=== PATIENT | female | born 1990 | race Caucasian/White ===

== ENCOUNTER 2023-07-30 12:20 | Observation (INO) | payer BC, SELFPAY ==
--- NOTE | ~2023-07-30 | US_ITS ---
EXAMINATION: US OB <=14 wk fetus w TV DATE: 07/30/2023 15:26 INDICATION: Pelvic pain during first trimester TECHNIQUE: Real-time pelvic ultrasound utilizing both a transvaginal and transabdominal probe was pe rformed. The interpreting radiologist was not present for the study. COMPARISON: None. FINDINGS: The uterus measures 9.2 x 5.1 x 5.4 cm. There is a section scar along the anterior lower jamul rine segment. 7 mm anechoic nabothian cyst at the cervix. There is an intrauterine gestational sac wi th double decidua sign and internal yolk sac but no measurable pole yet evident. The mean sac d iameter measures 1.3 cm, which correlates with an estimated gestational age of 6 weeks and 0 days. The left ovary measures 2.2 x 2.1 x 1.7 cm contains a thick-walled centrally anechoic likely corpus l uteum cyst. Vascular flow identified at the left ovary on color Doppler. The right ovary is not visua lized. There appears be a small amount of anechoic free fluid along the anterior uterus and along tomas e the left ovary. IMPRESSION: 1. Single intrauterine gestational sac with yolk sac but no discernible pole likely due to michele y stage of . 2. Gestational age by ultrasound of 6 weeks 0 day(s) +/- 4 day(s) with ultrasound estimated date of delivery (NU) of 03/24/2024. Reviewed, dictated and finalized at location A. IMPRESSION: 1. Single intrauterine gestational sac with yolk sac but no discernible p ole likely due to early stage of . 2. Gestational age by ultrasound of 6 weeks 0 day(s) +/- 4 day(s) with ultraso und estimated date of delivery (NU) of 03/24/2024.
[2023-07-30 12:24] VITALS: BP 129/83; PULSE 100; RESP 18; TEMP 36.6; O2SAT 100
[2023-07-30 12:38] LABS: Basophils Absolute Auto 0.1 K/mm3 (0.0-0.1); Basophils Percent Auto 0.5 % (0.2-1.2); Eosinophils Absolute Auto 0.1 K/mm3 (0-0.3); Eosinophils Percent Auto 0.7 % (0-4.4); Hematocrit 41.3 % (37.0-47.0); Hemoglobin 13.7 g/dL (12.0-15.0); Immature Granulocyte Absolute 0.07 K/mm3 (0.00-0.031); Immature Granulocyte Percent A 0.6 % (0-0.5); Lymphocytes Absolute Auto 3.53 K/mm3 (0.9-3.2); Lymphocytes Percent Auto 28.3 % (18.3-44.2); Mean Corpuscular HGB Conc 33.2 g/dl (32-36); Mean Corpuscular Hemoglobin 30.7 pg (26-34); Mean Corpuscular Volume 92.6 fl (80-100); Mean Platelet Volume 9.1 fl (7.4-10.4); Monocytes Absolute Auto 1.1 K/mm3 (0.1-0.6); Neutrophils Absolute Auto 7.6 K/mm3 (1.3-6.7); Neutrophils Percent Auto 60.9 % (45.5-73.1); Platelet Count Result 351 k/mm3 (150-375); Red Blood Count 4.46 M/mm3 (4.2-5.4); Red Cell Distribution Width 14.2 % (11.5-14.5); White Blood Count 12.5 K/mm3 (4.5-10.0)
[2023-07-30 12:49] LABS: Alanine Aminotransferase 43 U/L (6-35); Albumin Level 4.3 g/dL (3.5-5.1); Alkaline Phosphatase 79 U/L (38-126); Anion Gap 8 mmol/L (4-12); Aspartate Amino Transferase 34 U/L (14-36); Bilirubin,Total 0.5 mg/dL (0.2-1.3); Blood Urea Nitrogen 8 mg/dL (7-17); Carbon Dioxide 20 mmol/L (22-30); Chloride 107 mmol/L (98-107); Estimated CRCL calculation 125 ml/min; Estimated Glomerular Filt Rate > 60; Glucose 78 mg/dL (65-110); Lipase 65 U/L (23-300); Potassium 3.9 mmol/L (3.4-5.0); Sodium 135 mmol/L (137-145)
[2023-07-30 13:31] LABS: Appearance Urine Sl Cloudy (Clear); Bacteria Urine None Seen /hpf; Bilirubin Urine Negative (Negative); Blood Urine Negative (Negative); Color Urine Light Yellow (Yellow); Glucose Urine UA Negative (Negative); Ketones Urine Negative (Negative); Leukocyte Esterase Ur Negative LEU/UL (Negative); Nitrate Urine Negative (Negative); Non Pathogenic Casts 0-2; Protein Urine Negative (Negative); RBC Urine 0-2 /hpf (0-2); Squamous Epithelial Cell Urine Few /hpf (Few); Urobilinogen Urine 0.2 mg/dL (0.2-1.0); WBC Urine 0-5 /hpf (0-3)
[2023-07-30 13:34] LABS: Add Urine Microscopic? YES
--- NOTE | 2023-07-30 14:01 | ED.ABDPAIN ---
HPI - Abdominal Pain General Chief Complaint: Abdominal Pain Stated Complaint: pelvic pain Time Seen by Provider: 07/30/23 13:09 Source: patient Mode of arrival: ambulatory Limitations: no limitations History of Present Illness HPI narrative: This is a 32 year old female that presents to the ER for right sided pelvic pain. Worsening over the last couple of days. Reports the pain is sharp in nature. Worse with certain positions. Denies fever, vomiting, dysuria or hematuria. Related Data Allergies Allergy/AdvReac Type Severity Reaction Status Date / Time ketorolac [From Toradol] Allergy Difficulty Verified 07/30/23 13:33 Breathing Penicillins Allergy Rash Verified 07/30/23 13:33 Review of Systems Review of Systems: CONSTITUTIONAL: Denies fever GASTROINTESTINAL: Reports abdominal pain, nausea. Denies vomiting, or diarrhea. GENITOURINARY: Denies dysuria All systems reviewed & are unremarkable except as noted in HPI and below PMFSH Past Medical History Medical History (Updated 07/30/23 @ 17:44 by Kaitlin Owens PA-C) History of anxiety Social History Social History (Updated 07/30/23 @ 17:32 by Kaitlin Owens PA-C) Substance use: never Exam Narrative: GENERAL: Well-appearing, well-nourished, and in no acute distress. HEAD: Normocephalic, atraumatic. EYES: EOMI. CHEST: Clear to auscultation. No respiratory distress. No wheezes rales or rhonchi HEART: Regular rate and rhythm. No murmur heard. Normal peripheral pulses. ABDOMEN: Soft, nondistended, normal active bowel sounds. Tender to palpation in the right lower quadrant, without guarding EXTREMITIES: Normal range of motion. No edema. SKIN: Warm, dry, no rash. NEURO: No focal deficits. Alert and oriented x3. PSYCH: Normal mood and affect Course Course Emergency Course: patient updated on her workup and agrees with plan of care Vital Signs Vital signs: Vital Signs Temperature 97.9 F 07/30/23 12:24 Pulse Rate 100 07/30/23 12:24 Respiratory Rate 18 07/30/23 12:24 Blood Pressure 129/83 07/30/23 12:24 Pulse Oximetry 100 07/30/23 12:24 Temperature 97.9 F 07/30/23 12:24 Pulse Rate 100 07/30/23 12:24 Respiratory Rate 18 07/30/23 12:24 Blood Pressure 129/83 07/30/23 12:24 Pulse Oximetry 100 07/30/23 12:24 MDM - Abdominal Pain MDM Narrative Medical decision making narrative: Patient presents to the emergency department for right lower quadrant abdominal pain ongoing over the last couple of days. She is afebrile and nontoxic appearing. Her vitals are stable. Bedside test positive in the ED. reports her last menstrual period was in May, but she has abnormal menstrual cycles. CBC with leukocytosis to 12.5. Metabolic panel and lipase without concerning findings. Quantitative beta hCG 11, 635. UA without evidence of infection. Obstetrics ultrasound shows single intrauterine gestational sac with yolk sac, but no discernible pole. Gestational age 6 weeks. Patient with continued discomfort after Tylenol. She does continue to be tender on abdominal exam as well. Will be admitted for further observation. Spoke with Dr. Lambert about patient and workup. Patient will be kept NPO and started on IV fluids Differential Diagnosis Differential diagnosis: Likely acute appendicitis, calculus of kidney and other ( ovarian cyst rupture, ovarian torsion, ectopic ) Lab Data Attestation: I reviewed the patient's lab results. 07/30/23 12:30 07/30/23 12:30 Labs: Lab Results 07/30/23 07/30/23 Range/Units 12:30 13:20 WBC 12.5 H (4.5-10.0) K/mm3 RBC 4.46 (4.2-5.4) M/mm3 Hgb 13.7 (12.0-15.0) g/dL Hct 41.3 (37.0-47.0) % MCV 92.6 (80-100) fl MCH 30.7 (26-34) pg MCHC 33.2 (32-36) g/dl RDW 14.2 (11.5-14.5) % Plt Count 351 (150-375) k/mm3 MPV 9.1 (7.4-10.4) fl Immature Gran % (Auto) 0.6 H (0-0.5) % Neut % (Auto) 60.9
--- NOTE | 2023-07-30 15:23 | PC.NURSE ---
patient refusing IV access at this time. provider aware. will await results of US
[2023-07-30] MEDS: ACETAMINOPHEN 500 MG TABLET 1000 MG PO (16:09)
[2023-07-30] MEDS: ONDANSETRON HCL ODT 4 MG TABLET PO (16:10)
[2023-07-30] MEDS: MORPHINE SULFATE (*CRX) 2 MG/ML INJ IV PUSH ×3 (17:47→22:18)
[2023-07-30] MEDS: LACTATED RINGERS 1,000 ML 125 ML IV CONT (17:55)
[2023-07-30 18:35] VITALS: BP 126/83; PULSE 78; RESP 16; O2SAT 98
--- NOTE | 2023-07-30 18:49 | PC.NURSE ---
patient admitted with IV fluids infusing
--- NOTE | 2023-07-30 18:53 | ADMGEN ---
This patient, Kylie Marks, was admitted to 3 [facility] Surg Room 310-01. Patient/family oriented to hospital policies and general routines including ID bracelet, bed and alarms, visiting hours, pain management, procedures, bathroom and other care routines, personal items, smoking policy, room service/diet, and visiting hours. Information on how to activate the Rapid Response Team has been discussed. Patient/Family are encouraged to report perceived risks to care and to ask questions if they do not understand what they are told or what they should do.
[2023-07-30 19:55] VITALS: BP 121/86; PULSE 75; RESP 16; TEMP 37.2; O2SAT 99
[2023-07-30] MEDS: ONDANSETRON INJ 4 MG/2 ML VIAL IV PUSH ×2 (20:26→21:30)
[2023-07-30 21:34] VITALS: BMI 44.4
[2023-07-30] MEDS: CEFEPIME 2 GM/NS 50 ML 2 GM/50 ML BAG IVPB (23:53)
[2023-07-30] MEDS: metroNIDAZOLE 500 MG/ISO 100ML 500 MG/100 ML BAG 100 MG IVPB (23:53)
[2023-07-31] MEDS: MORPHINE SULFATE (*CRX) 4 MG/ML INJ IV PUSH ×2 (00:36→05:05)
[2023-07-31 04:22] VITALS: BP 98/53; PULSE 83; RESP 18; TEMP 36.1; O2SAT 99
[2023-07-31] MEDS: LACTATED RINGERS 1,000 ML 125 ML IV CONT ×2 (05:05→16:14)
--- NOTE | 2023-07-31 06:36 | PC.NURSE ---
Pt has LP shunt, brand name Zazoomm programmable valve. Patient has electronic copy of verification card on phone. Pump's pressure settings must be verified after MRI and MRI staff unsure at this time if that is something we are able to do here.
--- NOTE | 2023-07-31 07:41 | PM.IMHP ---
H&P: HPI History of Present Illness Date/Time: 07/31/23 07:41 Chief Complaint: Abdominal/pelvic pain in early Narrative: 32-year-old 011 who presented to the emergency room with right lower quadrant abdominal pain. Patient had had a dull aching pain for the past several days. Patient states she had acute exacerbation of that pain. Patient states it was a sharp pain in nature. Patient denied any aggravating or alleviating factors. Patient did complain of associated nausea patient also states she is having diarrhea prior to the onset of the pain. She denies any fevers or chills. Patient was incidentally found to be in the emergency room. Patient states this is an unplanned . Patient is 13 months from her last . Patient had an ultrasound in the emergency room which estimates her to be approximately 6 weeks . There is an intrauterine gestational sac and yolk sac but no pole mention. Some free fluid was noted within the pelvis. her pain was not resolved with p.o. medications in the emergency room. Review of Systems Review of Systems: All systems reviewed & are unremarkable except as noted in HPI and below PMFSH Past Medical History Medical History (Updated 07/31/23 @ 07:46 by Manuel Lambert MD) History of anxiety Social History Social History (Updated 07/30/23 @ 17:32 by Kaitlin Owens PA-C) Smoking status: Never smoker Alcohol intake: current Substance use: current Substance use type: marijuana Other substance usage details: gummies for sleep Do You Feel Safe in your Home?: Yes Lack of Transportation: No Lack of Food: Never True Current Housing: I Have Housing Concerned About Future Housing: No Difficulty Paying Gas/Electric Bills: No Difficulty Paying for Meds: No Currently Unemployed: No Education: Associate Degree Difficulty w/ Childcare or Family Care: No Spiritual care concerns: No Meds Home Medications and Allergies Home Medications Medication Instructions Recorded Confirmed Type No Home Medications 07/30/23 07/30/23 History Allergies Allergy/AdvReac Type Severity Reaction Status Date / Time ketorolac [From Toradol] Allergy Difficulty Verified 07/30/23 13:33 Breathing Penicillins Allergy Rash Verified 07/30/23 13:33 Vital Signs Vital Signs - 24 hr 07/30/23 12:24 07/30/23 18:35 03/27/24 18:35 Temperature 97.9 F Pulse Rate 100 78 Respiratory Rate 18 16 Blood Pressure 129/83 126/83 Pulse Oximetry 100 98 Oxygen Delivery 07/30/23 19:58 07/30/23 19:55 07/31/23 04:22 Temperature 99 F 97 F L Pulse Rate 75 83 Respiratory Rate 16 18 Blood Pressure 121/86 98/53 L Pulse Oximetry 99 99 Oxygen Delivery Room Air Exam Const: General: cooperative, comfortable and no acute distress Resp: Effort & Inspection: normal respiratory effort and able to speak in complete sentences Cardio: Rate: regular rate Rhythm: regular rhythm GI: Inspection: normal to inspection GI Palp: Yes abdominal tenderness and Yes Soft to palpation H&P: Results Labs Labs: Short CBC 07/30/23 Range/Units 12:30 WBC 12.5 H (4.5-10.0) K/mm3 Hgb 13.7 (12.0-15.0) g/dL Hct 41.3 (37.0-47.0) % Plt Count 351 (150-375) k/mm3 BMP 07/30/23 12:30 Sodium 135 L Potassium 3.9 Chloride 107 Carbon Dioxide 20 L BUN 8 Creatinine 0.60 L Glucose 78 Calcium 9.0 Liver Function 07/30/23 Range/Units 12:30 Total Bilirubin 0.5 (0.2-1.3) mg/dL AST 34 (14-36) U/L ALT 43 H (6-35) U/L Alkaline Phosphatase 79 (38-126) U/L Albumin 4.3 (3.5-5.1) g/dL Urine 07/30/23 Range/Units 13:20 Urine Color Light yellow (Yellow) Urine Appearance Sl cloudy A (Clear) Urine pH 6.0 (5.0-8.0) Ur Specific Wentworth 1.020 (1.010-1.020) Urine Protein Negative (Negative) Urine Glucose (UA) Negative (Negative) Assessm
[2023-07-31] MEDS: metroNIDAZOLE 500 MG/ISO 100ML 500 MG/100 ML BAG 100 MG IVPB ×2 (08:20→16:15)
[2023-07-31] MEDS: ONDANSETRON INJ 4 MG/2 ML VIAL IV PUSH (08:20)
[2023-07-31 08:25] VITALS: BP 117/84; PULSE 84; RESP 18; TEMP 36.2; O2SAT 95
[2023-07-31 08:58] LABS: Basophils Percent Auto 0.5 % (0.2-1.2); Eosinophils Absolute Auto 0.1 K/mm3 (0-0.3); Eosinophils Percent Auto 0.6 % (0-4.4); Hemoglobin 12.7 g/dL (12.0-15.0); Immature Granulocyte Absolute 0.02 K/mm3 (0.00-0.031); Immature Granulocyte Percent A 0.3 % (0-0.5); Lymphocytes Absolute Auto 1.67 K/mm3 (0.9-3.2); Lymphocytes Percent Auto 21.6 % (18.3-44.2); Mean Corpuscular HGB Conc 32.6 g/dl (32-36); Mean Corpuscular Hemoglobin 30.2 pg (26-34); Mean Corpuscular Volume 92.9 fl (80-100); Mean Platelet Volume 9.4 fl (7.4-10.4); Monocytes Absolute Auto 0.6 K/mm3 (0.1-0.6); Monocytes Percent Auto 7.3 % (2.6-8.5); Neutrophils Absolute Auto 5.4 K/mm3 (1.3-6.7); Neutrophils Percent Auto 69.7 % (45.5-73.1); Platelet Count Result 284 k/mm3 (150-375); Red Cell Distribution Width 14.1 % (11.5-14.5); White Blood Count 7.7 K/mm3 (4.5-10.0)
[2023-07-31 09:26] LABS: Anion Gap 6 mmol/L (4-12); Blood Urea Nitrogen 7 mg/dL (7-17); Calcium 8.4 mg/dL (8.4-10.2); Carbon Dioxide 22 mmol/L (22-30); Chloride 104 mmol/L (98-107); Estimated CRCL calculation 126 ml/min; Estimated Glomerular Filt Rate > 60; Glucose 94 mg/dL (65-110); Potassium 3.8 mmol/L (3.4-5.0); Sodium 132 mmol/L (137-145)
[2023-07-31] MEDS: MORPHINE SULFATE (*CRX) 2 MG/ML INJ IV PUSH (09:39)
--- NOTE | 2023-07-31 10:37 | PM.CNGS ---
Assessment and Plan Assessment and plan (1) Acute right lower quadrant pain: Code(s): R10.31 - Right lower quadrant pain Status: Acute Assessment and Plan: The patient presents with about a 3 week history of cramping right pelvic pain that acutely worsened about 2 days ago. She was found to be 6 weeks gestation on admission due to a positive test in the ER. She does have RLQ tenderness with guarding on exam, and certainly acute appendicitis is a possible etiology for her pain. There are also other etiologies, such as a ruptured ovarian cyst, pelvic inflammatory disease, gastroenteritis, or other possibilities. 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 Her WBC count has come down to normal today, but she continues to have pain this morning that is being controlled with analgesics. I discussed with the patient that typical treatment options for appendicitis include surgery or nonoperative management with antibiotics and monitoring. It would be reasonable at this time to continue with IV antibiotics to cover for acute appendicitis and closely monitor her with labs and serial abdominal exams for now. We will allow her to have a diet today and make her NPO after midnight tomorrow until she is re-evaluated. Will repeat her labs tomorrow morning. Further plan depending on how she progresses. (2) Leukocytosis: Code(s): D72.829 - Elevated white blood cell count, unspecified Status: Acute Assessment and Plan: WBC 12,500 on admission and repeat labs today show a normal WBC count, no left shift. (3) Intrauterine : Code(s): Z34.90 - Encounter for supervision of normal , unspecified, unspecified trimester Status: Acute Assessment and Plan: Incidental positive urine test in the ER. OB Ultrasound showed 6 weeks gestational age. Plan I have discussed the patient's case and plan of care with Dr. Curiel. History of Present Illness Consult details Consult date: 07/31/23 Reason for consult: other (Possible appendicitis) Requesting physician: Manuel Lambert MD Narrative: This is a 32-year-old woman who we have been asked to see in surgical consultation for RLQ abdominal pain, possible appendicitis. She presented to the ER yesterday for evaluation of right pelvic pain. She reports having mild cramping pain intermittently over the past 3 weeks. When describing her pain, she points mostly towards her right groin where the pain is located. About 2 days ago, her pain became more sharp and severe. The pain is worse with certain positions and movement. She reports nausea, but no vomiting, fever, or chills. She reports having chronic nausea and anxiety that she has dealt with for many years. She also endorses a few days of diarrhea leading up to the change in her abdominal pain. In the ER, labs showed a white blood cell count of 12,500. She was found to have an incidental positive urine test in the ER. She reports having irregular menstrual cycles over the past year after delivering her first child, so she had taken a test about 2 weeks ago that was negative. Obstetric ultrasound showed a single intrauterine gestational sac with yolk sac, and gestational age by ultrasound of 6 weeks. Also noted on ultrasound is likely a left ovarian cyst as well as a small amount of free fluid along the anterior uterus and left ovary. She was admitted and started on IV antibiotics. MRI was initially ordered, but patient has a SALES PROMOTION MANAGER shunt that would need to be re-programmed after the MRI by a neurosurgeon. When seen this morning, her abdominal pain had improved and the MRI was cancelled. She is now seen on the medical floor. She reports feeling better this morning, but after getting up to the chair and walking to the bathroom, her abdominal pain got worse again and she received IV Morphine, which jacobsen
[2023-07-31] MEDS: CEFEPIME 2 GM/NS 50 ML 2 GM/50 ML BAG IVPB (11:47)
[2023-07-31 14:00] VITALS: BP 121/89; PULSE 89; RESP 18; TEMP 36.6; O2SAT 97
--- NOTE | 2023-08-01 08:30 | PM.GYNPNOP ---
SLEEVE PRESSER OPERATOR - A/P Assessment and plan (1) Acute right lower quadrant pain: Code(s): R10.31 - Right lower quadrant pain Status: Acute Assessment and Plan: Pt was admitted for observation and pain management of acute RLQ she was incidentally found to be pt was admitted for conservative management of suspected appendicitis. pt requested to leave AMA overnight. (2) Intrauterine : Code(s): Z34.90 - Encounter for supervision of normal , unspecified, unspecified trimester Status: Acute Time Spent With Patient Time: Total time spent is greater than 50% in coordination of care (as documented) at patient's floor/unit and/or counseling patient: Time with patient: less than 15 minutes SLEEVE PRESSER OPERATOR- PN:Subj Post-Op Subjective Date/time seen: 08/01/23 08:30 Interval history: Pt was not willing to stay for further observation. Pt requested to leave AMA. SLEEVE PRESSER OPERATOR - PN: Obj Data Vital Signs Vital Signs: Vital Signs - 24 hr 07/31/23 14:00 Temperature 97.9 F Pulse Rate 89 Respiratory Rate 18 Blood Pressure 121/89 Pulse Oximetry 97 Intake/Output Intake/Output: Intake & Output 07/29/23 07/30/23 07/31/23 08/01/23 23:59 23:59 23:59 23:59 Intake Total 100 3775 Balance 100 3775 Meds/Results Radiology Results: ITS Impressions Obstetrics Ultrasound 07/30/23 15:37 IMPRESSION: 1. Single intrauterine gestational sac with yolk sac but no discernible pole likely due to early stage of . 2. Gestational age by ultrasound of 6 weeks 0 day(s) +/- 4 day(s) with ultrasound estimated date of delivery (NU) of 03/24/2024. Labs 07/31/23 08:46 07/31/23 08:46 Labs: Laboratory Results - last 24 hr 07/31/23 08:46 WBC 7.7 RBC 4.20 Hgb 12.7 Hct 39.0 MCV 92.9 MCH 30.2 MCHC 32.6 RDW 14.1 Plt Count 284 MPV 9.4 Immature Gran % (Auto) 0.3 Neut % (Auto) 69.7 Lymph % (Auto) 21.6 Amador % (Auto) 7.3 Eos % (Auto) 0.6 Baso % (Auto) 0.5 Lymph # (Auto) 1.67 Amador # (Auto) 0.6 Eos # (Auto) 0.1 Baso # (Auto) 0.0 Abs Immat Gran (auto) 0.02 Absolute Neuts (auto) 5.4 Absolute Nucleated RBC 0.000 Nucleated RBC % 0.0 Sodium 132 L Potassium 3.8 Chloride 104 Carbon Dioxide 22 Anion Gap 6 L BUN 7 Creatinine 0.60 L Estim Creat Clear Calc 126 Estimated GFR > 60 Glucose 94 Calcium 8.4
== END 2023-07-31 19:25 | disposition left against medical advice (07) ==
LOC: ANHED 17:44 → ANHLDR 17:57 → ANH3MEDSUR 18:39
PROVIDERS: Emergency Medicine; Nurse Practitioner Family; Admitting Provider Student in an Organized Health Care Education/Training Program; Emergency Provider Physician Assistant; Visit Provider Student in an Organized Health Care Education/Training Program
DX: R10.31 Right lower quadrant pain (principal); D72.829 Elevated white blood cell count, unspecified; R11.0 Nausea; F12.90 Cannabis use, unspecified, uncomplicated; Z33.1 Pregnant state, incidental
CPT/HCPCS: 36415; 76801; 76817; 80048; 80053; 81001; 81025; 83690; 84702; 85025; 96361; 96365; 96366; 96368; 96375; 96376; 99285; A9270; G0378; J0692; J1836; J2270; J2405; J7120

== ENCOUNTER 2025-01-31 10:54 | Emergency (ER) | payer BC, SELFPAY ==
[2025-01-31] VITALS (11 sets, daily range): BP systolic 88–144; BP diastolic 57–101; PULSE 72–120; RESP 14–29; TEMP 36.6; O2SAT 98–100
--- NOTE | ~2025-01-31 | XR_ITS ---
EXAMINATION: XR chest 2V, 01/31/2025 12:20 CDT HISTORY: chest pain COMPARISON: No comparisons available. Technique: 2 views obtained. Findings: The lungs are clear, no effusion. No pneumothorax. Heart is normal size. Mediastinal and hilar contours are within normal limits. Bony thorax no acute abnormality. Impression: No acute cardiopulmonary abnormality. Reviewed, dictated and finalized at location P. Impression: No acute cardiopulmonary abnormality.
--- NOTE | ~2025-01-31 | CT_ITS ---
EXAMINATION: CTA chest PE protocol DATE: 01/31/2025 13:47 INDICATION: Chest pain. TECHNIQUE: Computed tomography angiography (CTA) of the chest was performed with 100 mL Omnipaque-350 intravenous contrast timed to evaluate the pulmonary arteries. Coronal maximum intensity projection 3D-reconstructions were created by the technologist. Automated exposure control and iterative reconstruction technique were employed. The dose-length product was 550.10 mGy-cm. COMPARISON: None. FINDINGS: The lungs demonstrate mild atelectasis. A calcified right lung nodule is consistent with old granulomatous disease. No pleural effusion. The heart size is normal. No pericardial effusion. There is no pulmonary embolus. There is diffuse hepatic steatosis. Partially visualizes a catheter in the peritoneum. Partially visualized is an intrathecal catheter. There is mild thoracic spondylosis. IMPRESSION: 1. No pulmonary embolus. 2. Diffuse hepatic steatosis. Reviewed, dictated and finalized at location E.
--- NOTE | 2025-01-31 10:57 | ECG_ITS ---
Test Date: 2025-01-31 11:02:43 Measurements Intervals [place] Rate: 112 P: 41 NE: 133 QRS: 5 QRSD: 80 T: 19 QT: 316 QTc: 432 Interpretive Statements SINUS TACHYCARDIA WITH OCCASIONAL VENTRICULAR PREMATURE COMPLEXES POSSIBLE LEFT ATRIAL ENLARGEMENT [-0.1mV P WAVE IN V1/V2] ABNORMAL RHYTHM ECG No previous ECG available for comparison Electronically Signed On 01-31-2025 11:13:37 CDT by Yanique Mccain M.D.
[2025-01-31 11:28] LABS: Hematocrit 40.8 % (37.0-47.0); Hemoglobin 13.8 g/dL (12.0-15.0); Immature Granulocyte Percent A 0.3 % (0-0.5); Lymphocytes Absolute Auto 2.84 K/mm3 (0.9-3.2); Mean Corpuscular HGB Conc 33.8 g/dl (32-36); Mean Corpuscular Hemoglobin 29.8 pg (26-34); Mean Corpuscular Volume 88.1 fl (80-100); Nucleated Red Blood Cells Absolute Auto 0.000 K/mm3 (0.0-0.012); Nucleated Red Blood Cells Perc 0.0 % (0.0-0.2); Platelet Count Result 393 k/mm3 (150-375); Red Blood Count 4.63 M/mm3 (4.2-5.4); White Blood Count 10.1 K/mm3 (4.5-10.0)
--- OUTSIDE RECORDS SUMMARY | 2025-01-31 11:36 | XMS_ITS | Encounter Summary ---
Author Organization [facility] Address [address] [place] [address] Care Team Providers Care Ticket Machine Operator Name Role Phone Gilmar Galvan MD Primary Care Provider Encounter Details Date Type Department Care Team (Late Contact Info) Description 07/28/2019 Digital Self COVID-1 9 Screening [facility] ABSTRACTION Provider, Abstract NO ADDRESS ON FILE Social History Tobacco Use Types Packs/Day Years Used Date Smoking Tobacco: Never Smokeless Tobacco: Never Alcohol Use Standard Drinks/Week Comments Yes 1 (1 standard drink = 0.6 oz pur e alcohol) vary rare social use Comments No Sex and Gender Information Value Date Recorded Sex Assigned at Not on file Legal Sex Female 3:13 AM EXPERIENCE DESIGNER Gender Identity Not on file Sexual Orientation Not on file Occupation Industry Job Start Date Job End Date Not on file Not on file Not on file Not on file COVID-19 Exposure Response Date Recorded In the last month, have you been in contact with someone who was confirmed or suspected to have Coronavirus / COVID-19? Yes 07/29/2019 7:52 AM CDT documented as of this encounter Plan of Treatment Upcoming Encounters Date Type Department Care Team (Late Contact Info) Description 02/03/2025 2:30 PM CDT Office Visit [facility] [employer]ODU[facility] - Medical [facility] [address] [place] [phone] Casandra Major MD [address] [place] [id number] 03/02/2025 8:00 AM CDT Video Visit [facility] [address] [place] [address] Priscilla Vera NP [address] [place] [address] documented as of this encounter Visit Diagnoses Not on filedocumented in this encounter Additional Health Concerns Infection Onset Date Last Indicated Resolved Time R/O COVID-19 07/30/2019 07/30/2019 08/04/2019 6:05 AM CDT R/O Respiratory 05/12/2022 05/12/2022 05/12/2022 4 :27 PM EXPERIENCE DESIGNER R/O C. diff 03/11/2024 03/11/2024 03/11/2024 12:4 6 PM EXPERIENCE DESIGNER C Diff 03/11/2024 03/11/2024 05/10/2024 1:16 AM EXPERIENCE DESIGNER Assessment Noted Time PHQ-9 Depression Total Score: 1 03/25/20 19 3:00 PM EXPERIENCE DESIGNER documented as of this encounter Care Teams Ticket Machine Operator Relationship Specialty Start Date End Date Gilmar Galvan MD [address] [place] [address] PCP - General Family Practice 12/09/18 documented as of this encounter
--- OUTSIDE RECORDS SUMMARY | 2025-01-31 11:36 | XMS_ITS | Encounter Summary ---
Author Organization [facility] Address [address] [place] [address] Care Team Providers Care Non Destructive Testing Supervisor Name Role Phone Gilmar Galvan MD Primary Care Provider Encounter Details Date Type Department Care Team (Late st Contact Info) Description 08/13/2006 Outpatient Historical [facility] [address] [address] [place] [address] [place] [address] Social History Tobacco Use Types Packs/Day Years Used Date Smoking Tobacco: Never Assessed Comments Unknown Sex and Gender Information Value Date Recorded Sex Assigned at Not on file Legal Sex Female 3:13 AM MANAGEMENT SPECIALIST Gender Identity Not on file Sexual Orientation Not on file documented as of this encounter Plan of Treatment Upcoming Encounters Date Type Department Care Team (Late st Contact Info) Description 02/03/2025 2:30 PM CDT Office Visit [facility] GUARDIAN FAMILY MEMBER - Medical [place] [address] [place] [address] Casandra Major MD [address] [place] [address] 03/02/2025 8:00 AM CDT Video Visit [facility] [address] [place] [address] Priscilla Vera NP [address] [place] [address] documented as of this encounter Visit Diagnoses Not on filedocumented in this encounter Additional Health Concerns Infection Onset Date Last Indicated Resolved Time R/O COVID-19 07/30/2019 07/30/2019 08/04/2019 6:05 AM CDT R/O Respiratory 05/12/2022 05/12/2022 05/12/2022 4 :27 PM MANAGEMENT SPECIALIST R/O C. diff 03/11/2024 03/11/2024 03/11/2024 12:4 6 PM MANAGEMENT SPECIALIST C Diff 03/11/2024 03/11/2024 05/10/2024 1:16 AM MANAGEMENT SPECIALIST documented as of this encounter Care Teams Non Destructive Testing Supervisor Relationship Specialty Start Date End Date Gilmar Galvan MD [address] [place] [address] PCP - General Family Practice 12/09/18 documented as of this encounter
--- OUTSIDE RECORDS SUMMARY | 2025-01-31 11:36 | XMS_ITS | Clinical Summary ---
Author Organization [facility] Administrative Offices Address [address] [place] [address] Care Team Providers Care [facility] Supervisor Name Role Phone Gilmar Galvan MD Primary Care Provider Allergies Active Allergy Reactions Criticality Noted Date Comments Clonazepam Diarrhea Low 11/29/2022 Ketorolac Tromethamine Shortness of Breath/Wheezing High 07/16/2010 Penicillins Rash Low 03/01/2009 Medications FLUoxetine (PROzac) 40 mg capsuleIndicat ions:ESTHER (generalized anxiety disorder) Take 1 Capsule (40 mg) by mouth daily. 60 Capsule 1 08/25/19 25 Active hydrOXYzine HCL (ATARAX) 50 mg tablet Take 50 mg by mouth 3 times daily as needed for Anxiety. Active venlafaxine (Effexor XR) 37.5 mg Extended Release 24 hour capsuleIndicat ions:ESTHER (generalized anxiety disorder) Take 1 Capsule (37.5 mg) by mouth daily. 30 Capsule 1 01/20/20 25 Active traZODone (DESYREL) 50 mg tablet Take 50 mg by mouth daily at bedtime. 01/25/20 25 Active ALPRAZolam (Xanax) 0.25 mg tabletIndicati ons:ESTHER (generalized anxiety disorder) Take 1 Tablet (0.25 mg) by mouth 1 time daily as needed for Anxiety. 10 Tablet 01/28/20 25 Active ALPRAZolam (Xanax) 0.25 mg tabletIndicati ons:ESTHER (generalized anxiety disorder) Take 1 Tablet (0.25 mg) by mouth 3 times daily as needed for Anxiety. 20 Tablet 04/27/20 24 025 Discontinued ALPRAZolam (Xanax) 0.25 mg tabletIndicati ons:ESTHER (generalized anxiety disorder) Take 1 Tablet (0.25 mg) by mouth 1 time daily as needed for Anxiety. 10 Tablet 05/06/19 25 025 Discontinued ALPRAZolam (Xanax) 0.25 mg tabletIndicati ons:ESTHER (generalized anxiety disorder) Take 1 Tablet (0.25 mg) by mouth 1 time daily as needed for Anxiety. 10 Tablet 01/21/20 25 025 Discontinued(Re order) Active Problems Problem Noted Date Diagnosed Date rLTCS 03/15 Girl Shae SH 03/15/2024 C. difficile colitis 03/12/2024 Vaginal discharge in in third trimeste r 02/20/2024 Gestational diabetes mellitus, class A2 02/20/20 24 pLTCS for AOD, (06/17) boy David circ done, - KG 06/18/2022 Threatened labor, third trimester 2022 Uterine contractions during 05/28/2022 Gestational diabetes mellitus, class A1 05/28/19 23 Infectious gastroenteritis- positive c difficle 12/30/2021 Hydronephrosis 12/24/2021 Fatigue 12/07/2020 Overview (12/07/2020): -Fatigue - feels very tired throughout the day. Work has been very stressful recently. Thinks she is bruising more easily over the past few months, bruises on arms and legs, fairly small. No abdominal bruising. -no temperature intolerance, no hair thinning or brittle nails. Assessment & Plan (12/07/2020 11:19 AM CDT): -Fatigue - feels very tired throughout the day. Work has been very stressful recently. Thinks she is bruising more easily over the past few months, bruises on arms and legs, fairly small. No abdominal bruising. -no temperature intolerance, no hair thinning or brittle nails. -labs as below ESTHER (generalized anxiety disorder) 02/18/2019 Overview (08/24/2024): Anxiety - At visit on 02/18/19 pt reports anxiety is a chronic issue, acutely worse over past few months. Was on lexapro in ~2011, did not think it was very helpful. Does not feel depressed, state she is super anxious. Manifests as easy irritation, emotionally labile, not sleeping well, appetite is normal. -at f/u on 03/25/19 pt reports moderate improvement since starting buspirone 10mg qd on 02/18/19. Feels the buspirone is very helpful. Anxiety seems worst in the late afternoon before she takes the second buspirone dose. Started meditation, does not feel it is very helpful. -denies any side effects. -09/15/19 - Anxiety has steadily worsened over the past two months. Taking buspirone 15mg BID PRN, typically 1-2x daily. Thinks change related to the pandemic is main stressor. Difficulty sleeping, easily irritated. -03/08/20 - anxiety has not been well controlled. Stopped lexapro ~ 01/18/20 because she felt it made her gain weight, thinks mood improved mildly when she was taking it. Stopped buspirone 15mg BID ~10/2019. -06/27/20 - Doing Ok, feels like the wellbutrin is really working. -Taking wellbutrin 150mg qd. Has been off lexapro 10mg qd since ~01/18/20 and off buspirone 15mg BID since ~10/2019. -12/07/20 -Feels mood is well controlled with Wellbutrin XL 150 mg daily. -08/16/21 - mood has been terrible for the past 1-2 months, lots of personal stress recently. super anxious and zero energy, easily irritated. Sleep is OK, maybe sleeps too much. Frequent panic attacks in the past month. I feel like I cant breathe and start crying out of nowhere. -Taking wellbutrin XL 150mg qd 08/20/21- did not tolerate lorazepam (nausea), switched to PRN alprazolam -rx for 20 tablets of alprazolam on 08/20/21 -refilled 20 tablets on 09/10/21, and again on 09/26/21 - will not refill without in person office visit and only if strong indication. 08/09/22- mood is OK. Has a 7 week old baby boy (first child), feels stress levels are OK. Takes wellbutrin [id number] qd -10/23/22 - pt reports she is doing ok, I finally feel like things are getting back to normal. Taking fluoxetine 20mg qd. 11/13/22 - takes fluoxetine 20mg BID, feels this controls symptoms well. 12/06/22 - established care with a psychiatrist, Dr. Carrero. takes fluoxetine 60mg qd and wellbutrin 150mg qd. Has rx for ativan 1mg BID PRN. Pt feels her mood is well controlled,. Im going good. -stopped seeing her psychiatrist, Dr. Carrero ~04/2023. -stopped fluoxetine and wellbutrin ~06/2024. Did not like the way these medications made her feel -states - it is difficult to be present for my kids -08/24/24 - mood is not well controlled. High stress recently - more responsible at work with recent promotion and closing on a house in the next 2 week or so. Emotionally labile. Has tried exercising regularly, journaling. Assessment & Plan (08/24/2024 11:57 AM CDT): -start counseling, resources provided -restart fluoxetine but at 40mg once daily Assessment & Plan (12/06/2022 10:08 AM CDT): established care with a psychiatrist, Dr. Carrero. takes fluoxetine 60mg qd and wellbutrin 150mg qd. Has rx for ativan 1mg BID PRN. Pt feels her mood is well controlled,. Im going good -Stable. Continue current med regimen -management per psychiatry Assessment & Plan (10/23/2022 2:14 PM CDT): -10/23/22 - pt reports she is doing ok, I finally feel like things are getting back to normal. Taking fluoxetine 20mg qd. -has an appt with a psychiatrist (Dr. Carrero) 11/25/2022 -Stable. Continue current med regimen Assessment & Plan (08/09/2022 10:56 AM CDT): 08/09/22- mood is OK. Has a 7 week old baby boy (first child), feels stress levels are OK. Takes wellbutrin [id number] qd -Stable. Doing well overall. Continue current med regimen Assessment & Plan (08/16/2021 3:52 PM CDT): -08/16/21 - mood has been terrible for the past 1-2 months, lots of personal stress recently. super anxious and zero energy, easily irritated. Sleep is OK, maybe sleeps too much. Frequent panic attacks in the past month. I feel like I cant breathe and start crying out of nowhere. -Taking wellbutrin XL 150mg qd -Significantly worsening mood/anxiety over the past 4 to 6 weeks. -Continue with Wellbutrin XL 150 mg daily -Start sertraline 50 mg daily -Rx for Ativan 0.5 mg, 20 tablets. Reviewed appropriate use with patient. This would not be a chronic medication -Recommended patient start seeing a counselor, patient agreeable to this. Resources provided. Assessment & Plan (12/07/2020 11:18 AM CDT): Anxiety - At visit on 02/18/19 pt reports anxiety is a chronic issue, acutely worse over past few months. Was on lexapro in ~2011, did not think it was very helpful. Does not feel depressed, state she is super anxious. Manifests as easy irritation, emotionally labile, not sleeping well, appetite is normal. -at f/u on 03/25/19 pt reports moderate improvement since starting buspirone 10mg qd on 02/18/19. Feels the buspirone is very helpful. Anxiety seems worst in the late afternoon before she takes the second buspirone dose. Started meditation, does not feel it is very helpful. -denies any side effects. -09/15/19 - Anxiety has steadily worsened over the past two months. Taking buspirone 15mg BID PRN, typically 1-2x daily. Thinks change related to the - pandemic is main stressor. Difficulty sleeping, easily irritated. -03/08/20 - anxiety has not been well controlled. Stopped lexapro ~ 01/18/20 because she felt it made her gain weight, thinks mood improved mildly when she was taking it. Stopped buspirone 15mg BID ~10/2019. -06/27/20 - Doing Ok, feels like the wellbutrin is really working. -Taking wellbutrin 150mg qd. Has been off lexapro 10mg qd since ~01/18/20 and off buspirone 15mg BID since ~10/2019. -12/07/20 -Feels mood is well controlled with Wellbutrin XL 150 mg daily. -Stable. Continue current med regimen Assessment & Plan (06/27/2020 9:18 AM SHORTS SIFTER): Anxiety - At visit on 02/18/19 pt reports anxiety is a chronic issue, acutely worse over past few months. Was on lexapro in ~2011, did not think it was very helpful. Does not feel depressed, state she is super anxious. Manifests as easy irritation, emotionally labile, not sleeping well, appetite is normal. -at f/u on 03/25/19 pt reports moderate improvement since starting buspirone 10mg qd on 02/18/19. Feels the buspirone is very helpful. Anxiety seems worst in the late afternoon before she takes the second buspirone dose. Started meditation, does not feel it is very helpful. -denies any side effects. -09/15/19 - Anxiety has steadily worsened over the past two months. Taking buspirone 15mg BID PRN, typically 1-2x daily. Thinks change related to the pandemic is main stressor. Difficulty sleeping, easily irritated. -03/08/20 - anxiety has not been well controlled. Stopped lexapro ~ 01/18/20 because she felt it made her gain weight, thinks mood improved mildly when she was taking it. Stopped buspirone 15mg BID ~10/2019. -06/27/20 - Doing Ok, feels like the wellbutrin is really working. -Taking wellbutrin 150mg qd. Has been off lexapro 10mg qd since ~01/18/20 and off buspirone 15mg BID since ~10/2019. -Stable. Continue current med regimen Assessment & Plan (03/08/2020 2:41 PM SHORTS SIFTER): Anxiety - At visit on 02/18/19 pt reports anxiety is a chronic issue, acutely worse over past few months. Was on lexapro in ~2011, did not think it was very helpful. Does not feel depressed, state she is super anxious. Manifests as easy irritation, emotionally labile, not sleeping well, appetite is normal. -at f/u on 03/25/19 pt reports moderate improvement since starting buspirone 10mg qd on 02/18/19. Feels the buspirone is very helpful. Anxiety seems worst in the late afternoon before she takes the second buspirone dose. Started meditation, does not feel it is very helpful. -denies any side effects. -09/15/19 - Anxiety has steadily worsened over the past two months. Taking buspirone 15mg BID PRN, typically 1-2x daily. Thinks change related to the - pandemic is main stressor. Difficulty sleeping, easily irritated. -03/08/20 - anxiety has not been well controlled. Stopped lexapro ~ 01/18/20 because she felt it made her gain weight, thinks mood improved mildly when she was taking it. Stopped buspirone 15mg BID ~10/2019. -start wellbutrin XL 150mg qd -f/u in 1 month, sooner if needed Assessment & Plan (09/15/2019 3:38 PM CDT): Anxiety - At visit on 02/18/19 pt reports anxiety is a chronic issue, acutely worse over past few months. Was on lexapro in ~2011, did not think it was very helpful. Does not feel depressed, state she is super anxious. Manifests as easy irritation, emotionally labile, not sleeping well, appetite is normal. -at f/u on 03/25/19 pt reports moderate improvement since starting buspirone 10mg qd on 02/18/19. Feels the buspirone is very helpful. Anxiety seems worst in the late afternoon before she takes the second buspirone dose. Started meditation, does not feel it is very helpful. -denies any side effects. -09/15/19 - Anxiety has steadily worsened over the past two months. Taking buspirone 15mg BID PRN, typically 1-2x daily. Thinks change related to the - pandemic is main stressor. Difficulty sleeping, easily irritated. -continue busipirone for now -start lexapro 10mg qd, f/u in 1-2 months, sooner if needed -can taper off buspirone after 1-2 months of lexapro Assessment & Plan (03/25/2019 3:27 PM SHORTS SIFTER): Anxiety - At visit on 02/18/19 pt reports anxiety is a chronic issue, acutely worse over past few months. Was on lexapro in ~2011, did not think it was very helpful. Does not feel depressed, state she is super anxious. Manifests as easy irritation, emotionally labile, not sleeping well, appetite is normal. -at f/u on 03/25/19 pt reports moderate improvement since starting buspirone 10mg qd on 02/18/19. Feels the buspirone is very helpful. Anxiety seems worst in the late afternoon before she takes the second buspirone dose. Started meditation, does not feel it is very helpful. -denies any side effects. -increase buspirone from 10mg BID to 15mg BID. Pt would like to avoid TID dosing if possible -f/u in 3 months, sooner if needed -can consider adding SSRI if still not well controlled Assessment & Plan (02/18/2019 12:00 PM CDT): Anxiety - At visit on 02/18/19 pt reports anxiety is a chronic issue, acutely worse over past few months. Was on lexapro in ~2011, did not think it was very helpful. Does not feel depressed, state she is super anxious. Manifests as easy irritation, emotionally labile, not sleeping well, appetite is normal. -Start buspirone, taper the 10 mg twice daily -Follow-up in 1 month, sooner if needed -start meditation, headspace bryanna Attention deficit hyperactiv ity disorder (ADHD), combined type 12/09/2018 Overview (12/06/2022): ADHD - diagnosed ~age 16 by her previous PCP. No formal testing. Pt reports she was taking adderall XR 30mg qd, felt this worked well for her. Previous PCP (Chuck Avalos MD) retired and pt decided to try stopping stimulant medication when he retired. States her ability to focus and perform at work decreased significantly when she was not taking adderall. -Review of [facility] on 12/09/18 showed last refill for adderall was on 09/08/18 from an rx written 07/14/18 for 120 capsules of dextroamphetamine ER 10mg. Unclear why this did not show 30mg tablets, pt states she has never taken 10mg tablets of adderall 03/08/20 - ADHD is well controlled. Takes adderall XR 30mg qd. Denies any appetite suppression or palpitations. -At follow-up on 02/18/19 patient reports she stopped taking Adderall X 30mg around 02/11/2019 because she felt it made her feel jittery. She reports her ability to focus has significant worsened since stopping Adderall. She would like to restart that at a much lower dose. -At f/u on 03/25/19 pt reports symptoms improved with adderall XR 20mg qd (started 02/18/19) but it is not working well enough. She would like to return to the 30 mg dose she was taking prior to stopping. -06/27/20 - symptoms are reasonably well controlled with adderall XR 30mg qd but feels like the effects wear off ~2pm every day. Takes adderall XR ~7:30am. Denies any palpitations or appetite suppression. -12/07/20 -symptoms are reasonably well controlled with Adderall XR 30 mg every morning and Adderall 5 mg every afternoon. Denies any palpitations or appetite suppression. -08/09/22 - symptoms are well controlled with adderall XR 30mg qd and adderall IR 5mg qpm. Has not had adderall XR 30mg for a few weeks due to supply issues. Denies any palpitations or appetite suppression. Sleeping reasonably well 10/23/22 - Taking adderall XR 30mg qd and adderall IR 5mg qd. Reports she feels shakiness after taking the 30mg tablet; feels jittery with mild hand shaking. 11/07/22- did not tolerate the lower dose of adderall XR (20mg qd), still had jitteriness and did not think it was very effective. Stop XR formulation of adderall. Increase IR adderall dose from 5mg qd to 10mg BID. -f/u in one month -12/06/22 - ADHD symptoms are a struggle, it just takes more time to get things done. - Stopped adderall completely 11/2022. This ws making her too jittery/agitated and easily irritated. Her psychiatrist is Dr. Carrero who agreed with plan to stop stimulant therapy. Taking adderall IR 10mg BID -Reports symptoms of ADHD: -Inattention: fails to give close attention to details or makes careless mistakes in school, has difficulty sustaining attention in tasks or play activities, has difficulty organizing tasks and activities, loses things that are necessary for tasks and activities, is easily distracted by extraneous stimuli -Impulsivity: blurts out answers before questions have been completed, interrupts or intrudes on others -Hyperactivity: None Assessment & Plan (12/06/2022 10:07 AM CDT): -12/06/22 - ADHD symptoms are a struggle, it just takes more time to get things done. - Stopped adderall completely 11/2022. This ws making her too jittery/agitated and easily irritated. Her psychiatrist is Dr. Carrero who agreed with plan to stop stimulant therapy. Taking adderall IR 10mg BID --stable. Will defer management to her psychiatrist. Assessment & Plan (10/23/2022 2:14 PM CDT): 10/23/22 - Taking adderall XR 30mg qd and adderall IR 5mg qd. Reports she feels shakiness after taking the 30mg tablet; feels jittery with mild hand shaking. -reduce dose of adderall XR from 30mg qd to 20mg qd. F/u in one month Assessment & Plan (08/09/2022 11:04 AM CDT): -08/09/22 - symptoms are well controlled with adderall XR 30mg qd and adderall IR 5mg qpm. Has not had adderall XR 30mg for a few weeks due to supply issues. Denies any palpitations or appetite suppression. Sleeping reasonably well -Stable. Continue current med regimen Assessment & Plan (12/07/2020 11:18 AM CDT): ADHD - diagnosed ~age 16 by her previous PCP. No formal testing. Pt reports she was taking adderall XR 30mg qd, felt this worked well for her. Previous PCP (Chuck Avalos MD) retired and pt decided to try stopping stimulant medication when he retired. States her ability to focus and perform at work decreased significantly when she was not taking adderall. -Review of [facility]M on 12/09/18 showed last refill for adderall was on 09/08/18 from an rx written 07/14/18 for 120 capsules of dextroamphetamine ER 10mg. Unclear why this did not show 30mg tablets, pt states she has never taken 10mg tablets of adderall 03/08/20 - ADHD is well controlled. Takes adderall XR 30mg qd. Denies any appetite suppression or palpitations. -At follow-up on 02/18/19 patient reports she stopped taking Adderall X 30mg around 02/11/2019 because she felt it made her feel jittery. She reports her ability to focus has significant worsened since stopping Adderall. She would like to restart that at a much lower dose. -At f/u on 03/25/19 pt reports symptoms improved with adderall XR 20mg qd (started 02/18/19) but it is not working well enough. She would like to return to the 30 mg dose she was taking prior to stopping. -06/27/20 - symptoms are reasonably well controlled with adderall XR 30mg qd but feels like the effects wear off ~2pm every day. Takes adderall XR ~7:30am. Denies any palpitations or appetite suppression. -12/07/20 -symptoms are reasonably well controlled with Adderall XR 30 mg every morning and Adderall 5 mg every afternoon. Denies any palpitations or appetite suppression. -Stable. Continue current med regimen Assessment & Plan (06/27/2020 9:18 AM SHORTS SIFTER): ADHD - diagnosed ~age 16 by her previous PCP. No formal testing. Pt reports she was taking adderall XR 30mg qd, felt this worked well for her. Previous PCP (Chuck Avalos MD) retired and pt decided to try stopping stimulant medication when he retired. States her ability to focus and perform at work decreased significantly when she was not taking adderall. -Review of [facility] on 12/09/18 showed last refill for adderall was on 09/08/18 from an rx written 07/14/18 for 120 capsules of dextroamphetamine ER 10mg. Unclear why this did not show 30mg tablets, pt states she has never taken 10mg tablets of adderall 03/08/20 - ADHD is well controlled. Takes adderall XR 30mg qd. Denies any appetite suppression or palpitations. -At follow-up on 02/18/19 patient reports she stopped taking Adderall X 30mg around 02/11/2019 because she felt it made her feel jittery. She reports her ability to focus has significant worsened since stopping Adderall. She would like to restart that at a much lower dose. -At f/u on 03/25/19 pt reports symptoms improved with adderall XR 20mg qd (started 02/18/19) but it is not working well enough. She would like to return to the 30 mg dose she was taking prior to stopping. -06/27/20 - symptoms are reasonably well controlled with adderall XR 30mg qd but feels like the effects wear off ~2pm every day. Takes adderall XR ~7:30am. Denies any palpitations or appetite suppression. -continue adderall XR 30mg qd -add adderall 5mg (immeidate release) for as needed use in the afternoon. -f/u in ~10 days Assessment & Plan (03/08/2020 2:41 PM SHORTS SIFTER): ADHD - diagnosed ~age 16 by her previous PCP. No formal testing. Pt reports she was taking adderall XR 30mg qd, felt this worked well for her. Previous PCP (Chuck Avalos MD) retired and pt decided to try stopping stimulant medication when he retired. States her ability to focus and perform at work decreased significantly when she was not taking adderall. -Review of [facility] PDM on 12/09/18 showed last refill for adderall was on 09/08/18 from an rx written 07/14/18 for 120 capsules of dextroamphetamine ER 10mg. Unclear why this did not show 30mg tablets, pt states she has never taken 10mg tablets of adderall 03/08/20 - ADHD is well controlled. Takes adderall XR 30mg qd. Denies any appetite suppression or palpitations. -Stable. Continue current med regimen Assessment & Plan (03/25/2019 3:29 PM SHORTS SIFTER): ADHD - diagnosed ~age 16 by her previous PCP. No formal testing. Pt reports she was taking adderall XR 30mg qd, felt this worked well for her. Previous PCP (Chuck Avalos MD) retired and pt decided to try stopping stimulant medication when he retired. States her ability to focus and perform at work decreased significantly when she was not taking adderall. -Review of [facility] on 12/09/18 showed last refill for adderall was on 09/08/18 from an rx written 07/14/18 for 120 capsules of dextroamphetamine ER 10mg. Unclear why this did not show 30mg tablets, pt states she has never taken 10mg tablets of adderall -Reports symptoms of ADHD: -Inattention: fails to give close attention to details or makes careless mistakes in school, has difficulty sustaining attention in tasks or play activities, has difficulty organizing tasks and activities, loses things that are necessary for tasks and activities, is easily distracted by extraneous stimuli -Impulsivity: blurts out answers before questions have been completed, interrupts or intrudes on others -Hyperactivity: None -At follow-up on 02/18/19 patient reports she stopped taking Adderall X 30mg around 02/11/2019 because she felt it made her feel jittery. She reports her ability to focus has significant worsened since stopping Adderall. She would like to restart that at a much lower dose. -At f/u on 03/25/19 pt reports symptoms improved with adderall XR 20mg qd (started 02/18/19) but it is not working well enough. She would like to return to the 30 mg dose she was taking prior to stopping. -Restart Adderall XR 30 mg once daily -Call with update in 1 month -Follow-up in office in 3 months Assessment & Plan (02/18/2019 11:59 AM CDT): ADHD - diagnosed ~age 16 by her previous PCP. No formal testing. Pt reports she was taking adderall XR 30mg qd, felt this worked well for her. Previous PCP (Chuck Avalos MD) retired and pt decided to try stopping stimulant medication when he retired. States her ability to focus and perform at work decreased significantly when she was not taking adderall. -Review of [facility] PDM on 12/09/18 showed last refill for adderall was on 09/08/18 from an rx written 07/14/18 for 120 capsules of dextroamphetamine ER 10mg. Unclear why this did not show 30mg tablets, pt states she has never taken 10mg tablets of adderall -Reports symptoms of ADHD: -Inattention: fails to give close attention to details or makes careless mistakes in school, has difficulty sustaining attention in tasks or play activities, has difficulty organizing tasks and activities, loses things that are necessary for tasks and activities, is easily distracted by extraneous stimuli -Impulsivity: blurts out answers before questions have been completed, interrupts or intrudes on others -Hyperactivity: None -At follow-up on 02/18/1990 patient reports she stopped taking Adderall around 02/11/2019 because she felt it made her feel jittery. She reports her ability to focus has significant worsened since stopping Adderall. She would like to restart that at a much lower dose. -Restart Adderall but at a lower dose. Will start Adderall XR 10 mg once daily. -Follow-up in 1 month Assessment & Plan (12/09/2018 4:18 PM CDT): ADHD - diagnosed ~age 16 by her previous PCP. No formal testing. Pt reports she was taking adderall XR 30mg qd, felt this worked well for her. Previous PCP (Chuck Avalos MD) retired and pt decided to try stopping stimulant medication when he retired. States her ability to focus and perform at work decreased significantly when she was not taking adderall. -Review of [facility] shows last refill for adderall was on 09/08/18 from an rx written 07/14/18 for 120 capsules of dextroamphetamine ER 10mg. Unclear why this did not show 30mg tablets, pt states she has never taken 10mg tablets of adderall -Stable. Continue current med regimen -Rx for adderall XR 30mg once daily printed and signed today Endometriosis 04/05/2011 Overview (12/09/2018): Diagnosed ~2009. S/p surgical tx 06/2016 at [facility] Assessment & Plan (12/09/2018 4:04 PM CDT): Diagnosed ~2009. S/p surgical tx 06/2016 at [facility] Pseudotumor cerebri syndrome 07/05/2009 Overview (08/09/2022): -Diagnosed at age 11, had LP shunt placed at age 13. As of 12/07/20 most recent visit was in [address] Robbie Layton at [facility]. Denies any ENGLISH, nausea, vomiting or focal neuro deficits. 08/09/22 - Denies any ENGLISH, nausea, vomiting or focal neuro deficits. Assessment & Plan (08/09/2022 10:41 AM CDT): Denies any ENGLISH, nausea, vomiting or focal neuro deficits. -watchful waiting Assessment & Plan (12/07/2020 11:01 AM CDT): -Diagnosed at age 11, had LP shunt placed at age 13. As of 12/07/20 most recent visit was in [address] Robbie Layton at [facility]. Denies any ENGLISH, nausea, vomiting or focal neuro deficits. -Stable. -watchful waiting Assessment & Plan (12/09/2018 4:03 PM CDT): -Diagnosed at age 11, had LP shunt placed at age 13. As of 12/09/18 most recent revision was in [address] Robbie Layton at [facility]. Denies any ENGLISH, nausea, vomiting or focal neuro deficits. -stable, watchful waiting for now. Resolved Problems Problem Noted Date Diagnosed Date Resolved Date Encounter for induction of labor 06/16/2022 06/18/2022 LLQ pain 04/05/2011 12/07/2020 pelvic pain s/p scope 3/8 07/18/2010 Encounters Date Type Department Care Team Description 01/31/2025 Telephone [facility] Women's Health Clinical Support [address] [address] Amy Mendez RN Heavy periods and mood issues 01/27/2025 8:20 AM CDT Video Visit [facility] [address] [place] [phone] Priscilla Vera NP ESTHER (generalized anxiety disorder) (Primary Dx); Attention deficit hyperactivity disorder (ADHD), combined type; Mild episode of recurrent major depressive disorder 01/27/2025 Refill [facility] Maternal and Medicine - Medical [place] [address] [place] [address] Gilmar Galvan MD ESTHER (generalized anxiety disorder) 01/26/2025 Refill [facility] Maternal and Medicine - Medical [place] [address] [place] [address] Gilmar Galvan MD ESTHER (generalized anxiety disorder) 01/19/2025 4:00 PM CDT Video Visit [facility] [address] [place] [phone] Priscilla Vera NP ESTHER (generalized anxiety disorder) (Primary Dx) 01/18/2025 External Device Data STL ABSTRACTION Provider, Abstract 01/04/2025 12:00 PM CDT Video Visit [facility] [address] [place] [phone] Priscilla Vera NP ESTHER (generalized anxiety disorder) (Primary Dx); Mild episode of recurrent major depressive disorder 12/31/2024 Refill [facility] Maternal and Medicine - Medical [place] [address] [place] [address] Vineet Hendrix MD ESTHER (generalized anxiety disorder) 12/29/2024 External Device Data STL ABSTRACTION Provider, Abstract 12/22/2024 External Device Data STL ABSTRACTION Provider, Abstract 12/21/2024 External Device Data STL ABSTRACTION Provider, Abstract 12/14/2024 External Device Data STL ABSTRACTION Provider, Abstract 12/08/2024 External Device Data STL ABSTRACTION Provider, Abstract 12/06/2024 Patient Self-Triage [place] [address] [place] [address] 11/02/2024 External Device Data STL ABSTRACTION Provider, Abstract 11/02/2024 External Device Data STL ABSTRACTION Provider, Abstract 11/02/2024 External Device Data STL ABSTRACTION Provider, Abstract from Last 3 Months Immunizations Immunization Administration Dates Next Due (ABRYSVO)(60 YR UP/GA 32-36 WKS) RSV, BIVALENT, PROTEIN SUBUNIT RSVPREF, DILUENT RECONSTITUTED, 0.5 ML, PF 02/23/2024 (ADACEL/BOOSTRIX)(10 YR UP) TDAP VACCINE, 0.5ML, IM 01/26/2024,04/30/2022 (INFANRIX)(6 WKS-6 YRS) DIPT HERIA, TETANUS TOXOIDS, AND ACCELLULAR PERTUSSIS VACCINE (DTAP), 0.5 ML IM 05/12/1995,06/06/1992,05/27/1989,03/07,01/14/1989 (IPOL)(6 WKS AND UP) POLIOVI ANDREW VACCINE, INACTIVATED (IPV), 3 DOSE, SUBCUT OR IM 05/12/1995,05/27/1989,03/07/1989,01/14 (M-M-R II/PRIORIX)(12 MO UP) MEASLES, MUMPS AND RUBELLA VIRUS VACCINE, 0.5 ML IM/SUBCUT 05/12/1995,08/26/1991 (PFIZER)(12 YR UP) COVID-19 VACCINE - EMERGENCY USE AUTHORIZATION, MRNA, [id number](PF) 30 MCG/0.3 ML IM SUSP 08/22/2020,07/28/2020 (VARIVAX)(12 MOS UP)VARICELL A VIRUS VACCINE (PF) 0.5 ML, SUB CUT 09/23/2002,02/09/2001 Hepatitis A Vaccine 02/13/2007,08/13/2006 Hepatitis B Vaccine 11/26/2006,09/23/2002 INFLUENZA VACCINE QUADRIVALE NT 3 YR UP PF IM 04/13/2013 INFLUENZA VACCINE QUADRIVALE NT 6 MOS UP PF IM 02/11/2022 INFLUENZA VACCINE TRIVALENT SPLIT VIRUS, (6 MOS UP), 0.5ML (PF), IM 01/26/2024 Influenza Seasonal Unspecifi ed Formulation IM 02/13/2007,01/27/2004,02/03/2003,03/05,02/04/2001,02/16/2000 Influenza Vaccine Quad Split 6-35 Mo Pf Im 02/08/2020 Influenza Vaccine Split 3+ Yrs IM 03/06/2010 Influenza Vaccine Split PF ID 04/07/2011 Meningococcal ACWY Vaccine, Unspecified Formulation 08/13/2006 Skin Test TB 07/30/1999 Family History Medical History Relation Name Comments Healthy Brother 1 Ant Healthy Brother 2 Phil Healthy Brother 3 Pihl Healthy Father Randal Leukemia Maternal Grandfather Diabetes Maternal Grandmother Kala Hypertension Maternal Grandmother Kala Healthy Mother Zayra Other Sister 1 Alee CP Other Sister 2 Alie CP Healthy Son Breast Cancer Neg Hx Celiac Disease Neg Hx Colon Cancer Neg Hx Colon Polyps Neg Hx Crohn's Disease Neg Hx Liver Disease Neg Hx Ovarian Cancer Neg Hx Pancreatic Cancer Neg Hx Relation Name Status Comments Brother 1 Ant Alive Brother 2 Phil Alive Brother 3 Phil Alive Father Randal Alive Maternal Grandfather Maternal Grandmother Kala Mother Zayra Alive Paternal Grandfather Paternal Grandmother Sister 1 Alee Alive Sister 2 Alie Alive Son Alive Social History Tobacco Use Types Packs/Day Years Used Date Smoking Tobacco: Never Passive Smoke Exposure: Never Smokeless Tobacco: Never Tobacco Cessation:Counseling Given: Not Answered Alcohol Use Standard Drinks/Week Comments Not Currently 0 (1 standard drink = 0.6 oz pur e alcohol) vary rare social use Feeling Safe Answer Date Recorded Are you in a relationship wi th someone who hurts you emotionally and/or physically? No 03/15/2024 Comments No Sex and Gender Information Value Date Recorded Sex Assigned at Not on file Legal Sex Female 3:13 AM SHORTS SIFTER Gender Identity Not on file Sexual Orientation Not on file Occupation Industry Job Start Date Job End Date Not on file Not on file Not on file Not on file Last Filed Vital Signs Vital Sign Reading Time Taken Comments Blood Pressure 136/87 03/18/2024 9:10 AM SHORTS SIFTER Pulse 96 03/17/2024 8:19 PM SHORTS SIFTER Temperature 36.9 C (98.4 F) 03/18/2024 9:10 AM SHORTS SIFTER Respiratory Rate 18 03/18/2024 9:10 AM SHORTS SIFTER Oxygen Saturation 97% 03/16/2024 4:00 PM SHORTS SIFTER Inhaled Oxygen Concentration - - Weight 99.8 kg (220 lb) 01/27/2025 8:17 AM CDT Height 154.9 cm (5' 1) 01/27/2025 8:17 AM CDT Body Mass Index 41.57 01/27/2025 8:17 AM CDT Plan of Treatment Upcoming Encounters Date Type Department Care Team (Late st Contact Info) Description 02/03/2025 2:30 PM CDT Office Visit [facility] DIRECTOR TRUST - Medical [place] [address] [facility] [address] [place] [phone] Casandra Major MD [address] [facility] [address] [place] [phone] 03/02/2025 8:00 AM CDT Video Visit [facility] Family Medicine - [facility] [address] [place] [address] Priscilla Vera NP [address] [place] [address] Health Maintenance Due Date Last Done Comments HEPATITIS B VACCINES (3 of 3 - 3-dose series) 01/21/2007 11/26/2006, 09/23/2002 HPV VACCINES (1 - 3-dose SCD M series) 10/26/2015 Preventative Visit- Commercial 05/05/2024 0 08/09/2022, 12/07/2020, 12/09/2018 INFLUENZA VACCINE (#1) 2024 , 02/11/2022, 02/08/2020, Additional history exists COVID-19 Vaccine (3 - 2024-2 6 season) 2025 08/22/2020, 07/28/2020 Pre-Diabetes and Diabetes Screening 06/20/2025 06/20/2022, 01/01/2019 PAP SMEAR 08/18/2026 08/19/2023, 06/2 06/2021, 06/13/2020 CERVICAL CANCER SCREENING 08/18/2028 HPV/Cotest (21-29) 08/18/2028 08/19/2023, 0 10/24/2021, 06/13/2020 HPV/Cotest (30-65) 08/18/2028 08/19/2023, 0 10/24/2021, 06/13/2020 DTAP/TDAP/TD VACCINES (8 - T d or Tdap) 01/25/2034 01/26/2024, 04/30/2022, 05/12/1995, Additional history exists Procedures Procedure Name Priority Date/Time Associated Diagnosis Comments CERV/VAG CYTO AGE BASED SCREEN PAP W CT/NG, TRICH Routine 08/19/2023 11:51 AM CDT Supervision of high risk in first trimester Multigravida of advanced maternal age in first trimester GLUCOSE FASTING Timed Study 06/20/2022 6:53 AM SHORTS SIFTER from Last 3 Months or Most Recently Relevant to Health Maintenance Results * CERV/VAG CYTO AGE BASED SCREEN PAP W CT/NG, TRICH (08/19/2023 11:51 AM CDT) COMMENT (PAP): [facility] Comment: This order for age-based cervical cancer and STI screening follows ACOG guidelines(PB 168, 140, ZXV247). See individual assays for performing site location. CLINICAL INFORMATION [facility] Comment:None given LAST MENSTRUAL PERIOD [facility] Comment:10/06/2022 PREV PAP: [facility] Comment:NONE GIVEN PREV BX: [facility] [facility] Comment:NONE GIVEN SOURCE [facility] [place] Comment:Endocervix ADEQUACY: [facility] [place] Comment: Satisfactory for evaluation. Endocervical/transformation zone component present. PAP INTERP [facility] [place] [facility] Comment: Cytology Results: Negative for intraepithelial lesion or malignancy. COMMENT (PAP TEST) [facility] [place] Comment: This Pap test has been evaluated with computer assisted technology. TIRE GROOVER: Rory est Soren Gabriel Comment: DDS, CT(ASCP) CT screening location: [place] [address] [place] [address] REVIEW TIRE GROOVER: Skip Gabriel Comment: MEF, CT(ASCP) CT screening location: [place] [address] [address] [facility] EXPLANATORY NOTE Que SysorexArpita Gabriel Comment: EXPLANATORY NOTE: The Pap is a screening test for cervical cancer. It is not a diagnostic test and is subject to false negative and false positive results. It is most reliable when a satisfactory sample, regularly obtained, is submitted with relevant clinical findings and history, and when the Pap result is evaluated along with historic and current clinical information. HPV E6/E7 Not Detected Not Detected [facility] [place] Comment: Methodology: Dietary Aid-Mediated Amplification This assay detects E6/E7 viral messenger RNA (mRNA) from 14 high-risk HPV types (16,18,31,33,35,39,45,51,52,56,58,59,66,68). Cervical sources are required for HPV testing. If a vaginal source from a patient who has had a total hysterectomy with removal of cervix was submitted, please contact the testing laboratory for alternative testing options. For additional information, please refer to http://Augmate.Agari/faq/FFW740c8 (This link if provided for information/ educational purposes only.) C TRAC RNA NOT DETECTED NOT DETECTED [facility] [place] N.GONORRHOEAE RNA, TMA NOT DETECTED NOT DETECTED [facility] [place] COMMENT INFECTIOUS DISEASE [facility] [place] Comment: The analytical performance characteristics of this assay, when used to test SurePath(TM) specimens have been determined by [facility]. The modifications have not been cleared or approved by the FDA. This assay has been validated pursuant to the CLIA regulations and is used for clinical purposes. For additional information, please refer to https://Augmate.Agari/faq/HIY747 (This link is being provided for information/ educational purposes only.) TRICHOMONAS VAGINALIS,QUALITAT HUNTER,PAP VIAL NOT DETECTED NOT DETECTED [facility] [place] Comment: The analytical performance characteristics of this assay have been determined by [facility]. The modifications have not been cleared or approved by the FDA. This assay has been validated pursuant to the CLIA regulations and is used for clinical purposes. For additional information, please refer to http://education.Agari/ faq/Trichomonastma (This link is being provided for information/ educational purposes only.) Test Performed at: [facility] [address] [place] [address] Dejon Escalera MD SL Genital SWAB OF ENDOCERVIX / Unknown 08/19/2023 11:51 AM CDT 08/20/2023 4:07 AM CDT Mona Shaver NP PATHOLOGY/CYTOLOGY ORDERABL ES Final Result Performing Organization Address City/[facility]/ZIP Co de Phone Number [facility] [phone] [facility] [address] [place] [address] * GLUCOSE FASTING (06/20/2022 6:53 AM SHORTS SIFTER) GLUCOSE-FASTIN G 75 74 - 99 mg/dL 06/20/2022 8:22 AM SHORTS SIFTER [facility] Blood Venipuncture / Unknown 06/20/2022 6:53 AM SHORTS SIFTER 06/20/2022 7:11 AM SHORTS SIFTER Tiara Ryan MD CHEMISTRY ORDERABLES Final Result [facility] CLIA# [id number] [place] [address] from Last 3 Months or Most Recently Relevant to Health Maintenance Insurance [employer] ACCESS CHOICE Best Bid BLUE ACCESS/TRUE BLUE PPO RX [employer] Commercial Faves ACCESS/TRUE BLUE PPO Advance Directives For more information, please contact: [phone] * Full Code (Latest Code Status on File) Date Activated Date Inactivated Comments 03/15/2024 4:46 PM 03/18/2024 5:24 PM * Full Code Date Activated Date Inactivated Comments 02/20/2024 5:10 PM 02/20/2024 9:04 PM * Full Code Date Activated Date Inactivated Comments 06/17/2022 9:22 PM 06/21/2022 1:00 PM * Full Code Date Activated Date Inactivated Comments 06/16/2022 9:10 AM 06/17/2022 7:38 PM * Full Code Date Activated Date Inactivated Comments 06/07/2022 6:08 PM 06/07/2022 9:34 PM Care Teams Roundhouse Supervisor Relationship Specialty Start Date End Date Gilmar Galvan MD [address] [place] [address] PCP - General Family Practice 12/09/18
--- OUTSIDE RECORDS SUMMARY | 2025-01-31 11:36 | XMS_ITS | Encounter Summary ---
Author Organization [facility] Address [address] [place] [address] Care Team Providers Care Is Consultant Name Role Phone Gilmar Galvan MD Primary Care Provider Encounter Details Date Type Department Care Team (Late st Contact Info) Description 09/24/2006 Outpatient Historical [facility] Pediatrics [address] [facility] [address] [facility] [address] [address] [place] [address] [place] [address] Social History Tobacco Use Types Packs/Day Years Used Date Smoking Tobacco: Never Assessed Comments Unknown Sex and Gender Information Value Date Recorded Sex Assigned at Not on file Legal Sex Female 3:13 AM DRY GOODS CLERK Gender Identity Not on file Sexual Orientation Not on file documented as of this encounter Plan of Treatment Upcoming Encounters Date Type Department Care Team (Late st Contact Info) Description 02/03/2025 2:30 PM CDT Office Visit [facility] CLOUD ENGAGEMENT PARTNER - Medical [place] [address] [facility] [address] [place] [address] Casandra Major MD [address] [facility] [address] [place] [address] 03/02/2025 8:00 AM CDT Video Visit [facility] [address] [place] [address] Priscilla Vera NP [address] [place] [address] documented as of this encounter Visit Diagnoses Not on filedocumented in this encounter Additional Health Concerns Infection Onset Date Last Indicated Resolved Time R/O COVID-19 07/30/2019 07/30/2019 08/04/2019 6:05 AM CDT R/O Respiratory 05/12/2022 05/12/2022 05/12/2022 4 :27 PM DRY GOODS CLERK R/O C. diff 03/11/2024 03/11/2024 03/11/2024 12:4 6 PM DRY GOODS CLERK C Diff 03/11/2024 03/11/2024 05/10/2024 1:16 AM DRY GOODS CLERK documented as of this encounter Care Teams Is Consultant Relationship Specialty Start Date End Date Gilmar Galvan MD [address] [place] [address] PCP - General Family Practice 12/09/18 documented as of this encounter
--- OUTSIDE RECORDS SUMMARY | 2025-01-31 11:36 | XMS_ITS | Encounter Summary ---
Author Organization [facility] Address [address] [place] [address] Care Team Providers Care Agricultural Equipment Salesperson Name Role Phone Gilmar Galvan MD Primary Care Provider Reason for Visit * Reason Comments Question Encounter Details Date Type Department Care Team (Late st Contact Info) Description 08/24/2024 Telephone [facility] [address] [place] [address] Gilmar Galvan MD [address] [place] [address] Question Social History Tobacco Use Types Packs/Day Years Used Date Smoking Tobacco: Never Passive Smoke Exposure: Never Smokeless Tobacco: Never Alcohol Use Standard Drinks/Week Comments Not Currently 0 (1 standard drink = 0.6 oz pur e alcohol) vary rare social use Feeling Safe Answer Date Recorded Are you in a relationship wi th someone who hurts you emotionally and/or physically? No 03/15/2024 Comments No Sex and Gender Information Value Date Recorded Sex Assigned at Not on file Legal Sex Female 3:13 AM RESIDENTIAL CHILD CARE COUNSELOR Gender Identity Not on file Sexual Orientation Not on file Occupation Industry Job Start Date Job End Date Not on file Not on file Not on file Not on file documented as of this encounter Miscellaneous Notes * Telephone Encounter - Yulissa Chance RN - 08/24/2024 1:08 PM CDT 08/24/2024 1:08 PM Returned call. No answer. Left voice mail/message to return our call. If patient/caregiver calls back, contact center please transfer caller to N line. Yulissa RN * Telephone Encounter - Elodia Rudd - 08/24/2024 12:21 PM CDT Copied from [facility] #[id number]. Topic: Patient or Caregiver Communication Request >> Aug 24, 2024 12:21 PM Elodia Kern wrote: Patient or Caregiver calling to update Care team on status after a recent visit Caller: Kylie Marks Patient/Caregiver Callback Number: Telephone Information: Call Notes: Patient is requesting a call back from the nurse. No further details were given. documented in this encounter Plan of Treatment Upcoming Encounters Date Type Department Care Team (Late st Contact Info) Description 02/03/2025 2:30 PM CDT Office Visit [facility] TRAFFIC ATTENDANT - Medical [place] [address] [address] [place] [phone] Casandra Major MD [address] [facility] [address] [place] [phone] 03/02/2025 8:00 AM CDT Video Visit [facility] Family Medicine - [facility] [address] [place] [address] Priscilla Vera NP [address] [place] [address] documented as of this encounter Visit Diagnoses Not on filedocumented in this encounter Additional Health Concerns Assessment Noted Time PHQ-9 Depression Total Score: 2 08/25/19 25 11:25 AM CDT documented as of this encounter Care Teams Agricultural Equipment Salesperson Relationship Specialty Start Date End Date Gilmar Galvan MD [address] [place] [address] PCP - General Family Practice 12/09/18 documented as of this encounter
--- OUTSIDE RECORDS SUMMARY | 2025-01-31 11:36 | XMS_ITS | Encounter Summary ---
Author Organization [facility] Address [address] [place] [address] Care Team Providers Care Completion Supervisor Name Role Phone Gilmar Galvan MD Primary Care Provider Encounter Details Date Type Department Care Team (Latest Contact Info) Description 10/16/[address] [facility] [place] [address] [place] [address] Pain in Joint, Shoulder Region (Primary Dx) Social History Tobacco Use Types Packs/Day Years Used Date Smoking Tobacco: Never Assessed Comments Unknown Sex and Gender Information Value Date Recorded Sex Assigned at Not on file Legal Sex Female 3:13 AM VP BIOLOGY Gender Identity Not on file Sexual Orientation Not on file documented as of this encounter Plan of Treatment Upcoming Encounters Date Type Department Care Team (Late st Contact Info) Description 02/03/2025 2:30 PM CDT Office Visit [facility] HELP DESK AGENT - Medical [address] [facility] [address] [place] [address] Casandra Major MD [address] [facility] [address] [place] [address] 03/02/2025 8:00 AM CDT Video Visit [facility] Family Medicine - [place] [address] [place] [address] Priscilla Vera NP [address] [place] [address] documented as of this encounter Visit Diagnoses Diagnosis Pain in joint, shoulder region- Primary documented in this encounter Additional Health Concerns Infection Onset Date Last Indicated Resolved Time R/O COVID-19 07/30/2019 07/30/2019 08/04/2019 6:05 AM CDT R/O Respiratory 05/12/2022 05/12/2022 05/12/2022 4 :27 PM VP BIOLOGY R/O C. diff 03/11/2024 03/11/2024 03/11/2024 12:4 6 PM VP BIOLOGY C Diff 03/11/2024 03/11/2024 05/10/2024 1:16 AM VP BIOLOGY documented as of this encounter Care Teams Completion Supervisor Relationship Specialty Start Date End Date Gilmar Galvan MD [address] [place] [address] PCP - General Family Practice 12/09/18 documented as of this encounter
--- OUTSIDE RECORDS SUMMARY | 2025-01-31 11:36 | XMS_ITS | Patient Health Record ---
Author Organization [facility] [employer] Address [address] [facility] [address] [place] [address] Care Team Providers Care Photographic Equipment Mechanic Name Role Phone Leida Milleranna Unavailable [phone] Chris Brady Unavailable [phone] Allergies Allergen (clinical drug ingredient) Drug/Non Drug Allergy documented on EMR Reaction Allergy Type Onset Date Status clonazepam clonazePAM dizziness Drug Allergy Activ e ketorolac Ketorolac Unknown Drug Allergy Active Penicillin Unknown Drug Allergy Active Results Component Value Reference Range Notes Test Reviewed date:01/24/2025 11:27:16 AM Interpretation: Performing Lab: Notes/Report: Test urine neg 0 - 0 UDT Reviewed date:01/24/2025 11:27:15 AM Interpretation: Performing Lab: Notes/Report: THC pos 0 - 50 ng/ml Cocaine neg 0 - 300 ng/ml Amphetamine neg 0 - 1000 ng/ml Buprenorphine (BUP) neg 0 - 10 ng/ml Secobarbital (Bar) neg 0 - 300 ng/ml Oxazepam (BZO) neg 0 - 300 ng/ml 7-dyimttdaum-0,3-dmvrxkaz-1,3-diphenylpyrrolidine (NU P) neg 0 - 300 ng/ml Methamphetamine (MET) neg 0 - 1000 ng/ml Methylenedioxymethamphetamine (MDMA) neg 0 - 500 ng/ml Morphine (MOP 300/[id number]) neg 0 - 300 ng/ml Methadone (MTD) neg 0 - 300 ng/ml Phencyclidine (PCP) neg 0 - 25 ng/ml Nortriptyline (TCA) neg 0 - 1000 ng/ml Oxycodone neg 0 - 300 ng/ml Reason For Referral No Information Medications Medication SIG (Take, Route, Frequency, Duration) Notes Start Date End Date Status traZODone HCl 50 MG Tablet 1 tablet at bedtime as needed Orally nightly; Duration: 30 days As needed Active ALPRAZolam 0.25 MG Tablet Oral Active hydrOXYzine HCl Acti ve FLUoxetine HCl 40 MG Capsule 1 capsule Orally Once a day Active FLUoxetine HCl 20 MG Capsule 1 capsule Orally Once a day; Duration: 30 days take with 40 mg dose 01/24/2025 Active hydrOXYzine HCl 50 MG Tablet Oral; Duration: 10 Days Active Albuterol Sulfate HFA 108 (90 Base) MCG/ACT Aerosol Solution Inhalation; Duration: 16 Days Active Social History Tobacco Use: Social History Observation Description Date Details (start date - stop date) Never Smoker NA - NA Sex Assigned At : Social History Observation Description Sex Assigned At Female Social History Miscellaneous: Social Info Question Answer Notes Safety issues: Do you feel safe at home? Yes Are there any firearms in the house? No Sexual History: Social Info Question Answer Notes Sexual Abuse History: none Social History Social Info Question Answer Notes Household: Marital Status: Number of Adults in household: 2 Number of Children in Household: 2 Level of Education: Finished College Household: Social Info Question Answer Notes Household Marital status: Number of adults in household: 2 Number of children in household: 2 Drug/Alcohol: Social Info Question Answer Notes Drugs Have you used drugs other than those for medical reasons in the past 12 months? Yes Methamphetamine? No Crack? No LSD? No Ecstacy? No Prescription opiates? No Marijuana? Yes Ketamine? No PCP? No Is there a minor (18 years or younger) at risk at home? Yes Are you still using? No AUDIT-C (Standard) Did you have a drink containi ng alcohol in the past year? Yes How often did you have a drink containing alcohol in the past year? Monthly or less (1 point) How many drinks did you have on a typical day when you were drinking in the past year? 1 or 2 drinks (0 point) How often did you have six or more drinks on one occasion in the past year? 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 Admits. obtianed from dispensary 10 (dose) nightly for sleep Do you drink alcohol? Occasional ly Section Notes: , 2 miscarriages (A2L0), 1 section Problems Problem Type SNOMED Code ICD Code Onset Dates Problem Status W/U Status Risk Notes Problem Generalized anxiety disorder (28920171) ESTHER (generalized anxiety disorder) (F41.1) Active confirmed Problem Severe recurrent major depression without psychotic features (71021931) Severe episode of recurrent major depressive disorder, without psychotic features (F33.2) Active confirmed Problem Sleep disturbance (71959161) Sleep disturbance (G47.9) Active confirmed Vital Signs Heart Rate 88 /min 01/24/2025 Blood pressure diastolic 72 mm Hg 01/24/2025 Weight-kg 100.24 kg 01/24/2025 Blood pressure systolic 103 mm Hg 01/24/2025 Weight 221 lbs 01/24/2025 Encounters Encounter Location Date Provider Diagnosis [place], [facility] [address] [facility] [address] [place] [address] 01/24/2025 Chris [place] Encounter for test, result unknown Z32.00 ; Severe episode of recurrent major depressive disorder, without psychotic features F33.2 ; ESTHER (generalized anxiety disorder) F41.1 and Sleep disturbance G47.9 [employer] [address] [facility] [address] [place] [address] 01/27/2025 Ayana Miller Assessments Encounter Date Diagnosis (ICD Code) Assessment Notes Treatment Notes Treatment Clinical Notes Section Notes 01/24/2025 Encounter for test, result unknown (ICD-10 - Z32.00) 01/24/2025 Severe episode of recurrent major depressive disorder, without psychotic features (ICD-10 - F33.2) Major Depressive Disorder, recurrent, moderate-severe with onset. Worsened by sleep disturbance, recent move, and occupationalstress Prior good response to fluoxetine; limited exposure to otherantidepressants Currently sleep-deprived and relying on sedatives (Xanax,THC) Recent unsuccessful initiation of venlafaxine XR (only 2doses taken) Contributing factors: High caffeine intake (3 iced coffees/day) Marijuana (THC) use for sleep Inconsistent sleep hygiene Limited daytime support 1. Medication Management - Increase fluoxetine to 60 mg daily (40 mg + 20 mg) - Discontinue venlafaxine XR (patient only took 2doses; no taper needed) - Start trazodone 50 mg PO at bedtime for sleepsupport - Continue hydroxyzine as needed for anxiety - Encourage gradual reduction in Xanax use tominimize dependence and support better long-term sleep and mood regulation 2. Supplements / Non-prescription options Discussed magnesium supplementation (e.g., magnesiumglycinate) for sleep and relaxation Discussed melatonin 5 mg at bedtime as a short-termsleep aid 3. Lifestyle & Psychoeducation Strongly encouraged THC (marijuana) discontinuationdue to potential negative impact on mood and sleep architecture Encouraged caffeine reduction, particularly in theafternoon Reviewed sleep hygiene practices: regularbedtime/wake time, limit screen time, avoid stimulants at night 4. Therapy & Resources Provided patient with list of local therapists,including information on [facility]' therapist walk-inavailability Encouraged follow-up with a mental health provider fortherapy (CBT or IPT recommended) Discussed use of the EdeniQ bryanna to contact providerwith questions/concerns between appointments 5. Risk/Benefit Discussion Discussed risks and benefits of increasing fluoxetine,starting trazodone, and using supplements for sleep Patient verbalized understanding and agreement withtreatment plan 6. Follow-Up Plan to follow up in 2 weeks to reassess mood, sleep, andmedication response Monitor for side effects of trazodone and effectiveness offluoxetine dose increase 01/24/2025 ESTHER (generalized anxiety disorder) (ICD-10 - F41.1) 01/24/2025 Sleep disturbance (ICD-10 - G47.9) 01/24/2025 Other Trazodone material was printed Learning About Depression Screening material was printed Assessment and plan reviewed with patient Call for problems with medication, side effects or need for dosage change Compliance issues reviewed Discussed the risks/benefits of this medication Discussed medication side effects Return if symptoms worsen Treatment options reviewed. discussed that it can take weeks to see full therapeutic effects of psychotropic medications. discussed when to seek emergency services. discussed crisis prevention hotline [phone]. Plan Of Treatment Next Appt Details Provider Name:Chris Valerio Jose Antonio, 02/07/2025 09:00:00 AM, [address], [facility] [address], [place], [address], Insurance Providers Payer Name Payer Address Payer Phone Subscriber Number Group Number Insured Name Patient Relationship to Insured Coverage Start Date Coverage End Date [address] [place] [address] [id number] Kylie Marks Self - patient is the insured Medical (General) History Medical History History ICD Code Past Psychiatric History: Anxiety Disord er,Panic Disorder,Bipolar Disorder abdominal aortic aneurysm: No atrial fibrillation: No chronic fatigue syndrome: No essential tremor: No hyperlipidemia: No hypertension: No Parkinson's disease: No restless leg syndrome: No stroke: No subdural hematoma: No type 1 diabetes mellitus: No type 2 diabetes mellitus: No vitamin B12 deficiency: No vitamin D deficiency: Yes Endometriosis - Diagnosed ~2009 Gestational Diabetes Miscarriages: 2 Surgical History Surgery Date(Month/Year) Endometriosis surgically treated 06/2016 at [facility] section Hospitalization History Reason Date(Month/Year) after section
--- OUTSIDE RECORDS SUMMARY | 2025-01-31 11:36 | XMS_ITS | Encounter Summary ---
Author Organization [facility] Address [address] [place] [address] Care Team Providers Care Project Administrative Assistant Name Role Phone Gilmar Galvan MD Primary Care Provider Reason for Visit * Reason Onset Date Comments Courtesy Call 08/08/2019 Left message Encounter Details Date Type Department Care Team (Late st Contact Info) Description 08/08/2019 Telephone [facility] [address] [address] Karen Chicas, RT Courtesy Call (Left message) Social History Tobacco Use Types Packs/Day Years Used Date Smoking Tobacco: Never Smokeless Tobacco: Never Alcohol Use Standard Drinks/Week Comments Yes 1 (1 standard drink = 0.6 oz pur e alcohol) vary rare social use Comments No Sex and Gender Information Value Date Recorded Sex Assigned at Not on file Legal Sex Female 3:13 AM FLAG DECORATOR Gender Identity Not on file Sexual Orientation Not on file Occupation Industry Job Start Date Job End Date Not on file Not on file Not on file Not on file COVID-19 Exposure Response Date Recorded In the last month, have you been in contact with someone who was confirmed or suspected to have Coronavirus / COVID-19? No / Unsure 08/05/2019 1:02 PM CDT documented as of this encounter Plan of Treatment Upcoming Encounters Date Type Department Care Team (Late st Contact Info) Description 02/03/2025 2:30 PM CDT Office Visit [facility] SHORER - Medical [place] [address] [place] [address] Casandra Major MD [address] [facility] [address] [address] [place] [address] 03/02/2025 8:00 AM CDT Video Visit [facility] Family Medicine - [facility] [address] [place] [address] Priscilla Vera NP [address] [place] [address] documented as of this encounter Visit Diagnoses Not on filedocumented in this encounter Additional Health Concerns Infection Onset Date Last Indicated Resolved Time R/O Respiratory 05/12/2022 05/12/2022 05/12/2022 4 :27 PM FLAG DECORATOR R/O C. diff 03/11/2024 03/11/2024 03/11/2024 12:4 6 PM FLAG DECORATOR C Diff 03/11/2024 03/11/2024 05/10/2024 1:16 AM FLAG DECORATOR Assessment Noted Time PHQ-9 Depression Total Score: 1 03/25/20 19 3:00 PM FLAG DECORATOR documented as of this encounter Care Teams Project Administrative Assistant Relationship Specialty Start Date End Date Gilmar Galvan MD [address] [place] [address] PCP - General Family Practice 12/09/18 documented as of this encounter
--- OUTSIDE RECORDS SUMMARY | 2025-01-31 11:36 | XMS_ITS | Encounter Summary ---
Author Organization [facility] Address [address] [place] [address] Care Team Providers Care Natural Sciences Manager Name Role Phone Gilmar Galvan MD Primary Care Provider Encounter Details Date Type Department Care Team (Late st Contact Info) Description 08/05/2005 Outpatient Historical [facility] [address] [address] [place] [address] [place] [address] Social History Tobacco Use Types Packs/Day Years Used Date Smoking Tobacco: Never Assessed Comments Unknown Sex and Gender Information Value Date Recorded Sex Assigned at Not on file Legal Sex Female 3:13 AM CLINICAL RESEARCH SPECIALIST Gender Identity Not on file Sexual Orientation Not on file documented as of this encounter Plan of Treatment Upcoming Encounters Date Type Department Care Team (Late st Contact Info) Description 02/03/2025 2:30 PM CDT Office Visit [facility] TEXTILE CONSERVATOR - Medical [place] [address] [facility] [address] [place] [address] Casandra Major MD [address] [facility] [address] [place] [address] 03/02/2025 8:00 AM CDT Video Visit [facility] [address] [place] [address] Priscilla Vera NP [address] [place] [address] documented as of this encounter Visit Diagnoses Not on filedocumented in this encounter Additional Health Concerns Infection Onset Date Last Indicated Resolved Time R/O COVID-19 07/30/2019 07/30/2019 08/04/2019 6:05 AM CDT R/O Respiratory 05/12/2022 05/12/2022 05/12/2022 4 :27 PM CLINICAL RESEARCH SPECIALIST R/O C. diff 03/11/2024 03/11/2024 03/11/2024 12:4 6 PM CLINICAL RESEARCH SPECIALIST C Diff 03/11/2024 03/11/2024 05/10/2024 1:16 AM CLINICAL RESEARCH SPECIALIST documented as of this encounter Care Teams Natural Sciences Manager Relationship Specialty Start Date End Date Gilmar Galvan MD [address] [place] [address] PCP - General Family Practice 12/09/18 documented as of this encounter
--- OUTSIDE RECORDS SUMMARY | 2025-01-31 11:36 | XMS_ITS | Encounter Summary ---
Author Organization [facility] Address [address] [place] [address] Care Team Providers Care Studio Couch Frame Builder Name Role Phone Gilmar Galvan MD Primary Care Provider Reason for Visit * Reason Comments Medication Refill Encounter Details Date Type Department Care Team (Late Contact Info) Description 09/20/2014 Refill [facility] [place] [address], [address] [address] Randal Lee MD NO ADDRESS ON FILE Social History Tobacco Use Types Packs/Day Years Used Date Smoking Tobacco: Never Smokeless Tobacco: Never Alcohol Use Standard Drinks/Week Comments Yes 0 (1 standard drink = 0.6 oz pur e alcohol) 1 glass a wine a week Comments No Sex and Gender Information Value Date Recorded Sex Assigned at Not on file Legal Sex Female 3:13 AM RETAIL OFFICE ASSOCIATE Gender Identity Not on file Sexual Orientation Not on file Occupation Industry Job Start Date Job End Date Not on file Not on file Not on file Not on file documented as of this encounter Plan of Treatment Upcoming Encounters Date Type Department Care Team (Late Contact Info) Description 02/03/2025 2:30 PM CDT Office Visit [facility] INDUSTRIAL TECHNOLOGIST - Medical [place] [address] [facility] [address] [place] [phone] Casandra Major MD [address] [facility] [address] [place] [phone] 03/02/2025 8:00 AM CDT Video Visit [facility] [address] [place] [address] Priscilla Vera NP [address] [place] [address] documented as of this encounter Visit Diagnoses Not on filedocumented in this encounter Additional Health Concerns Infection Onset Date Last Indicated Resolved Time R/O COVID-19 07/30/2019 07/30/2019 08/04/2019 6:05 AM CDT R/O Respiratory 05/12/2022 05/12/2022 05/12/2022 4 :27 PM RETAIL OFFICE ASSOCIATE R/O C. diff 03/11/2024 03/11/2024 03/11/2024 12:4 6 PM RETAIL OFFICE ASSOCIATE C Diff 03/11/2024 03/11/2024 05/10/2024 1:16 AM RETAIL OFFICE ASSOCIATE documented as of this encounter Care Teams Studio Couch Frame Builder Relationship Specialty Start Date End Date Gilmar Galvan MD [address] [place] [address] PCP - General Family Practice 12/09/18 documented as of this encounter
--- OUTSIDE RECORDS SUMMARY | 2025-01-31 11:36 | XMS_ITS | Encounter Summary ---
Author Organization [facility] Address [address] [place] [address] Care Team Providers Care Resort Manager Name Role Phone Gilmar Galvan MD Primary Care Provider Encounter Details Date Type Department Care Team (Late st Contact Info) Description 04/10/2006 Outpatient Historical [facility] [address] [address] [place] [address] [place] [address] Social History Tobacco Use Types Packs/Day Years Used Date Smoking Tobacco: Never Assessed Comments Unknown Sex and Gender Information Value Date Recorded Sex Assigned at Not on file Legal Sex Female 3:13 AM RUBBER COMPOUNDER SUPERVISOR Gender Identity Not on file Sexual Orientation Not on file documented as of this encounter Plan of Treatment Upcoming Encounters Date Type Department Care Team (Late st Contact Info) Description 02/03/2025 2:30 PM CDT Office Visit [facility] FIXER SUPERVISOR - Medical [place] [address] [facility] [address] [place] [address] Casandra Major MD [address] [facility] [address] [place] [address] 03/02/2025 8:00 AM CDT Video Visit [facility] [address] [place] [address] Priscilla Vera NP [address] [place] [address] documented as of this encounter Visit Diagnoses Not on filedocumented in this encounter Additional Health Concerns Infection Onset Date Last Indicated Resolved Time R/O COVID-19 07/30/2019 07/30/2019 08/04/2019 6:05 AM CDT R/O Respiratory 05/12/2022 05/12/2022 05/12/2022 4 :27 PM RUBBER COMPOUNDER SUPERVISOR R/O C. diff 03/11/2024 03/11/2024 03/11/2024 12:4 6 PM RUBBER COMPOUNDER SUPERVISOR C Diff 03/11/2024 03/11/2024 05/10/2024 1:16 AM RUBBER COMPOUNDER SUPERVISOR documented as of this encounter Care Teams Resort Manager Relationship Specialty Start Date End Date Gilmar Galvan MD [address] [place] [address] PCP - General Family Practice 12/09/18 documented as of this encounter
--- OUTSIDE RECORDS SUMMARY | 2025-01-31 11:36 | XMS_ITS | Encounter Summary ---
Author Organization [facility] Address [address] [place] [address] Care Team Providers Care Seafood Farmer Name Role Phone Gilmar Galvan MD Primary Care Provider Reason for Visit * Reason Onset Date Comments Heavy periods and mood issues 01/31/2025 Encounter Details Date Type Department Care Team (Late st Contact Info) Description 01/31/2025 Telephone [facility] Clinical Support [address] [place] [address] [place] [address] Amy Mendez RN Heavy periods and mood issues Social History Tobacco Use Types Packs/Day Years [...] on file Legal Sex Female 3:13 AM PRODUCTION CLOTH CUTTER Gender Identity Not on file Sexual Orientation Not on file Occupation Industry Job Start Date Job End Date Not on file Not on file Not on file Not on file documented as of this encounter Miscellaneous Notes * Telephone Encounter - mAy Mendez RN - 01/31/2025 8:40 AM CDT C/s 03/15/24. Menstrual cycles resumed in June 2024 and have regular but heavier than prior to and pt struggling with anxiety/depression sx 2-7 days prior to menses. Has worked with PCPto adjust antidepressant med doses but was advised to contact CRUSHER OPERATOR d/t persistent issues. Pt has notbeen seen since delivery. Rec pt schedule OV to discuss heavy periods and mood and then will likelyneed WWE after. V/u and agreement with POC. TF to FD per pt request. documented in this encounter Plan of Treatment Upcoming Encounters Date Type Department Care Team (Late st Contact Info) Description 02/03/2025 2:30 PM CDT Office Visit [facility] REEL HOOKER - [facility] [address] [place] [address] Casandra Major MD [address] [facility] [address] [place] [address] 03/02/2025 8:00 AM CDT Video Visit [facility] Family Medicine - [facility] [address] [place] [address] Priscilla Vera NP [address] [place] [address] documented as of this encounter Visit Diagnoses Not on filedocumented in this encounter Additional Health Concerns Assessment Noted Time PHQ-9 Depression Total Score: 2 01/20/20 25 3:00 PM CDT documented as of this encounter Care Teams Seafood Farmer Relationship Specialty Start Date End Date Gilmar Galvan MD [address] [place] [address] PCP - General Family Practice 12/09/18 documented as of this encounter
--- OUTSIDE RECORDS SUMMARY | 2025-01-31 11:36 | XMS_ITS | Encounter Summary ---
Author Organization [facility] Address [address] [place] [address] Care Team Providers Care Pulp Piler Name Role Phone Gilmar Galvan MD Primary Care Provider Reason for Visit * Reason Comments Medication Refill Encounter Details Date Type Department Care Team (Late Contact Info) Description 12/20/2015 Refill [facility] [address], [facility] [address] [place] [address] Moira Israel NP NO ADDRESS ON FILE Social History Tobacco Use Types Packs/Day Years Used Date Smoking Tobacco: Never Smokeless Tobacco: Never Alcohol Use Standard Drinks/Week Comments Yes 0 (1 standard drink = 0.6 oz pur e alcohol) 1 glass a wine a week Comments No Sex and Gender Information Value Date Recorded Sex Assigned at Not on file Legal Sex Female 3:13 AM COMPLAINTS COORDINATOR Gender Identity Not on file Sexual Orientation Not on file Occupation Industry Job Start Date Job End Date Not on file Not on file Not on file Not on file documented as of this encounter Plan of Treatment Upcoming Encounters Date Type Department Care Team (Late Contact Info) Description 02/03/2025 2:30 PM CDT Office Visit [facility] CLERK - Medical [place] [address] [facility] [address] [place] [address] Casandra Major MD [address] [facility] [address] [place] [phone] 03/02/2025 8:00 AM CDT Video Visit [facility] [address] [place] [address] Priscilla Vera NP [address] [place] [address] documented as of this encounter Visit Diagnoses Not on filedocumented in this encounter Additional Health Concerns Infection Onset Date Last Indicated Resolved Time R/O COVID-19 07/30/2019 07/30/2019 08/04/2019 6:05 AM CDT R/O Respiratory 05/12/2022 05/12/2022 05/12/2022 4 :27 PM COMPLAINTS COORDINATOR R/O C. diff 03/11/2024 03/11/2024 03/11/2024 12:4 6 PM COMPLAINTS COORDINATOR C Diff 03/11/2024 03/11/2024 05/10/2024 1:16 AM COMPLAINTS COORDINATOR documented as of this encounter Care Teams Pulp Piler Relationship Specialty Start Date End Date Gilmar Galvan MD [address] [place] [address] PCP - General Family Practice 12/09/18 documented as of this encounter
--- OUTSIDE RECORDS SUMMARY | 2025-01-31 11:36 | XMS_ITS | Encounter Summary ---
Author Organization [facility] Address 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 Gender Identity Not on file Sexual Orientation Not on file documented as of this encounter Plan of Treatment Upcoming Encounters Date Type Department Care Team (Late Contact Info) Description 02/03/2025 2:30 PM CDT Office Visit [facility] PSYCHIATRIC ARNP - Medical [place] [address] [facility] [address] [place] [address] Casandra Major MD [address] [facility] [address] [place] [address] 03/02/2025 8:00 AM CDT Video Visit [facility] Family Medicine [address] [place] [address] Priscilla Vera, JUNI [address] [place] [address] documented as of this encounter Procedures Procedure Name Priority Date/Time Associated Diagnosis Comments PATHOLOGY Routine 11/09/2008 3:21 PM CDT documented in this encounter Results * PATHOLOGY (11/09/2008 3:21 PM CDT) FINAL REPORT [facility] [address] [place], [place] [address] Patient: JUNIOR MARKS : 1990 Procedure Date: 11/09/2008 Accession Date: 11/09/2008 Case No: [id number] Ordering Dr: JOSH CLARKE Case types AW, BW, FW, NW and SH are performed by [facility] [place], [place], [place] SURGICAL PATHOLOGY & NON-GYNECOLOGIC CYTOPATHOLOGY REPORT DIAGNOSIS STOMACH, ENDOSCOPIC BIOPSY: - CHRONIC INFLAMMATION AND REACTIVE CHANGES, MILD. Specimen Description: Stomach. Operative Procedure: Esophagogastroduodenoscopy and colonoscopy. Patient Information/History/Diagnosi s: Gastritis. Rule out H. pylori infection. Gross: Received in a single container labeled Junior Marks, stomach are two khan tissue fragments each measuring 0.2 cm in greatest dimension. The specimen is completely submitted labeled A1. JOANNE/AMELIE 11.10.2008 06:19 am Microscopic: Received are slides labeled [id number] Junior Marks. Sections of stomach sample antral mucosa. There are mild, reactive epithelial changes that include foveolar hyperplasia. Scattered smooth muscle fibers are present in the lamina propria. Extravasated red blood cells are present, likely related to the procedure. There are mild, subepithelial infiltrates of chronic inflammatory cells. Acute inflammatory changes are absent. Organisms characteristic of Helicobacter pylori are not identified on H&E-stained sections. JOHN/JUNITO 11.10.2008 10:07 am Staging Form: No. ELECTRONIC SIGNATURE FOR DEBBI ROJAS M.D.- 11/10/08 11:33 am INTERFACE SYSTEM 11/09/2008 3:21 PM CDT us Josh Clarke MD PATHOLOGY/CYTOLOGY ORDERABLES Fi nal Result INTERFACE SYSTEM Refer to clinic/hospital department documented in this encounter Visit Diagnoses Not on filedocumented in this encounter Additional Health Concerns Infection Onset Date Last Indicated Resolved Time R/O COVID-19 07/30/2019 07/30/2019 08/04/2019 6:05 AM CDT R/O Respiratory 05/12/2022 05/12/2022 05/12/2022 4 :27 PM FILL PLANT OPERATOR R/O C. diff 03/11/2024 03/11/2024 03/11/2024 12:4 6 PM FILL PLANT OPERATOR C Diff 03/11/2024 03/11/2024 05/10/2024 1:16 AM FILL PLANT OPERATOR documented as of this encounter Care Teams Electroencephalographic Technician Relationship Specialty Start Date End Date Gilmar Galvan MD [address] [place] [address] PCP - General Family Practice 12/09/18 documented as of this encounter
--- OUTSIDE RECORDS SUMMARY | 2025-01-31 11:36 | XMS_ITS | Encounter Summary ---
Author Organization [facility] Address [address] [place] [address] Care Team Providers Care Fern Picker Name Role Phone Gilmar Galvan MD Primary Care Provider Encounter Details Date Type Department Care Team (Late st Contact Info) Description 10/21/2008 Outpatient Historical [facility] [place], Authorized P NO ADDRESS ON FILE Tyson Healy MD NO ADDRESS ON FILE Rhoda Ornelas MD NO ADDRESS ON FILE Abdominal Pain, Unspecified Site Social History Tobacco Use Types Packs/Day Years Used Date Smoking Tobacco: Never Assessed Comments Unknown Sex and Gender Information Value Date Recorded Sex Assigned at Not on file Legal Sex Female 3: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 Gender Identity Not on file Sexual Orientation Not on file documented as of this encounter Plan of Treatment Upcoming Encounters Date Type Department Care Team (Late st Contact Info) Description 02/03/2025 2:30 PM CDT Office Visit [facility] SHEET CUTTER - Medical [place] [address] [facility] [address] [place] [address] Casandra Major MD [address] [facility] [address] [place] [address] 03/02/2025 8:00 AM CDT Video Visit [facility] Family Medicine [address] [address] Priscilla Vera, HUMAN RESOURCES PSYCHOLOGIST [address] [place] [address] documented as of this encounter Procedures Procedure Name Priority Date/Time Associated Diagnosis Comments US PELVIS + TRANSVAG NON OB Stat 10/22/2008 2:14 PM CDT CBC WITH DIFFERENTIAL Stat 10/22/2008 12:20 PM CDT C-REACTIVE PROTEIN Stat 10/22/2008 11 :40 AM CDT HCG QUANTITATIVE, BLOOD Stat 10/22/2008 11:40 AM CDT CBC WITH DIFFERENTIAL Stat 10/21/2008 11:08 PM CDT C-REACTIVE PROTEIN Stat 10/21/2008 11 :08 PM CDT COMPREHENSIVE METABOLIC PANEL Stat 10/21/2008 11:08 PM CDT documented in this encounter Results * US PELVIS + TRANSVAG NON OB (10/22/2008 2:14 PM CDT) Anatomical Region Laterality Modality Pelvis Other 10/22/2008 2:14 PM CDT Narrative 10/24/2008 7:21 AM CDT [address] [address] Admit Date: 10/22/2008 JUNIOR MARKS Sex: F Admit Prov: TYSON HEALY Date: 1990 Primary Care Prov: JODY KIMBROUGH CMRN: [id number] Room: [facility] SSN: [id number] IMAGING SERVICES Ordering Prov: N/A Accession Number: [id number] Interpretation PELVIC SONOGRAM, 10/22/2008 History: Pelvic pain. Rule out ovarian torsion. Transabdominal and endovaginal images of the pelvis were obtained. On the transvaginal exam, the uterus is seen to be floating in a moderate amount of free fluid. The echogenic endometrium is normal measuring 5 mm. The uterus was not measured on the transabdominal exam but the size and contour appear normal. On the endovaginal exam, the uterus measures approximately 3.9 x 2.9 x 4.3 cm. Both ovaries are well seen endovaginally. Both contain multiple predominantly peripheral follicular type cysts. The left ovary measures 3.2 x 2.7 x 2.0 cm. The right ovary measures 2.9 x 2.4 x 1.9 cm. With color- flow Doppler sonography, there is symmetric blood flow to both ovaries. A large homogeneously hypoechoic rounded lesion is noted low in the pelvis. This is probably a complex nabothian cyst. IMPRESSION: Moderate amount of free fluid in the pelvis. Normal appearing ovaries bilaterally with symmetric blood flow. No evidence for an ovarian torsion at this time. . Dictated by: INES MARIO 10/22/2008 14:29 Electronically signed by: INES MARIO 10/24/2008 07:20 Transcribed: 10/22/2008 14:59 SJ Procedure Note Ines Mario - 10/24/2008 [facility] [address] [place], [place] [address] Admit Date: 10/22/2008 JUNIOR MARKS Sex: F Admit Prov: TYSON HEALY Date: 1990 Primary Care Prov: JODY KIMBROUGH CMRN: [id number] Room: [facility] SSN: [id number] IMAGING SERVICES Ordering Prov: N/A Interpretation PELVIC SONOGRAM, 10/22/2008 History: Pelvic pain. Rule out ovarian torsion. Transabdominal and endovaginal images of the pelvis were obtained. Onthe transvaginal exam, the uterus is seen to be floating in a moderateamount of free fluid. The echogenic endometrium is normal measuring 5 mm.The uterus was not measured on the transabdominal exam but the size andcontour appear normal. On the endovaginal exam, the uterus measuresapproximately 3.9 x 2.9 x 4.3 cm. Both ovaries are well seen endovaginally. Both contain multiple predominantly peripheral follicular type cysts. The left ovarymeasures 3.2 x 2.7 x 2.0 cm. The right ovary measures 2.9 x 2.4 x 1.9 cm. Withcolor- flow Doppler sonography, there is symmetric blood flow to bothovaries. A large homogeneously hypoechoic rounded lesion is noted low in thepelvis. This is probably a complex nabothian cyst. IMPRESSION: Moderate amount of free fluid in the pelvis. Normal appearing ovaries bilaterally with symmetric blood flow. Noevidence for an ovarian torsion at this time. . Dictated by: INES MARIO 10/22/2008 14:29 Electronically signed by: INES MARIO 10/24/2008 07:20 Transcribed: 10/22/2008 14:59 SJ Rhoda Ornelas MD US ORDERABLES Fi nal Result * (ABNORMAL) CBC WITH DIFFERENTIAL (10/22/2008 12:20 PM CDT) RBC 4.27 3.90 - 4.90 M/uL [facility] MCHC 34.8 31.5 - 35.5 % [facility] MCV 88.1 82.0 - 99.0 fL [facility] PLATELETS 317 140 - 350 K/uL [facility] HEMOGLOBIN 13.1 11.8 - 14.8 g/dL [facility] RDW 12.8 11.5 - 14.5 % [facility] WBC 10.5(H) 4.0 - 9.8 K/uL [facility] MCH 30.7 27.2 - 32.6 pg [facility] MPV 9.3 9.3 - 12.4 fL [facility] HEMATOCRIT 37.6 35.5 - 44.0 % [facility] RDW-STDEV 40.9 37.1 - 48.7 fL [facility] BASOPHILS 0 0 - 2 % [facility] MONOCYTE ABSOLUTE 0.73 0.10 - 1.30 K/uL [facility] REVIEWED ON SMEAR Plt reviewed [facility] MONOCYTES 7 3 - 13 % [facility] NEUTROPHIL ABSOLUTE 8.40(H) 1.90 - 7.00 K/uL [facility] NEUTROPHILS, SEG 80(H) 45 - 70 % [facility] PLATELET EST. Consistent w/ count Normal [facility] EOSINOPHIL ABSOLUTE 0.00 0.00 - 0.70 K/uL [facility] EOSINOPHILS 0 0 - 7 % [facility] LYMPHOCYTE ABSOLUTE 1.37 0.70 - 4.50 K/uL [facility] LYMPHOCYTES 13(L) 16 - 45 % [facility] RBC MORPHOLOGY Normal Normal [facility] BASOPHILS ABSOLUTE 0.00 0.00 - 0.20 K/uL [facility] Blood specimen (specimen) 10/22/2008 12:20 PM CDT 10/22/2008 12:41 PM CDT us Tyson Healy MD HEMATOLOGY ORDERABLES Edite d INTERFACE SYSTEM Refer to clinic/hospital department [facility] CLIA# [id number] [address] [place] [place] [address] * HCG QUANTITATIVE, BLOOD (10/22/2008 11:40 AM CDT) HCG QUANT, BLOOD <5 0 - 5 mIU/mL [facility] Comment: Result of 5 - 25 mIU/mL is indeterminant for , repeat of test recommemded in 48 hours. Reference Range: Gestational Age: 3 Weeks 5.8 - 71.2 mIU/mL 4 Weeks 9.5 - 750 mIU/mL 5 Weeks 217 - 7138 mIU/mL 6 Weeks 158 - 31,795 mIU/mL 7 Weeks 3697 - 163,563 mIU/mL 8 Weeks 32,065 - 149,571 mIU/mL 9 Weeks 63,803 - 151,410 mIU/mL 10 Weeks 46,509 - 186,977 mIU/mL 12 Weeks 27,832 - 210,612 mIU/mL 14 Weeks 13,950 - 62,530 mIU/mL 15 Weeks 12,039 - 70,971 mIU/mL 16 Weeks 9040 - 56,451 mIU/mL 17 Weeks 8175 - 55,868 mIU/mL 18 Weeks 8099 - 58,176 mIU/mL Heterophile antibodies and other interfering substances in the serum of some patients may cause a false-positive result in this assay. Before making a diagnosis of malignancy or ectopic ,the result of this test should be confirmed with a urine HCG test and correlated with other clinical evidence. 10/22/2008 11:4 0 AM CDT 10/22/2008 1:53 PM CDT us Rhoda Ornelas MD CHEMISTRY ORDERABL ES Edited Performing Organization Address [facility] de Phone Number INTERFACE SYSTEM Refer to clinic/hospital department [facility] CLIA# [id number] [address] [place] [address] * C-REACTIVE PROTEIN (10/22/2008 11:40 AM CDT) CRP 0.4 0.0 - 0.8 mg/dL [facility] 10/22/2008 11:4 0 AM CDT 10/22/2008 12:04 PM CDT us Tyson Healy MD CHEMISTRY ORDERABLES Final Result Performing Organization Address [facility] Phone Number INTERFACE SYSTEM Refer to clinic/hospital department [facility] CLIA# [id number] [address] [place] [address] * C-REACTIVE PROTEIN (10/21/2008 11:08 PM CDT) CRP 0.2 0.0 - 0.8 mg/dL [facility] 10/21/2008 11:0 8 PM CDT 10/21/2008 11:13 PM CDT us Marshall Haque MD CHEMISTRY ORDERABLES Final Resu lt INTERFACE SYSTEM Refer to clinic/hospital department [facility] CLIA# [id number] [address] [place] [address] * (ABNORMAL) COMPREHENSIVE METABOLIC PANEL (10/21/2008 11:08 PM CDT) GLUCOSE 85 65 - 99 mg/dL [facility] AST 13 12 - 32 U/L [facility] BUN 11 6 - 20 mg/dL [facility] CALCIUM 8.4(L) 8.6 - 10.2 mg/dL [facility] CHLORIDE 104 96 - 108 mmol/L [facility] ALBUMIN 4.0 3.4 - 4.8 g/dL [facility] CREATININE 0.72 0.51 - 0.95 mg/dL [facility] SODIUM 137 135 - 145 mmol/L [facility] ALT 14 0 - 31 U/L [facility] ALKALINE PHOSPHATASE 68 35 - 104 U/L [facility] BILIRUBIN TOTAL 0.5 0.2 - 1.0 mg/dL [facility] CO2 23 22 - 30 mmol/L [facility] TOTAL PROTEIN 6.7 6.3 - 8.6 g/dL [facility] POTASSIUM 3.5 3.5 - 4.9 mmol/L [facility] GFR, >60 >=60 mL/min/1. 7 sq meter [facility] GFR >60 >=60 mL/min/1. 7 sq meter [facility] Comment: Modification of Diet in Renal Disease (MDRD) study formula. Estimated GFR rate interpretative information for both Americans and non- Americans is available on the [facility] Intranet at: [email or web address] Select: Lab Policies and Procedures Select: Reference Ranges - GFR 10/21/2008 11:0 8 PM CDT 10/21/2008 11:13 PM CDT Marshall Haqeu MD CHEMISTRY ORDERABLES Edited INTERFACE SYSTEM Refer to clinic/hospital department [facility] CLIA# [id number] [address] [place] [address] * (ABNORMAL) CBC WITH DIFFERENTIAL (10/21/2008 11:08 PM CDT) RBC 4.25 3.90 - 4.90 M/uL [facility] MCHC 34.6 31.5 - 35.5 % [facility] MCV 88.5 82.0 - 99.0 fL [facility] PLATELETS 348 140 - 350 K/uL [facility] HEMOGLOBIN 13.0 11.8 - 14.8 g/dL [facility] RDW 12.7 11.5 - 14.5 % [facility] WBC 13.1(H) 4.0 - 9.8 K/uL [facility] MCH 30.6 27.2 - 32.6 pg [facility] MPV 9.2(L) 9.3 - 12.4 fL [facility] HEMATOCRIT 37.6 35.5 - 44.0 % [facility] RDW-STDEV 40.9 37.1 - 48.7 fL [facility] MONOCYTES 10 3 - 13 % [facility] MONOCYTE ABSOLUTE 1.30 0.10 - 1.30 K/uL [facility] NEUTROPHILS 64 45 - 70 % [facility] NEUTROPHIL ABSOLUTE 8.39(H) 1.90 - 7.00 K/uL [facility] EOSINOPHILS 1 0 - 7 % [facility] EOSINOPHIL ABSOLUTE 0.08 0.00 - 0.70 K/uL [facility] LYMPHOCYTES 25 16 - 45 % [facility] LYMPHOCYTE ABSOLUTE 3.34 0.70 - 4.50 K/uL [facility] BASOPHILS 0 0 - 2 % [facility] BASOPHILS ABSOLUTE 0.03 0.00 - 0.20 K/uL [facility] 10/21/2008 11:0 8 PM CDT 10/21/2008 11:14 PM CDT Marshall Haque MD HEMATOLOGY ORDERABLES Edited INTERFACE SYSTEM Refer to clinic/hospital department [facility] CLIA# [id number] [address] [facility] [address] [place] [address] documented in this encounter Visit Diagnoses Diagnosis Abdominal pain, unspecified site documented in this encounter Additional Health Concerns Infection Onset Date Last Indicated Resolved Time R/O COVID-19 07/30/2019 07/30/2019 08/04/2019 6:05 AM CDT R/O Respiratory 05/12/2022 05/12/2022 05/12/2022 4 :27 PM PIPELINE 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 R/O C. diff 03/11/2024 03/11/2024 03/11/2024 12:4 6 PM PIPELINE 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 C Diff 03/11/2024 03/11/2024 05/10/2024 1:16 AM PIPELINE 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 documented as of this encounter Care Teams Fern Picker Relationship Specialty Start Date End Date Gilmar Galvan MD [address] [place] [address] PCP - General Family Practice 12/09/18 documented as of this encounter
--- OUTSIDE RECORDS SUMMARY | 2025-01-31 11:36 | XMS_ITS | Encounter Summary ---
Author Organization [facility] Address [address] [place] [address] Care Team Providers Care Optical Sales Associate Name Role Phone Gilmar Galvan MD Primary Care Provider Encounter Details Date Type Department Care Team (Late st Contact Info) Description 06/24/2022 Lab Requisition [facility] Laboratory Services [facility] [address] [place] [address] Mona Shaver, CHIP BIN CONVEYOR TENDER [address] [facility] [address] [place] [address] Social History Tobacco Use Types Packs/Day Years Used Date Smoking Tobacco: Never Smokeless Tobacco: Never Alcohol Use Standard Drinks/Week Comments Not Currently 0 (1 standard drink = 0.6 oz pur e alcohol) vary rare social use Comments No Sex and Gender Information Value Date Recorded Sex Assigned at Not on file Legal Sex Female 3:13 AM OBSERVATION NURSE Gender Identity Not on file Sexual Orientation Not on file Occupation Industry Job Start Date Job End Date Not on file Not on file Not on file Not on file COVID-19 Exposure Response Date Recorded In the last 10 days, have yo u been in contact with someone who was confirmed or suspected to have Coronavirus/COVID-19? No / Unsure 06/24/2022 10:13 AM OBSERVATION NURSE documented as of this encounter Plan of Treatment Upcoming Encounters Date Type Department Care Team (Late st Contact Info) Description 02/03/2025 2:30 PM CDT Office Visit [facility] SELF CONTAINED BEHAVIOR UNIT TEACHER - Medical [place] [address] [facility] [address] [place] [address] Casandra Major MD [address] [facility] [address] [place] [address] 03/02/2025 8:00 AM CDT Video Visit [facility] Family Medicine - [facility] [address] [place] [address] Priscilla Vera NP [address] [place] [address] documented as of this encounter Procedures Procedure Name Priority Date/Time Associated Diagnosis Comments CBC WITH DIFFERENTIAL Stat 06/24/2022 4:04 PM OBSERVATION NURSE COMPREHENSIVE METABOLIC PANEL Stat 06/24/2022 4:04 PM OBSERVATION NURSE documented in this encounter Results * (ABNORMAL) COMPREHENSIVE METABOLIC PANEL (06/24/2022 4:04 PM OBSERVATION NURSE) SODIUM 141 136 - 145 mmol/L 06/24/2022 5:23 PM [facility] POTASSIUM 4.4 3.5 - 5.0 mmol/L 06/24/2022 5:23 PM OBSERVATION NURSE [facility]ATORY [facility] - [facility] Comment: Testing was performed on Serum. Specimen of choice is [place] Heparinized Plasma. Serum Potassium Reference Range: 0 years - 150 years 3.5 - 5.1 mmol/L CHLORIDE 105 98 - 107 mmol/L 06/24/2022 5:23 PM OBSERVATION NURSE [facility] LABORATORY SERVICES [facility] CO2 24 22 - 29 mmol/L 06/24/2022 5:23 PM OBSERVATION NURSE [facility] CALCIUM 8.9 8.6 - 10.2 mg/dL 06/24/2022 5:23 PM OBSERVATION NURSE [facility] BUN 12 6 - 20 mg/dL 06/24/2022 5:23 PM [facility] CREATININE 0.65 0.51 - 0.95 mg/dL 06/24/2022 5:23 PM [facility] GLUCOSE 87 74 - 99 mg/dL 06/24/2022 5:23 PM [facility] TOTAL PROTEIN 6.1(L) 6.7 - 8.6 g/dL 06/24/2022 5:23 PM [facility] Comment: Testing was performed on Serum. Specimen of choice is [place] Heparinized Plasma. Serum TP Ref. Range: 3 years - 150 years 6.4 - 8.3 g/dL 2 years - 3 years 6.0 - 8.0 g/dL 1 year - 2 years 5.6 - 7.5 g/dL 7 months - 1 year 5.1 - 7.3 g/dL 7 days - 7 months 4.4 - 7.6 g/dL 0 days - 7 days 4.6 - 7.0 g/dL ALBUMIN 3.7 3.5 - 5.2 g/dL 06/24/2022 5:23 PM [facility] BILIRUBIN TOTAL <0.2(L) 0.3 - 1.2 mg/dL 06/24/2022 5:23 PM [facility] ALKALINE PHOSPHATASE 140(H) 35 - 104 U/L 06/24/2022 5:23 PM [facility] AST 13 <33 U/L 06/24/2022 5:23 PM [facility] ALT 23 <34 U/L 06/24/2022 5:23 PM [facility] GFR >60 >=60 mL/min/1.7 3 sq meter 06/24/2022 5:23 PM [facility] Comment:eGFR calculated with 2020 CKD-EPI equation. Vegetarian diet, extremely high or low muscle mass, and may affect results. Cystatin C with Glomerular Filtration Rate is a suitable alternative for these patients. ANION GAP 12 8 - 16 mmol/L 06/24/2022 5:23 PM [facility] Blood 06/24/2022 4:04 PM OBSERVATION NURSE 06/24/2022 5:02 PM OBSERVATION NURSE [facility] LABORATORY SERVICES - [facility] - 06/24/2022 5:23 PM OBSERVATION NURSE Samples containing indocyanine green cause interferences on Total and/or Direct Bilirubin and must not be measured. Mona Shaver NP CHEMISTRY ORDERABLES Final Result [facility]OR[facility] CLIA# [id number] [address] [facility] [place] [address] * (ABNORMAL) CBC WITH DIFFERENTIAL (06/24/2022 4:04 PM OBSERVATION NURSE) WBC 10.3(H) 4.0 - 9.8 K/uL 06/24/2022 5:10 PM [facility] RBC 3.13(L) 3.90 - 4.90 M/uL 06/24/2022 5:10 PM [facility] HEMOGLOBIN 9.0(L) 11.8 - 14.8 g/dL 06/24/2022 5:10 PM [facility] HEMATOCRIT 28.3(L) 35.5 - 44.0 % 06/24/2022 5:10 PM [facility] MCV 90.4 82.0 - 99.0 fL 06/24/2022 5:10 PM [facility] MCH 28.8 27.2 - 32.6 pg 06/24/2022 5:10 PM [facility] MCHC 31.8 31.5 - 35.5 g/dL 06/24/2022 5:10 PM [facility] RDW 14.6(H) 11.5 - 14.5 % 06/24/2022 5:10 PM [facility] RDW-STDEV 47.8 37.1 - 48.7 fL 06/24/2022 5:10 PM [facility] PLATELETS 468(H) 140 - 350 K/uL 06/24/2022 5:10 PM [facility] LABORATORY SERVICES - . [place] MPV 8.5(L) 9.3 - 12.4 fL 06/24/2022 5:10 PM [facility] . [facility] NEUTROPHILS 65 % 06/24/2022 5:10 PM [facility] . [facility] LYMPHOCYTES 21 % 06/24/2022 5:10 PM [facility] . [facility] MONOCYTES 9 % 06/24/2022 5:10 PM [facility] EOSINOPHILS 2 % 06/24/2022 5:10 PM [facility] BASOPHILS 1 % 06/24/2022 5:10 PM [facility] IMMATURE GRANULOCYTES 4 % 06/24/2022 5:10 PM [facility] Comment:IG (Immature Granulo cyte) count includes Metamyelocytes, Myelocytes, and Promyelocytes NEUTROPHIL ABSOLUTE 6.64 1.90 - 7.00 K/uL 06/24/2022 5:10 PM [facility] LYMPHOCYTE ABSOLUTE 2.15 0.70 - 4.50 K/uL 06/24/2022 5:10 PM [facility] MONOCYTE ABSOLUTE 0.87 0.10 - 1.30 K/uL 06/24/2022 5:10 PM [facility] EOSINOPHIL ABSOLUTE 0.17 0.00 - 0.70 K/uL 06/24/2022 5:10 PM [facility] BASOPHILS ABSOLUTE 0.07 0.00 - 0.20 K/uL 06/24/2022 5:10 PM [facility] IMMATURE GRANULOCYTES ABSOLUTE 0.37(H) 0.00 - 0.03 K/uL 06/24/2022 5:10 PM [facility] Blood 06/24/2022 4:04 PM OBSERVATION NURSE 06/24/2022 5:02 PM [facility] Mona Shaver NP HEMATOLOGY ORDERABLES Final Result [facility] CLIA# [id number] [address] [place] [address] documented in this encounter Visit Diagnoses Not on filedocumented in this encounter Additional Health Concerns Infection Onset Date Last Indicated Resolved Time R/O C. diff 03/11/2024 03/11/2024 03/11/2024 12:4 6 PM OBSERVATION NURSE C Diff 03/11/2024 03/11/2024 05/10/2024 1:16 AM OBSERVATION NURSE Assessment Noted Time PHQ-9 Depression Total Score: 5 08/17/19 22 3:00 PM CDT documented as of this encounter Care Teams Optical Sales Associate Relationship Specialty Start Date End Date Gilmar Galvan MD [address] [place] [id number] PCP - General Family Practice 12/09/18 documented as of this encounter
--- OUTSIDE RECORDS SUMMARY | 2025-01-31 11:36 | XMS_ITS | Encounter Summary ---
Author Organization [facility] Address [address] [place] [address] Care Team Providers Care Certified Caregiver Name Role Phone Gilmar Galvan MD Primary Care Provider Encounter Details Date Type Department Care Team (Late st Contact Info) Description 11/11/2005 Outpatient Historical [facility] Pediatrics [address] [facility] [address] [address] [place] [address] [place] [address] Social History Tobacco Use Types Packs/Day Years Used Date Smoking Tobacco: Never Assessed Comments Unknown Sex and Gender Information Value Date Recorded Sex Assigned at Not on file Legal Sex Female 3:13 AM MACHINE CLEANER Gender Identity Not on file Sexual Orientation Not on file documented as of this encounter Plan of Treatment Upcoming Encounters Date Type Department Care Team (Late st Contact Info) Description 02/03/2025 2:30 PM CDT Office Visit [facility] MEMBERSHIP SALES MANAGER - Medical [place] [address] [facility] [address] [place] [address] Casandra Major MD [address] [facility] [address] [place] [address] 03/02/2025 8:00 AM CDT Video Visit [facility] [address] [place] [address] Priscilla Vera NP [address] [place] [address] documented as of this encounter Visit Diagnoses Not on filedocumented in this encounter Additional Health Concerns Infection Onset Date Last Indicated Resolved Time R/O COVID-19 07/30/2019 07/30/2019 08/04/2019 6:05 AM CDT R/O Respiratory 05/12/2022 05/12/2022 05/12/2022 4 :27 PM MACHINE CLEANER R/O C. diff 03/11/2024 03/11/2024 03/11/2024 12:4 6 PM MACHINE CLEANER C Diff 03/11/2024 03/11/2024 05/10/2024 1:16 AM MACHINE CLEANER documented as of this encounter Care Teams Certified Caregiver Relationship Specialty Start Date End Date Gilmar Galvan MD [address] [place] [address] PCP - General Family Practice 12/09/18 documented as of this encounter
--- OUTSIDE RECORDS SUMMARY | 2025-01-31 11:36 | XMS_ITS | Encounter Summary ---
Author Organization [facility] Address [address] [place] [address] Care Team Providers Care Ski Guide Name Role Phone Gilmar Galvan MD Primary Care Provider Encounter Details Date Type Department Care Team (Late st Contact Info) Description 11/26/2006 Outpatient Historical [facility] Pediatrics [address] [facility] [address] [address] [place] [address] [place] [address] Social History Tobacco Use Types Packs/Day Years Used Date Smoking Tobacco: Never Assessed Comments Unknown Sex and Gender Information Value Date Recorded Sex Assigned at Not on file Legal Sex Female 3:13 AM ACCOUNTING CLERK Gender Identity Not on file Sexual Orientation Not on file documented as of this encounter Plan of Treatment Upcoming Encounters Date Type Department Care Team (Late st Contact Info) Description 02/03/2025 2:30 PM CDT Office Visit [facility] HOG BUYER - Medical [place] [address] [facility] [address] [place] [address] Casandra Major MD [address] [facility] [address] [place] [address] 03/02/2025 8:00 AM CDT Video Visit [facility] [address] [place] [address] Priscilla Vera NP [address] [place] [address] documented as of this encounter Visit Diagnoses Not on filedocumented in this encounter Additional Health Concerns Infection Onset Date Last Indicated Resolved Time R/O COVID-19 07/30/2019 07/30/2019 08/04/2019 6:05 AM CDT R/O Respiratory 05/12/2022 05/12/2022 05/12/2022 4 :27 PM ACCOUNTING CLERK R/O C. diff 03/11/2024 03/11/2024 03/11/2024 12:4 6 PM ACCOUNTING CLERK C Diff 03/11/2024 03/11/2024 05/10/2024 1:16 AM ACCOUNTING CLERK documented as of this encounter Care Teams Ski Guide Relationship Specialty Start Date End Date Gilmar Galvan MD [address] [place] [address] PCP - General Family Practice 12/09/18 documented as of this encounter
--- OUTSIDE RECORDS SUMMARY | 2025-01-31 11:36 | XMS_ITS | Encounter Summary ---
Author Organization [facility] Address [address] [place] [address] Care Team Providers Care Account Development Executive Name Role Phone Gilmar Galvan MD Primary Care Provider Encounter Details Date Type Department Care Team (Late st Contact Info) Description 02/13/2007 Outpatient Historical [facility] Pediatrics [address] [facility] [address] [address] [place] [address] [place] [address] Social History Tobacco Use Types Packs/Day Years Used Date Smoking Tobacco: Never Assessed Comments Unknown Sex and Gender Information Value Date Recorded Sex Assigned at Not on file Legal Sex Female 3:13 AM CASTINGS TRIMMER Gender Identity Not on file Sexual Orientation Not on file documented as of this encounter Plan of Treatment Upcoming Encounters Date Type Department Care Team (Late st Contact Info) Description 02/03/2025 2:30 PM CDT Office Visit [facility] FISH HATCHERY MANAGER - Medical [place] [address] [facility] [address] [place] [address] Casandra Major MD [address] [facility] [facility] [address] [place] [address] 03/02/2025 8:00 AM CDT Video Visit [facility] [address] [place] [address] Priscilla Vera NP [address] [place] [address] documented as of this encounter Visit Diagnoses Not on filedocumented in this encounter Additional Health Concerns Infection Onset Date Last Indicated Resolved Time R/O COVID-19 07/30/2019 07/30/2019 08/04/2019 6:05 AM CDT R/O Respiratory 05/12/2022 05/12/2022 05/12/2022 4 :27 PM CASTINGS TRIMMER R/O C. diff 03/11/2024 03/11/2024 03/11/2024 12:4 6 PM CASTINGS TRIMMER C Diff 03/11/2024 03/11/2024 05/10/2024 1:16 AM CASTINGS TRIMMER documented as of this encounter Care Teams Account Development Executive Relationship Specialty Start Date End Date Gilmar Galvan MD [address] [place] [address] PCP - General Family Practice 12/09/18 documented as of this encounter
--- OUTSIDE RECORDS SUMMARY | 2025-01-31 11:36 | XMS_ITS | Clinical Summary ---
Author Organization [facility] Address [address] [place] [address] Care Team Providers Care Early Childhood Education Specialist Name Role Phone Anitha Nina RN Unavailable Unavailable Gilmar Galvan MD Primary Care Provider Source Comments [facility],non-owned Affiliates and Associated Physician Practices is amultiple site organization consisting of ambulatory clinics and hospital sitesin [place], [place], [place] and [place]. This disclosure is being madepursuant to the Care Everywhere program and may not contain all information available regarding this patient. Last updated 18.[facility] Allergies Active Allergy Reactions Criticality Noted Date Comments Penicillins 10/22/2014 Ketorolac 10/22/2014 Medications * Be aware that medications may not be up to date on this document. Alwaysverify current medications with the patient. cyanocobalamin (VITAMIN B-12) 1000 MCG tablet Take 1,000 mcg by mouth once daily Active ibuprofen (MOTRIN) 600 MG tablet Take 1 tablet by mouth every 6 hours as needed for Pain 60 tablet 06/09/2017 Active docusate sodium (COLACE) 100 MG capsule Take 1 capsule by mouth 2 times daily 60 capsule 06/09/2017 Active polyethylene glycol 3350 (MIRALAX) packet Take 17 g by mouth once daily 30 packet 06/09/2017 Active clindamycin (CLEOCIN) 150 MG capsule Take 150 mg by mouth 3 times daily Active hydrOXYzine hcl (ATARAX) 25 MG tablet Take 1 tablet by mouth 4 times daily as needed (anxiety) 15 tablet 04/02/2018 Active albuterol HFA (PROVENTIL;VENT MARKEL;PROAIR) 108 (90 Base) MCG/ACT inhaler Inhale 2 puffs by mouth every 4 hours as needed 08/05/2019 Active amphetamine-dex troamphetamine XR 24hr (ADDERALL XR) 30 MG capsule Take 30 mg by mouth 11/23/2019 Active escitalopram (LEXAPRO) 10 MG tablet TAKE 1 TABLET BY MOUTH EVERY DAY 11/15/2019 Active HYDROcodone-tima taminophen (NORCO) 5-325 MG tablet Take 1 tablet by mouth every 6 hours as needed for Pain 15 tablet 12/03/2019 Active Active Problems Problem Noted Date Diagnosed Date Endometriosis Chronic pelvic pain in female Dysmenorrhea Family History Relation Name Status Comments Father Alive Mother Alive Social History Tobacco Use Types Packs/Day Years Used Date Smoking Tobacco: Never Smokeless Tobacco: Never Alcohol Use Standard Drinks/Week Comments Yes 0 (1 standard drink = 0.6 oz pur e alcohol) social Comments No Sex and Gender Information Value Date Recorded Sex Assigned at Not on file Legal Sex Female 12:25 PM CDT Gender Identity Not on file Sexual Orientation Not on file Last Filed Vital Signs Vital Sign Reading Time Taken Comments Blood Pressure 94/74 12/03/2019 4:52 PM CDT Pulse 66 12/03/2019 4:52 PM CDT Temperature 36.6 C (97.8 F) 12/03/2019 4:52 PM CDT Respiratory Rate 16 12/03/2019 4:52 PM CDT Oxygen Saturation 100% 12/03/2019 4:52 PM CDT Inhaled Oxygen Concentration - - Weight 72.6 kg (160 lb) 12/03/2019 4:52 PM CDT Height 154.9 cm (5' 1) 12/03/2019 4:52 PM CDT Body Mass Index 30.23 12/03/2019 4:52 PM CDT Plan of Treatment Health Maintenance Due Date Last Done Comments HIV SCREENING 10/26/2003 HEPATITIS C SCREENING 10/21/2006 DTAP/TDAP/TD VACCINES (1 - Tdap) 10/26/2007 HEPATITIS B VACCINE (1 of 3 - 19+ 3-dose series) 10/26/2007 PAP SMEAR 2009 HPV VACCINE (1 - 3-dose SCDM series) 10/26/2015 DEPRESSION SCREENING 05/05/2024 COVID-19 VACCINE ( season) 2025 INFLUENZA VACCINE (#1) 2025 3, 04/07/2011, 03/06/2010, Additional history exists ZOSTER VACCINE (1 of 2) 2038 HIB VACCINE Aged Out No longer eligi ble based on patient's age to complete this topic MENINGOCOCCAL (Group B) VACCINE SHARED DECISION-MAKING Aged Out No longer eligible based on patient's age to complete this topic MENINGOCOCCAL GROUPS A/C/Y/W VACCINE Aged Out No longer eligible based on patient's age to complete this topic PNEUMOCOCCAL VACCINE Aged Out No long er eligible based on patient's age to complete this topic Insurance [facility] Care Teams Early Childhood Education Specialist Relationship Specialty Start Date End Date Gilmar Galvan MD [address] [place] [address] PCP - General Family Medicine 12/03/19 Anitha Nina, RN Registered Nurse 06/09/17
--- OUTSIDE RECORDS SUMMARY | 2025-01-31 11:36 | XMS_ITS | Encounter Summary ---
Author Organization [facility] Address [address] [place] [address] Care Team Providers Care Barrel Reamer Name Role Phone Gilmar Galvan MD Primary Care Provider Encounter Details Date Type Department Care Team (Late st Contact Info) Description 02/17/2006 Outpatient Historical [facility] Pediatrics [address] [facility] [address] [address] [place] [address] [place] [address] Social History Tobacco Use Types Packs/Day Years Used Date Smoking Tobacco: Never Assessed Comments Unknown Sex and Gender Information Value Date Recorded Sex Assigned at Not on file Legal Sex Female 3:13 AM GEOPHYSICIST Gender Identity Not on file Sexual Orientation Not on file documented as of this encounter Plan of Treatment Upcoming Encounters Date Type Department Care Team (Late st Contact Info) Description 02/03/2025 2:30 PM CDT Office Visit [facility] HIGH SCHOOL LIBRARY MEDIA SPECIALIST - Medical [place] [address] [facility] [address] [place] [address] Casandra Major MD [address] [facility] [address] [place] [address] 03/02/2025 8:00 AM CDT Video Visit [facility] [address] [place] [address] Priscilla Vera NP [address] [place] [address] documented as of this encounter Visit Diagnoses Not on filedocumented in this encounter Additional Health Concerns Infection Onset Date Last Indicated Resolved Time R/O COVID-19 07/30/2019 07/30/2019 08/04/2019 6:05 AM CDT R/O Respiratory 05/12/2022 05/12/2022 05/12/2022 4 :27 PM GEOPHYSICIST R/O C. diff 03/11/2024 03/11/2024 03/11/2024 12:4 6 PM GEOPHYSICIST C Diff 03/11/2024 03/11/2024 05/10/2024 1:16 AM GEOPHYSICIST documented as of this encounter Care Teams Barrel Reamer Relationship Specialty Start Date End Date Gilmar Galvan MD [address] [place] [address] PCP - General Family Practice 12/09/18 documented as of this encounter
--- OUTSIDE RECORDS SUMMARY | 2025-01-31 11:36 | XMS_ITS | Encounter Summary ---
Author Organization [facility] Address [address] [place] [address] Care Team Providers Care Binder Lockstitch Name Role Phone Gilmar Galvan MD Primary Care Provider Encounter Details Date Type Department Care Team (Late Contact Info) Description 12/28/2006 Outpatient Historical [facility] [place] [address] [place] [address] Social History Tobacco Use Types Packs/Day Years Used Date Smoking Tobacco: Never Assessed Comments Unknown Sex and Gender Information Value Date Recorded Sex Assigned at Not on file Legal Sex Female 3:13 AM FIELD MERCHANDISER Gender Identity Not on file Sexual Orientation Not on file documented as of this encounter Plan of Treatment Upcoming Encounters Date Type Department Care Team (Late Contact Info) Description 02/03/2025 2:30 PM CDT [facility] Visit [facility] LAB RN - Medical [place] [address] [facility] [address] [place] [address] Casandra Major MD [address] [facility] [address] [place] [address] 03/02/2025 8:00 AM CDT Video Visit [facility] Family Medicine - [address] [address] Priscilla Vera NP [address] [place] [address] documented as of this encounter Visit Diagnoses Not on filedocumented in this encounter Additional Health Concerns Infection Onset Date Last Indicated Resolved Time R/O COVID-19 07/30/2019 07/30/2019 08/04/2019 6:05 AM CDT R/O Respiratory 05/12/2022 05/12/2022 05/12/2022 4 :27 PM FIELD MERCHANDISER R/O C. diff 03/11/2024 03/11/2024 03/11/2024 12:4 6 PM FIELD MERCHANDISER C Diff 03/11/2024 03/11/2024 05/10/2024 1:16 AM FIELD MERCHANDISER documented as of this encounter Care Teams Binder Lockstitch Relationship Specialty Start Date End Date Gilmar Galvan MD [address] [place] [address] PCP - General Family Practice 12/09/18 documented as of this encounter
--- OUTSIDE RECORDS SUMMARY | 2025-01-31 11:36 | XMS_ITS | Encounter Summary ---
Author Organization [facility] Address [address] [place] [address] Care Team Providers Care Cryptographic Center Specialist Name Role Phone Gilmar Galvan MD Primary Care Provider Encounter Details Date Type Department Care Team (Late st Contact Info) Description 02/15/2005 Outpatient Historical [facility] Pediatrics [address] [facility] [address] [address] [place] [address] [place] [address] Social History Tobacco Use Types Packs/Day Years Used Date Smoking Tobacco: Never Assessed Comments Unknown Sex and Gender Information Value Date Recorded Sex Assigned at Not on file Legal Sex Female 3:13 AM INSURANCE CONSULTANT Gender Identity Not on file Sexual Orientation Not on file documented as of this encounter Plan of Treatment Upcoming Encounters Date Type Department Care Team (Late st Contact Info) Description 02/03/2025 2:30 PM CDT Office Visit [facility] COAL OR ORE CONTROLLER - Medical [place] [address] [facility] [address] [place] [address] Casandra Major MD [address] [facility] [address] [place] [address] 03/02/2025 8:00 AM CDT Video Visit [facility] [address] [place] [address] Priscilla Vera NP [address] [place] [address] documented as of this encounter Visit Diagnoses Not on filedocumented in this encounter Additional Health Concerns Infection Onset Date Last Indicated Resolved Time R/O COVID-19 07/30/2019 07/30/2019 08/04/2019 6:05 AM CDT R/O Respiratory 05/12/2022 05/12/2022 05/12/2022 4 :27 PM INSURANCE CONSULTANT R/O C. diff 03/11/2024 03/11/2024 03/11/2024 12:4 6 PM INSURANCE CONSULTANT C Diff 03/11/2024 03/11/2024 05/10/2024 1:16 AM INSURANCE CONSULTANT documented as of this encounter Care Teams Cryptographic Center Specialist Relationship Specialty Start Date End Date Gilmar Galvan MD [address] [place] [address] PCP - General Family Practice 12/09/18 documented as of this encounter
--- OUTSIDE RECORDS SUMMARY | 2025-01-31 11:36 | XMS_ITS | Encounter Summary ---
Author Organization [facility] Address [address] [place] [address] Care Team Providers Care Travel Occupational Therapist Name Role Phone Gilmar Galvan MD Primary Care Provider Encounter Details Date Type Department Care Team (Latest Contact Info) Description 11/26/2006 Outpatient Historical [facility] [place] [address] [place] [address] Cervicalgia (Primary Dx) Social History Tobacco Use Types Packs/Day Years Used Date Smoking Tobacco: Never Assessed Comments Unknown Sex and Gender Information Value Date Recorded Sex Assigned at Not on file Legal Sex Female 3:13 AM DIRECTOR OF RADIOLOGY Gender Identity Not on file Sexual Orientation Not on file documented as of this encounter Plan of Treatment Upcoming Encounters Date Type Department Care Team (Late st Contact Info) Description 02/03/2025 2:30 PM CDT Office Visit [facility] AIR SAMPLING AND MONITORING - Medical [place] [address] [facility] [address] [place] [address] Casandra Major MD [address] [facility] [address] [place] [address] 03/02/2025 8:00 AM CDT Video Visit [facility] Family Medicine - [address] [place] [address] Priscilla Vera NP [address] [place] [address] documented as of this encounter Visit Diagnoses Diagnosis Cervicalgia- Primary documented in this encounter Additional Health Concerns Infection Onset Date Last Indicated Resolved Time R/O COVID-19 07/30/2019 07/30/2019 08/04/2019 6:05 AM CDT R/O Respiratory 05/12/2022 05/12/2022 05/12/2022 4 :27 PM DIRECTOR OF RADIOLOGY R/O C. diff 03/11/2024 03/11/2024 03/11/2024 12:4 6 PM DIRECTOR OF RADIOLOGY C Diff 03/11/2024 03/11/2024 05/10/2024 1:16 AM DIRECTOR OF RADIOLOGY documented as of this encounter Care Teams Travel Occupational Therapist Relationship Specialty Start Date End Date Gilmar Galvan MD [address] [place] [address] PCP - General Family Practice 12/09/18 documented as of this encounter
--- OUTSIDE RECORDS SUMMARY | 2025-01-31 11:36 | XMS_ITS | Encounter Summary ---
Author Organization [facility] Address [address] [place] [address] Care Team Providers Care Hat Forming Machine Operator Name Role Phone Gilmar Galvan MD Primary Care Provider Reason for Visit * Reason Comments Med Refill Encounter Details Date Type Department Care Team (Late Contact Info) Description 01/26/2025 Refill [facility] Maternal and Medicine - [facility] [address] [facility] [address] [place] [address] Gilmar Galvan MD [address] [place] [address] ESTHER (generalized anxiety disorder) Social History Tobacco Use Types Packs/Day Years [...] on file Legal Sex Female 3:13 AM ARCHITECTURAL DRAFTSPERSON Gender Identity Not on file Sexual Orientation Not on file Occupation Industry Job Start Date Job End Date Not on file Not on file Not on file Not on file documented as of this encounter Plan of Treatment Upcoming Encounters Date Type Department Care Team (Late st Contact Info) Description 02/03/2025 2:30 PM CDT Office Visit [facility] FIELD LOGISTICS COORDINATOR - Medical [place] [address] [facility] [address] [place] [address] Casandra Major MD [address] [facility] [address] [place] [address] 03/02/2025 8:00 AM CDT Video Visit [facility] Family Medicine - [facility] [address] [place] [address] Priscilla Vera NP [address] [place] [address] documented as of this encounter Visit Diagnoses Diagnosis ESTHRE (generalized anxiety disorder) Generalized anxiety disorder documented in this encounter Additional Health Concerns Assessment Noted Time PHQ-9 Depression Total Score: 2 01/20/20 25 3:00 PM CDT documented as of this encounter Care Teams Hat Forming Machine Operator Relationship Specialty Start Date End Date Gilmar Galvan MD [address] [place] [address] PCP - General Family Practice 12/09/18 documented as of this encounter
[2025-01-31 11:46] LABS: Partial Thromboplastin Time 22.2 Seconds (22.3-36.8)
[2025-01-31 11:52] LABS: Alanine Aminotransferase 41 U/L (6-35); Albumin Level 4.2 g/dL (3.5-5.1); Alkaline Phosphatase 88 U/L (38-126); Anion Gap 13 mmol/L (4-12); Aspartate Amino Transferase 47 U/L (14-36); Bilirubin,Total 0.6 mg/dL (0.2-1.3); Blood Urea Nitrogen 10 mg/dL (7-17); Calcium 9.1 mg/dL (8.4-10.2); Carbon Dioxide 18 mmol/L (22-30); Chloride 106 mmol/L (98-107); Estimated CRCL calculation 100 ml/min; Estimated Glomerular Filt Rate > 60; Glucose 114 mg/dL (65-110); INR 1.0; Lipase 48 U/L (23-300); Potassium 3.9 mmol/L (3.4-5.0); Prothrombin Time 12.9 Seconds (11.1-14.7); Sodium 137 mmol/L (137-145); Total Protein 7.8 g/dL (6.3-8.2)
--- NOTE | 2025-01-31 11:55 | ED_ITS ---
HPI - Chest Pain General Chief Complaint: Chest Pain Stated Complaint: chest pain Time Seen by Provider: 01/31/25 11:32 Source: patient and RN notes reviewed Mode of arrival: ambulatory Limitations: no limitations History of Present Illness HPI narrative: THis is a 34 year old female with history of anxiety and depression who presents for evaluation of chest pain. She states that she is having adjustments to her anxiety medication. She is being tapered off prozac and she is being started on Effexor. She is having panic attacks, and she last took xanax last night. She reports 1 hour ago she started having a panic attack. She became scared because she developed midsternal chest pain heaviness, uncontrollable crying, nausea, heart pounding . She states that her chest pain feels different than her previous panic attacks. She reports anxiety and depression exacerbated by her menstrual cycle. She is currently on her period . She denies SI, HI. Related Data Home Medications ?Medication ?Instructions ?Recorded ?Confirmed ?Last Taken ?Type No Home Medications 07/30/23 07/30/23 U nknown History Allergies Allergy/AdvReac Type Severity Reaction Status Date / Time ketorolac (From Toradol) Allergy Difficulty Verified 01/31/25 11:04 Breathing Penicillins Allergy Rash Verified 01/31/25 11:04 PMFSH Past Medical History Medical History History of anxiety Surgical History Surgical History History of delivery Social History Social History Smoking status: Never smoker Alcohol intake: current Substance use: current Substance use type: marijuana Other substance usage details: gummies for sleep Do You Feel Safe in your Home?: Yes Lack of Transportation: No Lack of Food: Never True Current Housing: I Have Housing Concerned About Future Housing: No Difficulty Paying Gas/Electric Bills: No Difficulty Paying for Meds: No Currently Unemployed: No Education: Associate Degree Difficulty w/ Childcare or Family Care: No Spiritual care concerns: No Exam 2 Const: General: alert Nutritional Appearance: obese O rientation/consciousness: patient oriented x3 Other: patient appears extremely anxious and crying HENMT: Head: normal to inspection Eyes: EOM: EOMs intact bilaterally Resp: Effort & Inspection: normal respiratory effort Auscultation: clear to auscultation bilaterally Cardio: Rate: tachycardic Rhythm: regular rhythm Heart sounds: no murmurs GI: GI Palp: Yes Soft to palpation, No Tenderness to palpation present (GI), No Guarding due to palpation present (GI) and No Rigid due to palpation A uscultation: normal bowel sounds Skin: General skin exam: normal color Rashes: no rashes Wounds: no wounds Neuro: General: patient oriented x3, moves all extremities and CN's II-XI intact bilaterally Psych: Mental Status: mental status grossly normal Affect: Anxious affect present Attitude: cooperative Course Reevaluation(s) Reevaluation #1: Patient reports she was feeling better. She is still crying and quite anxious Date: 01/31/25 Time: 12:55 Reevaluation #2: She states that she feels better. She is no longer crying and appears less anxious. She understands labs and imaging have shows no acute issue. Date: 01/31/25 Time: 14:36 Vital Signs Vital signs: Vital Signs Temperature 97.8 F 01/31/25 10:59 Pulse Rate 118 H 01/31/25 10:59 Respiratory Rate 16 01/31/25 10:59 Blood Pressure 144/101 H 01/31/25 10:59 Pulse Oximetry 98 01/31/25 10:59 Oxygen Delivery Room Air 01/31/25 10:59 Temperature 97.8 F 01/31/25 10:59 Pulse Rate 102 H 01/31/25 13:33 Respiratory Rate 29 H 01/31/25 13:33 Blood Pressure 130/80 01/31/25 13:33 Pulse Oximetry 99 01/31/25 13:33 Oxygen Delivery Room Air 01/31/25 12:20 MDM - Chest Pain MDM Narrative Medical decision making narrative: Patient presents with chest pain, tachycardia and anxiety. cardiac evaluation performed with EKG, labs and chest xray. She was given Valium 5 mg IV for chest pain and panic attack. PAtient is tachycardic, crying and hyperventilating. Labs were negative. PAtient continued to cry with pain so CTA ordered chest and she was given another dose of Valium 5 mg IV And Toradol 30 mg IV. CTA returned with no PE. She reported she felt better and she was no longer having tachycardia. Troponin negative x 2. THis chest pain appears to be due to her panic attack. She denies SI and HI. Patient stable to discharge to follow up with psychiatry. Differential Diagnosis Differential diagnosis: Likely pneumothorax, atypical chest pain, costochondritis, chest pain and other (PE, aortic disease, pneumomediastinum, panic attack) Lab Data Attestation: I reviewed the patient's lab results. 01/31/25 11:23 01/31/25 11:23 Labs: Lab Results 01/31/25 01/31/25 Range/Units 11:23 14:24 WBC 10.1 H (4.5-10.0) K/mm3 RBC 4.63 (4.2-5.4) M/mm3 Hgb 13.8 (12.0-15.0) g/dL Hct 40.8 (37.0-47.0) % MCV 88.1 (80-100) fl MCH 29.8 (26-34) pg MCHC 33.8 (32-36) g/dl RDW 13.2 (11.5-14.5) % Plt Count 393 H (150-375) k/mm3 MPV 8.8 (7.4-10.4) fl Immature Gran % (Auto) 0.3 (0-0.5) % Neut % (Auto) 65.5 (45.5-73.1) % Lymph % (Auto) 28.1 (18.3-44.2) % [place] % (Auto) 4.8 (2.6-8.5) % Eos % (Auto) 0.6 (0-4.4) % Baso % (Auto) 0.7 (0.2-1.2) % Lymph # (Auto) 2.84 (0.9-3.2) K/mm3 [place] # (Auto) 0.5 (0.1-0.6) K/mm3 Eos # (Auto) 0.1 (0-0.3) K/mm3 Baso # (Auto) 0.1 (0.0-0.1) K/mm3 Abs Immat Gran (auto) 0.03 (0.00-0.031) K/mm3 Absolute Neuts (auto) 6.6 (1.3-6.7) K/mm3 Absolute Nucleated RBC 0.000 (0.0-0.012) K/mm3 Nucleated RBC % 0.0 (0.0-0.2) % PT 12.9 (11.1-14.7) Seconds INR 1.0 APTT 22.2 L (22.3-36.8) Seconds D-Dimer < 0.27 (<0.48) ug/mL Sodium 137 (137-145) mmol/L Potassium 3.9 (3.4-5.0) mmol/L Chloride 106 (98-107) mmol/L Carbon Dioxide 18 L (22-30) mmol/L Anion Gap 13 H (4-12) mmol/L BUN 10 (7-17) mg/dL Creatinine 0.70 (0.7-1.0) mg/dL Estim Creat Clear Calc 100 ml/min Estimated GFR > 60 (59 - ) Glucose 114 H (65-110) mg/dL Calcium 9.1 (8.4-10.2) mg/dL Total Bilirubin 0.6 (0.2-1.3) mg/dL AST 47 H (14-36) U/L ALT 41 H (6-35) U/L Alkaline Phosphatase 88 (38-126) U/L Troponin I < 0.012 < 0.012 (0.000-0.034) ng/mL Total Protein 7.8 (6.3-8.2) g/dL Albumin 4.2 (3.5-5.1) g/dL Lipase 48 (23-300) U/L Imaging Data Radiologist's impression: ITS Impressions Chest X-Ray 01/31/25 12:34 Impression: No acute cardiopulmonary abnormality. Chest CTA 01/31/25 13:52 IMPRESSION: 1. No pulmonary embolus. 2. Diffuse hepatic steatosis. ECG Data EKG #1: Attestation: I personally reviewed and interpreted this ECG as follows: ECG completion date: 01/31/25 ECG completion time: 11:02 EKG Interpretation: tachycardia (112), sinus rhythm, non-specific ST changes and NL axis EKG #2: Attestation: I personally reviewed and interpreted this ECG as follows: ECG completion date: 01/31/25 ECG completion time: 14:05 EKG Interpretation: normal rate (85), sinus rhythm, no ectopy, no ST changes, NL axis and no acute changes Critical Care Time Critical Care Time Critical Care Time: Yes Total Critical Care Time: 35 Discharge Plan Discharge Clinical Impression: Atypical chest pain, Panic attack Patient Disposition: Home Condition: Improved Instructions: Chest Pain (ED), Panic Attack (ED) Additional Instructions: Please call your primary care provider and psychiatrist about ER visit. Return if symptoms worsen. Patient Language: Jamaican Prescriptions: No Action No Home Medications Follow-up/Referrals: PHYSICIAN NOT ON STAFF,NONSTAFF [Primary Care Provider]
[2025-01-31 12:03] LABS: Troponin I < 0.012 ng/mL (0.000-0.034)
--- OUTSIDE RECORDS SUMMARY | 2025-01-31 12:04 | XMS_ITS | Encounter Summary ---
Author Organization [facility] Address [address] [place] [address] Care Team Providers Care Short Filler Bunch Machine Operator Name Role Phone Gilmar Galvan MD Primary Care Provider Encounter Details Date Type Department Care Team (Late st Contact Info) Description 11/26/2006 Outpatient Historical [facility] Pediatrics [address] [facility] [address] [address] [place] [address] [place] [address] Social History Tobacco Use Types Packs/Day Years Used Date Smoking Tobacco: Never Assessed Comments Unknown Sex and Gender Information Value Date Recorded Sex Assigned at Not on file Legal Sex Female 3:13 AM BANQUET SERVER Gender Identity Not on file Sexual Orientation Not on file documented as of this encounter Plan of Treatment Upcoming Encounters Date Type Department Care Team (Late st Contact Info) Description 02/03/2025 2:30 PM CDT Office Visit [facility] MAGAZINE GRINDER LOADER - Medical [place] [address] [facility] [address] [place] [address] Casandra Major MD [address] [facility] [address] [place] [address] 03/02/2025 8:00 AM CDT Video Visit [facility] [address] [place] [address] Priscilla Vera NP [address] [place] [address] documented as of this encounter Visit Diagnoses Not on filedocumented in this encounter Additional Health Concerns Infection Onset Date Last Indicated Resolved Time R/O COVID-19 07/30/2019 07/30/2019 08/04/2019 6:05 AM CDT R/O Respiratory 05/12/2022 05/12/2022 05/12/2022 4 :27 PM BANQUET SERVER R/O C. diff 03/11/2024 03/11/2024 03/11/2024 12:4 6 PM BANQUET SERVER C Diff 03/11/2024 03/11/2024 05/10/2024 1:16 AM BANQUET SERVER documented as of this encounter Care Teams Short Filler Bunch Machine Operator Relationship Specialty Start Date End Date Gilmar Galvan MD [address] [place] [address] PCP - General Family Practice 12/09/18 documented as of this encounter
--- OUTSIDE RECORDS SUMMARY | 2025-01-31 12:04 | XMS_ITS | Encounter Summary ---
Author Organization [facility] Address [address] [place] [address] Care Team Providers Care Undraped Artist Model Name Role Phone Gilmar Galvan MD Primary Care Provider Encounter Details Date Type Department Care Team (Late Contact Info) Description 12/28/2006 Outpatient Historical [facility] [place] [address] [place] [address] Social History Tobacco Use Types Packs/Day Years Used Date Smoking Tobacco: Never Assessed Comments Unknown Sex and Gender Information Value Date Recorded Sex Assigned at Not on file Legal Sex Female 3:13 AM FIRE RANGE TECHNICIAN Gender Identity Not on file Sexual Orientation Not on file documented as of this encounter Plan of Treatment Upcoming Encounters Date Type Department Care Team (Late Contact Info) Description 02/03/2025 2:30 PM CDT Office Visit [facility] VAN CDL DRIVER - Medical [place] [address] [facility] [address] [place] [address] Casandra Major MD [address] [facility] [address] [place] [address] 03/02/2025 8:00 AM CDT Video Visit [facility] Family Medicine - [address] [address] Priscilla Vera NP [address] [place] [address] documented as of this encounter Visit Diagnoses Not on filedocumented in this encounter Additional Health Concerns Infection Onset Date Last Indicated Resolved Time R/O COVID-19 07/30/2019 07/30/2019 08/04/2019 6:05 AM CDT R/O Respiratory 05/12/2022 05/12/2022 05/12/2022 4 :27 PM FIRE RANGE TECHNICIAN R/O C. diff 03/11/2024 03/11/2024 03/11/2024 12:4 6 PM FIRE RANGE TECHNICIAN C Diff 03/11/2024 03/11/2024 05/10/2024 1:16 AM FIRE RANGE TECHNICIAN documented as of this encounter Care Teams Undraped Artist Model Relationship Specialty Start Date End Date Gilmar Galvan MD [address] [place] [address] PCP - General Family Practice 12/09/18 documented as of this encounter
--- OUTSIDE RECORDS SUMMARY | 2025-01-31 12:04 | XMS_ITS | Encounter Summary ---
Author Organization [facility] Address [address] [place] [address] Care Team Providers Care Manager Distribution Center Name Role Phone Gilmar Galvan MD Primary Care Provider Reason for Visit * Reason Onset Date Comments Heavy periods and mood issues 01/31/2025 Encounter Details Date Type Department Care Team (Late st Contact Info) Description 01/31/2025 Telephone [facility] Women's Health Clinical Support [address] [place] [address] [place] [address] Amy Mendez RN Heavy periods [...] on file Legal Sex Female 3:13 AM MANAGER STATISTICAL PROGRAMMING Gender Identity Not on file Sexual Orientation Not on file Occupation Industry Job Start Date Job End Date Not on file Not on file Not on file Not on file documented as of this encounter Miscellaneous Notes * Telephone Encounter - Amy Mendez RN - 01/31/2025 8:40 AM CDT C/s 03/15/24. Menstrual cycles resumed in June 2024 and have regular but heavier than prior to and pt struggling with anxiety/depression sx 2-7 days prior to menses. Has worked with PCPto adjust antidepressant med doses but was advised to contact SENIOR RESERVATIONS AGENT d/t persistent issues. Pt has notbeen seen since delivery. Rec pt schedule OV to discuss heavy periods and mood and then will likelyneed WWE after. V/u and agreement with POC. TF to FD per pt request. documented in this encounter Plan of Treatment Upcoming Encounters Date Type Department Care Team (Late st Contact Info) Description 02/03/2025 2:30 PM CDT Office Visit [facility] SNUFF MAKER - [facility] [address] [facility] [address] [place] [address] Casandra Major MD [address] [facility] [address] [place] [address] 03/02/2025 8:00 AM CDT Video Visit [facility] Family Medicine - [facility] [address] [place] [address] Priscilla Vera NP [address] [place] [address] documented as of this encounter Visit Diagnoses Not on filedocumented in this encounter Additional Health Concerns Assessment Noted Time PHQ-9 Depression Total Score: 2 01/20/20 25 3:00 PM CDT documented as of this encounter Care Teams Manager Distribution Center Relationship Specialty Start Date End Date Gilmar Galvan MD [address] [place] [address] PCP - General Family Practice 12/09/18 documented as of this encounter
--- OUTSIDE RECORDS SUMMARY | 2025-01-31 12:04 | XMS_ITS | Encounter Summary ---
Author Organization [facility] Address [address] [place] [address] Care Team Providers Care Life Underwriter Name Role Phone Gilmar Galvan MD Primary Care Provider Encounter Details Date Type Department Care Team (Late st Contact Info) Description 11/11/2005 Outpatient Historical [facility] Pediatrics [address] [facility] [address] [facility] [address] [address] [place] [address] [place] [address] Social History Tobacco Use Types Packs/Day Years Used Date Smoking Tobacco: Never Assessed Comments Unknown Sex and Gender Information Value Date Recorded Sex Assigned at Not on file Legal Sex Female 3:13 AM EMPLOYEE RELATIONS SPECIALIST Gender Identity Not on file Sexual Orientation Not on file documented as of this encounter Plan of Treatment Upcoming Encounters Date Type Department Care Team (Late st Contact Info) Description 02/03/2025 2:30 PM CDT Office Visit [facility] CIVIL ATTORNEY - Medical [place] [address] [facility] [address] [place] [address] Casandra Major MD [address] [facility] [address] [place] [address] 03/02/2025 8:00 AM CDT Video Visit [facility] [address] [place] [address] Priscilla Vera NP [address] [place] [address] documented as of this encounter Visit Diagnoses Not on filedocumented in this encounter Additional Health Concerns Infection Onset Date Last Indicated Resolved Time R/O COVID-19 07/30/2019 07/30/2019 08/04/2019 6:05 AM CDT R/O Respiratory 05/12/2022 05/12/2022 05/12/2022 4 :27 PM EMPLOYEE RELATIONS SPECIALIST R/O C. diff 03/11/2024 03/11/2024 03/11/2024 12:4 6 PM EMPLOYEE RELATIONS SPECIALIST C Diff 03/11/2024 03/11/2024 05/10/2024 1:16 AM EMPLOYEE RELATIONS SPECIALIST documented as of this encounter Care Teams Life Underwriter Relationship Specialty Start Date End Date Gilmar Galvan MD [address] [place] [address] PCP - General Family Practice 12/09/18 documented as of this encounter
--- OUTSIDE RECORDS SUMMARY | 2025-01-31 12:04 | XMS_ITS | Encounter Summary ---
Author Organization [facility] Address [address] [place] [address] Care Team Providers Care Composition Floor Layer Name Role Phone Gilmar Galvan MD Primary Care Provider Reason for Visit * Reason Comments Medication Refill Encounter Details Date Type Department Care Team (Late Contact Info) Description 12/20/2015 Refill [facility] [address], [facility] [address] [place] [address] Moira Israel NP NO ADDRESS [...] on file Legal Sex Female 3:13 AM FARMWORKER DIVERSIFIED CROPS Gender Identity Not on file Sexual Orientation Not on file Occupation Industry Job Start Date Job End Date Not on file Not on file Not on file Not on file documented as of this encounter Plan of Treatment Upcoming Encounters Date Type Department Care Team (Late Contact Info) Description 02/03/2025 2:30 PM CDT Office Visit [facility] DIRECTOR GEOTHERMAL OPERATIONS - Medical [place] [address] [place] [address] Casandra Major MD [address] [place] [phone] 03/02/2025 8:00 AM CDT Video Visit [facility] [address] [place] [address] Priscilla Vera NP [address] [place] [address] documented as of this encounter Visit Diagnoses Not on filedocumented in this encounter Additional Health Concerns Infection Onset Date Last Indicated Resolved Time R/O COVID-19 07/30/2019 07/30/2019 08/04/2019 6:05 AM CDT R/O Respiratory 05/12/2022 05/12/2022 05/12/2022 4 :27 PM FARMWORKER DIVERSIFIED CROPS R/O C. diff 03/11/2024 03/11/2024 03/11/2024 12:4 6 PM FARMWORKER DIVERSIFIED CROPS C Diff 03/11/2024 03/11/2024 05/10/2024 1:16 AM FARMWORKER DIVERSIFIED CROPS documented as of this encounter Care Teams Composition Floor Layer Relationship Specialty Start Date End Date Gilmar Galvan MD [address] [place] [address] PCP - General Family Practice 12/09/18 documented as of this encounter
--- OUTSIDE RECORDS SUMMARY | 2025-01-31 12:04 | XMS_ITS | Encounter Summary ---
Author Organization [facility] Address [address] [place] [address] Care Team Providers Care Production Drilling Machine Operator Name Role Phone Gilmar Galvan MD Primary Care Provider Encounter Details Date Type Department Care Team (Latest Contact Info) Description 11/26/2006 Outpatient Historical [facility] [place] [address] [place] [address] Cervicalgia (Primary Dx) Social History Tobacco Use Types Packs/Day Years Used Date Smoking Tobacco: Never Assessed Comments Unknown Sex and Gender Information Value Date Recorded Sex Assigned at Not on file Legal Sex Female 3:13 AM KETTLE HAND Gender Identity Not on file Sexual Orientation Not on file documented as of this encounter Plan of Treatment Upcoming Encounters Date Type Department Care Team (Late st Contact Info) Description 02/03/2025 2:30 PM CDT Office Visit [facility] IN STORE MARKETING ASSOCIATE - Medical [place] [address] [place] [address] Casandra Major MD [address] [place] [address] 03/02/2025 8:00 AM CDT Video Visit [facility] Family Medicine - [address] [place] [address] Priscilla Vera NP [address] [place] [address] documented as of this encounter Visit Diagnoses Diagnosis Cervicalgia- Primary documented in this encounter Additional Health Concerns Infection Onset Date Last Indicated Resolved Time R/O COVID-19 07/30/2019 07/30/2019 08/04/2019 6:05 AM CDT R/O Respiratory 05/12/2022 05/12/2022 05/12/2022 4 :27 PM KETTLE HAND R/O C. diff 03/11/2024 03/11/2024 03/11/2024 12:4 6 PM KETTLE HAND C Diff 03/11/2024 03/11/2024 05/10/2024 1:16 AM KETTLE HAND documented as of this encounter Care Teams Production Drilling Machine Operator Relationship Specialty Start Date End Date Gilmar Galvan MD [address] [place] [address] PCP - General Family Practice 12/09/18 documented as of this encounter
--- OUTSIDE RECORDS SUMMARY | 2025-01-31 12:04 | XMS_ITS | Encounter Summary ---
Author Organization [facility] Address [address] [place] [address] Care Team Providers Care Software Sales Consultant Name Role Phone Gilmar Galvan MD Primary Care Provider Reason for Visit * Reason Comments Med Refill Encounter Details Date Type Department Care Team (Late Contact Info) Description 01/26/2025 Refill [facility] and [facility] - [facility] [address] [facility] [address] [place] [address] Gilmar Galvan MD [address] [place] [address] ESTHER (generalized anxiety disorder) Social [...] on file Legal Sex Female 3:13 AM POWER DISTRIBUTOR Gender Identity Not on file Sexual Orientation Not on file Occupation Industry Job Start Date Job End Date Not on file Not on file Not on file Not on file documented as of this encounter Plan of Treatment Upcoming Encounters Date Type Department Care Team (Late st Contact Info) Description 02/03/2025 2:30 PM CDT Office Visit [facility] TRUCK MECHANIC APPRENTICE - Medical [place] [address] [place] [address] Casandra Major MD [address] [place] [address] 03/02/2025 8:00 AM CDT Video Visit [facility] Family Medicine - [facility] [address] [place] [address] Priscilla Vera NP [address] [place] [address] documented as of this encounter Visit Diagnoses Diagnosis ESTHER (generalized anxiety disorder) Generalized anxiety disorder documented in this encounter Additional Health Concerns Assessment Noted Time PHQ-9 Depression Total Score: 2 01/20/20 25 3:00 PM CDT documented as of this encounter Care Teams Software Sales Consultant Relationship Specialty Start Date End Date Gilmar Galvan MD [address] [place] [address] PCP - General Family Practice 12/09/18 documented as of this encounter
--- OUTSIDE RECORDS SUMMARY | 2025-01-31 12:04 | XMS_ITS | Encounter Summary ---
Author Organization [facility] Address [address] [place] [address] Care Team Providers Care Varnish Supervisor Name Role Phone Gilmar Galvan MD [...] on file Legal Sex Female 3:13 AM PATIENT RESOURCE COORDINATOR Gender Identity Not on file Sexual [...] 2:30 PM CDT Office Visit [facility] GLUE MOUNTER OPERATOR - Medical [facility] [address] [facility] [address] [place] [address] Casandra Major MD [address] [facility] [address] [place] [address] 03/02/2025 8:00 AM CDT Video Visit [facility] [address] [place] [address] Priscilla Vera NP [address] [place] [address] documented as of this encounter Visit Diagnoses Not on filedocumented in this encounter Additional Health Concerns Infection Onset Date Last Indicated Resolved Time R/O COVID-19 07/30/2019 07/30/2019 08/04/2019 6:05 AM CDT R/O Respiratory 05/12/2022 05/12/2022 05/12/2022 4 :27 PM PATIENT RESOURCE COORDINATOR R/O C. diff 03/11/2024 03/11/2024 03/11/2024 12:4 6 PM PATIENT RESOURCE COORDINATOR C Diff 03/11/2024 03/11/2024 05/10/2024 1:16 AM PATIENT RESOURCE COORDINATOR Assessment Noted Time PHQ-9 Depression Total Score: 1 03/25/20 19 3:00 PM PATIENT RESOURCE COORDINATOR documented as of this encounter Care Teams Varnish Supervisor Relationship Specialty Start Date End Date Gilmar Galvan MD [address] [place] [address] PCP - General Family Practice 12/09/18 documented as of this encounter
--- OUTSIDE RECORDS SUMMARY | 2025-01-31 12:04 | XMS_ITS | Encounter Summary ---
Author Organization [facility] Address [address] [place] [address] Care Team Providers Care Construction Job Titles Name Role Phone Gilmar Galvan MD Primary Care Provider Encounter Details Date Type Department Care Team (Late Contact Info) Description 11/09/2008 Outpatient Historical [facility], [address] Josh Clarke MD [address] [place] [address] [place] [address] Social History Tobacco Use Types Packs/Day Years Used Date Smoking Tobacco: Never Assessed Comments No Sex and Gender Information Value Date Recorded Sex Assigned at Not on file Legal Sex Female 3:13 AM FIBERGLASS BONDING MACHINE TENDER Gender Identity Not on file Sexual Orientation Not on file documented as of this encounter Plan of Treatment Upcoming Encounters Date Type Department Care Team (Late Contact Info) Description 02/03/2025 2:30 PM CDT Office Visit [facility] TOOLING SUPERVISOR - Medical [place] [address] [facility] [address] [place] [address] Casandra Major MD [address] [facility] [address] [place] [address] 03/02/2025 8:00 AM CDT Video Visit [facility] Family Medicine [address] [place] [address] Priscilla Vera, JUNI [address] [place] [address] documented as of this encounter Procedures Procedure Name Priority Date/Time Associated Diagnosis Comments PATHOLOGY Routine 11/09/2008 3:21 PM CDT documented in this encounter Results * PATHOLOGY (11/09/2008 3:21 PM CDT) FINAL REPORT [facility] [address] [place], [place] [address] Patient: JUNIOR MARKS : 1990 Procedure Date: 11/09/2008 Accession Date: 11/09/2008 Case No: [id number] Ordering Dr: JOSH CLARKE Case types AW, BW, FW, NW and SH are performed by [facility] [place], [place] SURGICAL PATHOLOGY & NON-GYNECOLOGIC CYTOPATHOLOGY REPORT [...] 06:19 am Microscopic: Received are slides labeled [id number] Junior Marks. Sections of stomach sample antral [...] Respiratory 05/12/2022 05/12/2022 05/12/2022 4 :27 PM FIBERGLASS BONDING MACHINE TENDER R/O C. diff 03/11/2024 03/11/2024 03/11/2024 12:4 6 PM FIBERGLASS BONDING MACHINE TENDER C Diff 03/11/2024 03/11/2024 05/10/2024 1:16 AM FIBERGLASS BONDING MACHINE TENDER documented as of this encounter Care Teams Construction Job Titles Relationship Specialty Start Date End Date Gilmar Galvan MD [address] [place] [address] PCP - General Family Practice 12/09/18 documented as of this encounter
--- OUTSIDE RECORDS SUMMARY | 2025-01-31 12:04 | XMS_ITS | Clinical Summary ---
Author Organization [facility] Address [address] [facility] [address] Care Team Providers Care Press Leader Name Role Phone Anitha Nina RN Unavailable Unavailable Gilmar Galvan MD Primary Care Provider Source Comments [facility],non-owned Affiliates and Associated Physician Practices is amultiple site organization consisting of ambulatory clinics and hospital sitesin [place], [place], [place] and [place]. This disclosure is being madepursuant to the Care Everywhere program and may not contain all information available regarding this patient. Last updated 18.[facility] Allergies Active Allergy Reactions Criticality Noted Date [...] patient's age to complete this topic Insurance [facility] Care Teams Press Leader Relationship Specialty Start Date End Date Gilmar Galvan MD [address] [place] [phone] PCP - General Family Medicine 12/03/19 Anitha Nina, RN Registered Nurse 06/09/17
--- OUTSIDE RECORDS SUMMARY | 2025-01-31 12:04 | XMS_ITS | Encounter Summary ---
Author Organization [facility] Address [address] [place] [address] Care Team Providers Care Painter Ordnance Name Role Phone Gilmar Galvan MD Primary Care Provider Reason for Visit * Reason Comments Medication Refill Encounter Details Date Type Department Care Team (Late Contact Info) Description 09/20/2014 Refill [facility] [address], [address] [address] Randal Lee MD NO ADDRESS [...] on file Legal Sex Female 3:13 AM COORDINATOR OF LIBRARY SERVICES Gender Identity Not on file Sexual Orientation Not on file Occupation Industry Job Start Date Job End Date Not on file Not on file Not on file Not on file documented as of this encounter Plan of Treatment Upcoming Encounters Date Type Department Care Team (Late Contact Info) Description 02/03/2025 2:30 PM CDT Office Visit [facility] MEAT SPECIALIST - Medical [place] [address] [facility] [address] [place] [phone] Casandra Major MD [address] [facility] [address] [place] [phone] 03/02/2025 8:00 AM CDT Video Visit [facility] [address] [place] [address] Priscilla Vera NP [address] [place] [address] documented as of this encounter Visit Diagnoses Not on filedocumented in this encounter Additional Health Concerns Infection Onset Date Last Indicated Resolved Time R/O COVID-19 07/30/2019 07/30/2019 08/04/2019 6:05 AM CDT R/O Respiratory 05/12/2022 05/12/2022 05/12/2022 4 :27 PM COORDINATOR OF LIBRARY SERVICES R/O C. diff 03/11/2024 03/11/2024 03/11/2024 12:4 6 PM COORDINATOR OF LIBRARY SERVICES C Diff 03/11/2024 03/11/2024 05/10/2024 1:16 AM COORDINATOR OF LIBRARY SERVICES documented as of this encounter Care Teams Painter Ordnance Relationship Specialty Start Date End Date Gilmar Galvan MD [address] [place] [address] PCP - General Family Practice 12/09/18 documented as of this encounter
--- OUTSIDE RECORDS SUMMARY | 2025-01-31 12:04 | XMS_ITS | Encounter Summary ---
Author Organization [facility] Address [address] [place] [address] Care Team Providers Care Assistant Signal Maintainer Name Role Phone Gilmar Galvan MD Primary Care Provider Encounter Details Date Type Department Care Team (Late st Contact Info) Description 02/17/2006 Outpatient Historical [facility] [address] [facility] [address] [facility] [address] [address] [place] [address] [place] [address] Social History Tobacco Use Types Packs/Day Years Used Date Smoking Tobacco: Never Assessed Comments Unknown Sex and Gender Information Value Date Recorded Sex Assigned at Not on file Legal Sex Female 3:13 AM CLAY PRESS OPERATOR Gender Identity Not on file Sexual Orientation Not on file documented as of this encounter Plan of Treatment Upcoming Encounters Date Type Department Care Team (Late st Contact Info) Description 02/03/2025 2:30 PM CDT Office Visit [facility] SPAR CAP BEVELER - Medical [place] [address] [facility] [address] [place] [address] Casandra Major MD [address] [facility] [address] [place] [address] 03/02/2025 8:00 AM CDT Video Visit [facility] [address] [place] [address] Priscilla Vera NP [address] [place] [address] documented as of this encounter Visit Diagnoses Not on filedocumented in this encounter Additional Health Concerns Infection Onset Date Last Indicated Resolved Time R/O COVID-19 07/30/2019 07/30/2019 08/04/2019 6:05 AM CDT R/O Respiratory 05/12/2022 05/12/2022 05/12/2022 4 :27 PM CLAY PRESS OPERATOR R/O C. diff 03/11/2024 03/11/2024 03/11/2024 12:4 6 PM CLAY PRESS OPERATOR C Diff 03/11/2024 03/11/2024 05/10/2024 1:16 AM CLAY PRESS OPERATOR documented as of this encounter Care Teams Assistant Signal Maintainer Relationship Specialty Start Date End Date Gilmar Galvan MD [address] [place] [address] PCP - General Family Practice 12/09/18 documented as of this encounter
--- OUTSIDE RECORDS SUMMARY | 2025-01-31 12:04 | XMS_ITS | Clinical Summary ---
Author Organization [facility] Administrative Offices Address [address] [place] [address] Care Team Providers Care Customer Quality Engineer Name Role Phone Gilmar Galvan MD Primary [...] feels stress levels are OK. Takes wellbutrin [id number] qd -10/23/22 - pt reports she is [...] feels stress levels are OK. Takes wellbutrin [id number] qd -Stable. Doing well overall. Continue current [...] regimen Assessment & Plan (06/27/2020 9:18 AM LEAD NITRATE PROCESSOR): Anxiety - At visit on 02/18/19 pt [...] regimen Assessment & Plan (03/08/2020 2:41 PM LEAD NITRATE PROCESSOR): Anxiety - At visit on 02/18/19 pt [...] lexapro Assessment & Plan (03/25/2019 3:27 PM LEAD NITRATE PROCESSOR): Anxiety - At visit on 02/18/19 pt [...] she was not taking adderall. -Review of [facility] on 12/09/18 showed last refill for adderall [...] she was not taking adderall. -Review of [facility] on 12/09/18 showed last refill [...] regimen Assessment & Plan (06/27/2020 9:18 AM LEAD NITRATE PROCESSOR): ADHD - diagnosed ~age 16 by her previous PCP. No formal testing. Pt reports she was taking adderall XR 30mg qd, felt this worked well for her. Previous PCP (Chuck Avalos MD) retired and pt decided to try stopping stimulant medication when he retired. States her ability to focus and perform at work decreased significantly when she was not taking adderall. -Review of [facility] on 12/09/18 showed last refill for adderall [...] days Assessment & Plan (03/08/2020 2:41 PM LEAD NITRATE PROCESSOR): ADHD - diagnosed ~age 16 by her previous PCP. No formal testing. Pt reports she was taking adderall XR 30mg qd, felt this worked well for her. Previous PCP (Chuck Avalos MD) retired and pt decided to try stopping stimulant medication when he retired. States her ability to focus and perform at work decreased significantly when she was not taking adderall. -Review of [facility] on 12/09/18 showed last refill [...] regimen Assessment & Plan (03/25/2019 3:29 PM LEAD NITRATE PROCESSOR): ADHD - diagnosed ~age 16 by her previous PCP. No formal testing. Pt reports she was taking adderall XR 30mg qd, felt this worked well for her. Previous PCP (Chuck Avalos MD) retired and pt decided to try stopping stimulant medication when he retired. States her ability to focus and perform at work decreased significantly when she was not taking adderall. -Review of [facility] on 12/09/18 showed last refill for adderall [...] she was not taking adderall. -Review of [facility] on 12/09/18 showed last refill [...] she was not taking adderall. -Review of [facility] shows last refill for adderall was on [...] Diagnosed ~2009. S/p surgical tx 06/2016 at [facility] Assessment & Plan (12/09/2018 4:04 PM CDT): Diagnosed ~2009. S/p surgical tx 06/2016 at [facility] Pseudotumor cerebri syndrome 07/05/2009 Overview (08/09/2022): -Diagnosed at age 11, had LP shunt placed at age 13. As of 12/07/20 most recent visit was in [address] Robbie Layton at [facility]. Denies any ENGLISH, nausea, vomiting or [...] in [address] Robbie Layton at [facility]. Denies any ENGLISH, nausea, vomiting or focal neuro deficits. -Stable. -watchful waiting Assessment & Plan (12/09/2018 4:03 PM CDT): -Diagnosed at age 11, had LP shunt placed at age 13. As of 12/09/18 most recent revision was in [address] Robbie Layton at [facility]. Denies any ENGLISH, nausea, vomiting or focal neuro deficits. -stable, watchful waiting for now. Resolved Problems Problem Noted Date Diagnosed Date Resolved Date Encounter for induction of labor 06/16/2022 06/18/2022 LLQ pain 04/05/2011 12/07/2020 pelvic pain s/p scope 3/8 07/18/2010 Encounters Date Type Department Care Team Description 01/31/2025 Telephone [facility] [place] [facility] Clinical Support [id number] [address] Amy Mendez RN Heavy periods and mood issues 01/27/2025 8:20 AM CDT Video Visit [facility] [address] [place] [phone] Priscilla Vera NP ESTHER (generalized anxiety disorder) (Primary Dx); Attention deficit hyperactivity disorder (ADHD), combined type; Mild episode of recurrent major depressive disorder 01/27/2025 Refill [facility] [place] Maternal and Medicine - [facility] [place] [address] [place] [address] Gilmar Galvan MD ESTHER (generalized anxiety disorder) 01/26/2025 Refill [facility] [place] [facility] - [facility] [place] [address] [place] [address] Gilmar Galvan MD ESTHER (generalized anxiety disorder) 01/19/2025 4:00 PM CDT Video Visit [facility] [address] [place] [phone] Priscilla Vera NP ESTHER (generalized anxiety disorder) (Primary Dx) 01/18/2025 External Device Data ST[facility] ABSTRACTION Provider, Abstract 01/04/2025 12:00 PM CDT Video Visit [facility] [address] [place] [phone] Priscilla Vera NP ESTHER (generalized anxiety disorder) (Primary Dx); Mild episode of recurrent major depressive disorder 12/31/2024 Refill [facility] [place] [facility] - [facility] [place] [address] [place] [address] Vineet Hendrix MD ESTHER (generalized anxiety disorder) 12/29/2024 External Device Data STL ABSTRACTION Provider, Abstract 12/22/2024 External Device Data STL ABSTRACTION Provider, Abstract 12/21/2024 External Device Data STL ABSTRACTION Provider, Abstract 12/14/2024 External Device Data STL ABSTRACTION Provider, Abstract 12/08/2024 External Device Data STL ABSTRACTION Provider, Abstract 12/06/2024 Patient Self-Triage [facility] [id number] [place] [address] 11/02/2024 External Device Data STL ABSTRACTION Provider, [...] COVID-19 VACCINE - EMERGENCY USE AUTHORIZATION, MRNA, [id number](PF) 30 MCG/0.3 ML IM SUSP 08/22/2020,07/28/2020 (VARIVAX)(12 [...] Healthy Brother 2 Phil Healthy Brother 3 Phil Healthy Father Randal Leukemia Maternal Grandfather Diabetes [...] on file Legal Sex Female 3:13 AM LEAD NITRATE PROCESSOR Gender Identity Not on file Sexual Orientation Not on file Occupation Industry Job Start Date Job End Date Not on file Not on file Not on file Not on file Last Filed Vital Signs Vital Sign Reading Time Taken Comments Blood Pressure 136/87 03/18/2024 9:10 AM LEAD NITRATE PROCESSOR Pulse 96 03/17/2024 8:19 PM LEAD NITRATE PROCESSOR Temperature 36.9 C (98.4 F) 03/18/2024 9:10 AM LEAD NITRATE PROCESSOR Respiratory Rate 18 03/18/2024 9:10 AM LEAD NITRATE PROCESSOR Oxygen Saturation 97% 03/16/2024 4:00 PM LEAD NITRATE PROCESSOR Inhaled Oxygen Concentration - - Weight 99.8 kg (220 lb) 01/27/2025 8:17 AM CDT Height 154.9 cm (5' 1) 01/27/2025 8:17 AM CDT Body Mass Index 41.57 01/27/2025 8:17 AM CDT Plan of Treatment Upcoming Encounters Date Type Department Care Team (Late st Contact Info) Description 02/03/2025 2:30 PM CDT Office Visit [facility] ESTATE CONSERVATOR - [place] [address] [facility] [address] [place] [phone] Casandra Major MD [address] [facility] [address] [place] [phone] 03/02/2025 8:00 AM CDT Video Visit [facility] [place] Family Medicine - [facility] [address] [place] [address] Priscilla Vera NP [address] [place] [address] Health Maintenance Due Date Last [...] GLUCOSE FASTING Timed Study 06/20/2022 6:53 AM LEAD NITRATE PROCESSOR from Last 3 Months or Most Recently Relevant to Health Maintenance Results * CERV/VAG CYTO AGE BASED SCREEN PAP W CT/NG, TRICH (08/19/2023 11:51 AM CDT) COMMENT (PAP): [facility] Comment: This order for age-based cervical cancer and STI screening follows ACOG guidelines(PB 168, 140, MFD343). See individual assays for performing site location. CLINICAL INFORMATION [facility] Comment:None given LAST MENSTRUAL PERIOD [facility] Comment:10/06/2022 PREV PAP: [facility] Comment:NONE GIVEN PREV BX: [facility] Comment:NONE GIVEN SOURCE [facility] Comment:Endocervix ADEQUACY: [facility] Comment: Satisfactory for evaluation. Endocervical/transformation zone component present. PAP INTERP [facility] Comment: Cytology Results: Negative for intraepithelial lesion or malignancy. COMMENT (PAP TEST) [facility] [place] Comment: This Pap test has been evaluated with computer assisted technology. UNIT TECHNICIAN: Rory est Soren Gabriel Comment: DDS, CT(ASCP) CT screening location: [place] [address] [place] [address] REVIEW UNIT TECHNICIAN: Skip Gabriel Comment: MEF, CT(ASCP) CT screening location: [place] [address] [address] [facility] EXPLANATORY NOTE Que Decision RocketArpita Gabriel Comment: EXPLANATORY NOTE: The Pap is [...] information. HPV E6/E7 Not Detected Not Detected [facility] [place] Comment: Methodology: Telephone Coin Box Collector-Mediated Amplification This assay detects E6/E7 viral messenger RNA (mRNA) from 14 high-risk HPV types (16,18,31,33,35,39,45,51,52,56,58,59,66,68). Cervical sources are required for HPV testing. If a vaginal source from a patient who has had a total hysterectomy with removal of cervix was submitted, please contact the testing laboratory for alternative testing options. For additional information, please refer to http://PagaTuAlquiler.[employer]/faq/QWH285o3 (This link if provided for information/ educational purposes only.) C TRAC RNA NOT DETECTED NOT DETECTED [facility] N.GONORRHOEAE RNA, TMA NOT DETECTED NOT DETECTED [facility] COMMENT INFECTIOUS DISEASE [facility] Comment: The analytical performance characteristics of this assay, when used to test SurePath(TM) specimens have been determined by [facility]. The modifications have not been cleared or approved by the FDA. This assay has been validated pursuant to the CLIA regulations and is used for clinical purposes. For additional information, please refer to https://PagaTuAlquiler.[employer]/faq/SCQ706 (This link is being provided for information/ educational purposes only.) TRICHOMONAS VAGINALIS,QUALITAT HUNTER,PAP VIAL NOT DETECTED NOT DETECTED [facility] [place] Comment: The analytical performance characteristics of this assay have been determined by [facility]. The modifications have not been cleared or approved by the FDA. This assay has been validated pursuant to the CLIA regulations and is used for clinical purposes. For additional information, please refer to http://education.[employer]/ faq/Trichomonastma (This link is being provided for information/ educational purposes only.) Test Performed at: [facility] [address] [place] [address] Dejon Escalera MD SL Genital SWAB OF ENDOCERVIX / Unknown 08/19/2023 11:51 AM CDT 08/20/2023 4:07 AM CDT Mona Shaver NP PATHOLOGY/CYTOLOGY ORDERABL ES Final Result Performing Organization Address City/[facility]/ZIP Co de Phone Number [facility] [phone] [facility] [address] [place] [address] * GLUCOSE FASTING (06/20/2022 6:53 AM LEAD NITRATE PROCESSOR) GLUCOSE-FASTIN G 75 74 - 99 mg/dL 06/20/2022 8:22 AM LEAD NITRATE PROCESSOR [facility] Blood Venipuncture / Unknown 06/20/2022 6:53 AM LEAD NITRATE PROCESSOR 06/20/2022 7:11 AM LEAD NITRATE PROCESSOR Tiara Ryan MD CHEMISTRY ORDERABLES Final Result [facility] CLIA# [id number] [place] [address] from Last 3 Months or Most Recently Relevant to Health Maintenance Insurance [employer] ACCESS CHOICE [employer] BLUE ACCESS/TRUE BLUE PPO RX [employer] Commercial Granular ACCESS/TRUE BLUE PPO Advance Directives For more information, please contact: [phone] * Full Code (Latest Code Status on [...] 6:08 PM 06/07/2022 9:34 PM Care Teams Customer Quality Engineer Relationship Specialty Start Date End Date Gilmar Galvan MD [address] [place] [address] PCP - General Family Practice 12/09/18
--- OUTSIDE RECORDS SUMMARY | 2025-01-31 12:04 | XMS_ITS | Encounter Summary ---
Author Organization [facility] Address [address] [place] [address] Care Team Providers Care Health Record Technician Name Role Phone Gilmar Galvan MD Primary Care Provider Encounter Details Date Type Department Care Team (Late st Contact Info) Description 08/13/2006 Outpatient Historical [facility] [address] [facility] [address] [address] [place] [address] [place] [address] Social History Tobacco Use Types Packs/Day Years Used Date Smoking Tobacco: Never Assessed Comments Unknown Sex and Gender Information Value Date Recorded Sex Assigned at Not on file Legal Sex Female 3:13 AM EMAIL MARKETING ASSISTANT Gender Identity Not on file Sexual Orientation Not on file documented as of this encounter Plan of Treatment Upcoming Encounters Date Type Department Care Team (Late st Contact Info) Description 02/03/2025 2:30 PM CDT Office Visit [facility] PARALEGAL LEGAL SECRETARY - Medical [place] [address] [facility] [address] [place] [address] Casandra Major MD [address] [facility] [address] [place] [address] 03/02/2025 8:00 AM CDT Video Visit [facility] [address] [place] [address] Priscilla Vera NP [address] [place] [address] documented as of this encounter Visit Diagnoses Not on filedocumented in this encounter Additional Health Concerns Infection Onset Date Last Indicated Resolved Time R/O COVID-19 07/30/2019 07/30/2019 08/04/2019 6:05 AM CDT R/O Respiratory 05/12/2022 05/12/2022 05/12/2022 4 :27 PM EMAIL MARKETING ASSISTANT R/O C. diff 03/11/2024 03/11/2024 03/11/2024 12:4 6 PM EMAIL MARKETING ASSISTANT C Diff 03/11/2024 03/11/2024 05/10/2024 1:16 AM EMAIL MARKETING ASSISTANT documented as of this encounter Care Teams Health Record Technician Relationship Specialty Start Date End Date Gilmar Galvan MD [address] [place] [address] PCP - General Family Practice 12/09/18 documented as of this encounter
--- OUTSIDE RECORDS SUMMARY | 2025-01-31 12:04 | XMS_ITS | Encounter Summary ---
Author Organization [facility] Address [address] [place] [address] Care Team Providers Care Search Consultant Name Role Phone Gilmar Galvan MD Primary Care Provider Encounter Details Date Type Department Care Team (Late st Contact Info) Description 09/24/2006 Outpatient Historical [facility] [address] [facility] [address] [address] [place] [address] [place] [address] Social History Tobacco Use Types Packs/Day Years Used Date Smoking Tobacco: Never Assessed Comments Unknown Sex and Gender Information Value Date Recorded Sex Assigned at Not on file Legal Sex Female 3:13 AM PEDIATRICIAN Gender Identity Not on file Sexual Orientation Not on file documented as of this encounter Plan of Treatment Upcoming Encounters Date Type Department Care Team (Late st Contact Info) Description 02/03/2025 2:30 PM CDT Office Visit [facility] FLASK HANDLER - Medical [place] [address] [facility] [address] [place] [address] Casandra Major MD [address] [facility] [address] [place] [address] 03/02/2025 8:00 AM CDT Video Visit [facility] [address] [place] [address] Priscilla Vera NP [address] [place] [address] documented as of this encounter Visit Diagnoses Not on filedocumented in this encounter Additional Health Concerns Infection Onset Date Last Indicated Resolved Time R/O COVID-19 07/30/2019 07/30/2019 08/04/2019 6:05 AM CDT R/O Respiratory 05/12/2022 05/12/2022 05/12/2022 4 :27 PM PEDIATRICIAN R/O C. diff 03/11/2024 03/11/2024 03/11/2024 12:4 6 PM PEDIATRICIAN C Diff 03/11/2024 03/11/2024 05/10/2024 1:16 AM PEDIATRICIAN documented as of this encounter Care Teams Search Consultant Relationship Specialty Start Date End Date Gilmar Galvan MD [address] [place] [address] PCP - General Family Practice 12/09/18 documented as of this encounter
--- OUTSIDE RECORDS SUMMARY | 2025-01-31 12:04 | XMS_ITS | Encounter Summary ---
Author Organization [facility] Address [address] [place] [address] Care Team Providers Care Outside Property Agent Name Role Phone Gilmar Galvan MD Primary Care Provider Reason for Visit * Reason Comments Question Encounter Details Date Type Department Care Team (Late st Contact Info) Description 08/24/2024 Telephone [facility] [address] [place] [address] Gilmar Galvan MD [address] [place] [address] Question Social History Tobacco Use [...] on file Legal Sex Female 3:13 AM CABINET WORKER Gender Identity Not on file Sexual Orientation [...] - 08/24/2024 12:21 PM CDT Copied from [facility] #[id number]. Topic: Patient or Caregiver Communication Request >> [...] 02/03/2025 2:30 PM CDT Office Visit [facility] INTERIOR DESIGNER - Medical [place] [address] [facility] [address] [place] [phone] Casandra Major MD [address] [facility] [address] [place] [phone] 03/02/2025 8:00 AM CDT Video Visit [facility] Family Medicine - [facility] [address] [place] [address] Priscilla Vera NP [address] [place] [address] documented as of this encounter Visit Diagnoses Not on filedocumented in this encounter Additional Health Concerns Assessment Noted Time PHQ-9 Depression Total Score: 2 08/25/19 25 11:25 AM CDT documented as of this encounter Care Teams Outside Property Agent Relationship Specialty Start Date End Date Gilmar Galvan MD [address] [place] [address] PCP - General Family Practice 12/09/18 documented as of this encounter
--- OUTSIDE RECORDS SUMMARY | 2025-01-31 12:04 | XMS_ITS | Encounter Summary ---
Author Organization [facility] Address [address] [place] [address] Care Team Providers Care Spindle Carver Name Role Phone Gilmar Galvan MD Primary Care Provider Encounter Details Date Type Department Care Team (Late st Contact Info) Description 06/24/2022 Lab Requisition [facility] Laboratory Services [facility] [address] [place] [address] Mona Shaver, VAT PACKER [address] [facility] [place] [address] Social History Tobacco Use Types Packs/Day Years Used Date Smoking Tobacco: Never Smokeless Tobacco: Never Alcohol Use Standard Drinks/Week Comments Not Currently 0 (1 standard drink = 0.6 oz pur e alcohol) vary rare social use Comments No Sex and Gender Information Value Date Recorded Sex Assigned at Not on file Legal Sex Female 3:13 AM CRABBING MACHINE OPERATOR Gender Identity Not on file Sexual Orientation Not on file Occupation Industry Job Start Date Job End Date Not on file Not on file Not on file Not on file COVID-19 Exposure Response Date Recorded In the last 10 days, have yo u been in contact with someone who was confirmed or suspected to have Coronavirus/COVID-19? No / Unsure 06/24/2022 10:13 AM CRABBING MACHINE OPERATOR documented as of this encounter Plan of Treatment Upcoming Encounters Date Type Department Care Team (Late st Contact Info) Description 02/03/2025 2:30 PM CDT Office Visit [facility] CHIEF CONTRACT OFFICER - Medical [place] [address] [facility] [address] [place] [address] Casandra Major MD [address] [facility] [address] [place] [address] 03/02/2025 8:00 AM CDT Video Visit [facility] Family Medicine - [facility] [address] [place] [address] Priscilla Vera NP [address] [place] [address] documented as of this encounter Procedures Procedure Name Priority Date/Time Associated Diagnosis Comments CBC WITH DIFFERENTIAL Stat 06/24/2022 4:04 PM CRABBING MACHINE OPERATOR COMPREHENSIVE METABOLIC PANEL Stat 06/24/2022 4:04 PM CRABBING MACHINE OPERATOR documented in this encounter Results * (ABNORMAL) COMPREHENSIVE METABOLIC PANEL (06/24/2022 4:04 PM CRABBING MACHINE OPERATOR) SODIUM 141 136 - 145 mmol/L 06/24/2022 5:23 PM [facility] POTASSIUM 4.4 3.5 - 5.0 mmol/L 06/24/2022 5:23 PM CRABBING MACHINE OPERATOR [facility] Comment: Testing was performed on Serum. Specimen of choice is [place] Heparinized Plasma. Serum Potassium Reference Range: 0 years - 150 years 3.5 - 5.1 mmol/L CHLORIDE 105 98 - 107 mmol/L 06/24/2022 5:23 PM CRABBING MACHINE OPERATOR [facility] CO2 24 22 - 29 mmol/L 06/24/2022 5:23 PM CRABBING MACHINE OPERATOR [facility] CALCIUM 8.9 8.6 - 10.2 mg/dL 06/24/2022 5:23 PM CRABBING MACHINE OPERATOR [facility] BUN 12 6 - 20 mg/dL 06/24/2022 5:23 PM [facility] CREATININE 0.65 0.51 - 0.95 mg/dL 06/24/2022 5:23 PM [facility] GLUCOSE 87 74 - 99 mg/dL 06/24/2022 5:23 PM [facility] TOTAL PROTEIN 6.1(L) 6.7 - 8.6 g/dL 06/24/2022 5:23 PM [facility] Comment: Testing was performed on Serum. Specimen of choice is [place] Heparinized Plasma. Serum TP Ref. Range: 3 [...] 3.5 - 5.2 g/dL 06/24/2022 5:23 PM [facility] BILIRUBIN TOTAL <0.2(L) 0.3 - 1.2 mg/dL 06/24/2022 5:23 PM [facility] ALKALINE PHOSPHATASE 140(H) 35 - 104 U/L 06/24/2022 5:23 PM [facility] AST 13 <33 U/L 06/24/2022 5:23 PM [facility] ALT 23 <34 U/L 06/24/2022 5:23 PM [facility] GFR >60 >=60 mL/min/1.7 3 sq meter 06/24/2022 5:23 PM [facility] Comment:eGFR calculated with 2020 CKD-EPI equation. Vegetarian diet, extremely high or low muscle mass, and may affect results. Cystatin C with Glomerular Filtration Rate is a suitable alternative for these patients. ANION GAP 12 8 - 16 mmol/L 06/24/2022 5:23 PM [facility] Blood 06/24/2022 4:04 PM CRABBING MACHINE OPERATOR 06/24/2022 5:02 PM CRABBING MACHINE OPERATOR [facility]ORATORY [facility] - [facility] - 06/24/2022 5:23 PM CRABBING MACHINE OPERATOR Samples containing indocyanine green cause interferences on Total and/or Direct Bilirubin and must not be measured. Mona Shaver NP CHEMISTRY ORDERABLES Final Result [facility] CLIA# [id number] [address] [facility] [place] [place] [address] * (ABNORMAL) CBC WITH DIFFERENTIAL (06/24/2022 4:04 PM CRABBING MACHINE OPERATOR) WBC 10.3(H) 4.0 - 9.8 K/uL 06/24/2022 5:10 PM [facility] RBC 3.13(L) 3.90 - 4.90 M/uL 06/24/2022 5:10 PM [facility] HEMOGLOBIN 9.0(L) 11.8 - 14.8 g/dL 06/24/2022 5:10 PM [facility] HEMATOCRIT 28.3(L) 35.5 - 44.0 % 06/24/2022 5:10 PM [facility] MCV 90.4 82.0 - 99.0 fL 06/24/2022 5:10 PM [facility] MCH 28.8 27.2 - 32.6 pg 06/24/2022 5:10 PM [facility] MCHC 31.8 31.5 - 35.5 g/dL 06/24/2022 5:10 PM [facility] RDW 14.6(H) 11.5 - 14.5 % 06/24/2022 5:10 PM [facility] RDW-STDEV 47.8 37.1 - 48.7 fL 06/24/2022 5:10 PM [facility] PLATELETS 468(H) 140 - 350 K/uL 06/24/2022 5:10 PM [facility] SERVICES - . [place] MPV 8.5(L) 9.3 - 12.4 fL 06/24/2022 5:10 PM [facility] . [facility] NEUTROPHILS 65 % 06/24/2022 5:10 PM [facility] . [facility] LYMPHOCYTES 21 % 06/24/2022 5:10 PM [facility] MONOCYTES 9 % 06/24/2022 5:10 PM [facility]. [facility] EOSINOPHILS 2 % 06/24/2022 5:10 PM [facility] BASOPHILS 1 % 06/24/2022 5:10 PM [facility] IMMATURE GRANULOCYTES 4 % 06/24/2022 5:10 PM [facility] Comment:IG (Immature Granulo cyte) count includes Metamyelocytes, Myelocytes, and Promyelocytes NEUTROPHIL ABSOLUTE 6.64 1.90 - 7.00 K/uL 06/24/2022 5:10 PM [facility]. [facility] LYMPHOCYTE ABSOLUTE 2.15 0.70 - 4.50 K/uL 06/24/2022 5:10 PM [facility]. [facility] MONOCYTE ABSOLUTE 0.87 0.10 - 1.30 K/uL 06/24/2022 5:10 PM [facility]. [facility] EOSINOPHIL ABSOLUTE 0.17 0.00 - 0.70 K/uL 06/24/2022 5:10 PM [facility]. [facility] BASOPHILS ABSOLUTE 0.07 0.00 - 0.20 K/uL 06/24/2022 5:10 PM [facility] IMMATURE GRANULOCYTES ABSOLUTE 0.37(H) 0.00 - 0.03 K/uL 06/24/2022 5:10 PM [facility] Blood 06/24/2022 4:04 PM CRABBING MACHINE OPERATOR 06/24/2022 5:02 PM [facility] Mona Shaver NP HEMATOLOGY ORDERABLES Final Result [facility] CLIA# [id number] [address] [place] [address] documented in this encounter Visit Diagnoses Not on filedocumented in this encounter Additional Health Concerns Infection Onset Date Last Indicated Resolved Time R/O C. diff 03/11/2024 03/11/2024 03/11/2024 12:4 6 PM CRABBING MACHINE OPERATOR C Diff 03/11/2024 03/11/2024 05/10/2024 1:16 AM CRABBING MACHINE OPERATOR Assessment Noted Time PHQ-9 Depression Total Score: 5 08/17/19 22 3:00 PM CDT documented as of this encounter Care Teams Spindle Carver Relationship Specialty Start Date End Date Gilmar Galvan MD [address] [place] [id number] PCP - General Family Practice 12/09/18 documented as of this encounter
--- OUTSIDE RECORDS SUMMARY | 2025-01-31 12:04 | XMS_ITS | Encounter Summary ---
Author Organization [facility] Address [address] [place] [address] Care Team Providers Care Jailor Name Role Phone Gilmar Galvan MD Primary Care Provider Encounter Details Date Type Department Care Team (Late st Contact Info) Description 02/13/2007 Outpatient Historical [facility] Pediatrics [address] [facility] [address] [address] [place] [address] [place] [address] Social History Tobacco Use Types Packs/Day Years Used Date Smoking Tobacco: Never Assessed Comments Unknown Sex and Gender Information Value Date Recorded Sex Assigned at Not on file Legal Sex Female 3:13 AM SILVICULTURIST Gender Identity Not on file Sexual Orientation Not on file documented as of this encounter Plan of Treatment Upcoming Encounters Date Type Department Care Team (Late st Contact Info) Description 02/03/2025 2:30 PM CDT Office Visit [facility] COOKER SULFATE - Medical [place] [address] [facility] [address] [place] [address] Casandra Major MD [address] [facility] [address] [place] [address] 03/02/2025 8:00 AM CDT Video Visit [facility] [address] [place] [address] Priscilla Vera NP [address] [place] [address] documented as of this encounter Visit Diagnoses Not on filedocumented in this encounter Additional Health Concerns Infection Onset Date Last Indicated Resolved Time R/O COVID-19 07/30/2019 07/30/2019 08/04/2019 6:05 AM CDT R/O Respiratory 05/12/2022 05/12/2022 05/12/2022 4 :27 PM SILVICULTURIST R/O C. diff 03/11/2024 03/11/2024 03/11/2024 12:4 6 PM SILVICULTURIST C Diff 03/11/2024 03/11/2024 05/10/2024 1:16 AM SILVICULTURIST documented as of this encounter Care Teams Jailor Relationship Specialty Start Date End Date Gilmar Galvan MD [address] [place] [address] PCP - General Family Practice 12/09/18 documented as of this encounter
--- OUTSIDE RECORDS SUMMARY | 2025-01-31 12:04 | XMS_ITS | Encounter Summary ---
Author Organization [facility] Address [address] [place] [address] Care Team Providers Care Commercial Carpet Installer Name Role Phone Gilmar Galvan MD Primary Care Provider Encounter Details Date Type Department Care Team (Late st Contact Info) Description 02/15/2005 Outpatient Historical [facility] Pediatric[facility] [address] [facility] [address] [address] [place] [address] [place] [address] Social History Tobacco Use Types Packs/Day Years Used Date Smoking Tobacco: Never Assessed Comments Unknown Sex and Gender Information Value Date Recorded Sex Assigned at Not on file Legal Sex Female 3:13 AM COLLECTION TELLER Gender Identity Not on file Sexual Orientation Not on file documented as of this encounter Plan of Treatment Upcoming Encounters Date Type Department Care Team (Late st Contact Info) Description 02/03/2025 2:30 PM CDT Office Visit [facility] ETHANOL OPERATOR - Medical [place] [address] [facility] [address] [place] [address] Casandra Major MD [address] [facility] [address] [place] [address] 03/02/2025 8:00 AM CDT Video Visit [facility] [address] [place] [address] Priscilla Vera NP [address] [place] [address] documented as of this encounter Visit Diagnoses Not on filedocumented in this encounter Additional Health Concerns Infection Onset Date Last Indicated Resolved Time R/O COVID-19 07/30/2019 07/30/2019 08/04/2019 6:05 AM CDT R/O Respiratory 05/12/2022 05/12/2022 05/12/2022 4 :27 PM COLLECTION TELLER R/O C. diff 03/11/2024 03/11/2024 03/11/2024 12:4 6 PM COLLECTION TELLER C Diff 03/11/2024 03/11/2024 05/10/2024 1:16 AM COLLECTION TELLER documented as of this encounter Care Teams Commercial Carpet Installer Relationship Specialty Start Date End Date Gilmar Galvan MD [address] [place] [address] PCP - General Family Practice 12/09/18 documented as of this encounter
--- OUTSIDE RECORDS SUMMARY | 2025-01-31 12:04 | XMS_ITS | Encounter Summary ---
Author Organization [facility] Address [address] [place] [address] Care Team Providers Care Grain Elevator Superintendent Name Role Phone Gilmar Galvan MD Primary [...] on file Legal Sex Female 3:13 AM MEDIA MARKETING DIRECTOR Gender Identity Not on file Sexual Orientation Not on file documented as of this encounter Plan of Treatment Upcoming Encounters Date Type Department Care Team (Late st Contact Info) Description 02/03/2025 2:30 PM CDT Office Visit [facility] CLOTHING SUPERVISOR - [place] [address] [facility] [address] [place] [address] Casandra Major MD [address] [facility] [address] [place] [address] 03/02/2025 8:00 AM CDT Video Visit [facility] Family Medicine [address] [address] Priscilla Vera, AEROSPACE ASSEMBLER [address] [place] [address] documented as of this encounter [...] PM CDT Narrative 10/24/2008 7:21 AM CDT [address] [address] Admit Date: 10/22/2008 JUNIOR MARKS Sex: F Admit Prov: TYSON HEALY Date: 1990 Primary Care Prov: JODY KIMBROUGH CMRN: [id number] Room: [facility] SSN: [id number] IMAGING SERVICES Ordering Prov: N/A Accession Number: [id number] Interpretation PELVIC SONOGRAM, 10/22/2008 History: Pelvic pain. [...] SJ Procedure Note Ines Mario - 10/24/2008 [facility] [address] [place], [place] [address] Admit Date: 10/22/2008 JUN[place] Sex: F Admit Prov: TYSON HEALY Date: 1990 Primary Care Prov: JODY KIMBROUGH CMRN: [id number] Room: [facility] SSN: [id number] IMAGING SERVICES Ordering Prov: N/A Interpretation PELVIC [...] CDT) RBC 4.27 3.90 - 4.90 M/uL [facility] MCHC 34.8 31.5 - 35.5 % [facility] MCV 88.1 82.0 - 99.0 fL [facility] PLATELETS 317 140 - 350 K/uL [facility] HEMOGLOBIN 13.1 11.8 - 14.8 g/dL [facility] RDW 12.8 11.5 - 14.5 % [facility] WBC 10.5(H) 4.0 - 9.8 K/uL [facility] MCH 30.7 27.2 - 32.6 pg [facility] MPV 9.3 9.3 - 12.4 fL [facility] HEMATOCRIT 37.6 35.5 - 44.0 % [facility] RDW-STDEV 40.9 37.1 - 48.7 fL [facility] BASOPHILS 0 0 - 2 % [facility] MONOCYTE ABSOLUTE 0.73 0.10 - 1.30 K/uL [facility] REVIEWED ON SMEAR Plt reviewed [facility] MONOCYTES 7 3 - 13 % [facility] NEUTROPHIL ABSOLUTE 8.40(H) 1.90 - 7.00 K/uL [facility] NEUTROPHILS, SEG 80(H) 45 - 70 % [facility] PLATELET EST. Consistent w/ count Normal [facility] EOSINOPHIL ABSOLUTE 0.00 0.00 - 0.70 K/uL [facility] EOSINOPHILS 0 0 - 7 % [facility] LYMPHOCYTE ABSOLUTE 1.37 0.70 - 4.50 K/uL [facility] LYMPHOCYTES 13(L) 16 - 45 % [facility] RBC MORPHOLOGY Normal Normal [facility] BASOPHILS ABSOLUTE 0.00 0.00 - 0.20 K/uL [facility] Blood specimen (specimen) 10/22/2008 12:20 PM CDT 10/22/2008 12:41 PM CDT us Tyson Healy MD HEMATOLOGY ORDERABLES Edite d INTERFACE SYSTEM Refer to clinic/hospital department [facility] CLIA# [id number] [address] [place], [place] [address] * HCG QUANTITATIVE, BLOOD (10/22/2008 11:40 AM CDT) HCG QUANT, BLOOD <5 0 - 5 mIU/mL [facility] Comment: Result of 5 - 25 [...] CHEMISTRY ORDERABL ES Edited Performing Organization Address [facility] de Phone Number INTERFACE SYSTEM Refer to clinic/hospital department [facility] CLIA# [id number] [address] [place] [address] * C-REACTIVE PROTEIN (10/22/2008 11:40 AM CDT) CRP 0.4 0.0 - 0.8 mg/dL [facility] 10/22/2008 11:4 0 AM CDT 10/22/2008 12:04 PM CDT us Tyson Healy MD CHEMISTRY ORDERABLES Final Result Performing Organization Address [facility] Phone Number INTERFACE SYSTEM Refer to clinic/hospital department [facility] CLIA# [id number] [address] [place] [address] * C-REACTIVE PROTEIN (10/21/2008 11:08 PM CDT) CRP 0.2 0.0 - 0.8 mg/dL [facility] 10/21/2008 11:0 8 PM CDT 10/21/2008 11:13 PM CDT us Marshall Haque MD CHEMISTRY ORDERABLES Final Resu lt INTERFACE SYSTEM Refer to clinic/hospital department [facility] CLIA# [id number] [address] [place] [address] * (ABNORMAL) COMPREHENSIVE METABOLIC PANEL (10/21/2008 11:08 PM CDT) GLUCOSE 85 65 - 99 mg/dL [facility] AST 13 12 - 32 U/L [facility] BUN 11 6 - 20 mg/dL [facility] CALCIUM 8.4(L) 8.6 - 10.2 mg/dL [facility] CHLORIDE 104 96 - 108 mmol/L [facility] ALBUMIN 4.0 3.4 - 4.8 g/dL [facility] CREATININE 0.72 0.51 - 0.95 mg/dL [facility] SODIUM 137 135 - 145 mmol/L [facility] ALT 14 0 - 31 U/L [facility] ALKALINE PHOSPHATASE 68 35 - 104 U/L [facility] BILIRUBIN TOTAL 0.5 0.2 - 1.0 mg/dL [facility] CO2 23 22 - 30 mmol/L [facility] TOTAL PROTEIN 6.7 6.3 - 8.6 g/dL [facility] POTASSIUM 3.5 3.5 - 4.9 mmol/L [facility] GFR, >60 >=60 mL/min/1. 7 sq meter [facility] GFR >60 >=60 mL/min/1. 7 sq meter [facility] Comment: Modification of Diet in Renal Disease (MDRD) study formula. Estimated GFR rate interpretative information for both Americans and non- Americans is available on the [facility] Intranet at: [email or web address] Select: Lab Policies and Procedures Select: Reference Ranges - GFR 10/21/2008 11:0 8 PM CDT 10/21/2008 11:13 PM CDT Marshall Haque MD CHEMISTRY ORDERABLES Edited INTERFACE SYSTEM Refer to clinic/hospital department [facility] CLIA# [id number] [address] [place] [address] * (ABNORMAL) CBC WITH DIFFERENTIAL (10/21/2008 11:08 PM CDT) RBC 4.25 3.90 - 4.90 M/uL [facility] MCHC 34.6 31.5 - 35.5 % [facility] MCV 88.5 82.0 - 99.0 fL [facility] PLATELETS 348 140 - 350 K/uL [facility] HEMOGLOBIN 13.0 11.8 - 14.8 g/dL [facility] RDW 12.7 11.5 - 14.5 % [facility] WBC 13.1(H) 4.0 - 9.8 K/uL [facility] MCH 30.6 27.2 - 32.6 pg [facility] MPV 9.2(L) 9.3 - 12.4 fL [facility] HEMATOCRIT 37.6 35.5 - 44.0 % [facility] RDW-STDEV 40.9 37.1 - 48.7 fL [facility] MONOCYTES 10 3 - 13 % [facility] MONOCYTE ABSOLUTE 1.30 0.10 - 1.30 K/uL [facility] NEUTROPHILS 64 45 - 70 % [facility] NEUTROPHIL ABSOLUTE 8.39(H) 1.90 - 7.00 K/uL [facility] EOSINOPHILS 1 0 - 7 % [facility] EOSINOPHIL ABSOLUTE 0.08 0.00 - 0.70 K/uL [facility] LYMPHOCYTES 25 16 - 45 % [facility] LYMPHOCYTE ABSOLUTE 3.34 0.70 - 4.50 K/uL [facility] BASOPHILS 0 0 - 2 % [facility] BASOPHILS ABSOLUTE 0.03 0.00 - 0.20 K/uL [facility] 10/21/2008 11:0 8 PM CDT 10/21/2008 11:14 PM CDT Marshall Haque MD HEMATOLOGY ORDERABLES Edited INTERFACE SYSTEM Refer to clinic/hospital department [facility] CLIA# [id number] [address] [facility] [place] [address] documented in this encounter Visit Diagnoses Diagnosis Abdominal pain, unspecified site documented in this encounter Additional Health Concerns Infection Onset Date Last Indicated Resolved Time R/O COVID-19 07/30/2019 07/30/2019 08/04/2019 6:05 AM CDT R/O Respiratory 05/12/2022 05/12/2022 05/12/2022 4 :27 PM MEDIA MARKETING DIRECTOR R/O C. diff 03/11/2024 03/11/2024 03/11/2024 12:4 6 PM MEDIA MARKETING DIRECTOR C Diff 03/11/2024 03/11/2024 05/10/2024 1:16 AM MEDIA MARKETING DIRECTOR documented as of this encounter Care Teams Grain Elevator Superintendent Relationship Specialty Start Date End Date Gilmar Galvan MD [address] [place] [address] PCP - General Family Practice 12/09/18 documented as of this encounter
--- OUTSIDE RECORDS SUMMARY | 2025-01-31 12:04 | XMS_ITS | Encounter Summary ---
Author Organization [facility] Address [address] [place] [address] Care Team Providers Care Associate Professor Of Library Media Name Role Phone Gilmar Galvan MD Primary Care Provider Encounter Details Date Type Department Care Team (Latest Contact Info) Description 10/16/2006 Outpatient Historical [facility] [place] [address] [place] [address] Pain in Joint, Shoulder Region (Primary Dx) Social History Tobacco Use Types Packs/Day Years Used Date Smoking Tobacco: Never Assessed Comments Unknown Sex and Gender Information Value Date Recorded Sex Assigned at Not on file Legal Sex Female 3:13 AM SENIOR EMBEDDED SOFTWARE ENGINEER Gender Identity Not on file Sexual Orientation Not on file documented as of this encounter Plan of Treatment Upcoming Encounters Date Type Department Care Team (Late st Contact Info) Description 02/03/2025 2:30 PM CDT Office Visit [facility] MINI SHIFTER - Medical [place] [address] [facility] [address] [place] [address] Casandra Major MD [address] [facility] [address] [place] [address] 03/02/2025 8:00 AM CDT Video Visit [facility] [place] [address] [place] [address] Priscilla Vera NP [address] [place] [address] documented as of this encounter Visit Diagnoses Diagnosis Pain in joint, shoulder region- Primary documented in this encounter Additional Health Concerns Infection Onset Date Last Indicated Resolved Time R/O COVID-19 07/30/2019 07/30/2019 08/04/2019 6:05 AM CDT R/O Respiratory 05/12/2022 05/12/2022 05/12/2022 4 :27 PM SENIOR EMBEDDED SOFTWARE ENGINEER R/O C. diff 03/11/2024 03/11/2024 03/11/2024 12:4 6 PM SENIOR EMBEDDED SOFTWARE ENGINEER C Diff 03/11/2024 03/11/2024 05/10/2024 1:16 AM SENIOR EMBEDDED SOFTWARE ENGINEER documented as of this encounter Care Teams Associate Professor Of Library Media Relationship Specialty Start Date End Date Gilmar Galvan MD [address] [place] [address] PCP - General Family Practice 12/09/18 documented as of this encounter
--- OUTSIDE RECORDS SUMMARY | 2025-01-31 12:04 | XMS_ITS | Encounter Summary ---
Author Organization [facility] Address [address] [place] [address] Care Team Providers Care Jd Edwards Consultant Name Role Phone Gilmar Galvan MD Primary Care Provider Encounter Details Date Type Department Care Team (Late st Contact Info) Description 04/10/2006 Outpatient Historical [facility] [address] [facility] [address] [address] [place] [address] [place] [address] Social History Tobacco Use Types Packs/Day Years Used Date Smoking Tobacco: Never Assessed Comments Unknown Sex and Gender Information Value Date Recorded Sex Assigned at Not on file Legal Sex Female 3:13 AM FERRY BOAT CAPTAIN Gender Identity Not on file Sexual Orientation Not on file documented as of this encounter Plan of Treatment Upcoming Encounters Date Type Department Care Team (Late st Contact Info) Description 02/03/2025 2:30 PM CDT Office Visit [facility] SPECIAL CRIMES INVESTIGATOR - Medical [place] [address] [facility] [address] [place] [address] Casandra Major MD [address] [facility] [address] [place] [address] 03/02/2025 8:00 AM CDT Video Visit [facility] [address] [place] [address] Priscilla Vera NP [address] [place] [address] documented as of this encounter Visit Diagnoses Not on filedocumented in this encounter Additional Health Concerns Infection Onset Date Last Indicated Resolved Time R/O COVID-19 07/30/2019 07/30/2019 08/04/2019 6:05 AM CDT R/O Respiratory 05/12/2022 05/12/2022 05/12/2022 4 :27 PM FERRY BOAT CAPTAIN R/O C. diff 03/11/2024 03/11/2024 03/11/2024 12:4 6 PM FERRY BOAT CAPTAIN C Diff 03/11/2024 03/11/2024 05/10/2024 1:16 AM FERRY BOAT CAPTAIN documented as of this encounter Care Teams Jd Edwards Consultant Relationship Specialty Start Date End Date Gilmar Galvan MD [address] [place] [address] PCP - General Family Practice 12/09/18 documented as of this encounter
--- OUTSIDE RECORDS SUMMARY | 2025-01-31 12:04 | XMS_ITS | Encounter Summary ---
Author Organization [facility] Address [address] [place] [address] Care Team Providers Care Watch Technician Name Role Phone Gilmar Galvan MD Primary Care Provider Reason for Visit * Reason Onset Date Comments Courtesy Call 08/08/2019 Left message Encounter Details Date Type Department Care Team (Late st Contact Info) Description 08/08/2019 Telephone [facility] [address] [address] Karen Chicas, RT Courtesy Call [...] on file Legal Sex Female 3:13 AM HAND PRESSER Gender Identity Not on file Sexual Orientation [...] PM CDT Office Visit [facility] BABY STROLLER RENTAL CLERK - Medical [place] [address] [facility] [address] [place] [address] Casandra Major MD [address] [facility] [address] [place] [address] 03/02/2025 8:00 AM CDT Video Visit [facility] - [facility] [address] [place] [address] Priscilla Vera NP [address] [place] [address] documented as of this encounter Visit Diagnoses Not on filedocumented in this encounter Additional Health Concerns Infection Onset Date Last Indicated Resolved Time R/O Respiratory 05/12/2022 05/12/2022 05/12/2022 4 :27 PM HAND PRESSER R/O C. diff 03/11/2024 03/11/2024 03/11/2024 12:4 6 PM HAND PRESSER C Diff 03/11/2024 03/11/2024 05/10/2024 1:16 AM HAND PRESSER Assessment Noted Time PHQ-9 Depression Total Score: 1 03/25/20 19 3:00 PM HAND PRESSER documented as of this encounter Care Teams Watch Technician Relationship Specialty Start Date End Date Gilmar Galvan MD [address] [place] [address] PCP - General Family Practice 12/09/18 documented as of this encounter
--- OUTSIDE RECORDS SUMMARY | 2025-01-31 12:04 | XMS_ITS | Encounter Summary ---
Author Organization [facility] Address [address] [place] [address] Care Team Providers Care Head Of Business Development Name Role Phone Gilmar Galvan MD Primary Care Provider Encounter Details Date Type Department Care Team (Late st Contact Info) Description 08/05/2005 Outpatient Historical [facility] [address] [facility] 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 Gender Identity Not on file Sexual Orientation Not on file documented as of this encounter Plan of Treatment Upcoming Encounters Date Type Department Care Team (Late st Contact Info) Description 02/03/2025 2:30 PM CDT Office Visit [facility] COLOR MATCHER - Medical [place] [address] [facility] [address] [place] [address] Casandra Major MD [address] [facility] [address] [place] [address] 03/02/2025 8:00 AM CDT Video Visit [facility] [address] [place] [address] Priscilla Vera NP [address] [place] [address] documented as of this encounter Visit Diagnoses Not on filedocumented in this encounter Additional Health Concerns Infection Onset Date Last Indicated Resolved Time R/O COVID-19 07/30/2019 07/30/2019 08/04/2019 6:05 AM CDT R/O Respiratory 05/12/2022 05/12/2022 05/12/2022 4 :27 PM NUCLEAR TECHNOLOGIST R/O C. diff 03/11/2024 03/11/2024 03/11/2024 12:4 6 PM NUCLEAR TECHNOLOGIST C Diff 03/11/2024 03/11/2024 05/10/2024 1:16 AM NUCLEAR TECHNOLOGIST documented as of this encounter Care Teams Head Of Business Development Relationship Specialty Start Date End Date Gilmar Galvan MD [address] [place] [address] PCP - General Family Practice 12/09/18 documented as of this encounter
[2025-01-31] MEDS: diazePAM INJ (*CRX) 10 MG/2 ML SYRINGE 5 MG IV PUSH ×2 (12:16→13:00)
[2025-01-31] MEDS: SODIUM CHLORIDE 0.9% IV 1,000 ML 999 ML IV CONT (13:00)
--- NOTE | 2025-01-31 14:03 | ECG_ITS ---
Test Date: 2025-01-31 14:05:50 Measurements Intervals [place] Rate: 85 P: 64 [place]: 142 QRS: 64 QRSD: 77 T: 58 QT: 378 QTc: 450 Interpretive Statements SINUS RHYTHM Compared to ECG 01/31/2025 11:02:43 Sinus tachycardia no longer present Ventricular premature complex(es) no longer present Electronically Signed On 01-31-2025 15:06:29 CDT by Yanique Mccain M.D.
[2025-01-31 14:52] LABS: Troponin I < 0.012 ng/mL (0.000-0.034)
== END 2025-01-31 15:10 | disposition home or self-care (01) ==
PROVIDERS: Emergency Provider General Practice
DX: R07.89 Other chest pain (principal); F41.0 Panic disorder [episodic paroxysmal anxiety]; R00.0 Tachycardia, unspecified; F12.90 Cannabis use, unspecified, uncomplicated
CPT/HCPCS: 36415; 71046; 71275; 80053; 83690; 84484; 85025; 85380; 85610; 85730; 93005; 96361; 96374; 96376; 99284; J3360; J7030; Q9967

== ENCOUNTER 2025-02-17 10:32 | Emergency (ER) | payer BC, SELFPAY ==
--- OUTSIDE RECORDS SUMMARY | 2025-02-07 04:00 | XMS_ITS ---
Author Organization [facility] [employer] Address [address] [place] [address] Care Team Providers Care Welding Tester Name Role Phone Chris Brady Unavailable [phone] REASON FOR VISIT 2 week f/u Social History Sex Assigned At : Social History Observation Description Sex Assigned At Female Encounters Encounter Location Date Provider Diagnosis [facility], [address] [place] [address] 02/07/2025 Chris Brady Plan Of Treatment No Information Progress Notes * Kylie MARKSDOB:1990 (34 yo F)Acc No.[id number]:02/07/2025 Patient: Kylie Chinchilla Provider: MIKO Pascal :1990 A ge:34 Y S ex:Female Date:02/07/2025 Address:[address] [facility] Subjective: * Chief Complaints: * 2 week f/u * HPI: T ransition of Care: 01/24/2025 BDI: 37 PHQ-9: 23 ESTHER-7: 16 depression started 1 month after child was born. Put back on Prozac 40 mg by PCP. PCP wanted to cross taper from fluoxetine to Effexor she took 2 doses of Effexor. Poor sleep for the past month correlating with worsening depression. Recent move [facility] to [place]. 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 -plan - increase fluoxetine to 60 mg daily (40 mg + 20 mg) - start trazodone 50-100 MG HS. - encouraged melatonin 5 mg use - discussed magnesium - discussed warhead candy - provided list of therapists - continue xanax0.25 mg PRN-encourage reduction of use - encouraged marijuana gummy reduction - continue hydroxyzine PRN for anxiety - d/c effexor. Billing Information: * Procedure Codes: * Electronic signature of MIKO Zepeda on 02/17/2025 at 02:59 PM CDT Sign off status: Pending * Provider: MIKO Pascal Date: Generated for Letitia mclean/Amalia/Tono on: 02:59 PM CDT
--- NOTE | ~2025-02-17 | XR_ITS ---
Examination: XR chest 2V Clinical History: PT STATES SHE HAS CHEST PAIN AND SOB Comparison: 01/31/2025 Technique: PA and Lateral Findings: Cardiomediastinal silhouette normal size and configuration. Lungs clear. No acute bony abnormality. IMPRESSION: 1. No acute cardiopulmonary findings. Reviewed, dictated and finalized at location R.
[2025-02-17 10:44] VITALS: PULSE 125; RESP 24; TEMP 36.3; O2SAT 97
--- NOTE | 2025-02-17 10:44 | ECG_ITS ---
Test Date: 2025-02-17 10:46:47 Measurements Intervals [place] Rate: 124 P: 37 FL: 139 QRS: 26 QRSD: 70 T: 38 QT: 295 QTc: 425 Interpretive Statements SINUS TACHYCARDIA BORDERLINE R WAVE PROGRESSION, ANTERIOR LEADS BASELINE ARTIFACT- I, II, III, AVR, AVL, AVF, V1-V6 ABNORMAL ECG Compared to ECG 01/31/2025 14:05:50 HEART RATE HAS INCREASED Electronically Signed On 02-17-2025 13:17:42 CDT by Altaf Bedolla D.O.
[2025-02-17 11:05] LABS: Hematocrit 45.4 % (37.0-47.0); Hemoglobin 15.0 g/dL (12.0-15.0); Immature Granulocyte Percent A 0.3 % (0-0.5); Lymphocytes Absolute Auto 4.00 K/mm3 (0.9-3.2); Mean Corpuscular HGB Conc 33.0 g/dl (32-36); Mean Corpuscular Hemoglobin 29.5 pg (26-34); Mean Corpuscular Volume 89.2 fl (80-100); Nucleated Red Blood Cells Absolute Auto 0.000 K/mm3 (0.0-0.012); Nucleated Red Blood Cells Perc 0.0 % (0.0-0.2); Platelet Count Result 419 k/mm3 (150-375); Red Blood Count 5.09 M/mm3 (4.2-5.4); White Blood Count 11.4 K/mm3 (4.5-10.0)
[2025-02-17 11:16] LABS: Alanine Aminotransferase 50 U/L (6-35); Albumin Level 4.7 g/dL (3.5-5.1); Alkaline Phosphatase 90 U/L (38-126); Anion Gap 13 mmol/L (4-12); Aspartate Amino Transferase 39 U/L (14-36); Bilirubin,Total 0.5 mg/dL (0.2-1.3); Blood Urea Nitrogen 10 mg/dL (7-17); Calcium 9.6 mg/dL (8.4-10.2); Carbon Dioxide 19 mmol/L (22-30); Chloride 107 mmol/L (98-107); Estimated CRCL calculation 97 ml/min; Estimated Glomerular Filt Rate > 60; Glucose 99 mg/dL (65-110); Lipase 71 U/L (23-300); Potassium 4.4 mmol/L (3.4-5.0); Sodium 139 mmol/L (137-145); Total Protein 8.4 g/dL (6.3-8.2)
[2025-02-17 11:23] LABS: INR 0.9; Prothrombin Time 12.2 Seconds (11.1-14.7)
[2025-02-17 11:24] LABS: Partial Thromboplastin Time 23.8 Seconds (22.3-36.8)
[2025-02-17 11:27] LABS: Troponin I < 0.012 ng/mL (0.000-0.034)
--- NOTE | 2025-02-17 12:12 | ED.CHESTPAIN ---
HPI - Chest Pain General Chief Complaint: Chest Pain <STEPHANIE Villavicencio Last Filed: 02/17/25 19:15> Stated Complaint: chest pain, anxiety <Kaitlin Owens PA-C - Last Filed: 02/17/25 19:15> Time Seen by Provider: 02/17/25 12:12 <Kaitlin Owens PA-C - Last Filed: 02/17/25 19:15> Focused HPI: This is a 34 year old female that presents to the ER for panic attack. Reports history of anxiety, her medications are being adjusted right now. Reports she called her psychiatrist and they told her to come in to be seen. Reports she did take her Xanax earlier this morning. No thoughts of harming herself. Although she does report she wishes she would go to sleep and not wake up. GENERAL: Anxious, tearful HEAD: Normocephalic, atraumatic. CHEST: Clear to auscultation. ?No respiratory distress. HEART: Tachycardic, regular rhythm.? NEURO: ?Alert and oriented x3. Patient screened in triage and initial orders placed.? ?Additional care and disposition to be based upon?diagnostic testing and treatment. <Kaitlin Owens PA-C - Last Filed: 02/17/25 19:15> History of Present Illness HPI narrative: as per MSE <Kofi Jones III, DO - Last Filed: 02/17/25 14:20> Related Data Home Medications: Home Medications ?Medication ?Instructions ?Recorded ?Confirmed ?Last Taken ?Type No Home Medications 07/30/23 07/30/23 Unknown History <STEPHANIE Villavicencio Last Filed: 02/17/25 19:15> Allergies/Adverse Reactions: Allergies Allergy/AdvReac Type Severity Reaction Status Date / Time ketorolac (From Toradol) Allergy Difficulty Verified 02/17/25 10:47 Breathing Penicillins Allergy Rash Verified 02/17/25 10:47 <STEPHANIE Villavicencio Last Filed: 02/17/25 19:15> Review of Systems Review of Systems: All systems reviewed & are unremarkable except as noted in HPI and below <Kofi Jones III, DO - Last Filed: 02/17/25 14:20> PMFSH Past Medical History Medical History: Medical History History of anxiety <Kaitlin Owens PA-C - Last Filed: 02/17/25 19:15> Surgical History Surgical History: Surgical History History of delivery <Kaitlin Owens PA-C - Last Filed: 02/17/25 19:15> Social History Social History: Social History Smoking status: Never smoker Alcohol intake: current Substance use: current Substance use type: marijuana Other substance usage details: gummies for sleep Do You Feel Safe in your Home?: Yes Lack of Transportation: No Lack of Food: Never True Current Housing: I Have Housing Concerned About Future Housing: No Difficulty Paying Gas/Electric Bills: No Difficulty Paying for Meds: No Currently Unemployed: No Education: Associate Degree Difficulty w/ Childcare or Family Care: No Spiritual care concerns: No <Kaitlin Owens PA-C - Last Filed: 02/17/25 19:15> Exam Const: General: healthy appearing and no acute distress <Kofi Wilder Jones III, DO - Last Filed: 02/17/25 14:20> Nutritional Appearance: well nourished <Kofi Wilder Jones III, DO - Last Filed: 02/17/25 14:20> Limitations: other limitations (tearful and anxious) <Kofi Wilder Jones III, DO - Last Filed: 02/17/25 14:20> Eyes: EOM: EOMs intact bilaterally <Kofi Wilder Jones III, DO - Last Filed: 02/17/25 14:20> Chest: Chest palpation & inspection: normal inspection of the chest <Kofi Wilder Jones III, DO - Last Filed: 02/17/25 14:20> Resp: Effort & Inspection: normal respiratory effort and tachypneic (hyperventilating at triage, now normal rate) <Kofi Wilder Jones III, DO - Last Filed: 02/17/25 14:20> Auscultation: clear to auscultation bilaterally <Kofi Wilder Jones III, DO - Last Filed: 02/17/25 14:20> Cardio: Rate: regular rate <Kofi Wilder Jones III, DO - Last Filed: 02/17/25 14:20> Rhythm: regular rhythm <Kofi Wilder Jones III, DO - Last Filed: 02/17/25 14:20> GI: GI Palp: Yes Soft to palpation and No Tenderness to palpation present (GI) <Kofi Wilder Jones III, DO - Last Filed: 02/17/25 14:20> Auscultation: normal bowel sounds <Kofi Wilder Jones III, DO - Last Filed: 02/17/25 14:20> Skin: General skin exam: normal color <Kofi Wilder Jones III, DO - Last Filed: 02/17/25 14:20> Rashes: no rashes <Kofi Wilder Jones III, DO - Last Filed: 02/17/25 14:20> Wounds: no wounds <Kofi Wilder Jones III, DO - Last Filed: 02/17/25 14:20> Neuro: General: patient oriented x3, moves all extremities and no focal motor deficits <Kofi Wilder Jones III, DO - Last Filed: 02/17/25 14:20> Cranial nerves: Yes Nystagmus not present <Kofi Wilder Jones III, DO - Last Filed: 02/17/25 14:20> Speech: normal speech <Kofi Wilder Jones III, DO - Last Filed: 02/17/25 14:20> Extrem: General: normal to inspection, no clubbing, cyanosis or edema and no pedal edema <Kofi Wilder Jones III, DO - Last Filed: 02/17/25 14:20> Psych: Mental Status: mental status grossly normal <Kofi Iwlder Jones III, DO - Last Filed: 02/17/25 14:20> Affect: normal affect <Kofi Wilder Jones III, DO - Last Filed: 02/17/25 14:20> Attitude: cooperative <Kofi Wilder Jones III, DO - Last Filed: 02/17/25 14:20> Course Vital Signs Vital signs: Vital Signs Temperature 97.4 F L 02/17/25 10:44 Pulse Rate 125 H 02/17/25 10:44 Respiratory Rate 24 H 02/17/25 10:44 Pulse Oximetry 97 02/17/25 10:44 Temperature 97.7 F 02/17/25 15:04 Pulse Rate 89 02/17/25 15:04 Respiratory Rate 18 02/17/25 15:04 Blood Pressure 122/107 H 02/17/25 15:04 Pulse Oximetry 93 02/17/25 15:04 Oxygen Delivery Room Air 02/17/25 12:31 <Kaitlin Owens PA-C - Last Filed: 02/17/25 19:15> Vital Signs Temperature 97.4 F L 02/17/25 10:44 Pulse Rate 125 H 02/17/25 10:44 Respiratory Rate 24 H 02/17/25 10:44 Pulse Oximetry 97 02/17/25 10:44 Temperature 97.7 F 02/17/25 15:04 Pulse Rate 89 02/17/25 15:04 Respiratory Rate 18 02/17/25 15:04 Blood Pressure 122/107 H 02/17/25 15:04 Pulse Oximetry 93 02/17/25 15:04 Oxygen Delivery Room Air 02/17/25 12:31 <Kofi Wilder Jones III, DO - Last Filed: 02/17/25 14:20> MDM - Chest Pain MDM Narrative Medical decision making narrative: pt very anxious but not SI. Pt having meds adjusted but still very anxious, feels like heart is coming out of chest. will do cardiac work up to be safe and treat anxiety. Pt feels much better after IM valium. pt can double dose of xanax to 1 mg if needed. will follow up with PCP tomorrow. <Kofi Wilder Jones III, DO - Last Filed: 02/17/25 14:20> Differential Diagnosis Differential diagnosis: Likely pneumothorax, atypical chest pain, st elevation myocardial infarction, chest pain and other (anxiety) <Kofi Wilder Jones III, DO - Last Filed: 02/17/25 14:20> Lab Data Result diagrams: 02/17/25 10:54 02/17/25 10:54 <Kaitlin Owens PA-C - Last Filed: 02/17/25 19:15> Labs: Lab Results 02/17/25 02/17/25 02/17/25 Range/Units 10:54 13:24 13:27 WBC 11.4 H (4.5-10.0) K/mm3 RBC 5.09 (4.2-5.4) M/mm3 Hgb 15.0 (12.0-15.0) g/dL Hct 45.4 (37.0-47.0) % MCV 89.2 (80-100) fl MCH 29.5 (26-34) pg MCHC 33.0 (32-36) g/dl RDW 13.2 (11.5-14.5) % Plt Count 419 H (150-375) k/mm3 MPV 9.1 (7.4-10.4) fl Immature Gran % (Auto) 0.3 (0-0.5) % Neut % (Auto) 55.6 (45.5-73.1) % Lymph % (Auto) 35.0 (18.3-44.2) % [place] % (Auto) 7.3 (2.6-8.5) % Eos % (Auto) 1.2 (0-4.4) % Baso % (Auto) 0.6 (0.2-1.2) % Lymph # (Auto) 4.00 H (0.9-3.2) K/mm3 [place] # (Auto) 0.8 H (0.1-0.6) K/mm3 Eos # (Auto) 0.1 (0-0.3) K/mm3 Baso # (Auto) 0.1 (0.0-0.1) K/mm3 Abs Immat Gran (auto) 0.03 (0.00-0.031) K/mm3 Absolute Neuts (auto) 6.4 (1.3-6.7) K/mm3 Absolute Nucleated RBC 0.000 (0.0-0.012) K/mm3 Nucleated RBC % 0.0 (0.0-0.2) % PT 12.2 (11.1-14.7) Seconds INR 0.9 APTT 23.8 (22.3-36.8) Seconds Sodium 139 (137-145) mmol/L Potassium 4.4 (3.4-5.0) mmol/L Chloride 107 (98-107) mmol/L Carbon Dioxide 19 L (22-30) mmol/L Anion Gap 13 H (4-12) mmol/L BUN 10 (7-17) mg/dL Creatinine 0.75 (0.7-1.0) mg/dL Estim Creat Clear Calc 97 ml/min Estimated GFR > 60 (59 - ) Glucose 99 (65-110) mg/dL Calcium 9.6 (8.4-10.2) mg/dL Total Bilirubin 0.5 (0.2-1.3) mg/dL AST 39 H (14-36) U/L ALT 50 H (6-35) U/L Alkaline Phosphatase 90 (38-126) U/L Troponin I < 0.012 (0.000-0.034) ng/mL Total Protein 8.4 H (6.3-8.2) g/dL Albumin 4.7 (3.5-5.1) g/dL Lipase 71 (23-300) U/L TSH (Reflex) 4.160 (0.465-4.68) uIU/mL Free T4 0.86 (0.78-2.19) ng/dL Total T3 Pending Urine Color Yellow (Yellow) Urine Appearance Cloudy H (Clear) Urine pH 5.5 (5.0-9.0) Ur Specific [place] 1.021 (1.001-1.035) Urine Protein Negative (Negative) mg/dL Urine Glucose (UA) Negative (Negative) mg/dL Urine Ketones Trace H (Negative) mg/dL Ur Blood (Man) Negative (Negative) Urine Nitrate Negative (Negative) Urine Bilirubin Negative (Negative) Urine Urobilinogen 1.0 (<2.0) mg/dL Leukocyte Esterase Rfl Negative (Negative) MARIA G/UL Urine RBC 3-5 H (0-2) /hpf Urine WBC 0-5 (0-3) /hpf Ur Squamous Epith Cells Moderate (Few) /hpf Urine Bacteria Rare /hpf Urine Casts 0-2 POC Urine HCG, Qual Negative (Negative) Urine Opiates Screen Negative (Negative) Urine Methadone Screen Negative (Negative) Ur Barbiturates Screen Negative (Negative) Ur Phencyclidine Scrn Negative (Negative) Ur Amphetamine Screen Negative (Negative) U Benzodiazepines Scrn Positive A (Negative) Urine Cocaine Screen Negative (Negative) U Cannabinoids Screen Positive A (Negative) Ethyl Alcohol < 10 (<10) mg/dL <Kaitlin Owens PA-C - Last Filed: 02/17/25 19:15> Lab Results 02/17/25 02/17/25 02/17/25 Range/Units 10:54 13:24 13:27 WBC 11.4 H (4.5-10.0) K/mm3 RBC 5.09 (4.2-5.4) M/mm3 Hgb 15.0 (12.0-15.0) g/dL Hct 45.4 (37.0-47.0) % MCV 89.2 (80-100) fl MCH 29.5 (26-34) pg MCHC 33.0 (32-36) g/dl RDW 13.2 (11.5-14.5) % Plt Count 419 H (150-375) k/mm3 MPV 9.1 (7.4-10.4) fl Immature Gran % (Auto) 0.3 (0-0.5) % Neut % (Auto) 55.6 (45.5-73.1) % Lymph % (Auto) 35.0 (18.3-44.2) % [place] % (Auto) 7.3 (2.6-8.5) % Eos % (Auto) 1.2 (0-4.4) % Baso % (Auto) 0.6 (0.2-1.2) % Lymph # (Auto) 4.00 H (0.9-3.2) K/mm3 [place] # (Auto) 0.8 H (0.1-0.6) K/mm3 Eos # (Auto) 0.1 (0-0.3) K/mm3 Baso # (Auto) 0.1 (0.0-0.1) K/mm3 Abs Immat Gran (auto) 0.03 (0.00-0.031) K/mm3 Absolute Neuts (auto) 6.4 (1.3-6.7) K/mm3 Absolute Nucleated RBC 0.000 (0.0-0.012) K/mm3 Nucleated RBC % 0.0 (0.0-0.2) % PT 12.2 (11.1-14.7) Seconds INR 0.9 APTT 23.8 (22.3-36.8) Seconds Sodium 139 (137-145) mmol/L Potassium 4.4 (3.4-5.0) mmol/L Chloride 107 (98-107) mmol/L Carbon Dioxide 19 L (22-30) mmol/L Anion Gap 13 H (4-12) mmol/L BUN 10 (7-17) mg/dL Creatinine 0.75 (0.7-1.0) mg/dL Estim Creat Clear Calc 97 ml/min Estimated GFR > 60 (59 - ) Glucose 99 (65-110) mg/dL Calcium 9.6 (8.4-10.2) mg/dL Total Bilirubin 0.5 (0.2-1.3) mg/dL AST 39 H (14-36) U/L ALT 50 H (6-35) U/L Alkaline Phosphatase 90 (38-126) U/L Troponin I < 0.012 (0.000-0.034) ng/mL Total Protein 8.4 H (6.3-8.2) g/dL Albumin 4.7 (3.5-5.1) g/dL Lipase 71 (23-300) U/L TSH (Reflex) 4.160 (0.465-4.68) uIU/mL Free T4 0.86 (0.78-2.19) ng/dL Total T3 Pending Urine Color Yellow (Yellow) Urine Appearance Cloudy H (Clear) Urine pH 5.5 (5.0-9.0) Ur Specific [place] 1.021 (1.001-1.035) Urine Protein Negative (Negative) mg/dL Urine Glucose (UA) Negative (Negative) mg/dL Urine Ketones Trace H (Negative) mg/dL Ur Blood (Man) Negative (Negative) Urine Nitrate Negative (Negative) Urine Bilirubin Negative (Negative) Urine Urobilinogen 1.0 (<2.0) mg/dL Leukocyte Esterase Rfl Negative (Negative) MARIA G/UL Urine RBC 3-5 H (0-2) /hpf Urine WBC 0-5 (0-3) /hpf Ur Squamous Epith Cells Moderate (Few) /hpf Urine Bacteria Rare /hpf Urine Casts 0-2 POC Urine HCG, Qual Negative (Negative) Urine Opiates Screen Negative (Negative) Urine Methadone Screen Negative (Negative) Ur Barbiturates Screen Negative (Negative) Ur Phencyclidine Scrn Negative (Negative) Ur Amphetamine Screen Negative (Negative) U Benzodiazepines Scrn Positive A (Negative) Urine Cocaine Screen Negative (Negative) U Cannabinoids Screen Positive A (Negative) Ethyl Alcohol < 10 (<10) mg/dL <Kofi Wilder Jones III, DO - Last Filed: 02/17/25 14:20> Critical Care Time Critical Care Time Critical Care Time: No <Kaitlin Owens PA-C - Last Filed: 02/17/25 19:15> Discharge Plan Discharge Clinical Impression: Anxiety <STEPHANIE Villavicencio Last Filed: 02/17/25 19:15> Patient Disposition: Home <Kaitlin Owens PA-C - Last Filed: 02/17/25 19:15> Condition: Improved <STEPHANIE Villavicencio Last Filed: 02/17/25 19:15> Instructions: Antibiotic Form, Anxiety (ED) <STEPHANIE Villavicencio Last Filed: 02/17/25 19:15> Patient Language: Lao <STEPHANIE Villavicencio Last Filed: 02/17/25 19:15> Prescriptions: No Action No Home Medications <STEPHANIE Villavicencio Last Filed: 02/17/25 19:15> Follow-up/Referrals: PHYSICIAN NOT ON STAFF,NONSTAFF [Non-Staff] <STEPHANIE Villavicencio Last Filed: 02/17/25 19:15>
[2025-02-17] MEDS: LORazepam (*CRX) 1 MG TABLET PO (12:30)
[2025-02-17] MEDS: diazePAM INJ (*CRX) 10 MG/2 ML SYRINGE 5 MG IM (13:09)
[2025-02-17 13:29] LABS: BEDSIDEPREGUCG Negative (Negative)
[2025-02-17 13:30] LABS: Thyroid Stimulating Hormone Reflex 4.160 uIU/mL (0.465-4.68)
[2025-02-17 14:02] LABS: Add Urine Microscopic? YES; Appearance Urine Cloudy (Clear); Glucose Urine UA Negative (Negative); Leukocyte Esterase Ur Negative LEU/UL (Negative); Nitrate Urine Negative (Negative); Non Pathogenic Casts 0-2; Specific Grav Ur 1.021 (1.001-1.035)
[2025-02-17 14:05] LABS: Free T4 Free Thyroxine Reflex 0.86 ng/dL (0.78-2.19)
[2025-02-17 14:40] LABS: Cannabinoid Screen Urine Positive (Negative)
--- OUTSIDE RECORDS SUMMARY | 2025-02-17 14:59 | XMS_ITS | Encounter Summary ---
Author Organization [facility] Address [address] [place] [address] Care Team Providers Care Mica Washer Gluer Name Role Phone Gilmar Galvan MD Primary Care Provider Encounter Details Date Type Department Care Team (Late Contact Info) Description 02/11/2025 Refill [facility] [address] [place] [address] Gilmar Galvan MD [address] [place] [address] Social History Tobacco Use Types Packs/Day Years [...] on file Legal Sex Female 3:13 AM [employer]IC[employer] Gender Identity Not on file Sexual Orientation Not on file Occupation Industry Job Start Date Job End Date Not on file Not on file Not on file Not on file documented as of this encounter Plan of Treatment Upcoming Encounters Date Type Department Care Team (Late Contact Info) Description 03/01/2025 11:00 AM CDT Office Visit [facility] [address] [place] [address] Gilmar Galvan MD [address] [place] [address] documented as of this encounter Visit Diagnoses Not on filedocumented in this encounter Additional Health Concerns Assessment Noted Time PHQ-9 Depression Total Score: 5 02/02/20 25 7:00 AM CDT documented as of this encounter Care Teams Mica Washer Gluer Relationship Specialty Start Date End Date Gilmar Galvan MD [address] [place] [address] PCP - General Family Practice 12/09/18 documented as of this encounter
--- OUTSIDE RECORDS SUMMARY | 2025-02-17 14:59 | XMS_ITS | Clinical Summary ---
Author Organization [facility] Administrative Offices Address [address] [place] [address] Care Team Providers Care Educational Speech Language Clinician Name Role Phone Gilmar Galvan MD Primary Care Provider Allergies Active Allergy Reactions Criticality Noted Date Comments Clonazepam Diarrhea Low 11/29/2022 Ketorolac Tromethamine Shortness of Breath/Wheezing High 07/16/2010 Penicillins Rash Low 03/01/2009 Medications hydrOXYzine HCL (ATARAX) 50 mg tablet Take 50 mg by mouth 3 times daily as needed for Anxiety. Active norethindrone Ac-Eth estradiol (Loestrin 05/24, 21,) 1-20 mg-mcg tablet Take 1 Tablet by mouth daily. 112 Tablet 3 02/04/20 25 Active clindamycin HCL (CLEOCIN) 300 mg CapsuleIndica tions:dental abscess Take 1 Capsule (300 mg) by mouth 4 times daily for 10 days. 40 Capsule 02/08/20 25 025 Active Additional Information Patient not taking.Reported on 02/15/2025 chlorhexidine gluconate 0.12 % Mouthwash 15 mL by Mouth/Throat route 2 times daily. 473 mL 02/08/20 25 Active venlafaxine (Effexor XR) 37.5 mg Extended Release 24 hour capsuleIndica tions:ESTHER (generalized anxiety disorder) Take 1 Capsule (37.5 mg) by mouth daily for 14 days, THEN 1 Capsule (37.5 mg) every other day for 14 days. Then stop. 21 Capsule 02/09/20 25 Active Additional Information Patient not taking.Reported on 02/15/2025 PARoxetine HCl (PAXIL) 10 mg tabletIndicat ions:ESTHER (generalized anxiety disorder) Take 1 Tablet (10 mg) by mouth daily. 30 Tablet 02/09/20 25 Active ALPRAZolam (Xanax) 0.5 mg tabletIndicat ions:ESTHER (generalized anxiety disorder) Take 1 Tablet (0.5 mg) by mouth 1 time daily as needed for Anxiety. 30 Tablet 02/16/20 25 Active venlafaxine (Effexor XR) 37.5 mg Extended Release 24 hour capsuleIndica tions:ESTHER (generalized anxiety disorder) Take 1 Capsule (37.5 mg) by mouth daily. 30 Capsule 1 01/20/20 25 025 Discontinued ALPRAZolam (Xanax) 0.25 mg tabletIndicat ions:ESTHER (generalized anxiety disorder) Take 1 Tablet (0.25 mg) by mouth 1 time daily as needed for Anxiety. 10 Tablet 01/21/20 25 025 Discontinued(Re order) ALPRAZolam (Xanax) 0.25 mg tabletIndicat ions:ESTHER (generalized anxiety disorder) Take 1 Tablet (0.25 mg) by mouth 1 time daily as needed for Anxiety. 10 Tablet 01/28/20 25 025 Discontinued(Re order) venlafaxine (Effexor XR) 37.5 mg Extended Release 24 hour capsuleIndica tions:ESTHER (generalized anxiety disorder) Take 37.5 mg by mouth daily. 02/02/20 25 025 Discontinued(Re order) ALPRAZolam (Xanax) 0.5 mg tabletIndicat ions:ESTHER (generalized anxiety disorder) Take 1 Tablet (0.5 mg) by mouth 1 time daily as needed for Anxiety. 10 Tablet 02/02/20 25 025 Discontinued(Re order) ALPRAZolam (Xanax) 0.5 mg tabletIndicat ions:ESTHER (generalized anxiety disorder) Take 1 Tablet (0.5 mg) by mouth 1 time daily as needed for Anxiety. 10 Tablet 02/09/20 25 025 Discontinued Active Problems Problem Noted Date Diagnosed Date [...] below ESTHER (generalized anxiety disorder) 02/18/2019 Overview (02/15/2025): Anxiety - At visit on 02/18/19 pt [...] 1-2x daily. Thinks change related to the COV- pandemic is main stressor. Difficulty sleeping, easily [...] feels stress levels are OK. Takes wellbutrin [id number] qd -10/23/22 - pt reports she is [...] Emotionally labile. Has tried exercising regularly, journaling. -stopped effexor completely ~02/08/25. -02/25/25 - mood is not well managed although improved over the past week. Mild headaches. Not sleeping well- has an 11 month old at home. Significant stress in her life - mom is having a cadiac ablation today- pt will be responsible for her two special needs sisters while her mom recovers. -Taking paxil 10mg qd (started this 02/08/25) - feels this is starting to be effective. -Uses alprazolam 0.5mg about once daily trying to minimize use of this. Using a holding strategy- holds the tablet of xanax in her hand when she thinks she needs it and will only take it if she still feels she needs it 30 mins later. -appt with psychiatry on 03/03/25 (Dr. Vasyl Last) Previously tried: Wellbutrin (ineffective, weight gain) Zoloft (ineffective) Prozac (helped the most) Lexapro (ineffective) Effexor (ineffective, maybe revved up) Assessment & Plan (02/15/2025 11:12 AM CDT): -continue with paxil 10mg qd,. OK for daily use of alprazolam for now. -stat meditation, headspace bryanna -continue regular exercise -f/u with me in ~2 weeks -keep appt with psychiatry Assessment & Plan (08/24/2024 11:57 AM CDT): [...] feels stress levels are OK. Takes wellbutrin [id number] qd -Stable. Doing well overall. Continue current [...] regimen Assessment & Plan (06/27/2020 9:18 AM INSTRUCTOR WATCH ASSEMBLY): Anxiety - At visit on 02/18/19 pt [...] 1-2x daily. Thinks change related to the COVID- pandemic is main stressor. Difficulty sleeping, easily [...] regimen Assessment & Plan (03/08/2020 2:41 PM INSTRUCTOR WATCH ASSEMBLY): Anxiety - At visit on 02/18/19 pt [...] 1-2x daily. Thinks change related to the COVID-19 pandemic is main stressor. Difficulty sleeping, easily [...] lexapro Assessment & Plan (03/25/2019 3:27 PM INSTRUCTOR WATCH ASSEMBLY): Anxiety - At visit on 02/18/19 pt [...] she was not taking adderall. -Review of community health PDM on 12/09/18 showed last refill for [...] and easily irritated. Her psychiatrist is Dr. Carrreo who agreed with plan to stop stimulant [...] she was not taking adderall. -Review of community health PDMP on 12/09/18 showed last refill for adderall [...] regimen Assessment & Plan (06/27/2020 9:18 AM INSTRUCTOR WATCH ASSEMBLY): ADHD - diagnosed ~age 16 by her previous PCP. No formal testing. Pt reports she was taking adderall XR 30mg qd, felt this worked well for her. Previous PCP (Chuck Avalos MD) retired and pt decided to try stopping stimulant medication when he retired. States her ability to focus and perform at work decreased significantly when she was not taking adderall. -Review of community health PDMP on 12/09/18 showed last refill for adderall [...] days Assessment & Plan (03/08/2020 2:41 PM INSTRUCTOR WATCH ASSEMBLY): ADHD - diagnosed ~age 16 by her previous PCP. No formal testing. Pt reports she was taking adderall XR 30mg qd, felt this worked well for her. Previous PCP (Chuck Avalos MD) retired and pt decided to try stopping stimulant medication when he retired. States her ability to focus and perform at work decreased significantly when she was not taking adderall. -Review of [facility] on 12/09/18 showed last refill for adderall [...] regimen Assessment & Plan (03/25/2019 3:29 PM INSTRUCTOR WATCH ASSEMBLY): ADHD - diagnosed ~age 16 by her previous PCP. No formal testing. Pt reports she was taking adderall XR 30mg qd, felt this worked well for her. Previous PCP (Chuck Avalos MD) retired and pt decided to try stopping stimulant medication when he retired. States her ability to focus and perform at work decreased significantly when she was not taking adderall. -Review of community health PDMP on 12/09/18 showed last refill for adderall [...] she was not taking adderall. -Review of [facility] on 12/09/18 showed last refill for adderall [...] she was not taking adderall. -Review of community health PDM shows last refill for adderall was on [...] Diagnosed ~2009. S/p surgical tx 06/2016 at [facility] Assessment & Plan (12/09/2018 4:04 PM CDT): Diagnosed ~2009. S/p surgical tx 06/2016 at [facility] Pseudotumor cerebri syndrome 07/05/2009 Overview (08/09/2022): -Diagnosed at age 11, had LP shunt placed at age 13. As of 12/07/20 most recent visit was in [address] [facility]. Denies any ENGLISH, nausea, vomiting or [...] in [address] Robbie Lay[facility] at [facility]. Denies any ENGLISH, nausea, vomiting or focal neuro deficits. -Stable. -watchful waiting Assessment & Plan (12/09/2018 4:03 PM CDT): -Diagnosed at age 11, had LP shunt placed at age 13. As of 12/09/18 most recent revision was in [address] Robbie Layton at [facility]. Denies any ENGLISH, nausea, vomiting or focal neuro deficits. -stable, watchful waiting for now. Resolved Problems Problem Noted Date Diagnosed Date Resolved Date Encounter for induction of labor 06/16/2022 06/18/2022 LLQ pain 04/05/2011 12/07/2020 pelvic pain s/p scope 07/1007/18/2010 Encounters Date Type Department Care Team Description 02/17/[address] [address] Gilmar Galvan MD Remote Monitoring 02/15/2025 10:00 AM CDT Office Visit [address] [address] Gilmar Galvan MD ESTHER (generalized anxiety disorder) 02/11/[address] [address] Gilmar Galvan MD 02/08/2025 8:20 AM CDT Video Visit [address] [phone] Silviano Barron MD ESTHER (generalized anxiety disorder) (Primary Dx) 02/08/2025 External Device Data [facility] ABSTRACTION Provider, Abstract 02/08/2025 Telephone [facility] IOP Program [address] [place] [address] Johana Gann, GRAD INTERN Follow Up 02/08/[address] [phone] Gilmar Galvan MD ESTHER (generalized anxiety disorder) 02/07/2025 5:30 PM CDT Video [facility] [address] [place] [phone] Fior Prajapati FNP Dental abscess (Primary Dx) 02/07/2025 Patient Self-Triage [facility] [address] [place] [address] 02/07/2025 Telephone [facility] IOP Program [address] [place] [phone] Johana Gann, GRAD INTERN Follow Up 02/04/2025 Telephone [facility] Behavioral Health Intake [facility] [address] [place] [address] [place] [phone] [place] [facility] Intake and IOP 02/03/2025 2:30 PM CDT Office Visit [facility] FOLLOW UP CLERK - Medical [place] [address] [place] [address] Casandra Major MD Menorrhagia with regular cycle (Primary Dx); Mood changes; Current severe episode of major depressive disorder without psychotic features, unspecified whether recurrent (CMS/HCC); Anxiety state 02/03/[address] [facility] Substance Use Recovery [facility] [address] [place] [address] Zulema Cruz RN Patient call 02/01/2025 7:40 AM CDT Video Visit [facility] [address] [place] [address] Kaitlin Sellers FNP Panic attack (Primary Dx); ESTHER (generalized anxiety disorder); Moderately severe major depression (CMS/HCC) 01/31/[address] [facility] Women's Health Clinical Support [address] [facility] [address] [place] [phone] Amy Mendez RN Heavy periods and mood issues 01/27/2025 8:20 AM CDT Video Visit [facility] [address] [place] [address] Priscilla Vera NP ESTHER (generalized anxiety disorder) (Primary Dx); Attention deficit hyperactivity disorder (ADHD), combined type; Mild episode of recurrent major depressive disorder 01/27/[address] [facility] Maternal and Medicine [facility] [address] [place] [phone] Gilmar Galvan MD ESTHER (generalized anxiety disorder) 01/26/2025 Refill [facility] [address] [place] [address] Gilmar Galvan MD ESTHER (generalized anxiety disorder) 01/19/2025 4:00 PM CDT Video Visit [facility] [address] [place] [phone] Priscilla Vera NP ESTHER (generalized anxiety disorder) (Primary Dx) 01/18/2025 External Device Data STL ABSTRACTION Provider, Abstract 01/04/2025 12:00 PM CDT Video Visit [facility] [address] [place] [phone] Priscilla Vera NP ESTHER (generalized anxiety disorder) (Primary Dx); Mild episode of recurrent major depressive disorder 12/31/2024 Refill [facility] [address] [place] [phone] Vineet Hendrix MD ESTHER (generalized anxiety disorder) 12/29/2024 External Device Data STL ABSTRACTION Provider, Abstract 12/22/2024 External Device Data STL ABSTRACTION Provider, Abstract 12/21/2024 External Device Data STL ABSTRACTION Provider, Abstract 12/14/2024 External Device Data STL ABSTRACTION Provider, Abstract 12/08/2024 External Device Data STL ABSTRACTION Provider, Abstract 12/06/2024 Patient Self-Triage [facility] [address] [place] [phone] from Last 3 Months Immunizations Immunization Administration [...] COVID-19 VACCINE - EMERGENCY USE AUTHORIZATION, MRNA, [id number](PF) 30 MCG/0.3 ML IM SUSP 08/22/2020,07/28/2020 (VARIVAX)(12 [...] Never Smokeless Tobacco: Never Tobacco Cessation:Counseling Given: No Alcohol Use Standard Drinks/Week Comments Not Currently 0 (1 standard drink = 0.6 oz pur e alcohol) vary rare social use Feeling Safe Answer Date Recorded Are you in a relationship wi th someone who hurts you emotionally and/or physically? No 03/15/2024 Comments No Sex and Gender Information Value Date Recorded Sex Assigned at Not on file Legal Sex Female 3:13 AM INSTRUCTOR WATCH ASSEMBLY Gender Identity Not on file Sexual Orientation Not on file Occupation Industry Job Start Date Job End Date Not on file Not on file Not on file Not on file Last Filed Vital Signs Vital Sign Reading Time Taken Comments Blood Pressure 100/72 02/15/2025 10:04 AM CDT Pulse 70 02/15/2025 10:04 AM CDT Temperature 36.1 C (97 F) 02/15/2025 10:04 AM CDT Respiratory Rate 18 03/18/2024 9:10 AM INSTRUCTOR WATCH ASSEMBLY Oxygen Saturation 99% 02/15/2025 10:04 AM CDT Inhaled Oxygen Concentration - - Weight 100 kg (220 lb 8 oz) 02/15/2025 10:04 AM CDT Height 154.9 cm (5' 1) 02/15/2025 10:04 AM CDT Body Mass Index 41.66 02/15/2025 10:04 AM CDT Plan of Treatment Upcoming Encounters Date Type Department Care Team (Late st Contact Info) Description 03/01/2025 11:00 AM CDT Office Visit [facility] [address] [place] [address] Gilmar Galvan MD [address] [place] [address] Health Maintenance Due Date Last Done Comments HEPATITIS B VACCINES (3 of 3 - 3-dose series) 01/21/2007 11/26/2006, 09/23/2002 HPV VACCINES (1 - 3-dose SCDM series) 10/26/2015 INFLUENZA VACCINE (#1) 2024 , 02/11/2022, 02/08/2020, Additional history exists COVID-19 Vaccine ( season) 2025 08/22/2020, 07/28/2020 Pre-Diabetes and Diabetes Screening 06/20/2025 06/20/2022, 01/01/2019 Preventative Visit- Commercial 02/15/2026 08/09/2022, 12/07/2020, 12/09/2018 Postponed from 05/05/2024 (Therapeutic Plan Prohibits) PAP SMEAR 08/18/2026 08/19/2023, 10/04, 06/13/2020 CERVICAL CANCER SCREENING 08/18/2028 HPV/Cotest (21-29) 08/18/2028 08/19/2023, 0 10/24/2021, 06/13/2020 HPV/Cotest (30-65) 08/18/2028 08/19/2023, 0 10/24/2021, 06/13/2020 DTAP/TDAP/TD VACCINES (8 - Td or Tdap) 01/25/2034 01/26/2024, 04/30/2022, 05/12/1995, Additional history exists Procedures Procedure Name Priority Date/Time Associated Diagnosis Comments CERV/VAG CYTO AGE BASED SCREEN PAP W CT/NG, TRICH Routine 08/19/2023 11:51 AM CDT Supervision of high risk in first trimester Multigravida of advanced maternal age in first trimester GLUCOSE FASTING Timed Study 06/20/2022 6:53 AM INSTRUCTOR WATCH ASSEMBLY from Last 3 Months or Most Recently Relevant to Health Maintenance Results * CERV/VAG CYTO AGE BASED SCREEN PAP W CT/NG, TRICH (08/19/2023 11:51 AM CDT) COMMENT (PAP): [facility] [place] Comment: This order for age-based cervical cancer and STI screening follows ACOG guidelines(PB 168, 140, RGQ261). See individual assays for performing site location. CLINICAL INFORMATION [facility] Comment:None given LAST MENSTRUAL PERIOD [facility] Comment:10/06/2022 PREV PAP: [facility] [place] Comment:NONE GIVEN PREV BX: [facility] [place] Comment:NONE GIVEN SOURCE [facility] [place] Comment:Endocervix ADEQUACY: [facility] [place] Comment: Satisfactory for evaluation. Endocervical/transformation zone component present. PAP INTERP [facility] [place] Comment: Cytology Results: Negative for intraepithelial lesion or malignancy. COMMENT (PAP TEST) [facility] [place] Comment: This Pap test has been evaluated with computer assisted technology. POISON INFORMATION SPECIALIST: Rory [place] Comment: DDS, CT(ASCP) CT screening location: [place] [address] [place] [address] REVIEW POISON INFORMATION SPECIALIST: Skip [place] Comment: MEF, CT(ASCP) CT screening location: [place] [address] [place] [address] [address] Soren [place] Comment: EXPLANATORY NOTE: The Pap is [...] information. HPV E6/E7 Not Detected Not Detected [facility] [place] Comment: Methodology: Medical Reception Specialist-Mediated Amplification This assay detects E6/E7 viral messenger RNA (mRNA) from 14 high-risk HPV types (16,18,31,33,35,39,45,51,52,56,58,59,66,68). Cervical sources are required for HPV testing. If a vaginal source from a patient who has had a total hysterectomy with removal of cervix was submitted, please contact the testing laboratory for alternative testing options. For additional information, please refer to http://[employer]/faq/KWF891z9 (This link if provided for information/ educational purposes only.) C TRAC RNA NOT DETECTED NOT DETECTED [facility] [place] N.GONORRHOEAE RNA, TMA NOT DETECTED NOT DETECTED [facility] [place] COMMENT INFECTIOUS DISEASE [facility] [place] Comment: The analytical performance characteristics of this assay, when used to test SurePath(TM) specimens have been determined by [facility]. The modifications have not been cleared or approved by the FDA. This assay has been validated pursuant to the CLIA regulations and is used for clinical purposes. For additional information, please refer to https://[employer].ComHear/faq/EMV107 (This link is being provided for information/ educational purposes only.) TRICHOMONAS VAGINALIS,QUALITAT HUNTER,PAP VIAL NOT DETECTED NOT DETECTED [facility] [place] Comment: The analytical performance characteristics of this assay have been determined by [facility]. The modifications have not been cleared or approved by the FDA. This assay has been validated pursuant to the CLIA regulations and is used for clinical purposes. For additional information, please refer to http://[employer]/ faq/Trichomonastma (This link is being provided for information/ educational purposes only.) Test Performed at: [facility] [id number] [place] [address] Dejon BURLESON Genital SWAB OF ENDOCERVIX / Unknown 08/19/2023 11:51 AM CDT 08/20/2023 4:07 AM CDT us Mona Shaver NP PATHOLOGY/CYTOLOGY ORDERABL ES Final Result [facility] [phone] [facility] [id number] [place] [address] * GLUCOSE FASTING (06/20/2022 6:53 AM INSTRUCTOR WATCH ASSEMBLY) GLUCOSE-FASTIN G 75 74 - 99 mg/dL 06/20/2022 8:22 AM INSTRUCTOR WATCH ASSEMBLY [facility] Blood Venipuncture / Unknown 06/20/2022 6:53 AM INSTRUCTOR WATCH ASSEMBLY 06/20/2022 7:11 AM INSTRUCTOR WATCH ASSEMBLY us Tiara Ryan MD CHEMISTRY ORDERABLES Final Result [facility] CLIA# [id number] [address] [place] [address] from Last 3 Months or Most Recently Relevant to Health Maintenance Insurance [employer] CHOICE [facility] Dyn[employer]/TRUE BLUE PPO RX [employer] Commercial BCBS BLUE ACCESS/TRUE BLUE PPO Advance Directives For more information, please contact: [phone] * Full Code (Latest Code Status on [...] 6:08 PM 06/07/2022 9:34 PM Care Teams Educational Speech Language Clinician Relationship Specialty Start Date End Date Gilmar Galvan MD [address] [place] [address] PCP - General Family Practice 12/09/18
--- OUTSIDE RECORDS SUMMARY | 2025-02-17 14:59 | XMS_ITS | Clinical Summary ---
Author Organization [facility] Address [address] [place] [address] Care Team Providers Care Document Processing Specialist Name Role Phone Anitha Nina RN Unavailable Unavailable Gilmar Galvan MD Primary Care Provider Source Comments [facility],non-owned Affiliates and Associated Physician Practices is amultiple site organization consisting of ambulatory clinics and hospital sitesin [place], [place], [place] and [place]. This disclosure is being madepursuant to the Care Everywhere program and may not contain all information available regarding this patient. Last updated 18.[facility] Allergies Active Allergy Reactions Criticality Noted Date [...] patient's age to complete this topic Insurance [facility] Address: [address] [address] [place] [address] [facility] Care Teams Document Processing Specialist Relationship Specialty Start Date End Date Gilmar Galvan MD [address] [place] [phone] PCP - General Family Medicine 12/03/19 Anitha Nina, RN Registered Nurse 06/09/17
--- OUTSIDE RECORDS SUMMARY | 2025-02-17 14:59 | XMS_ITS | Encounter Summary ---
Author Organization [facility] Address [address] [place] [address] Care Team Providers Care Tail Ripper Name Role Phone Gilmar Galvan MD Primary Care Provider Reason for Visit * Reason Comments Remote Monitoring Encounter Details Date Type Department Care Team (Late st Contact Info) Description 02/17/2025 Telephone [facility] [address] [place] [address] Gilmar Galvan MD [address] [place] [address] Remote Monitoring Social History Tobacco Use Types Packs/Day Years [...] on file Legal Sex Female 3:13 AM FLIGHT RESERVATIONS MANAGER Gender Identity Not on file Sexual Orientation Not on file Occupation Industry Job Start Date Job End Date Not on file Not on file Not on file Not on file documented as of this encounter Miscellaneous Notes * Telephone Encounter - Yulissa Chance RN - 02/17/2025 10:09 AM CDT 02/17/2025 10:09 AM Returned call and spoke with patient. Discussed that despite JESENIA 02/15, utilizing xanax PRN and paxil daily she is feeling overwhelmed, unable to get out of bed for daily activities. She denies SI and verbalized that her is home with her and she is safe. She will utilize 988 now and go to ER if advised. Offered f/u with PCP tomorrow, but she will start with 988. Yulissa RN * Telephone Encounter - Deanna Walker - 02/17/2025 10:00 AM CDT Copied from [facility] #[id number]. Topic: Patient Reported Outcome Metrics >> Feb 17, 2025 9:57 AM Deanna Huerta wrote: Caller Name: Kylie Marks Callback Number: Telephone Information: Call Notes: Caller is reporting Follow up information from an appointment Patient requesting a call back from a nurse regarding her last OV documented in this encounter Plan of Treatment Upcoming Encounters Date Type Department Care Team (Late st Contact Info) Description 03/01/2025 11:00 AM CDT Office Visit [facility] [address] [place] [address] Gilmar Galvan MD [facility] [place] [address] documented as of this encounter Visit Diagnoses Not on filedocumented in this encounter Additional Health Concerns Assessment Noted Time PHQ-9 Depression Total Score: 6 02/16/20 25 10:00 AM CDT documented as of this encounter Care Teams Tail Ripper Relationship Specialty Start Date End Date Gilmar Galvan MD [address] [place] [address] PCP - General Family Practice 12/09/18 documented as of this encounter
--- OUTSIDE RECORDS SUMMARY | 2025-02-17 14:59 | XMS_ITS | Patient Health Record ---
Author Organization [facility] [employer] Address [address] [facility] [address] [place] [address] Care Team Providers Care Activity Leader Name Role Phone Chris Brady Unavailable [phone] Leida Milleranna Unavailable [phone] Allergies Allergen (clinical drug ingredient) Drug/Non Drug Allergy documented on EMR Reaction Allergy Type Onset Date Status clonazepam clonazePAM dizziness Drug Allergy Activ e ketorolac Ketorolac Unknown Drug Allergy Active Penicillin Unknown Drug Allergy Active Results Component Value Reference Range Notes UDT Reviewed date:01/24/2025 11:27:15 AM Interpretation: Performing Lab: Notes/Report: THC pos 0 - 50 ng/ml Cocaine neg 0 - 300 ng/ml Amphetamine neg 0 - 1000 ng/ml Buprenorphine (BUP) neg 0 - 10 ng/ml Secobarbital (Bar) neg 0 - 300 ng/ml Oxazepam (BZO) neg 0 - 300 ng/ml 0-weiwyrgiib-1,4-vnihajfq-2,3-diphenylpyrrolidine (NU P) neg 0 - 300 ng/ml Methamphetamine (MET) neg 0 - 1000 ng/ml Methylenedioxymethamphetamine (MDMA) neg 0 - 500 ng/ml Morphine (MOP 300/WCW9684) neg 0 - 300 ng/ml Methadone (MTD) neg 0 - 300 ng/ml Phencyclidine (PCP) neg 0 - 25 ng/ml Nortriptyline (TCA) neg 0 - 1000 ng/ml Oxycodone neg 0 - 300 ng/ml Test Reviewed date:01/24/2025 11:27:16 AM Interpretation: Performing Lab: Notes/Report: Test urine neg 0 - 0 Reason For Referral No Information Medications Medication [...] Status Risk Notes Problem Generalized anxiety disorder (19485215) ESTHER (generalized anxiety disorder) (F41.1) Active confirmed Problem Severe recurrent major depression without psychotic features (55570817) Severe episode of recurrent major depressive disorder, without psychotic features (F33.2) Active confirmed Problem Sleep disturbance (24624368) Sleep disturbance (G47.9) Active confirmed Vital Signs Heart Rate 88 /min 01/24/2025 Blood pressure diastolic 72 mm Hg 01/24/2025 Weight-kg 100.24 kg 01/24/2025 Blood pressure systolic 103 mm Hg 01/24/2025 Weight 221 lbs 01/24/2025 Encounters Encounter Location Date Provider Diagnosis [facility] [address] [facility] [address] [place] [address] 01/24/2025 Chris [place] Encounter for test, result unknown Z32.00 ; Severe episode of recurrent major depressive disorder, without psychotic features F33.2 ; ESTHER (generalized anxiety disorder) F41.1 and Sleep disturbance G47.9 [facility] [address] [facility] [address] [place] [address] 01/27/2025 Ayana Miller Assessments Encounter Date Diagnosis [...] with list of local therapists,including information on [facility] therapist walk-inavailability Encouraged follow-up with a mental health provider fortherapy (CBT or IPT recommended) Discussed use of the StyleFeeder bryanna to contact providerwith questions/concerns between appointments [...] crisis prevention hotline 988. Plan Of Treatment No Information Insurance Providers Payer Name Payer Address Payer Phone Subscriber Number Group Number Insured Name Patient Relationship to Insured Coverage Start Date Coverage End Date [address] [place] [address] [id number] Kylie Marks Self - patient is the [...] Surgery Date(Month/Year) Endometriosis surgically treated 06/2016 at [facility] section Hospitalization History Reason Date(Month/Year) after section
--- OUTSIDE RECORDS SUMMARY | 2025-02-17 15:00 | XMS_ITS | Encounter Summary ---
Author Organization [facility] Address [address] [place] [address] Care Team Providers Care Tetryl Dissolver Operator Name Role Phone Gilmar Galvan MD Primary Care Provider Encounter Details Date Type Department Care Team (Late st Contact Info) Description 11/11/2005 Outpatient Historical [facility] [address] [facility] [address] [address] [place] [address] [place] [address] Social History Tobacco Use Types Packs/Day Years Used Date Smoking Tobacco: Never Assessed Comments Unknown Sex and Gender Information Value Date Recorded Sex Assigned at Not on file Legal Sex Female 3:13 AM DISK SANDER Gender Identity Not on file Sexual Orientation Not on file documented as of this encounter Plan of Treatment Upcoming Encounters Date Type Department Care Team (Late st Contact Info) Description 03/01/2025 11:00 AM CDT Office Visit [facility] [address] [place] [address] Gilmar Galvan MD [address] [place] [address] documented as of this encounter Visit Diagnoses Not on filedocumented in this encounter Additional Health Concerns Infection Onset Date Last Indicated Resolved Time R/O COVID-19 07/30/2019 07/30/2019 08/04/2019 6:05 AM CDT R/O Respiratory 05/12/2022 05/12/2022 05/12/2022 4 :27 PM DISK SANDER R/O C. diff 03/11/2024 03/11/2024 03/11/2024 12:4 6 PM DISK SANDER C Diff 03/11/2024 03/11/2024 05/10/2024 1:16 AM DISK SANDER documented as of this encounter Care Teams Tetryl Dissolver Operator Relationship Specialty Start Date End Date Gilmar Galvan MD [address] [place] [address] PCP - General Family Practice 12/09/18 documented as of this encounter
--- OUTSIDE RECORDS SUMMARY | 2025-02-17 15:00 | XMS_ITS | Encounter Summary ---
Author Organization [facility] Address [address] [place] [address] Care Team Providers Care Lining Ironer Name Role Phone Gilmar Galvan MD Primary [...] on file Legal Sex Female 3:13 AM LICENSED AUDIOLOGIST Gender Identity Not on file Sexual Orientation Not on file documented as of this encounter Plan of Treatment Upcoming Encounters Date Type Department Care Team (Late st Contact Info) Description 03/01/2025 11:00 AM CDT Office Visit [facility] [address] [place] [address] Gilmar Galvan MD [address] [place] [address] documented as of this encounter [...] PM CDT Narrative 10/24/2008 7:21 AM CDT [facility] [address] [place], [place] [address] Admit Date: 10/22/2008 JUNIOR MARKS Sex: F Admit Prov: TYSON HEALY Date: 1990 Primary Care Prov: JODY KIMBROUGH Kenneth CMRN: [id number] Room: [facility] SSN: [id number] IMAGING SERVICES Ordering Prov: N/A Accession Number: [id number] Interpretation PELVIC SONOGRAM, 10/22/2008 History: Pelvic pain. [...] SJ Procedure Note Ines Mario - 10/24/2008 [facility] [address] [place], [place] [address] Admit Date: 10/22/2008 ULISES JUNIOR Sex: F Admit Prov: MARCOORINRD TYSON Toya Date: 1990 Primary Care Prov: LUIS E JODY P CMRN: [id number] Room: ER-A SSN: [id number] IMAGING SERVICES Ordering Prov: N/A Interpretation PELVIC [...] Transcribed: 10/22/2008 14:59 SJ Rhoda Ornelas MD ORDERABLES Fi nal Result * (ABNORMAL) CBC WITH DIFFERENTIAL (10/22/2008 12:20 PM CDT) RBC 4.27 3.90 - 4.90 M/uL [facility] MCHC 34.8 31.5 - 35.5 % [facility] MCV 88.1 82.0 - 99.0 fL [facility] PLATELETS 317 140 - 350 K/uL [facility] HEMOGLOBIN 13.1 11.8 - 14.8 g/dL [facility] RDW 12.8 11.5 - 14.5 % [facility] WBC 10.5(H) 4.0 - 9.8 K/uL [facility] MCH 30.7 27.2 - 32.6 pg [facility] MPV 9.3 9.3 - 12.4 fL [facility] HEMATOCRIT 37.6 35.5 - 44.0 % [facility] RDW-STDEV 40.9 37.1 - 48.7 fL [facility] BASOPHILS 0 0 - 2 % [facility] MONOCYTE ABSOLUTE 0.73 0.10 - 1.30 K/uL [facility] REVIEWED ON SMEAR Plt reviewed [facility] MONOCYTES 7 3 - 13 % [facility] NEUTROPHIL ABSOLUTE 8.40(H) 1.90 - 7.00 K/uL [facility] NEUTROPHILS, SEG 80(H) 45 - 70 % [facility] PLATELET EST. Consistent w/ count Normal [facility] EOSINOPHIL ABSOLUTE 0.00 0.00 - 0.70 K/uL [facility] EOSINOPHILS 0 0 - 7 % [facility] LYMPHOCYTE ABSOLUTE 1.37 0.70 - 4.50 K/uL [facility] LYMPHOCYTES 13(L) 16 - 45 % [facility] RBC MORPHOLOGY Normal Normal [facility] BASOPHILS ABSOLUTE 0.00 0.00 - 0.20 K/uL [facility] Blood specimen (specimen) 10/22/2008 12:20 PM CDT 10/22/2008 12:41 PM CDT us Tyson Healy MD HEMATOLOGY ORDERABLES Edite d INTERFACE SYSTEM Refer to clinic/hospital department [facility] CLIA# [id number] [address] [facility] [place] [address] * HCG QUANTITATIVE, BLOOD (10/22/2008 11:40 AM CDT) HCG QUANT, BLOOD <5 0 - 5 mIU/mL [facility] Comment: Result of 5 - 25 [...] 0 AM CDT 10/22/2008 1:53 PM CDT Rhoda Ornelas MD CHEMISTRY ORDERABL ES Edited Performing Organization Address [facility] Phone Number INTERFACE SYSTEM Refer to clinic/hospital department [facility] CLIA# [id number] [address] [place] [address] * C-REACTIVE PROTEIN (10/22/2008 11:40 AM CDT) CRP 0.4 0.0 - 0.8 mg/dL [facility] 10/22/2008 11:4 0 AM CDT 10/22/2008 12:04 PM CDT Tyson Healy MD CHEMISTRY ORDERABLES Final Result Performing Organization Address [facility] Phone Number INTERFACE SYSTEM Refer to clinic/hospital department [facility] CLIA# [id number] [address] [place] [address] * C-REACTIVE PROTEIN (10/21/2008 11:08 PM CDT) CRP 0.2 0.0 - 0.8 mg/dL [facility] 10/21/2008 11:0 8 PM CDT 10/21/2008 11:13 PM CDT us Marshall Haque MD CHEMISTRY ORDERABLES Final Resu lt INTERFACE SYSTEM Refer to clinic/hospital department [facility] CLIA# [id number] [address] [place] [address] * (ABNORMAL) COMPREHENSIVE METABOLIC PANEL (10/21/2008 11:08 PM CDT) GLUCOSE 85 65 - 99 mg/dL [facility] AST 13 12 - 32 U/L [facility] BUN 11 6 - 20 mg/dL [facility] CALCIUM 8.4(L) 8.6 - 10.2 mg/dL [facility] CHLORIDE 104 96 - 108 mmol/L [facility] ALBUMIN 4.0 3.4 - 4.8 g/dL [facility] CREATININE 0.72 0.51 - 0.95 mg/dL [facility] SODIUM 137 135 - 145 mmol/L [facility] ALT 14 0 - 31 U/L [facility] ALKALINE PHOSPHATASE 68 35 - 104 U/L [facility] BILIRUBIN TOTAL 0.5 0.2 - 1.0 mg/dL [facility] CO2 23 22 - 30 mmol/L [facility] TOTAL PROTEIN 6.7 6.3 - 8.6 g/dL [facility] POTASSIUM 3.5 3.5 - 4.9 mmol/L [facility] GFR, >60 >=60 mL/min/1. 7 sq meter [facility] GFR >60 >=60 mL/min/1. 7 sq meter [facility] Comment: Modification of Diet in Renal Disease (MDRD) study formula. Estimated GFR rate interpretative information for both Americans and non- Americans is available on the [facility] Intranet at: [email or web address] Select: Lab Policies and Procedures Select: Reference Ranges - GFR 10/21/2008 11:0 8 PM CDT 10/21/2008 11:13 PM CDT us Marshall Haque MD CHEMISTRY ORDERABLES Edited INTERFACE SYSTEM Refer to clinic/hospital department [facility] CLIA# [id number] [address] [place] [place] [address] * (ABNORMAL) CBC WITH DIFFERENTIAL (10/21/2008 11:08 PM CDT) RBC 4.25 3.90 - 4.90 M/uL [facility] MCHC 34.6 31.5 - 35.5 % [facility] MCV 88.5 82.0 - 99.0 fL [facility] PLATELETS 348 140 - 350 K/uL [facility] HEMOGLOBIN 13.0 11.8 - 14.8 g/dL [facility] RDW 12.7 11.5 - 14.5 % [facility] WBC 13.1(H) 4.0 - 9.8 K/uL [facility] MCH 30.6 27.2 - 32.6 pg [facility] MPV 9.2(L) 9.3 - 12.4 fL [facility] HEMATOCRIT 37.6 35.5 - 44.0 % [facility] RDW-STDEV 40.9 37.1 - 48.7 fL [facility] MONOCYTES 10 3 - 13 % [facility] MONOCYTE ABSOLUTE 1.30 0.10 - 1.30 K/uL [facility] NEUTROPHILS 64 45 - 70 % [facility] NEUTROPHIL ABSOLUTE 8.39(H) 1.90 - 7.00 K/uL [facility] EOSINOPHILS 1 0 - 7 % [facility] EOSINOPHIL ABSOLUTE 0.08 0.00 - 0.70 K/uL [facility] LYMPHOCYTES 25 16 - 45 % [facility] LYMPHOCYTE ABSOLUTE 3.34 0.70 - 4.50 K/uL [facility] BASOPHILS 0 0 - 2 % [facility] BASOPHILS ABSOLUTE 0.03 0.00 - 0.20 K/uL [facility] 10/21/2008 11:0 8 PM CDT 10/21/2008 11:14 PM CDT us Marshall Haque MD HEMATOLOGY ORDERABLES Edited INTERFACE SYSTEM Refer to clinic/hospital department [facility] CLIA# [id number] [address] [place] [address] documented in this encounter Visit Diagnoses Diagnosis Abdominal pain, unspecified site documented in this encounter Additional Health Concerns Infection Onset Date Last Indicated Resolved Time R/O COVID-19 07/30/2019 07/30/2019 08/04/2019 6:05 AM CDT R/O Respiratory 05/12/2022 05/12/2022 05/12/2022 4 :27 PM LICENSED AUDIOLOGIST R/O C. diff 03/11/2024 03/11/2024 03/11/2024 12:4 6 PM LICENSED AUDIOLOGIST C Diff 03/11/2024 03/11/2024 05/10/2024 1:16 AM LICENSED AUDIOLOGIST documented as of this encounter Care Teams Lining Ironer Relationship Specialty Start Date End Date Gilmar Galvan MD [address] [place] [address] PCP - General Family Practice 12/09/18 documented as of this encounter
--- OUTSIDE RECORDS SUMMARY | 2025-02-17 15:00 | XMS_ITS | Encounter Summary ---
Author Organization [facility] Address [address] [place] [address] Care Team Providers Care Test Desk Operator Name Role Phone Gilmar Galvan MD Primary Care Provider Reason for Visit * Reason Comments Question Encounter Details Date Type Department Care Team (Late st Contact Info) Description 08/24/2024 Telephone [facility] [address] [place] [address] Gilmar Galvan MD [address] [place] [address] Question Social History Tobacco Use [...] on file Legal Sex Female 3:13 AM CORPORATE RECEPTIONIST Gender Identity Not on file Sexual Orientation [...] - 08/24/2024 12:21 PM CDT Copied from [facility] #[id number]. Topic: Patient or Caregiver Communication Request >> [...] Description 03/01/2025 11:00 AM CDT Office Visit [facility] [address] [place] [address] Gilmar Galvan MD [address] [place] [address] documented as of this encounter Visit Diagnoses Not on filedocumented in this encounter Additional Health Concerns Assessment Noted Time PHQ-9 Depression Total Score: 2 08/25/19 25 11:25 AM CDT documented as of this encounter Care Teams Test Desk Operator Relationship Specialty Start Date End Date Gilmar Galvan MD [address] [place] [address] PCP - General Family Practice 12/09/18 documented as of this encounter
--- OUTSIDE RECORDS SUMMARY | 2025-02-17 15:00 | XMS_ITS | Encounter Summary ---
Author Organization [facility] Address [address] [place] [address] Care Team Providers Care Circulation Supervisor Name Role Phone Gilmar Galvan MD Primary Care Provider Encounter Details Date Type Department Care Team (Late st Contact Info) Description 09/24/2006 Outpatient Historical [facility] [address] [facility] [address] [address] [place] [address] [place] [address] Social History Tobacco Use Types Packs/Day Years Used Date Smoking Tobacco: Never Assessed Comments Unknown Sex and Gender Information Value Date Recorded Sex Assigned at Not on file Legal Sex Female 3:13 AM LIEUTENANT FIRE FIGHTER Gender Identity Not on file Sexual Orientation Not on file documented as of this encounter Plan of Treatment Upcoming Encounters Date Type Department Care Team (Late st Contact Info) Description 03/01/2025 11:00 AM CDT Office Visit [facility] - [facility] [address] [place] [address] Gilmar Galvan MD [address] [place] [address] documented as of this encounter Visit Diagnoses Not on filedocumented in this encounter Additional Health Concerns Infection Onset Date Last Indicated Resolved Time R/O COVID-19 07/30/2019 07/30/2019 08/04/2019 6:05 AM CDT R/O Respiratory 05/12/2022 05/12/2022 05/12/2022 4 :27 PM LIEUTENANT FIRE FIGHTER R/O C. diff 03/11/2024 03/11/2024 03/11/2024 12:4 6 PM LIEUTENANT FIRE FIGHTER C Diff 03/11/2024 03/11/2024 05/10/2024 1:16 AM LIEUTENANT FIRE FIGHTER documented as of this encounter Care Teams Circulation Supervisor Relationship Specialty Start Date End Date Gilmar Galvan MD [address] [place] [address] PCP - General Family Practice 12/09/18 documented as of this encounter
--- OUTSIDE RECORDS SUMMARY | 2025-02-17 15:00 | XMS_ITS | Encounter Summary ---
Author Organization [facility] Address [address] [facility] [address] [place] [address] Care Team Providers Care Hopper Feeder Name Role Phone Gilmar Galvan MD Primary Care Provider Reason for Visit * Reason Onset Date Comments Courtesy Call 08/08/2019 Left message Encounter Details Date Type Department Care Team (Late st Contact Info) Description 08/08/2019 Telephone [facility] [address] [address] Karen Chicas, RT Courtesy Call [...] on file Legal Sex Female 3:13 AM STOPPER MAKER HELPER Gender Identity Not on file Sexual Orientation [...] 11:00 AM CDT Office Visit [facility] [address] [place] [address] Gilmar Galvan MD [address] [place] [address] documented as of this encounter Visit Diagnoses Not on filedocumented in this encounter Additional Health Concerns Infection Onset Date Last Indicated Resolved Time R/O Respiratory 05/12/2022 05/12/2022 05/12/2022 4 :27 PM STOPPER MAKER HELPER R/O C. diff 03/11/2024 03/11/2024 03/11/2024 12:4 6 PM STOPPER MAKER HELPER C Diff 03/11/2024 03/11/2024 05/10/2024 1:16 AM STOPPER MAKER HELPER Assessment Noted Time PHQ-9 Depression Total Score: 1 03/25/20 19 3:00 PM STOPPER MAKER HELPER documented as of this encounter Care Teams Hopper Feeder Relationship Specialty Start Date End Date Gilmar Galvan MD [address] [place] [address] PCP - General Family Practice 12/09/18 documented as of this encounter
--- OUTSIDE RECORDS SUMMARY | 2025-02-17 15:00 | XMS_ITS | Encounter Summary ---
Author Organization [facility] Address [address] [place] [address] Care Team Providers Care Tire Changer Aircraft Name Role Phone Gilmar Galvan MD Primary Care Provider Encounter Details Date Type Department Care Team (Late Contact Info) Description 11/09/2008 Outpatient Historical [facility], [address] Josh Clarke MD [address] [place] [address] [place] [address] Social History Tobacco Use Types Packs/Day Years Used Date Smoking Tobacco: Never Assessed Comments No Sex and Gender Information Value Date Recorded Sex Assigned at Not on file Legal Sex Female 3:13 AM AUTO BODY BUILDER APPRENTICE Gender Identity Not on file Sexual Orientation Not on file documented as of this encounter Plan of Treatment Upcoming Encounters Date Type Department Care Team (Late st Contact Info) Description 03/01/2025 11:00 AM CDT Office Visit [facility] [address] [place] [address] Gilmar Galvan MD [address] [place] [address] documented as of this encounter Procedures Procedure Name Priority Date/Time Associated Diagnosis Comments PATHOLOGY Routine 11/09/2008 3:21 PM CDT documented in this encounter Results * PATHOLOGY (11/09/2008 3:21 PM CDT) FINAL REPORT [facility] [address] [place], [place] [address] Patient: JUNIOR MARKS : 1990 Procedure Date: 11/09/2008 Accession Date: 11/09/2008 Case No: [id number] Ordering Dr: JOSH CLARKE Case types AW, BW, FW, NW and SH are performed by [facility], [place], [place] SURGICAL PATHOLOGY & NON-GYNECOLOGIC CYTOPATHOLOGY REPORT [...] The specimen is completely submitted labeled A1. RADHAG/AMELIE 11.10.2008 06:19 am Microscopic: Received are slides labeled [id number] Junior Marks. Sections of stomach sample antral [...] am INTERFACE SYSTEM 11/09/2008 3:21 PM CDT Josh Clarke MD PATHOLOGY/CYTOLOGY ORDERABLES Fi nal Result INTERFACE SYSTEM Refer to clinic/hospital department documented in this encounter Visit Diagnoses Not on filedocumented in this encounter Additional Health Concerns Infection Onset Date Last Indicated Resolved Time R/O COVID-19 07/30/2019 07/30/2019 08/04/2019 6:05 AM CDT R/O Respiratory 05/12/2022 05/12/2022 05/12/2022 4 :27 PM AUTO BODY BUILDER APPRENTICE R/O C. diff 03/11/2024 03/11/2024 03/11/2024 12:4 6 PM AUTO BODY BUILDER APPRENTICE C Diff 03/11/2024 03/11/2024 05/10/2024 1:16 AM AUTO BODY BUILDER APPRENTICE documented as of this encounter Care Teams Tire Changer Aircraft Relationship Specialty Start Date End Date Gilmar Galvan MD [address] [place] [address] PCP - General Family Practice 12/09/18 documented as of this encounter
--- OUTSIDE RECORDS SUMMARY | 2025-02-17 15:00 | XMS_ITS | Encounter Summary ---
Author Organization [facility] Address [address] [place] [address] Care Team Providers Care Coal Pipeline Operator Name Role Phone Gilmar Galvan MD Primary Care Provider Encounter Details Date Type Department Care Team (Late st Contact Info) Description 08/13/2006 Outpatient Historical [facility] [address] [facility] [address] [place] [address] [address] [place] [address] [place] [address] Social History Tobacco Use Types Packs/Day Years Used Date Smoking Tobacco: Never Assessed Comments Unknown Sex and Gender Information Value Date Recorded Sex Assigned at Not on file Legal Sex Female 3:13 AM ELECTION JUDGE Gender Identity Not on file Sexual Orientation Not on file documented as of this encounter Plan of Treatment Upcoming Encounters Date Type Department Care Team (Late st Contact Info) Description 03/01/2025 11:00 AM CDT Office Visit [facility] [address] [place] [address] Gilmar Galvan MD [address] [place] [address] documented as of this encounter Visit Diagnoses Not on filedocumented in this encounter Additional Health Concerns Infection Onset Date Last Indicated Resolved Time R/O COVID-19 07/30/2019 07/30/2019 08/04/2019 6:05 AM CDT R/O Respiratory 05/12/2022 05/12/2022 05/12/2022 4 :27 PM ELECTION JUDGE R/O C. diff 03/11/2024 03/11/2024 03/11/2024 12:4 6 PM ELECTION JUDGE C Diff 03/11/2024 03/11/2024 05/10/2024 1:16 AM ELECTION JUDGE documented as of this encounter Care Teams Coal Pipeline Operator Relationship Specialty Start Date End Date Gilmar Galvan MD [address] [place] [address] PCP - General Family Practice 12/09/18 documented as of this encounter
--- OUTSIDE RECORDS SUMMARY | 2025-02-17 15:00 | XMS_ITS | Encounter Summary ---
Author Organization [facility] Address [address] [place] [address] Care Team Providers Care Fish Header Name Role Phone Gilmar Galvan MD Primary Care Provider Encounter Details Date Type Department Care Team ([facility] Contact Info) Description 07/28/2019 Digital Self COVID-1 [...] on file Legal Sex Female 3:13 AM SPRING CRATER Gender Identity Not on file Sexual Orientation [...] Upcoming Encounters Date Type Department Care Team ([facility] Contact Info) Description 03/01/2025 11:00 AM CDT Office Visit [facility] [address] [place] [address] Gilmar Galvan MD [address] [place] [address] documented as of this encounter Visit Diagnoses Not on filedocumented in this encounter Additional Health Concerns Infection Onset Date Last Indicated Resolved Time R/O COVID-19 07/30/2019 07/30/2019 08/04/2019 6:05 AM CDT R/O Respiratory 05/12/2022 05/12/2022 05/12/2022 4 :27 PM SPRING CRATER R/O C. diff 03/11/2024 03/11/2024 03/11/2024 12:4 6 PM SPRING CRATER C Diff 03/11/2024 03/11/2024 05/10/2024 1:16 AM SPRING CRATER Assessment Noted Time PHQ-9 Depression Total Score: 1 03/25/20 19 3:00 PM SPRING CRATER documented as of this encounter Care Teams Fish Header Relationship Specialty Start Date End Date Gilmar Galvan MD [address] [place] [phone] PCP - General Family Practice 12/09/18 documented as of this encounter
--- OUTSIDE RECORDS SUMMARY | 2025-02-17 15:00 | XMS_ITS | Encounter Summary ---
Author Organization [facility] Address [address] [place] [address] Care Team Providers Care Glue Machine Operator Name Role Phone Gilmar Galvan MD Primary Care Provider Encounter Details Date Type Department Care Team (Latest Contact Info) Description 11/26/2006 Outpatient Historical [facility] [place] [address] [place] [address] Cervicalgia (Primary Dx) Social History Tobacco Use Types Packs/Day Years Used Date Smoking Tobacco: Never Assessed Comments Unknown Sex and Gender Information Value Date Recorded Sex Assigned at Not on file Legal Sex Female 3:13 AM SOLID PLASTERER Gender Identity Not on file Sexual Orientation Not on file documented as of this encounter Plan of Treatment Upcoming Encounters Date Type Department Care Team (Late st Contact Info) Description 03/01/2025 11:00 AM CDT Office Visit [facility] [address] [place] [address] Gilmar Galvan MD [address] [place] [address] documented as of this encounter Visit Diagnoses Diagnosis Cervicalgia- Primary documented in this encounter Additional Health Concerns Infection Onset Date Last Indicated Resolved Time R/O COVID-19 07/30/201907/30/2019 08/04/2019 6:05 AM CDT R/O Respiratory 05/12/2022 05/12/2022 05/12/2022 4 :27 PM SOLID PLASTERER R/O C. diff 03/11/2024 03/11/2024 03/11/2024 12:4 6 PM SOLID PLASTERER C Diff 03/11/2024 03/11/2024 05/10/2024 1:16 AM SOLID PLASTERER documented as of this encounter Care Teams Glue Machine Operator Relationship Specialty Start Date End Date Gilmar Galvan MD [address] [place] [address] PCP - General Family Practice 12/09/18 documented as of this encounter
--- OUTSIDE RECORDS SUMMARY | 2025-02-17 15:00 | XMS_ITS | Encounter Summary ---
Author Organization [facility] Address [address] [place] [address] Care Team Providers Care Commercial Agent Name Role Phone Gilmar Galvan MD Primary Care Provider Reason for Visit * Reason Comments Medication Refill Encounter Details Date Type Department Care Team (Late Contact Info) Description 09/20/2014 Refill [facility] [address], [address] [phone] Randal Lee MD NO ADDRESS ON FILE [...] on file Legal Sex Female 3:13 AM RECORDING STUDIO SET UP WORKER Gender Identity Not on file Sexual Orientation Not on file Occupation Industry Job Start Date Job End Date Not on file Not on file Not on file Not on file documented as of this encounter Plan of Treatment Upcoming Encounters Date Type Department Care Team (Late Contact Info) Description 03/01/2025 11:00 AM CDT Office Visit [facility] [address] [place] [address] Gilmar Galvan MD [address] [place] [address] documented as of this encounter Visit Diagnoses Not on filedocumented in this encounter Additional Health Concerns Infection Onset Date Last Indicated Resolved Time R/O COVID-19 07/30/2019 07/30/2019 08/04/2019 6:05 AM CDT R/O Respiratory 05/12/2022 05/12/2022 05/12/2022 4 :27 PM RECORDING STUDIO SET UP WORKER R/O C. diff 03/11/2024 03/11/2024 03/11/2024 12:4 6 PM RECORDING STUDIO SET UP WORKER C Diff 03/11/2024 03/11/2024 05/10/2024 1:16 AM RECORDING STUDIO SET UP WORKER documented as of this encounter Care Teams Commercial Agent Relationship Specialty Start Date End Date Gilmar Galvan MD [address] [place] [phone] PCP - General Family Practice 12/09/18 documented as of this encounter
--- OUTSIDE RECORDS SUMMARY | 2025-02-17 15:00 | XMS_ITS | Encounter Summary ---
Author Organization [facility] Address [address] [place] [address] Care Team Providers Care Blackjack Dealer Name Role Phone Gilmar Galvan MD Primary Care Provider Encounter Details Date Type Department Care Team (Late st Contact Info) Description 06/24/2022 Lab Requisition [facility] Laboratory Services [facility] [address] [place] [address] Mona Shaver, BARREL PLATER [address] [facility] [address] [place] [address] Social History Tobacco Use Types Packs/Day Years Used Date Smoking Tobacco: Never Smokeless Tobacco: Never Alcohol Use Standard Drinks/Week Comments Not Currently 0 (1 standard drink = 0.6 oz pur e alcohol) vary rare social use Comments No Sex and Gender Information Value Date Recorded Sex Assigned at Not on file Legal Sex Female 3:13 AM PROMOTIONS ASSISTANT SALES MARKETING Gender Identity Not on file Sexual Orientation Not on file Occupation Industry Job Start Date Job End Date Not on file Not on file Not on file Not on file COVID-19 Exposure Response Date Recorded In the last 10 days, have yo u been in contact with someone who was confirmed or suspected to have Coronavirus/COVID-19? No / Unsure 06/24/2022 10:13 AM PROMOTIONS ASSISTANT SALES MARKETING documented as of this encounter Plan of Treatment Upcoming Encounters Date Type Department Care Team (Late st Contact Info) Description 03/01/2025 11:00 AM CDT Office Visit [facility] Medicine - [facility] [address] [place] [address] Gilmar Galvan MD [address] [place] [address] documented as of this encounter Procedures Procedure Name Priority Date/Time Associated Diagnosis Comments CBC WITH DIFFERENTIAL Stat 06/24/2022 4:04 PM PROMOTIONS ASSISTANT SALES MARKETING COMPREHENSIVE METABOLIC PANEL Stat 06/24/2022 4:04 PM PROMOTIONS ASSISTANT SALES MARKETING documented in this encounter Results * (ABNORMAL) COMPREHENSIVE METABOLIC PANEL (06/24/2022 4:04 PM PROMOTIONS ASSISTANT SALES MARKETING) SODIUM 141 136 - 145 mmol/L 06/24/2022 5:23 PM [facility] - [facility] POTASSIUM 4.4 3.5 - 5.0 mmol/L 06/24/2022 5:23 PM [facility] - [facility] Comment: Testing was performed on Serum. Specimen of choice is [place] Heparinized Plasma. Serum Potassium Reference Range: 0 years - 150 years 3.5 - 5.1 mmol/L CHLORIDE 105 98 - 107 mmol/L 06/24/2022 5:23 PM PROMOTIONS ASSISTANT SALES MARKETING [facility] - . [facility] CO2 24 22 - 29 mmol/L 06/24/2022 5:23 PM [facility] - [facility] CALCIUM 8.9 8.6 - 10.2 mg/dL 06/24/2022 5:23 PM [facility] - . [facility] BUN 12 6 - 20 mg/dL 06/24/2022 5:23 PM [facility] CREATININE 0.65 0.51 - 0.95 mg/dL 06/24/2022 5:23 PM [facility] - . [facility] GLUCOSE 87 74 - 99 mg/dL 06/24/2022 5:23 PM [facility] TOTAL PROTEIN 6.1(L) 6.7 - 8.6 g/dL 06/24/2022 5:23 PM [facility] Comment: Testing was performed on Serum. Specimen of choice is [place] Heparinized Plasma. Serum TP Ref. Range: 3 [...] 3.5 - 5.2 g/dL 06/24/2022 5:23 PM [facility] BILIRUBIN TOTAL <0.2(L) 0.3 - 1.2 mg/dL 06/24/2022 5:23 PM [facility] ALKALINE PHOSPHATASE 140(H) 35 - 104 U/L 06/24/2022 5:23 PM [facility] AST 13 <33 U/L 06/24/2022 5:23 PM [facility] ALT 23 <34 U/L 06/24/2022 5:23 PM [facility] GFR >60 >=60 mL/min/1.7 3 sq meter 06/24/2022 5:23 PM [facility] Comment:eGFR calculated with 2020 CKD-EPI equation. Vegetarian diet, extremely high or low muscle mass, and may affect results. Cystatin C with Glomerular Filtration Rate is a suitable alternative for these patients. ANION GAP 12 8 - 16 mmol/L 06/24/2022 5:23 PM [facility] Blood 06/24/2022 4:04 PM PROMOTIONS ASSISTANT SALES MARKETING 06/24/2022 5:02 PM [facility] - 06/24/2022 5:23 PM [facility] Samples containing indocyanine green cause interferences on Total and/or Direct Bilirubin and must not be measured. Mona Shaver NP CHEMISTRY ORDERABLES Final Result [facility] - [facility] CLIA# [id number] [address] [place] [address] * (ABNORMAL) CBC WITH DIFFERENTIAL (06/24/2022 4:04 PM PROMOTIONS ASSISTANT SALES MARKETING) [facility] WBC 10.3(H) 4.0 - 9.8 K/uL 06/24/2022 5:10 PM PROMOTIONS ASSISTANT SALES MARKETING [facility] RBC 3.13(L) 3.90 - 4.90 M/uL 06/24/2022 5:10 PM PROMOTIONS ASSISTANT SALES MARKETING [facility] HEMOGLOBIN 9.0(L) 11.8 - 14.8 g/dL 06/24/2022 5:10 PM PROMOTIONS ASSISTANT SALES MARKETING [facility] HEMATOCRIT 28.3(L) 35.5 - 44.0 % 06/24/2022 5:10 PM PROMOTIONS ASSISTANT SALES MARKETING [facility] MCV 90.4 82.0 - 99.0 fL 06/24/2022 5:10 PM PROMOTIONS ASSISTANT SALES MARKETING [facility] MCH 28.8 27.2 - 32.6 pg 06/24/2022 5:10 PM PROMOTIONS ASSISTANT SALES MARKETING [facility] MCHC 31.8 31.5 - 35.5 g/dL 06/24/2022 5:10 PM PROMOTIONS ASSISTANT SALES MARKETING [facility] RDW 14.6(H) 11.5 - 14.5 % 06/24/2022 5:10 PM PROMOTIONS ASSISTANT SALES MARKETING [facility] RDW-STDEV 47.8 37.1 - 48.7 fL 06/24/2022 5:10 PM PROMOTIONS ASSISTANT SALES MARKETING [facility] PLATELETS 468(H) 140 - 350 K/uL 06/24/2022 5:10 PM PROMOTIONS ASSISTANT SALES MARKETING [facility] MPV 8.5(L) 9.3 - 12.4 fL 06/24/2022 5:10 PM PROMOTIONS ASSISTANT SALES MARKETING [facility] NEUTROPHILS 65 % 06/24/2022 5:10 PM PROMOTIONS ASSISTANT SALES MARKETING [facility] LYMPHOCYTES 21 % 06/24/2022 5:10 PM PROMOTIONS ASSISTANT SALES MARKETING [facility] MONOCYTES 9 % 06/24/2022 5:10 PM PROMOTIONS ASSISTANT SALES MARKETING [facility] EOSINOPHILS 2 % 06/24/2022 5:10 PM [facility] BASOPHILS 1 % 06/24/2022 5:10 PM [facility] IMMATURE GRANULOCYTES 4 % 06/24/2022 5:10 PM [facility] Comment:IG (Immature Granulo cyte) count includes Metamyelocytes, Myelocytes, and Promyelocytes NEUTROPHIL ABSOLUTE 6.64 1.90 - 7.00 K/uL 06/24/2022 5:10 PM [facility] LYMPHOCYTE ABSOLUTE 2.15 0.70 - 4.50 K/uL 06/24/2022 5:10 PM [facility] MONOCYTE ABSOLUTE 0.87 0.10 - 1.30 K/uL 06/24/2022 5:10 PM [facility] EOSINOPHIL ABSOLUTE 0.17 0.00 - 0.70 K/uL 06/24/2022 5:10 PM [facility] BASOPHILS ABSOLUTE 0.07 0.00 - 0.20 K/uL 06/24/2022 5:10 PM [facility] IMMATURE GRANULOCYTES ABSOLUTE 0.37(H) 0.00 - 0.03 K/uL 06/24/2022 5:10 PM [facility] Blood 06/24/2022 4:04 PM PROMOTIONS ASSISTANT SALES MARKETING 06/24/2022 5:02 PM PROMOTIONS ASSISTANT SALES MARKETING Mona Shaver NP HEMATOLOGY ORDERABLES Final Result [facility] CLIA# [id number] [address] [place] [address] documented in this encounter Visit Diagnoses Not on filedocumented in this encounter Additional Health Concerns Infection Onset Date Last Indicated Resolved Time R/O C. diff 03/11/2024 03/11/2024 03/11/2024 12:4 6 PM PROMOTIONS ASSISTANT SALES MARKETING C Diff 03/11/2024 03/11/2024 05/10/2024 1:16 AM PROMOTIONS ASSISTANT SALES MARKETING Assessment Noted Time PHQ-9 Depression Total Score: 5 08/17/19 22 3:00 PM CDT documented as of this encounter Care Teams Blackjack Dealer Relationship Specialty Start Date End Date Gilmar Galvan MD [address] [place] [address] PCP - General Family Practice 12/09/18 documented as of this encounter
--- OUTSIDE RECORDS SUMMARY | 2025-02-17 15:00 | XMS_ITS | Encounter Summary ---
Author Organization [facility] Address [address] [place] [address] Care Team Providers Care Managed Care Director Name Role Phone Gilmar Galvan MD Primary Care Provider Encounter Details Date Type Department Care Team (Late st Contact Info) Description 12/28/2006 Outpatient Historical [facility] [place] [address] [place] [address] Social History Tobacco Use Types Packs/Day Years Used Date Smoking Tobacco: Never Assessed Comments Unknown Sex and Gender Information Value Date Recorded Sex Assigned at Not on file Legal Sex Female 3:13 AM WELL TREATMENT OFFSIDER Gender Identity Not on file Sexual Orientation Not on file documented as of this encounter Plan of Treatment Upcoming Encounters Date Type Department Care Team (Late st Contact Info) Description 03/01/2025 11:00 AM CDT Office Visit [facility] [address] [place] [address] Gilmar Galvan MD [address] [place] [address] documented as of this encounter Visit Diagnoses Not on filedocumented in this encounter Additional Health Concerns Infection Onset Date Last Indicated Resolved Time R/O COVID-19 07/30/2019 07/30/2019 08/04/2019 6:05 AM CDT R/O Respiratory 05/12/2022 05/12/2022 05/12/2022 4 :27 PM WELL TREATMENT OFFSIDER R/O C. diff 03/11/2024 03/11/2024 03/11/2024 12:4 6 PM WELL TREATMENT OFFSIDER C Diff 03/11/2024 03/11/2024 05/10/2024 1:16 AM WELL TREATMENT OFFSIDER documented as of this encounter Care Teams Managed Care Director Relationship Specialty Start Date End Date Gilmar Galvan MD [address] [place] [address] PCP - General Family Practice 12/09/18 documented as of this encounter
--- OUTSIDE RECORDS SUMMARY | 2025-02-17 15:00 | XMS_ITS | Encounter Summary ---
Author Organization [facility] Address [address] [place] [address] Care Team Providers Care Slackline Operator Name Role Phone Gilmar Galvan MD Primary Care Provider Encounter Details Date Type Department Care Team (Late st Contact Info) Description 11/26/2006 Outpatient Historical [facility] Pediatrics [address] [facility] [address] [address] [place] [address] [place] [address] Social History Tobacco Use Types Packs/Day Years Used Date Smoking Tobacco: Never Assessed Comments Unknown Sex and Gender Information Value Date Recorded Sex Assigned at Not on file Legal Sex Female 3:13 AM VASCULAR PHYSICIAN Gender Identity Not on file Sexual Orientation Not on file documented as of this encounter Plan of Treatment Upcoming Encounters Date Type Department Care Team (Late st Contact Info) Description 03/01/2025 11:00 AM CDT Office Visit [facility] Family Medicine - [facility] [address] [place] [address] Gilmar Galvan MD [address] [place] [address] documented as of this encounter Visit Diagnoses Not on filedocumented in this encounter Additional Health Concerns Infection Onset Date Last Indicated Resolved Time R/O COVID-19 07/30/2019 07/30/2019 08/04/2019 6:05 AM CDT R/O Respiratory 05/12/2022 05/12/2022 05/12/2022 4 :27 PM VASCULAR PHYSICIAN R/O C. diff 03/11/2024 03/11/2024 03/11/2024 12:4 6 PM VASCULAR PHYSICIAN C Diff 03/11/2024 03/11/2024 05/10/2024 1:16 AM VASCULAR PHYSICIAN documented as of this encounter Care Teams Slackline Operator Relationship Specialty Start Date End Date Gilmar Galvan MD [address] [place] [address] PCP - General Family Practice 12/09/18 documented as of this encounter
--- OUTSIDE RECORDS SUMMARY | 2025-02-17 15:00 | XMS_ITS | Encounter Summary ---
Author Organization [facility] Address [address] [place] [address] Care Team Providers Care Composite Bond Worker Name Role Phone Gilmar Galvan MD Primary Care Provider Encounter Details Date Type Department Care Team (Late st Contact Info) Description 08/05/2005 Outpatient Historical [facility] Pediatrics [address] [facility] [address] [address] [place] [address] [place] [address] Social History Tobacco Use Types Packs/Day Years Used Date Smoking Tobacco: Never Assessed Comments Unknown Sex and Gender Information Value Date Recorded Sex Assigned at Not on file Legal Sex Female 3:13 AM DIETETIC AIDE Gender Identity Not on file Sexual Orientation Not on file documented as of this encounter Plan of Treatment Upcoming Encounters Date Type Department Care Team (Late st Contact Info) Description 03/01/2025 11:00 AM CDT Office Visit [facility] Family Medicine - [facility] [address] [place] [address] Gilmar Galvan MD [address] [place] [address] documented as of this encounter Visit Diagnoses Not on filedocumented in this encounter Additional Health Concerns Infection Onset Date Last Indicated Resolved Time R/O COVID-19 07/30/2019 07/30/2019 08/04/2019 6:05 AM CDT R/O Respiratory 05/12/2022 05/12/2022 05/12/2022 4 :27 PM DIETETIC AIDE R/O C. diff 03/11/2024 03/11/2024 03/11/2024 12:4 6 PM DIETETIC AIDE C Diff 03/11/2024 03/11/2024 05/10/2024 1:16 AM DIETETIC AIDE documented as of this encounter Care Teams Composite Bond Worker Relationship Specialty Start Date End Date Gilmar Galvan MD [address] [place] [address] PCP - General Family Practice 12/09/18 documented as of this encounter
--- OUTSIDE RECORDS SUMMARY | 2025-02-17 15:00 | XMS_ITS | Encounter Summary ---
Author Organization [facility] Address [address] [place] [address] Care Team Providers Care Fruit Or Nut Picker Name Role Phone Gilmar Galvan MD Primary Care Provider Encounter Details Date Type Department Care Team (Late st Contact Info) Description 02/15/2005 Outpatient Historical [facility] Pediatrics [address] [facility] [address] [address] [place] [address] [place] [address] Social History Tobacco Use Types Packs/Day Years Used Date Smoking Tobacco: Never Assessed Comments Unknown Sex and Gender Information Value Date Recorded Sex Assigned at Not on file Legal Sex Female 3:13 AM LICENSED VOCATIONAL NURSE Gender Identity Not on file Sexual Orientation Not on file documented as of this encounter Plan of Treatment Upcoming Encounters Date Type Department Care Team (Late st Contact Info) Description 03/01/2025 11:00 AM CDT Office Visit [facility] Family Medicine - [facility] [address] [place] [address] Gilmar Galvan MD [address] [place] [address] documented as of this encounter Visit Diagnoses Not on filedocumented in this encounter Additional Health Concerns Infection Onset Date Last Indicated Resolved Time R/O COVID-19 07/30/2019 07/30/2019 08/04/2019 6:05 AM CDT R/O Respiratory 05/12/2022 05/12/2022 05/12/2022 4 :27 PM LICENSED VOCATIONAL NURSE R/O C. diff 03/11/2024 03/11/2024 03/11/2024 12:4 6 PM LICENSED VOCATIONAL NURSE C Diff 03/11/2024 03/11/2024 05/10/2024 1:16 AM LICENSED VOCATIONAL NURSE documented as of this encounter Care Teams Fruit Or Nut Picker Relationship Specialty Start Date End Date Gilmar Galvan MD [address] [place] [address] PCP - General Family Practice 12/09/18 documented as of this encounter
--- OUTSIDE RECORDS SUMMARY | 2025-02-17 15:00 | XMS_ITS | Encounter Summary ---
Author Organization [facility] Address [address] [place] [address] Care Team Providers Care Patient Access Associate Name Role Phone Gilmar Galvan MD Primary Care Provider Reason for Visit * Reason Comments Medication Refill Encounter Details Date Type Department Care Team (Late Contact Info) Description 12/20/2015 Refill [facility] [address] [facility] [address] [facility] [address] [place] [address] Moira Israel NP NO ADDRESS [...] file Legal Sex Female 3:13 AM SENIOR FINANCIAL CONSULTANT Gender Identity Not on file Sexual Orientation Not on file Occupation Industry Job Start Date Job End Date Not on file Not on file Not on file Not on file documented as of this encounter Plan of Treatment Upcoming Encounters Date Type Department Care Team (Late Contact Info) Description 03/01/2025 11:00 AM CDT Office Visit [facility] Medicine - [facility] [address] [place] [address] Gilmar Galvan MD [address] [place] [address] documented as of this encounter Visit Diagnoses Not on filedocumented in this encounter Additional Health Concerns Infection Onset Date Last Indicated Resolved Time R/O COVID-19 07/30/2019 07/30/2019 08/04/2019 6:05 AM CDT R/O Respiratory 05/12/2022 05/12/2022 05/12/2022 4 :27 PM SENIOR FINANCIAL CONSULTANT R/O C. diff 03/11/2024 03/11/2024 03/11/2024 12:4 6 PM SENIOR FINANCIAL CONSULTANT C Diff 03/11/2024 03/11/2024 05/10/2024 1:16 AM SENIOR FINANCIAL CONSULTANT documented as of this encounter Care Teams Patient Access Associate Relationship Specialty Start Date End Date Gilmar Galvan MD [address] [place] [address] PCP - General Family Practice 12/09/18 documented as of this encounter
--- OUTSIDE RECORDS SUMMARY | 2025-02-17 15:00 | XMS_ITS | Encounter Summary ---
Author Organization [facility] Address [address] [place] [address] Care Team Providers Care Furnace Erector Name Role Phone Gilmar Galvan MD Primary Care Provider Encounter Details Date Type Department Care Team (Latest Contact Info) Description 10/16/2006 Outpatient Historical [facility] [place] [address] [place], [place] [id number] Pain in Joint, Shoulder Region (Primary Dx) Social History Tobacco Use Types Packs/Day Years Used Date Smoking Tobacco: Never Assessed Comments Unknown Sex and Gender Information Value Date Recorded Sex Assigned at Not on file Legal Sex Female 3:13 AM RISK COMPLIANCE MANAGER Gender Identity Not on file Sexual Orientation Not on file documented as of this encounter Plan of Treatment Upcoming Encounters Date Type Department Care Team (Late st Contact Info) Description 03/01/2025 11:00 AM CDT Office Visit [facility] [address] [place] [address] Gilmar Galvan MD [address] [place] [address] documented as of this encounter Visit Diagnoses Diagnosis Pain in joint, shoulder region- Primary documented in this encounter Additional Health Concerns Infection Onset Date Last Indicated Resolved Time R/O COVID-19 07/30/2019 07/30/2019 08/04/2019 6:05 AM CDT R/O Respiratory 05/12/2022 05/12/2022 05/12/2022 4 :27 PM RISK COMPLIANCE MANAGER R/O C. diff 03/11/2024 03/11/2024 03/11/2024 12:4 6 PM RISK COMPLIANCE MANAGER C Diff 03/11/2024 03/11/2024 05/10/2024 1:16 AM RISK COMPLIANCE MANAGER documented as of this encounter Care Teams Furnace Erector Relationship Specialty Start Date End Date Gilmar Galvan MD [address] [place] [address] PCP - General Family Practice 12/09/18 documented as of this encounter
--- OUTSIDE RECORDS SUMMARY | 2025-02-17 15:00 | XMS_ITS | Encounter Summary ---
Author Organization [facility] Address [address] [place] [address] Care Team Providers Care Solution Design And Analysis Manager Name Role Phone Gilmar Galvan MD Primary Care Provider Encounter Details Date Type Department Care Team (Late st Contact Info) Description 02/17/[address] [facility] Pediatric[facility] [address] [address] [place] [address] [place] [address] Social History Tobacco Use Types Packs/Day Years Used Date Smoking Tobacco: Never Assessed Comments Unknown Sex and Gender Information Value Date Recorded Sex Assigned at Not on file Legal Sex Female 3:13 AM WOODYARD CRANE OPERATOR Gender Identity Not on file Sexual Orientation Not on file documented as of this encounter Plan of Treatment Upcoming Encounters Date Type Department Care Team (Late st Contact Info) Description 03/01/2025 11:00 AM CDT Office Visit [facility] Family Medicine - [facility] [address] [place] [address] Gilmar Galvan MD [address] [place] [address] documented as of this encounter Visit Diagnoses Not on filedocumented in this encounter Additional Health Concerns Infection Onset Date Last Indicated Resolved Time R/O COVID-19 07/30/2019 07/30/2019 08/04/2019 6:05 AM CDT R/O Respiratory 05/12/2022 05/12/2022 05/12/2022 4 :27 PM WOODYARD CRANE OPERATOR R/O C. diff 03/11/2024 03/11/2024 03/11/2024 12:4 6 PM WOODYARD CRANE OPERATOR C Diff 03/11/2024 03/11/2024 05/10/2024 1:16 AM WOODYARD CRANE OPERATOR documented as of this encounter Care Teams Solution Design And Analysis Manager Relationship Specialty Start Date End Date Gilmar Galvan MD [address] [place] [address] PCP - General Family Practice 12/09/18 documented as of this encounter
--- OUTSIDE RECORDS SUMMARY | 2025-02-17 15:00 | XMS_ITS | Encounter Summary ---
Author Organization [facility] Address [address] [place] [address] Care Team Providers Care Copyright Expert Name Role Phone Gilmar Galvan MD Primary Care Provider Encounter Details Date Type Department Care Team (Late st Contact Info) Description 04/10/2006 Outpatient Historical [facility] [address] [address] [place] [address] [place] [address] Social History Tobacco Use Types Packs/Day Years Used Date Smoking Tobacco: Never Assessed Comments Unknown Sex and Gender Information Value Date Recorded Sex Assigned at Not on file Legal Sex Female 3:13 AM PILLOW AGENT Gender Identity Not on file Sexual Orientation Not on file documented as of this encounter Plan of Treatment Upcoming Encounters Date Type Department Care Team (Late st Contact Info) Description 03/01/2025 11:00 AM CDT Office Visit [facility] Family Medicine - [facility] [address] [place] [address] Gilmar Galvan MD [address] [place] [address] documented as of this encounter Visit Diagnoses Not on filedocumented in this encounter Additional Health Concerns Infection Onset Date Last Indicated Resolved Time R/O COVID-19 07/30/2019 07/30/2019 08/04/2019 6:05 AM CDT R/O Respiratory 05/12/2022 05/12/2022 05/12/2022 4 :27 PM PILLOW AGENT R/O C. diff 03/11/2024 03/11/2024 03/11/2024 12:4 6 PM PILLOW AGENT C Diff 03/11/2024 03/11/2024 05/10/2024 1:16 AM PILLOW AGENT documented as of this encounter Care Teams Copyright Expert Relationship Specialty Start Date End Date Gilmar Galvan MD [address] [place] [address] PCP - General Family Practice 12/09/18 documented as of this encounter
--- OUTSIDE RECORDS SUMMARY | 2025-02-17 15:00 | XMS_ITS | Encounter Summary ---
Author Organization [facility] Address [address] [place] [address] Care Team Providers Care Hand Sewer Shoes Name Role Phone Gilmar Galvan MD Primary Care Provider Encounter Details Date Type Department Care Team (Late st Contact Info) Description 02/13/2007 Outpatient Historical [facility] Pediatrics [address] [address] [place] [address] [place] [address] Social History Tobacco Use Types Packs/Day Years Used Date Smoking Tobacco: Never Assessed Comments Unknown Sex and Gender Information Value Date Recorded Sex Assigned at Not on file Legal Sex Female 3:13 AM INGOT PASSER Gender Identity Not on file Sexual Orientation Not on file documented as of this encounter Plan of Treatment Upcoming Encounters Date Type Department Care Team (Late st Contact Info) Description 03/01/2025 11:00 AM CDT Office Visit [facility] Family Medicine - [facility] [address] [place] [address] Gilmar Galvan MD [address] [place] [address] documented as of this encounter Visit Diagnoses Not on filedocumented in this encounter Additional Health Concerns Infection Onset Date Last Indicated Resolved Time R/O COVID-19 07/30/2019 07/30/2019 08/04/2019 6:05 AM CDT R/O Respiratory 05/12/2022 05/12/2022 05/12/2022 4 :27 PM INGOT PASSER R/O C. diff 03/11/2024 03/11/2024 03/11/2024 12:4 6 PM INGOT PASSER C Diff 03/11/2024 03/11/2024 05/10/2024 1:16 AM INGOT PASSER documented as of this encounter Care Teams Hand Sewer Shoes Relationship Specialty Start Date End Date Gilmar Galvan MD [address] [place] [address] PCP - General Family Practice 12/09/18 documented as of this encounter
[2025-02-17 15:04] VITALS: BP 122/107; PULSE 89; RESP 18; TEMP 36.5; O2SAT 93
[2025-02-17 22:13] LABS: Total Triiodothyronine (T3) 1.29 NG/ML (0.82-1.58)
== END 2025-02-17 15:07 | disposition home or self-care (01) ==
PROVIDERS: Physician Assistant; Preventive Medicine Aerospace Medicine; Emergency Provider Emergency Medicine
DX: F41.9 Anxiety disorder, unspecified (principal)
CPT/HCPCS: 36415; 71046; 80053; 80307; 81001; 81025; 82077; 83690; 84439; 84443; 84480; 84484; 85025; 85610; 85730; 93005; 96372; 99284; A9270; J3360

== ENCOUNTER 2025-03-02 19:45 | Emergency (ER) | payer BC, SELFPAY ==
--- OUTSIDE RECORDS SUMMARY | 2025-03-01 08:00 | XMS_ITS | Encounter Summary ---
Author Organization [facility] Address [address] [place] [address] Care Team Providers Care Tea Blender Name Role Phone Gilmar Galvan MD Primary Care Provider Reason for Visit * Auth/Cert (Routine) Specialty Diagnoses / Procedures Referred By Laura ledesma Referred To Contact Behavioral Health [facility] [id number] [facility] [address] [place] [address] Phone: tel: fax: Referral ID Status Reason Start Date Expiration Date Visits Re quested Visits Authorized [id number] 1 1 Encounter Details Date Type Department Care Team (Latest Contact Info) Description 03/01/2025 8:00 AM CDT - 03/01/2025 11:59 PM CDT Hospital Encounter [facility] [id number] [facility] [address] [place] [address] [place] [id number] [place] [address] Arrived Discharge Disposition: Home or Self Care Social History Tobacco Use Types Packs/Day Years Used Date Smoking Tobacco: Never Passive Smoke Exposure: Never Smokeless Tobacco: Never Alcohol Use Standard Drinks/Week Comments Not Currently 0 (1 standard drink = 0.6 oz pur e alcohol) vary rare social use Food Insecurity Answer Date Recorded Do you find you are eating l ess than you should because you can t pay for food? No 02/25/2025 Transportation Needs Answer Date Record ed Have you gone without health care because you didn t have a way to get there? Or worry about transportation for future doctor visits, grape picker medication, etc.? No 2024 Housing Stability Answer Date Recorded Do you worry you won t have a steady place to sleep or struggle to pay rent or mortgage? No 02/25/2025 Utility Needs Answer Date Recorded Do you have difficulty payin g for utility costs (electric, water or gas bills)? No 02/25/2025 Medication Needs Answer Date Recorded Have you skipped taking medi cation due to cost or worry you can t afford new medications? No 02/25/2025 Feeling Safe Answer Date Recorded Are you in a relationship wi th someone who hurts you emotionally and/or physically? No 02/25/2025 Food Insecurity Answer Date Recorded Patient needs follow up regardin 02/22/2025 Transportation Needs Answer Date Record ed Patient needs follow up regardin 02/22/2025 Utility Needs Answer Date Recorded Patient needs follow up regardin 02/22/2025 Education Answer Date Recorded What is the highest level of school you have completed or the highest degree you have received? 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 Gender Identity Not on file Sexual Orientation Not on file Occupation Industry Job Start Date Job End Date Not on file Not on file Not on file Not on file documented as of this encounter Last Filed Vital Signs Vital Sign Reading Time Taken Comments Blood Pressure 112/79 03/01/2025 9:38 AM CDT Pulse 88 03/01/2025 9:38 AM CDT Temperature 36.7 C (98 F) 03/01/2025 9:38 AM CDT Respiratory Rate 16 03/01/2025 9:38 AM CDT Oxygen Saturation 97% 03/01/2025 9:38 AM CDT Inhaled Oxygen Concentration - - Weight 98.9 kg (218 lb) 03/01/2025 9:38 AM CDT Height 154.9 cm (5' 1) 03/01/2025 9:38 AM CDT Body Mass Index 41.19 03/01/2025 9:38 AM CDT documented in this encounter Medications at Time of Discharge busPIRone (BUSPAR) 15 mg TabletIndications :ESTHER (generalized anxiety disorder) Take 1 Tablet (15 mg) by mouth 3 times daily. 90 Tablet 03/01/2025 2:19 PM CDT 03/01/2025 clonazePAM (KlonoPIN) 1 mg tabletIndications :ESTHER (generalized anxiety disorder) Take 1 Tablet (1 mg) by mouth 2 times daily. 30 Tablet 03/01/2025 2:19 PM CDT 03/01/2025 PARoxetine HCl (PAXIL) 20 mg tabletIndications :depression Take 1 Tablet (20 mg) by mouth daily. 30 Tablet 1 02/26/2025 norethindrone Ac-Eth estradiol (Loestrin 05/24, ,) 1-20 mg-mcg tablet Take 1 Tablet by mouth daily. 112 Tablet 3 02/03/2025 documented as of this encounter Progress Notes * Leida Davis RN - 03/01/2025 9:40 AM CDT Start/End Times: 0940/1001 Kylie Marks has been admitted to the IOP program today under the care of Jaye Garcia MD. Kylie Marks has been oriented to the IOP unit and guidelines. Patient rights have been given and consents have been signed. Confidentiality and safety have been discussed and all questions have been a nswered. Vitals: 03/01/25 0938 BP: 112/79 Pulse: 88 Resp: 16 Temp: 98 ??F (36.7 ??C) SpO2: 97% Narrative: Pt returning to IOP after recent admission 02/23-02/26 due to worsening depression. Pt states she has noticed an improvement since discharge and has not been crying as much. Pt states her current triggers are work, managing household and when everyone keeps asking me how to help. Her reasons for living are my kids, my , and my family. Kylie has her and mom for support. CHIEF COMPLAINT/STRESSORS: Chief Complaint & Precipitating Event CC/Precipitating Event: Pt is currently in IOP and missed IOP today due to increased depression andnot being able to get out of bed. Pt stated she has thought about suicide and stated she thought about driving off the road and getting into a car accident. (02/23/2025 7:44 PM) OUTCOME ASSESSMENT TOOLS: Kylie Marks has completed the following assessments: PHQ-9 and ESTHER PHQ-9 SCORE: PHQ-9 Questions Little interest or pleasure in doing things: 3 (03/01/2025 9:50 AM) Feeling down, depressed, or hopeless: 3 (03/01/2025 9:50 AM) Trouble falling or staying asleep, or sleeping too much: 3 (03/01/2025 9:50 AM) Feeling tired or having little energy: 3 (03/01/2025 9:50 AM) Poor appetite or overeatin (03/01/2025 9:50 AM) Feeling bad about yourself-or that you are a failure or have let yourself or your family down: 3 (03/01/2025 9:50 AM) Trouble concentrating on things, such as reading the newspaper or watching television: 3 (03/01/2025 9:50 AM) Moving or speaking so slowly that other people could have noticed. Or the opposite-being so fidgetyor restless that you have been moving around a lot more than usual: 2 (03/01/2025 9:50 AM) Thoughts that you would be better off , or of hurting yourself in some way: 2 (03/01/2025 9:50 AM) PHQ-9 Total: 25 (03/01/2025 9:50 AM) If you checked off any problems, how difficult have these problems made it for you to do your work,take care of things at home, or get along with other people?: (!) Extremely difficult (03/01/2025 9:50 AM) ESTHER 7 SCORE: Anxiety Score: 21 (03/01/2025 9:50 AM) INITIAL ASSESSMENT Functional Screen ARCHAEOLOGY PROFESSOR: Functional Screen: ARCHAEOLOGY PROFESSOR Ambulation: independent (03/01/2025 9:50 AM) Transferring: independent (03/01/2025 9:50 AM) Toileting: independent (03/01/2025 9:50 AM) Bathing: independent (03/01/2025 9:50 AM) Dressing: independent (03/01/2025 9:50 AM) Eating: independent (03/01/2025 9:50 AM) Communication: understands/communicates w/o difficulty (03/01/2025 9:50 AM) Swallowing: swallows foods and liquids w/o difficulty (03/01/2025 9:50 AM) Pain: Pain Scales: Pain Assessment/Number Scale (0-10) (03/01/2025 9:50 AM) Presence of Pain: complains of pain/discomfort (03/01/2025 9:50 AM) Location: Orientation: Right: (03/01/2025 9:50 AM) Location: mouth (03/01/2025 9:50 AM) Pain Rating: Rest: 6 (03/01/2025 9:50 AM) Description: Quality: aching; soreness (03/01/2025 9:50 AM) Mental Health (Cognitive/Perceptual) Behavior: Fidgeting; Cooperative; Good eye contact (03/01/2025 9:50 AM) Orientation: oriented to; person; place; time; situation (03/01/2025 9:50 AM) Observed Emotional State: anxious; cooperative; pleasant (03/01/2025 9:50 AM) Verbalized Emotional State: anxiety; depression (03/01/2025 9:50 AM) Zdanwivjx-Eccs-Egxjld Congruency: Mood congruent with verbalized report; Behaviors congruent with verbalized report (03/01/2025 9:50 AM) Speech: Normal; Soft (03/01/2025 9:50 AM) Thought Processes: Logical; Organized; Goal-Directed; Appropriate to Topic (03/01/2025 9:50 AM) Social Judgement: Appropriate to situation (03/01/2025 9:50 AM) Appearance: Well-groomed; Good hygiene (03/01/2025 9:50 AM) Patient willing to transfer: No (02/24/2025 9:30 PM) C-SSRS Since Last Visit 1. Have you wished you were or wished you could go to sleep and not wake up?: Yes (03/01/2025 9:50 AM) Wish to be (Description): the not waking up in the morning part. (03/01/2025 9:50 AM) 2. Have you actually had any thoughts of killing yourself?: No (03/01/2025 9:50 AM) Thoughts of killing yourself (Description): getting into a car accident (02/24/2025 9:30 PM) 3. Have you been thinking about how you might kill yourself? : Yes (02/24/2025 9:30 PM) Non-Specific Active Suicidal Thoughts (Description): getting into a car accident (02/24/2025 9:30 PM) 4. Have you had these thoughts and had some intention of acting on them?: Yes (02/24/2025 9:30 PM) Suicidal Intent Without Specific Plan (Description): getting into a car accident (02/24/2025 9:30 PM) 5. Have you started to work out or worked out the details of how to kill yourself? Do you intend tocarry out this plan?: No (02/24/2025 9:30 PM) 6. Have you ever done anything, started to do anything, or prepared to do anything to end your life?: No (03/01/2025 9:50 AM) 6b. Was this within the past 3 months?: No (02/24/2025 9:30 PM) Suicide Risk and Interventions: Low (03/01/2025 9:50 AM) Intensity of Ideation (Past Month) Most Severe Ideation Description (Past Month): I just don't want to wake up in the morning. (03/01/2025 9:50 AM) How many times have you had these thoughts? (Past Month): Daily or almost daily (03/01/2025 9:50 AM) When you have the thoughts how long do they last? (Past Month): 1-4 hours/a lot of time (59:50 AM) Could/can you stop thinking about killing yourself or wanting to if you want to? (Past Month): Can control thoughts with some difficulty (03/01/2025 9:50 AM) Are there things - anyone or anything (e.g., family, druze, pain of ) - that stopped you from wanting to or acting on thoughts of committing suicide? (Past Month): Uncertain that deterrents stopped you (03/01/2025 9:50 AM) Reasons for Ideation (Past Month): Mostly to end or stop the pain (You couldn't go on living with the pain or how you were feeling) (03/01/2025 9:50 AM) Depressive Symptoms: Depressive Symptoms Symptoms: Persistent sadness or low mood; Difficulty concentrating (02/26/2025 8:06 AM) Onset of Current Symptoms: Multiple years (03/01/2025 9:50 AM) Symptoms not addressed: Crying; Feelings of helplessness; Increased irritability (03/01/2025 9:50 AM) Describe: Pt rates depression at a 02/11 today (03/01/2025 9:50 AM) Anxiety Symptoms: Anxiety Symptoms Symptoms: Restlessness or feeling ???on edge?? ; Difficulty concentrating; Sleep disturbance; Palpitations; Sweating; Trembling or shaking; Sensations of shortness of breath; Chest pain or discomfort; Nausea or abdominal distress; Unexplained fears; Feelings of doom; Compulsive behaviors; Obsessions (03/01/2025 9:50 AM) Onset of Current Symptoms: Multiple years (03/01/2025 9:50 AM) Genesis Symptoms: Manic Symptoms Symptoms: Increased energy; Less need to sleep; Increased spending; Increase in goal directed activities; Flight of ideas (03/01/2025 9:50 AM) Onset of Current Symptoms: Multiple years (03/01/2025 9:50 AM) Description of Observation: yes and then it just goes away, then the stuff I buy never gets put away. (02/22/2025 8:53 AM) Psychotic Symptoms: Psychotic Symptoms Hallucination Type: Nothing Observed or Reported (03/01/2025 9:50 AM) Hallucinations (describe): Pt denies (03/01/2025 9:50 AM) Delusion Type: No problems reported or observed (03/01/2025 9:50 AM) Delusions (describe): Pt denies (03/01/2025 9:50 AM) Functional Screen: Functional Screen: ARCHAEOLOGY PROFESSOR Ambulation: independent (03/01/2025 9:50 AM) Transferring: independent (03/01/2025 9:50 AM) Toileting: independent (03/01/2025 9:50 AM) Bathing: independent (03/01/2025 9:50 AM) Dressing: independent (03/01/2025 9:50 AM) Eating: independent (03/01/2025 9:50 AM) Communication: understands/communicates w/o difficulty (03/01/2025 9:50 AM) Swallowing: swallows foods and liquids w/o difficulty (03/01/2025 9:50 AM) Visual Needs/Hearing Needs: Visual WNL and Hearing WNL Sleep: Sleep Hours Night (6p-6a): 5 (03/01/2025 9:50 AM) Additional Sleeping Concerns: snoring, unable to stay asleep, unable to go back to sleep, feeling unrested. Behavioral Health Nutrition Unintentional weight loss/gain of 10lbs or more in last 3mo?: Yes (03/01/2025 9:52 AM) How much weight loss?: 10 pounds (03/01/2025 9:52 AM) Have you had a decrease in appetite/food intake?: Yes (03/01/2025 9:52 AM) Nutrition Risk Screen: No indicators present (03/01/2025 9:52 AM) Eating Disorder Behaviors?: No indicators present (03/01/2025 9:52 AM) Food Allergies?: No (03/01/2025 9:52 AM) Dental Problems?: Tooth pain/sensitivity; Tooth/teeth missing (03/01/2025 9:52 AM) Additional Assessments Performed: None indicated (03/01/2025 9:52 AM) Psychosocial: Living Situation/Arrangements Current Living Situation: Two-story home (03/01/2025 9:48 AM) Living Arrangements: Lives with family member(s) ( and kids) (03/01/2025 9:48 AM) Additional Employment Concerns/Needs: Pt is continuing to work at this time while in IOP. Recommended for pt to maybe take a couple weeks off to help recover. Pt will discuss with employer. Bullying Are you being bullied or bullying others: No (03/01/2025 9:49 AM) Days Missed From School/Work in Past Month Days Missed From School/Work in Past Month: 4 (03/01/2025 9:49 AM) Additional Psychosocial Concerns: None History of Abuse/Trauma: Have you experienced abuse in your lifetime?: No (03/01/2025 9:49 AM) Adverse Childhood Experiences (DO) Did a parent or other adult in your houshold often swear at you, insult you, put you down/humiliateyou? Or act in a way that made you afraid that you might be physically hurt?: 0 (03/01/2025 9:50 AM) Did a parent or adult in your houshold often push, grab, slap, or throw something at you? Or ever hit you so hard it left cisneros or you were injured?: 0 (03/01/2025 9:50 AM) Did an adult/person at least 5 yrs older than you ever touch/fondle you or have you touch his/her body in a sexual way? Or attempt/actually have oral, anal, or vaginal intercourse with you?: 0 (03/01/2025 9:50 AM) Did you often feel that no one in your family loved you or thought you were important/special? Or your family didn't look out for each other, feel close to each other, or support each other?: 1 (03/01/2025 9:50 AM) Did you often feel that you didn't have enough to eat, had to wear dirty clothes, had no one to protect you? Or your parents were too drunk/high to take care of you or take you to the doctor if needed?: 0 (03/01/2025 9:50 AM) Were your parents ever or ?: 1 (03/01/2025 9:50 AM) Was your parent often pushed, grabbed, slapped, or had something thrown at him/her? Or sometimes kicked, bitten, hit with a fist, or hit with something hard? Or ever repeatedly hit for a few minutes or threatned with a gun/knife?: 0 (03/01/2025 9:50 AM) Did you live with anyone who was a problem drinker or alcoholic or who used street drugs?: 1 (03/01/2025 9:50 AM) Was a household member depressed or mentally ill, or attempt suicide?: 1 (03/01/2025 9:50 AM) Did a household member go to senior care?: 0 (03/01/2025 9:50 AM) DO Score: 4 (03/01/2025 9:50 AM) Substance Use History/ Other Addictive Behaviors: Substances Substances: Cannabis (03/01/2025 9:48 AM) Alcohol Route: oral (02/23/2025 7:34 PM) Alcohol Frequency: socially (02/23/2025 7:34 PM) Alcohol Amount: socially (02/23/2025 7:34 PM) Last Use of Alcohol: unknown at this time (02/23/2025 7:34 PM) History of Alcohol Withdrawal: No (02/23/2025 7:34 PM) Cannabis Route: oral (03/01/2025 9:48 AM) Cannabis Frequency: maybe once a week to help with sleep (03/01/2025 9:48 AM) Cannabis Amount: varies (03/01/2025 9:48 AM) Last use of cannabis: last week (03/01/2025 9:48 AM) Any family history of substance abuse problems?: no (02/24/2025 9:30 PM) Support System: Family/Support System [employer] Senior Officer(s) : spouse, Phil Morris/[phone] (02/23/2025 7:28 PM) SUKHI Signed: Yes (02/23/2025 7:44 PM) Support System: mother and significant other (02/23/2025 7:28 PM) Support System SUKHI Signed: No (02/23/2025 7:28 PM) Current Outpatient Providers: PCP: Gilmar Galvan MD Last visit/physical: 02/18/2025 Therapist: None Psychiatrist: Dr. Vasyl Last Educational Needs: ADLs: Concerns reported as follows: Extremely difficult Smoking Cessation: WNL and No Special Needs Identified Medication Management: Understands current regimen and reports compliance Exercise: Denies Concerns documented in this encounter H&P Notes * Jaye Garcia MD - 03/01/2025 8:00 AM CDT Psychiatric Admission Note PATIENT NAME: Kylie Marks REASON FOR ADMISSION: worsening anxiety; panic attacks CHIEF COMPLAINT: I feel panicky HISTORY OF PRESENT ILLNESS: Kylie Marks is a 34 y.o. female who was referred to [facility]. Patient was admitted to psychiatric IOP for panic attacks and worsening anxiety. Per intake notes, Pt is 34-year-old female presented to ED alone with anxiety, depression, passiveSI accompanied by spouse via private vehicle. Pt reported that she drove herself to ED after panic attacks worsened and she could not take them anymore. Pt was labile, teary, restless, fidgety, quiet, cooperative, alert, oriented, depressed, anxious mood/affect with some eye contact. Pt reported history of anxiety, depression, cannabis use, and currently does not have mental health providers. Pt reported worsening panic attacks for the past 3 months and saw her PCP today decide to come to ED for medication. Pt has had several ED visits in [place] and [place] with recommendation to follow up with IOP. 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 Pt reported stressors around being a mother, parenting her two children, marriage, and mood swings. Pt reported difficulty falling and staying asleep, in appetite, denies any abuse, and denies legal issues. Pt lives with spouse, two children, and denies access to firearms. Pt reported THC use and denied other substance use. Pt denied wanting to hurt others, denied hallucinations, and denied wanting to end her life. Pt continues to endorse low mood, feeling helpless, hopeless, and a burden. Pt and spouse are aware of the recommendation to [facility] at [facility] with 02/24/2025 start date and are agreeable. ED Provider is also aware of the plan to discharge to [facility] and is agreeable. Collateral Information Reports: spouse reported concerns around pt's worsening anxiety/panic attacks. Spouse denied safety concerns and denied pt made suicide statements. On current evaluation, patient reports feeling overwhelmed. She was briefly admitted to [facility] and hadto be admitted to inpatient due to active suicidal ideations with a plan to drive her car off the bridge. She was discharged from inpatient and was readmitted to [facility]. During current evaluation patient was tearful and states that she felt better while inpatient and pushed for discharge earlier than what she should have. She slept well while inpatient but is again struggling since coming back home.She continues to feel overwhelmed and panicky. Her clonazepam prescription along with an EpiPen andother items were misplaced during inpatient hospitalization and she needed a new prescription today. She continues to feel anxious and worries a lot. She has hopeless helpless thoughts and a passive wish of not waking up. She denies any suicidal ideations and contracts for safety. She wants to live and get better for her children and . No past history of manic or psychotic symptoms. Depression symptoms: depressed mood, difficulty concentrating, fatigue, feelings of worthlessness/guilt, and hopelessness; guilt Genesis symptoms: none Psychotic symptoms: none PTSD symptoms: none Current symptoms, which are not stable and causing significant dysfunction, require intensive levelof care. PAST PSYCHIATRIC HISTORY: O/P Psychiatrist/therapists: Was seen by Dr. Saeed; Appointment with Dr. Last this week. [facility] Previous diagnosis: ESTHER; MDD Previous admissions: no Previous suicide attempts: no Past Medication History: yes; Prozac --> Effexor--> Paxil. On Paxil since 1 week. ALLERGIES: Allergies Allergen Reactions Ketorolac Tromethamine Shortness of Breath/Wheezing Clonazepam Diarrhea Pt states, It only gives me diarrhea, but I still take it Penicillins Rash CURRENT MEDICATIONS: Current Outpatient Medications on File Prior to Encounter Medication Sig Dispense Refill acetaminophen (TYLENOL) 500 mg tablet Take 500 mg by mouth every 6 hours as needed for Pain. PARoxetine HCl (PAXIL) 20 mg tablet Take 1 Tablet (20 mg) by mouth daily. 30 Tablet 1 clonazePAM (KlonoPIN) 1 mg tablet Take 1 Tablet (1 mg) by mouth 2 times daily. 30 Tablet 0 busPIRone (BUSPAR) 10 mg tablet Take 1 Tablet (10 mg) by mouth 3 times daily. 90 Tablet 0 norethindrone Ac-Eth estradiol (Loestrin 05/24, ,) 1-20 mg-mcg tablet Take 1 Tablet by mouth daily. 112 Tablet 3 No current facility-administered medications on file prior to encounter. SUBSTANCE ABUSE HISTORY: Tobacco: Social History Tobacco Use Smoking Status Never Passive exposure: Never Smokeless Tobacco Never . reports that she has never smoked. She has never been exposed to tobacco smoke. She has never used smokeless tobacco. ETOH: Social History Substance and Sexual Activity Alcohol Use Not Currently Comment: vary rare social use . reports that she does not currently use alcohol. Illicit Drugs: Social History Substance and Sexual Activity Drug Use Yes Frequency: 1.0 times per week Types: Marijuana Comment: edibles maybe once a week . reports current drug use. Frequency: 1.00 time per week. Drug: Marijuana.. FAMILY PSYCHIATRIC HISTORY: Reports depression and anxiety in mom. 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 [employer] Education:college graduate Parents:living and involved Siblings:yes ; 24 yo triplets- both the sisters have special needs, 1 brother History of Abuse:no Brief pertinent Developmental History:unremarkable Legal: none reported PAST MEDICAL HISTORY has a past medical history of ADD (attention deficit disorder) (2017), Anxiety (2009), Asthma (1993), Chlamydia (10/24/2021), Clostridium difficile enterocolitis (03/11/2024), COVID-19 vaccine administered (07/2020), Depression, Endometriosis determined by laparoscopy (2010), Gestational diabetes mellitus, class A1 (05/28/2022), abnormal cervical Pap smear, and Pseudotumor cerebri (2003). She has no past medical history of Hyperthyroidism. FAMILY MEDICAL HISTORY: family history includes Diabetes in her maternal grandmother; Healthy in her brother, brother, brother, father, mother, and son; Hypertension in her maternal grandmother; Leukemia in her maternal grandfather; Other in her sister and sister. LABS ON ADMISSION: No results found for this visit on 03/01/25 (from the past 24 hours). REVIEW OF SYSTEMS GEN: Detailed in HPI Skin: No rashes or eruptions HEENT: no sinus complaints Lungs: No cough, shortness of breath, or wheezing Cardiac: No Chest Pain GI: No n/v, no abdominal pain or change in bowel habits : No dysuria Musculoskeletal: No back pain NEURO: no prior cva or seizure All other ROS reviewed and are negative except as noted in History and Physical Examination. General Appearance: Kempt; tearful Behavior: adequate rapport can be established Attitude: Cooperative Eye Contact: Fair Psychomotor: Normal Gait: Stable Motor Exam: Grossly Normal Speech: Normal Language: Able to name an object Associations: Normal Thought Process: goal directed Thought Content: feels overwhelmed; guilt+; hopeless; wish+; denies SI Mood: Depressed; anxious Affect: Constricted and Congruent Insight: Fair Judgment: Fair Consciousness: Alert Orientation: x3 Memory: Recent and remote intact Intellect: Normal Attention span: normal Patient Assets: Access to treatment Diagnosis: Major depressive disorder, recurrent, severe, without psychotic symptoms Generalized anxiety disorder Panic disorder PLAN/RECOMMENDATIONS After discussing the risks and benefits of different types of therapy including medication management and its side effects, it was suggested to the patient to implement the following recommendations: Admit to psychiatric IOP under my service. Cut back on cannabis. Continue Paxil 20 mg hs, increase last week. Continue Clonazepam 1 mg bid. New prescription was given as her prescription was misplaced during inpatient hospitalization per patient. Increase Buspar to 15 mg tid. Encourage groups Consider medication adjustments IOP Frequency: 4 times a week. Risks, benefits, treatment options and alternatives reviewed with patient and agrees with the aboveplan. Jaye Garcia MD documented in this encounter Miscellaneous Notes * Group Note - Ana Saeed LPC - 03/01/2025 12:00 PM CDT [facility] Group Note Group 1 Date: 03/01/2025 Time of Session: Start Time: 9:00 End Time: 10:00 Number of group members present in group: 5 Process Group Topic: goal setting and illness management Geodetic Engineer(s): Ana Saeed LPC Group 2 Date: 03/01/2025 Time of Session: Start Time: 10:05 End Time: 11:05 Number of group members present in group: 5 Process Group Topic: mindfulness skills Geodetic Engineer(s): Ana Saeed LPC Group 3 Date: 03/01/2025 Time of Session: Start Time: 11:10 End Time: 12:10 Number of group members present in group: 5 Process Group Topic: grounding skills Geodetic Engineer(s): Ana Saeed LPC Group 1 Observation/Assessment: At this session, Kylie's cognition is noted to be Alert Kylie's appearance is noted to be appropriately dressed for weather/season and well-groomed Kylie's eye contact is noted to be Good Kylie's speech is noted to be clear and normal rate and rhythm Kylie's thoughts are noted to be organized Kylie's mood is noted to be anxious and depressed Kylie's affect is noted to be congruent with mood Kylie's insight and judgment are noted to be improving Kylie presents with the current symptoms of anger or anger outbursts, anxiety, and depression, reports positive experience with inpatient stay, feels she may have pushed herself to discharge too soon, reports engaging in self-injurious behavior by driving too fast, states she feels like she wants to cry but cannot, good support from Kylie reports passive suicidal thoughts but no plan or intent. and does not report homicidal thoughts and plans Kylie's level of group participation for this session was active/cooperative Kylie reported the following information: level of pain as 3/10 level of depression as 10 (maximum level)/10 level of anger as 6/10 level of anxiety as 10 (maximum level)/10 5-6 hours of sleep in the last 24 hours and Does not report feeling rested upon waking. Kylie Reports medication compliance in the last 24 hours. Regarding substance use in the past 24 hours, Kylie denies substance use or misuse. Interventions: Clinician facilitated processing goals regarding mental health treatment, reviewed daily self-report, provided validation and a safe space to discuss some life events affecting their mental health. Patient Response: Kylie reports using the following healthy coping skills to manage mental health symptoms in the last 24 hours: meditation, support contacts, inpatient care for 3 days. Kylie identified the following treatment goal/plan for today: read, stick to my routine. Group 2 Observation/Assessment: At this session, Kylie's cognition is noted to be Alert Kylie's appearance is noted to be appropriately dressed for weather/season and well-groomed Kylie's eye contact is noted to be Good Kylie's speech is noted to be clear and normal rate and rhythm Kylie's thoughts are noted to be organized Kylie's mood is noted to be anxious and depressed Kylie's affect is noted to be congruent with mood Kylie's insight and judgment are noted to be improving Kylie presents with the current symptoms of no new symptoms reported Kylie does not report suicidal thoughts or plans and does not report homicidal thoughts and plans Kylie's level of group participation for this session was active/cooperative Interventions: Clinician provided education on mindfulness, the benefits, and a variety of techniques to practice mindfulness, provided education on the DBT RAIN method of mindfulness, watched and participated in mindfulness meditation video, practiced the 5-4-3-2-1 method Patient Response: Kylie responded to group topic by actively engaging in group discussion. 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 I have a daily checklist I got from the hospital and it's really been helping me stay in the moment and stay on track. She participated in the meditation and group practice of the 5-4-3-2-1 method. Group 3 Observation/Assessment: At this session, Kylie's cognition is noted to be Alert Kylie's appearance is noted to be appropriately dressed for weather/season and well-groomed Kylie's eye contact is noted to be Good Kylie's speech is noted to be clear and normal rate and rhythm Kylie's thoughts are noted to be organized Kylie's mood is noted to be anxious and depressed Kylie's affect is noted to be congruent with mood Kylie's insight and judgment are noted to be improving Kylie presents with the current symptoms of no new symptoms reported Kylie does not report suicidal thoughts or plans and does not report homicidal thoughts and plans Kylie's level of group participation for this session was active/cooperative Interventions: Clinician provided education on grounding techniques for mental, physical and soothing grounding and when to use them, practiced the categories skill and mental exercises skill, facilitated group grounding activity Patient Response: Kylie responded to group topic by actively engaging in group discussion. She identified some of the grounding skills she will try are, eating something in a savoring way and giving myself positive coping statements. She participated in the group grounding activity by using a mental grounding skill. They communicated what they took away from today's group is, grounding techniques and mindfulness skills. documented in this encounter Plan of Treatment Upcoming Encounters Date Type Department Care Team (Latest Contact Info) Description 03/01/2025 Plan of Care Documentation [facility] [address] [place] [address] 03/03/2025 9:00 AM CDT Hospital Encounter [facility] [address] [address] [place] [address] 03/04/2025 9:00 AM CDT Appointment [facility] [address] [address] [place] [address] 03/07/2025 9:00 AM OVEN STRIPPER Appointment [facility] [address] [address] [place] [address] 03/09/2025 9:00 AM OVEN STRIPPER Appointment [facility] [address] [address] [place] [address] 03/10/2025 9:00 AM OVEN STRIPPER Appointment [facility] [address] [address] [place] [address] 03/11/2025 9:00 AM OVEN STRIPPER Appointment [facility] [address] [address] [place] [address] documented as of this encounter Visit Diagnoses Diagnosis ESTHER (generalized anxiety disorder) Generalized anxiety disorder documented in this encounter Additional Health Concerns Assessment Noted Time PHQ-9 Depression Total Score: 6 03/01/20 25 9:50 AM CDT documented as of this encounter Care Teams Tea Blender Relationship Specialty Start Date End Date Gilmar Galvan MD [address] [place] [address] PCP - General Family Practice 12/09/18 documented as of this encounter
--- OUTSIDE RECORDS SUMMARY | 2025-03-01 08:00 | XMS_ITS | Encounter Summary ---
Author Organization [facility] Address [address] [place] [address] Care Team Providers Care Braiding Machine Tender Name Role Phone Gilmar Galvan MD Primary Care Provider Reason for Visit * Auth/Cert (Routine) Specialty Diagnoses / Procedures Referred By Laura ledesma Referred To Contact Behavioral Health [facility] [address] [facility] [address] [place] [address] Phone: tel: fax: Referral ID Status Reason Start Date Expiration Date Visits Re quested Visits Authorized [id number] 1 1 Encounter Details Date Type Department Care Team (Latest Contact Info) Description 03/01/2025 8:00 AM CDT - 03/01/2025 11:59 PM CDT Hospital Encounter [facility] [address] [facility] [address] [place] [address] [place] [address] [place] [address] Arrived Discharge Disposition: Home or [...] worry about transportation for future doctor visits, black pickler medication, etc.? No 2024 Housing Stability Answer [...] on file Legal Sex Female 3:13 AM LEVELMAN Gender Identity Not on file Sexual Orientation [...] (03/01/2025 9:50 AM) INITIAL ASSESSMENT Functional Screen [employer]: Functional Screen: [employer] Ambulation: independent (03/01/2025 9:50 AM) Transferring: independent [...] Emotional State: anxiety; depression (03/01/2025 9:50 AM) Azhzftcni-[id number]-Oftsco Congruency: Mood congruent with verbalized report; Behaviors [...] things - anyone or anything (e.g., family, worship, pain of ) - that stopped you [...] (03/01/2025 9:50 AM) Functional Screen: Functional Screen: [employer] Ambulation: independent (03/01/2025 9:50 AM) Transferring: independent [...] AM) Did a household member go to skilled nursing?: 0 (03/01/2025 9:50 AM) DO Score: 4 [...] (02/24/2025 9:30 PM) Support System: Family/Support System End Stapler(s) : spouse, Phil Morris/[phone] (02/23/2025 7:28 PM) SUKHI Signed: Yes (02/23/2025 [...] 34 y.o. female who was referred to [facility]. Patient was admitted to psychiatric IOP for [...] Pt has had several ED visits in [place] and [place] with recommendation to follow up with IOP. 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 Pt reported stressors [...] spouse are aware of the recommendation to [facility] at [facility] with 02/24/2025 start date and are agreeable. ED Provider is also aware of the plan to discharge to [facility] and is agreeable. Collateral Information Reports: spouse reported concerns around pt's worsening anxiety/panic attacks. Spouse denied safety concerns and denied pt made suicide statements. On current evaluation, patient reports feeling overwhelmed. She was briefly admitted to [facility] and hadto be admitted to inpatient due to active suicidal ideations with a plan to drive her car off the bridge. She was discharged from inpatient and was readmitted to [facility]. During current evaluation patient was tearful and [...] Appoint[facility] with Dr. Last this week[facility]. 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 [employer] Education:college graduate Parents:living and involved Siblings:yes [...] LPC - 03/01/2025 12:00 PM CDT [facility] Group Note Group 1 Date: 03/01/2025 Time of Session: Start Time: 9:00 End Time: 10:00 Number of group members present in group: 5 Process Group Topic: goal setting and illness management Awning Frame Maker(s): Ana Saeed LPC Group 2 Date: 03/01/2025 Time of Session: Start Time: 10:05 End Time: 11:05 Number of group members present in group: 5 Process Group Topic: mindfulness skills Awning Frame Maker(s): Ana Saeed LPC Group 3 Date: 03/01/2025 Time of Session: Start Time: 11:10 End Time: 12:10 Number of group members present in group: 5 Process Group Topic: grounding skills Awning Frame Maker(s): Ana Saeed LPC Group 1 Observation/Assessment: At [...] the opposite of mindfulness when going on auto-navy fighter pilot like, when you drive somewhereand you [...] Info) Description 03/01/2025 Plan of Care Documentation [facility] [address] [place] [address] 03/03/2025 9:00 AM CDT Hospital Encounter [facility] [address] [address] [place] [address] 03/04/2025 9:00 AM CDT Appointment [facility] [address] [address] [place] [address] 03/07/2025 9:00 AM LEVELMAN Appointment [facility] [address] [address] [place] [address] 03/09/2025 9:00 AM LEVELMAN Appointment [facility] [address] [address] [place] [address] 03/10/2025 9:00 AM LEVELMAN Appointment [facility] [address] [address] [place] [address] 03/11/2025 9:00 AM LEVELMAN Appointment [facility] [address] [address] [place] [address] documented as of this encounter Visit Diagnoses Diagnosis ESTHER (generalized anxiety disorder) Generalized anxiety disorder documented in this encounter Additional Health Concerns Assessment Noted Time PHQ-9 Depression Total Score: 6 03/01/20 25 9:50 AM CDT documented as of this encounter Care Teams Braiding Machine Tender Relationship Specialty Start Date End Date Gilmar Galvan MD [address] [place] [address] PCP - General Family Practice 12/09/18 documented as of this encounter
--- OUTSIDE RECORDS SUMMARY | 2025-03-02 08:18 | XMS_ITS | Encounter Summary ---
Author Organization [facility] Address [address] [place] [address] Care Team Providers Care Regional Director Of Admissions Name Role Phone Gilmar Galvan MD Primary Care Provider Reason for Visit * Auth/Cert (Routine) Specialty Diagnoses / Procedures Referred By Laura ledesma Referred To Contact [facility] [address] [facility] [address] [place] [address] Phone: tel: fax: Referral ID Status Reason Start Date Expiration Date Visits Re quested Visits Authorized [id number] 1 1 Encounter Details Date Type Department Care Team (Late st Contact Info) Description 03/02/2025 8:18 AM CDT Hospital Encounter [facility] [address] [facility] [address] [place] [address] [place] [address] [place] [address] Arrived Social History Tobacco Use Types Packs/Day Years [...] worry about transportation for future doctor visits, diamond picker medication, etc.? No 2024 Housing Stability [...] on file Legal Sex Female 3:13 AM PASTRYCOOK'S ASSISTANT Gender Identity Not on file Sexual Orientation Not on file Occupation Industry Job Start Date Job End Date Not on file Not on file Not on file Not on file documented as of this encounter Progress Notes * Jaye Garcia MD - 03/02/2025 9:00 AM CDT Kylie Marks Chief Complaint: Not good Subjective: Kylie was seen on this day. She was tearful and reported not doing good. She felt miserable last evening and her could not be contacted. She tried calling her mother who did not diamond picker her phone. Patient started having thoughts of taking all the tablets that were in her possession in order to not feel anything. She called her sister who is a psych nurse and she was able to talk her down. She currently denies any suicidal thoughts or fleeting thoughts of wanting to take all of her medications. Her medications have been locked up by her now. We discussed inpatient hospitalization due to her expressed mood, but she does not want to and is mario for safety. She feels e xtremely anxious and overwhelmed. Her BuSpar dose was increased yesterday. I will momentarily increase her clonazepam dose to 2 mg bid for the next couple of days to help the anxiety settle down and will decrease it back to the current dose thereafter. Location: Anxiety; panic; depression (Primary Problem) Problem has worsened. Context: Overwhelmed with full-time job and 2 young kids. Severity:4-5/10 with 10 being Best. Duration:weeks. Modifying Factors: Medications; therapy. Associated Symptoms: MOOD:anxious and depressed. ANHEDONIA: yes. APPETITE: loss of appetite. SLEEP: mildly decreased. CONCENTRATION: reduced. FATIGUE: varying. RESTLESSNESS: moderate. SUICIDAL IDEATION: no. SUICIDAL PLAN: no. SUICIDAL INTENT: no. HOMICIDAL IDEATION: no. HALLUCINATIONS: no. DELUSIONS: no. Past,Family, & Social History: [x] Check if no change from my initial eval. done on 03/01/2025. OBJECTIVE: Mental Status Exam: Appearance: Adequately groomed; tearful Attitude: Cooperative Eye contact: Good Mood: Anxious; breast Affect: congruent to mood Thought process: Goal directed Thought content: denies delusions, denies SI/HI; easily overwhelmed; panic attacks; hopeless and helpless Insight: Fair Judgement: Fair Muscle strength and Tone: Normal/normal Gait:normal. Current Outpatient Medications on File Prior to Encounter Medication Sig Dispense Refill busPIRone (BUSPAR) 15 mg Tablet Take 1 Tablet (15 mg) by mouth 3 times daily. 90 Tablet 0 clonazePAM (KlonoPIN) 1 mg tablet Take 1 Tablet (1 mg) by mouth 2 times daily. 30 Tablet 0 PARoxetine HCl (PAXIL) 20 mg tablet Take 1 Tablet (20 mg) by mouth daily. 30 Tablet 1 norethindrone Ac-Eth estradiol (Loestrin 1/, 21,) 1-20 mg-mcg tablet Take 1 Tablet by mouth daily. 112 Tablet 3 No current facility-administered medications on file prior to encounter. ASSESSMENT: PRIMARY DIAGNOSIS: Major depressive disorder, recurrent, severe, without psychotic symptoms Generalized anxiety disorder Panic disorder Patient Active Problem List Diagnosis Code Pseudotumor cerebri syndrome G93.2 Endometriosis N80.9 Attention deficit hyperactivity disorder (ADHD), combined type F90.2 ESTHER (generalized anxiety disorder) F41.1 Fatigue R53.83 Hydronephrosis N13.30 Infectious gastroenteritis- positive c difficle A09 Uterine contractions during O47.9 Gestational diabetes mellitus, class A1 O24.410 Threatened labor, third trimester O47.03 pLTCS for AOD, (06/17) boy David circ done, - KG Z98.891 Vaginal discharge in in third trimester O26.893, N89.8 Gestational diabetes mellitus, class A2 O24.419 C. difficile colitis A04.72 rLTCS 03/15 Girl Shae SH Z98.891 Severe episode of recurrent major depressive disorder, without psychotic features (CMS/HCC) F33.2 Panic disorder F41.0 Comorbidities: [] Stable [] Complications/side effects [] Independent Management required [] Interference with management of Primary Condition(s) [x] Residual symptoms Plan: Increase clonazepam to 2 mg bid x 2 days. Will reevaluate in 2 days. BuSpar 15 mg tid increased yesterday. Continue Paxil 20 mg daily. Patient has cut back on cannabis. Support given. Patient informed of importance of compliance with chosen options. Instruction for management/treatment and/or follow up. Provided education about condition and risk factor reduction. Patient will participate in psychotherapy and Psychoeducational groups and individual therapy to reduce the intensity of pts symptoms. Coordination with: [x] Nursing [x] Accounts Executive [] Social Work [] Physician [] Family No orders of the defined types were placed in this encounter. Patient still needs continued IOP treatment due to anxiety and depression. Patient is tolerating the current medications and continues to consent to treatment plan. I discussed severity/complexity of Her illness which is high. Time spent: 32 Minutes. This includes time with patient , family , nursing staff, social service, consulting physician, treatment team, counseling&/or activities to coordinate the care of the patient . Greater than 50 % of patient time and floor time spent providing counseling and/or coordination of care. Jaye Garcia MD documented in this encounter Miscellaneous Notes * Group Note - Ana Saeed LPC - 03/02/2025 9:00 AM CDT Dianne GABRIEL IOP Group Note Group 1 Date: 03/02/2025 Time of Session: Start Time: 9:00 End Time: 10:00 Number of group members present in group: 7 Process Group Topic: goal setting and illness management School Manager(s): Ana Saeed LPC Group 2 Date: 03/02/2025 Time of Session: Start Time: 10:05 End Time: 11:05 Number of group members present in group: 7 Process Group Topic: the cognitive model School Manager(s): Ana Saeed LPC Group 3 Date: 03/02/2025 Time of Session: Start Time: 11:10 End Time: 12:10 Number of group members present in group: 7 Process Group Topic: cognitive distortions and socratic method School Manager(s): Ana Saeed LPC Group 1 Observation/Assessment: At this session, Kylie's cognition is noted to be Alert Kylie's appearance is noted to be appropriately dressed for weather/season Kylie's eye contact is noted to be Good Kylie's speech is noted to be clear and normal rate and rhythm Kylie's thoughts are noted to be organized Kylie's mood is noted to be anxious and depressed Kylie's affect is noted to be congruent with mood Kylie's insight and judgment are noted to be improving Kylie presents with the current symptoms of physical pain, anger or anger outbursts, anxiety, and depression, has too high of expectations of self so always falling short, negative core beliefs not serving her well, poor self- esteem due to this, negative self-talk/inner critic, cognitive distortions, still attempting to work while attending IOP because if she asks for leave she would be weak, had suicidal thoughts last night but was able to use safety plan, didn't feel her prn meds were working so took THC gummy and then felt guilt/shame for this Kylie reports passive suicidal thoughts but no plan or intent. and does not report homicidal thoughts and plans Kylie's level of group participation for this session was active/cooperative Kylie reported the following information: level of pain as 5/10 level of depression as 9/10 level of anger as 7/10 level of anxiety as 10 (maximum level)/10 3-4 hours of sleep in the last 24 hours and Does not report feeling rested upon waking. Kylie Reports medication compliance in the last 24 hours. Regarding substance use in the past 24 hours, Kylie reports use of marijuana/cannabis. THC gummy Interventions: Clinician facilitated processing goals regarding mental health treatment, reviewed daily self-report, provided validation and a safe space to discuss some life events affecting their mental health. Patient Response: Kylie reports using the following healthy coping skills to manage mental health symptoms in the last 24 hours: crying a lot, reviewed and used safety plan, and utilized support system. Kylie identified the following treatment goal/plan for today: not cry. Group 2 Observation/Assessment: At this session, Kylie's cognition is noted to be Alert Kylie's appearance is noted to be appropriately dressed for weather/season Kylie's eye contact is noted to be [...] was active/cooperative Interventions: Clinician provided education on the cognitive model, facilitated practicing coming up with alternative rational thoughts to various scenarios and identifying how those thoughts alteredthe emotion and behavior, facilitated discussion on topic Patient Response: Kylie responded to group topic by actively engaging in group discussion. She shared, I like the cognitive model. I tend to internalize things and then I ruminate. She successfully practiced changing negative/irrational thoughts into new rational thoughts and identified the corre sponding change in emotion and behavior for the various scenarios. Group 3 Observation/Assessment: At this session, Kylie's cognition is noted to be Alert Kylie's appearance is noted to be appropriately dressed for weather/season Kylie's eye contact is noted to be [...] was active/cooperative Interventions: Clinician provided education on cognitive restructuring and using the socratic method to question negative thoughts and practiced this skill, provided information on cognitive distortions and the various types, facilitated identifying which type of cognitive distortions individuals are using, facilitated discussion on topic Patient Response: Kylie responded to group topic by actively engaging in group discussion. She identified one of the cognitive distortions she uses is, catastrophizing. They communicated what theytook away from today's group is, do not over catastrophize things!. documented in this encounter Plan of Treatment Upcoming Encounters Date Type Department Care Team (Latest Contact Info) Description 03/01/2025 Plan of Care Documentation [facility] [address] [address] [place] [address] 03/03/2025 9:00 AM CDT Hospital Encounter [facility] [address] [address] [place] [address] 03/04/2025 9:00 AM CDT Appointment [facility] [address] [address] [place] [address] 03/07/2025 9:00 AM PASTRYCOOK'S ASSISTANT Appointment [facility] [address] [address] [place] [address] 03/09/2025 9:00 AM PASTRYCOOK'S ASSISTANT Appointment [facility] [address] [address] [place] [address] 03/10/2025 9:00 AM PASTRYCOOK'S ASSISTANT Appointment [facility] [address] [address] [place] [address] 03/11/2025 9:00 AM PASTRYCOOK'S ASSISTANT Appointment [facility] [address] [address] [place] [address] documented as of this encounter Visit Diagnoses Not on filedocumented in this encounter Additional Health Concerns Assessment Noted Time PHQ-9 Depression Total Score: 6 03/01/20 25 9:50 AM CDT documented as of this encounter Care Teams Regional Director Of Admissions Relationship Specialty Start Date End Date Gilmar Galvan MD [address] [place] [phone] PCP - General Family Practice 12/09/18 documented as of this encounter
--- OUTSIDE RECORDS SUMMARY | 2025-03-02 08:18 | XMS_ITS | Encounter Summary ---
Author Organization [facility] Address [address] [place] [address] Care Team Providers Care Mill House Supervisor Name Role Phone Gilmar Galvan MD Primary Care Provider Reason for Visit * Auth/Cert (Routine) Specialty Diagnoses / Procedures Referred By Laura ledesma Referred To Contact [facility] [address] [facility] [address] [place] [address] Phone: tel: fax: Referral ID Status Reason Start Date Expiration Date Visits Re quested Visits Authorized [id number] 1 1 Encounter Details Date Type Department Care Team (Late st Contact Info) Description 03/02/2025 8:18 AM CDT Hospital Encounter [facility] [address] [facility] [address] [place] [address] [place] [address] [place] [address] Arrived Social History Tobacco Use [...] worry about transportation for future doctor visits, sweet pickle maker medication, etc.? No 2024 Housing Stability Answer [...] on file Legal Sex Female 3:13 AM DOCUMENT CLERK Gender Identity Not on file Sexual [...] tried calling her mother who did not sweet pickle maker her phone. Patient started having thoughts of [...] pts symptoms. Coordination with: [x] Nursing [x] Community Advocate [] Social Work [] Physician [] Family [...] Group Topic: goal setting and illness management Automatic Dry Starch Operator(s): Ana Saeed LPC Group 2 Date: 03/02/2025 Time of Session: Start Time: 10:05 End Time: 11:05 Number of group members present in group: 7 Process Group Topic: the cognitive model Automatic Dry Starch Operator(s): Ana Saeed LPC Group 3 Date: 03/02/2025 Time of Session: Start Time: 11:10 End Time: 12:10 Number of group members present in group: 7 Process Group Topic: cognitive distortions and socratic method Automatic Dry Starch Operator(s): Ana Saeed LPC Group 1 Observation/Assessment: At [...] Info) Description 03/01/2025 Plan of Care Documentation [facility] [address] [address] [place] [address] 03/03/2025 9:00 AM CDT Hospital Encounter [facility] [address] [address] [place] [address] 03/04/2025 9:00 AM CDT Appointment [facility] [address] [address] [place] [address] 03/07/2025 9:00 AM DOCUMENT CLERK Appointment [facility] [address] [address] [place] [address] 03/09/2025 9:00 AM DOCUMENT CLERK Appointment [facility] [address] [address] [place] [address] 03/10/2025 9:00 AM DOCUMENT CLERK Appointment [facility] [address] [address] [place] [address] 03/11/2025 9:00 AM DOCUMENT CLERK Appointment [facility] [address] [address] [place] [address] documented as of this encounter Visit Diagnoses Not on filedocumented in this encounter Additional Health Concerns Assessment Noted Time PHQ-9 Depression Total Score: 6 03/01/20 25 9:50 AM CDT documented as of this encounter Care Teams Mill House Supervisor Relationship Specialty Start Date End Date Gilmar Galvan MD [address] [place] [address] PCP - General Family Practice 12/09/18 documented as of this encounter
--- OUTSIDE RECORDS SUMMARY | 2025-03-02 19:47 | XMS_ITS | Patient Health Record ---
Author Organization [facility] Address [address] [facility] [place] [address] Care Team Providers Care Manager Pipeline Name Role Phone Chris Brady Unavailable [phone] Ayana Miller Unavailable [phone] Allergies Allergen (clinical drug ingredient) Drug/Non Drug Allergy documented on EMR Reaction Allergy Type Onset Date Status clonazepam clonazePAM dizziness Drug Allergy Activ e ketorolac Ketorolac Unknown Drug Allergy Active Penicillin Unknown Drug Allergy Active Results Component Value Reference Range Notes UDT Reviewed date:01/24/2025 11:27:15 AM Interpretation: Performing Lab: Notes/Report: Amphetamine (AMP) neg 0 - 1000 ng/ml Buprenorphine (BUP) neg 0 - 10 ng/ml Oxazepam (BZO) neg 0 - 300 ng/ml Cocaine (QUAN) neg 0 - 300 ng/ml Methamphetamine (mAMP) neg 0 - 300 ng/ml Methylenedioxymethamphetamine (MDMA) neg 0 - 500 ng/ml Morphine (MOP) neg 0 - 25 ng/ml Methadone (MTD) neg 0 - 300 ng/ml Oxycodone (OXY) neg 0 - 300 ng/ml THC pos 0 - 50 ng/ml x neg 0 - 1000 ng/ml x neg 0 - 1000 ng/ml x neg 0 - 300 ng/ml x neg 0 - 300 ng/ml Test Reviewed [...] Status Risk Notes Problem Generalized anxiety disorder (12391429) ESTHER (generalized anxiety disorder) (F41.1) Active confirmed Problem Severe recurrent major depression without psychotic features (26252697) Severe episode of recurrent major depressive disorder, without psychotic features (F33.2) Active confirmed Problem Sleep disturbance (95811243) Sleep disturbance (G47.9) Active confirmed Vital Signs Heart Rate 88 /min 01/24/2025 Blood pressure diastolic 72 mm Hg 01/24/2025 Weight-kg 100.24 kg 01/24/2025 Blood pressure systolic 103 mm Hg 01/24/2025 Weight 221 lbs 01/24/2025 Encounters Encounter Location Date Provider Diagnosis [facility] [address] [address] 01/24/2025 Chris Malcom Encounter for test, result unknown Z32.00 ; Severe episode of recurrent major depressive disorder, without psychotic features F33.2 ; ESTHER (generalized anxiety disorder) F41.1 and Sleep disturbance G47.9 [facility] [address] 01/27/2025 Ayana Miller Assessments Encounter Date Diagnosis [...] with list of local therapists,including information on [facility] therapist walk-inavailability Encouraged follow-up with a mental health provider fortherapy (CBT or IPT recommended) Discussed use of the [employer] bryanna to contact providerwith questions/concerns between appointments [...] Insured Coverage Start Date Coverage End Date [facility] [address] [place] [address] [id number] Kylie Marks Self - patient is the [...] Surgery Date(Month/Year) Endometriosis surgically treated 06/2016 at [facility] section Hospitalization History Reason Date(Month/Year) after section
--- OUTSIDE RECORDS SUMMARY | 2025-03-02 19:48 | XMS_ITS | Encounter Summary ---
Author Organization [facility] Address [address] [place] [address] Care Team Providers Care Underwear Finisher Name Role Phone Gilmar Galvan MD Primary Care Provider Encounter Details Date Type Department Care Team (Late st Contact Info) Description 11/26/2006 Outpatient [facility] [address] [place] [address] [address] [place] [address] [place] [address] Social History Tobacco Use Types Packs/Day Years Used Date Smoking Tobacco: Never Assessed Comments Unknown Sex and Gender Information Value Date Recorded Sex Assigned at Not on file Legal Sex Female 3:13 AM RECOVERY ANALYST Gender Identity Not on file Sexual Orientation Not on file documented as of this encounter Plan of Treatment Upcoming Encounters Date Type Department Care Team (Latest Contact Info) Description 03/01/2025 Plan of Care Documentation [facility] [address] [address] [place] [address] 03/03/2025 9:00 AM CDT Hospital Encounter [facility] [address] [address] [place] [address] 03/04/2025 9:00 AM CDT Appointment [facility] [address] [address] [place] [address] 03/07/2025 9:00 AM RECOVERY ANALYST Appointment [facility] [address] [address] [place] [address] 03/09/2025 9:00 AM RECOVERY ANALYST Appointment [facility] [address] [address] [place] [address] 03/10/2025 9:00 AM RECOVERY ANALYST Appointment [facility] [address] [address] [place] [address] 03/11/2025 9:00 AM RECOVERY ANALYST Appointment [facility] [address] [address] [place] [address] documented as of this encounter Visit Diagnoses Not on filedocumented in this encounter Additional Health Concerns Infection Onset Date Last Indicated Resolved Time R/O COVID-19 07/30/2019 07/30/2019 08/04/2019 6:05 AM CDT R/O Respiratory 05/12/2022 05/12/2022 05/12/2022 4 :27 PM RECOVERY ANALYST R/O C. diff 03/11/2024 03/11/2024 03/11/2024 12:4 6 PM RECOVERY ANALYST C Diff 03/11/2024 03/11/2024 05/10/2024 1:16 AM RECOVERY ANALYST documented as of this encounter Care Teams Underwear Finisher Relationship Specialty Start Date End Date Gilmar Galvan MD [address] [place] [address] PCP - General Family Practice 12/09/18 documented as of this encounter
--- OUTSIDE RECORDS SUMMARY | 2025-03-02 19:48 | XMS_ITS | Encounter Summary ---
Author Organization [facility] Address [address] [place] [address] Care Team Providers Care Medical Driver Name Role Phone Gilmar Galvan MD Primary Care Provider Encounter Details Date Type Department Care Team (Latest Contact Info) Description 11/26/[address] [facility] [place] [address] [place], [place] [id number] Cervicalgia (Primary Dx) Social History Tobacco Use Types Packs/Day Years Used Date Smoking Tobacco: Never Assessed Comments Unknown Sex and Gender Information Value Date Recorded Sex Assigned at Not on file Legal Sex Female 3:13 AM [employer] Gender Identity Not on file Sexual Orientation Not on file documented as of this encounter Plan of Treatment Upcoming Encounters Date Type Department Care Team (Latest Contact Info) Description 03/01/2025 Plan of Care Documentation [facility] [id number] [place] [address] 03/03/2025 9:00 AM CDT Hospital Encounter [facility] [phone] [place] [address] 03/04/2025 9:00 AM CDT Appointment [facility] [phone] [address] [place] [address] 03/07/2025 9:00 AM SUPERVISOR TESTING Appointment [facility] [address] [address] [place] [address] 03/09/2025 9:00 AM SUPERVISOR TESTING Appointment [facility] [address] [address] [place] [address] 03/10/2025 9:00 AM SUPERVISOR TESTING Appointment [facility] [address] [address] [place] [address] 03/11/2025 9:00 AM SUPERVISOR TESTING Appointment [facility] [address] [place] [address] documented as of this encounter Visit Diagnoses Diagnosis Cervicalgia- Primary documented in this encounter Additional Health Concerns Infection Onset Date Last Indicated Resolved Time R/O COVID-19 07/30/2019 07/30/2019 08/04/2019 6:05 AM CDT R/O Respiratory 05/12/2022 05/12/2022 05/12/2022 4 :27 PM [employer]PERVIS[employer] TESTING R/O C. diff 03/11/2024 03/11/2024 03/11/2024 12:4 6 PM [employer] TESTING C Diff 03/11/2024 03/11/2024 05/10/2024 1:16 AM [employer]PER[employer] TESTING documented as of this encounter Care Teams Medical Driver Relationship Specialty Start Date End Date Gilmar Galvan MD [address] [place] [address] PCP - General Family Practice 12/09/18 documented as of this encounter
--- OUTSIDE RECORDS SUMMARY | 2025-03-02 19:48 | XMS_ITS | Clinical Summary ---
Author Organization [facility] Administrative Offices Address [address] [place] [address] Care Team Providers Care Smearer Name Role Phone Gilmar Galvan MD Primary Care Provider Allergies Active Allergy Reactions Criticality Noted Date Comments Clonazepam Diarrhea Low 11/29/2022 Pt states, It only gives me diarrhea, but I still take it Ketorolac Tromethamine Shortness of Breath/Wheezing High 07/16/2010 Penicillins Rash Low 03/01/2009 Medications norethindrone Ac-Eth estradiol (Loestrin 05/24, ,) 1-20 mg-mcg tablet Take 1 Tablet by mouth daily. 112 Tablet 3 02/04/20 25 Active PARoxetine HCl (PAXIL) 20 mg tabletIndicat ions:depressi on Take 1 Tablet (20 mg) by mouth daily. 30 Tablet 1 02/27/20 25 Active busPIRone (BUSPAR) 15 mg TabletIndicat ions:ESTHER (generalized anxiety disorder) Take 1 Tablet (15 mg) by mouth 3 times daily. 90 Tablet 5 2:19 PM CDT 03/01/20 25 Active clonazePAM (KlonoPIN) 1 mg tabletIndicat ions:ESTHER (generalized anxiety disorder) Take 1 Tablet (1 mg) by mouth 2 times daily. 30 Tablet 5 2:19 PM CDT 03/01/20 25 Active venlafaxine (Effexor XR) 37.5 mg Extended Release 24 hour capsuleIndica tions:ESTHER (generalized anxiety disorder) Take 1 Capsule (37.5 mg) by mouth daily. 30 Capsule 1 01/20/20 25 Discontinued ALPRAZolam (Xanax) 0.25 mg tabletIndicat ions:ESTHER (generalized anxiety disorder) Take 1 Tablet (0.25 mg) by mouth 1 time daily as needed for Anxiety. 10 Tablet 01/28/20 25 025 Discontinued(Re order) venlafaxine (Effexor XR) 37.5 mg Extended Release 24 hour capsuleIndica tions:ESTHER (generalized anxiety disorder) Take 37.5 mg by mouth daily. 02/02/20 025 Discontinued(Re order) ALPRAZolam (Xanax) 0.5 mg tabletIndicat ions:ESTHER (generalized anxiety disorder) Take 1 Tablet (0.5 mg) by mouth 1 time daily as needed for Anxiety. 10 Tablet 02/02/20 025 Discontinued(Re order) clindamycin HCL (CLEOCIN) 300 mg CapsuleIndica tions:dental abscess Take 1 Capsule (300 mg) by mouth 4 times daily for 10 days. 40 Capsule 02/08/20 Additional Information Patient not taking.Reported on 02/18/2025 chlorhexidine gluconate 0.12 % Mouthwash 15 mL by Mouth/Throat route 2 times daily. 473 mL 02/08/20 25 Discontinued PARoxetine HCl (PAXIL) 10 mg tabletIndicat ions:ESTHER (generalized anxiety disorder) Take 1 Tablet (10 mg) by mouth daily. 30 Tablet 02/09/20 25 025 Discontinued ALPRAZolam (Xanax) 0.5 mg tabletIndicat ions:ESTHER (generalized anxiety disorder) Take 1 Tablet (0.5 mg) by mouth 1 time daily as needed for Anxiety. 10 Tablet 02/09/20 25 025 Discontinued ALPRAZolam (Xanax) 0.5 mg tabletIndicat ions:ESTHER (generalized anxiety disorder) Take 1 Tablet (0.5 mg) by mouth 1 time daily as needed for Anxiety. 30 Tablet 02/16/20 25 025 Discontinued busPIRone (BUSPAR) 10 mg tabletIndicat ions:ESTHER (generalized anxiety disorder) Take 1 Tablet (10 mg) by mouth 3 times daily. 90 Tablet 02/19/20 25 025 Discontinued(Re order) ALPRAZolam (XANAX) 1 mg tabletIndicat ions:ESTHER (generalized anxiety disorder) Take 1 Tablet (1 mg) by mouth 1 time daily as needed for Anxiety. 30 Tablet 02/19/20 25 025 Discontinued(Re order) ALPRAZolam (XANAX) 1 mg tabletIndicat ions:ESTHER (generalized anxiety disorder) Take 1 Tablet (1 mg) by mouth 1 time daily as needed for Anxiety. 30 Tablet 5 11:09 AM CDT 02/22/20 025 Discontinued busPIRone (BUSPAR) 10 mg tabletIndicat ions:ESTHER (generalized anxiety disorder) Take 1 Tablet (10 mg) by mouth 3 times daily. 90 Tablet 5 11:09 AM CDT 02/22/20 25 025 Discontinued PARoxetine HCl (PAXIL) 20 mg tabletIndicat ions:ESTHER (generalized anxiety disorder) Take 1 Tablet (20 mg) by mouth daily. 30 Tablet 5 2:44 PM CDT 02/23/20 25 025 Discontinued clonazePAM (KlonoPIN) 1 mg tabletIndicat ions:ESTHER (generalized anxiety disorder) Take 1 Tablet (1 mg) by mouth 2 times daily. 30 Tablet 5 2:44 PM CDT 02/23/20 25 025 Discontinued acetaminophen (TYLENOL) 500 mg tablet Take 500 mg by mouth every 6 hours as needed for Pain. 025 Discontinued clonazePAM (KlonoPIN) 1 mg tabletIndicat ions:ESTHER (generalized anxiety disorder) Take 1 Tablet (1 mg) by mouth 2 times daily. 30 Tablet 03/01/20 25 025 Discontinued Active Problems Problem Noted Date Diagnosed Date Severe episode of recurrent major depressive disorder, without psychotic features 02/22/2025 Panic disorder 02/22/2025 rLTCS 03/15 Girl Shae SH 03/15/2024 C. difficile colitis 03/12/2024 Vaginal discharge in in third trimeste r 02/20/2024 Gestational diabetes mellitus, class A2 02/20/20 24 pLTCS for AOD, (06/17) phan Hernandez circ done, - KG 06/18/2022 Threatened labor, [...] below ESTHER (generalized anxiety disorder) 02/18/2019 Overview (02/18/2025): Anxiety - At visit on 02/18/19 pt [...] feels stress levels are OK. Takes wellbutrin [id number] qd -10/23/22 - pt reports she is [...] with psychiatry on 03/03/25 (Dr. Vasyl Last) -Patient was seen in the ER at [facility] on 02/17/2025 for panic attack and chest pain. Symptoms improved significantly with IM Valium. 02/18/25 - pt is tearful in the exam room today. No clear trigger for recent panic attack. Not sleeping well. States she wishes she could go to sleep and not wake up the next day. However, strongly denies SI/HI. Previously tried: Wellbutrin (ineffective, weight gain) Zoloft (ineffective) Prozac (helped the most) Lexapro (ineffective) Effexor (ineffective, maybe revved up) Assessment & Plan (02/18/2025 12:02 PM CDT): -continue paxil 10mg qd -increase alprazolam to 1mg QD PRN -add buspirone 10mg TID -keep appt with psychiatry on 03/03/25 (Dr. Vasyl Last) Assessment & Plan (02/15/2025 11:12 AM CDT): [...] feels stress levels are OK. Takes wellbutrin [id number] qd -Stable. Doing well overall. Continue current [...] regimen Assessment & Plan (06/27/2020 9:18 AM DEVELOPER PROGRAMMER ANALYST): Anxiety - At visit on 02/18/19 pt [...] regimen Assessment & Plan (03/08/2020 2:41 PM DEVELOPER PROGRAMMER ANALYST): Anxiety - At visit on 02/18/19 pt [...] lexapro Assessment & Plan (03/25/2019 3:27 PM DEVELOPER PROGRAMMER ANALYST): Anxiety - At visit on 02/18/19 pt [...] she was not taking adderall. -[facility] of [facility] PD[facility] on 12/09/18 showed last refill for [...] she was not taking adderall. -Review of critical access hospital PDMP on 12/09/18 showed last refill for [...] regimen Assessment & Plan (06/27/2020 9:18 AM DEVELOPER PROGRAMMER ANALYST): ADHD - diagnosed ~age 16 by her previous PCP. No formal testing. Pt reports she was taking adderall XR 30mg qd, felt this worked well for her. Previous PCP (Chuck Avalos MD) retired and pt decided to try stopping stimulant medication when he retired. States her ability to focus and perform at work decreased significantly when she was not taking adderall. -Review of critical access hospital PDMP on 12/09/18 showed last refill for [...] days Assessment & Plan (03/08/2020 2:41 PM DEVELOPER PROGRAMMER ANALYST): ADHD - diagnosed ~age 16 by her previous PCP. No formal testing. Pt reports she was taking adderall XR 30mg qd, felt this worked well for her. Previous PCP (Chuck Avalos MD) retired and pt decided to try stopping stimulant medication when he retired. States her ability to focus and perform at work decreased significantly when she was not taking adderall. -Review of [facility] on 12/09/18 showed last refill for [...] regimen Assessment & Plan (03/25/2019 3:29 PM DEVELOPER PROGRAMMER ANALYST): ADHD - diagnosed ~age 16 by her previous PCP. No formal testing. Pt reports she was taking adderall XR 30mg qd, felt this worked well for her. Previous PCP (Chuck Avalos MD) retired and pt decided to try stopping stimulant medication when he retired. States her ability to focus and perform at work decreased significantly when she was not taking adderall. -[facility] of critical access hospital PDM on 12/09/18 showed last refill [...] she was not taking adderall. -Review of [facility] on 12/09/18 showed last refill for [...] she was not taking adderall. -Review of critical access hospital PDM shows last refill for adderall was [...] Diagnosed ~2009. S/p surgical tx 06/2016 at [facility] Assessment & Plan (12/09/2018 4:04 PM CDT): Diagnosed ~2009. S/p surgical tx 06/2016 at [facility] Pseudotumor cerebri syndrome 07/05/2009 Overview (08/09/2022): -Diagnosed at age 11, had LP shunt placed at age 13. As of 12/07/20 most recent visit was in [address] Robbie Layton at [facility]. Denies any ENGLISH, nausea, vomiting or focal [...] in [address] Robbie Layton at [facility]. Denies any ENGLISH, nausea, vomiting or focal neuro deficits. -Stable. -watchful waiting Assessment & Plan (12/09/2018 4:03 PM CDT): -Diagnosed at age 11, had LP shunt placed at age 13. As of 12/09/18 most recent revision was in [address] Robbie Layton at [facility]. Denies any ENGLISH, nausea, vomiting or focal neuro deficits. -stable, watchful waiting for now. Resolved Problems Problem Noted Date Diagnosed Date Resolved Date Encounter for induction of labor 06/16/2022 06/18/2022 LLQ pain 04/05/2011 12/07/2020 pelvic pain s/p scope 07/1007/18/2010 Encounters Date Type Department Care Team Description 03/02/2025 8:18 AM CDT Hospital Encounter [facility] [address] [place] [address] Jaye Garcia MD Arrived 03/02/2025 Telephone [facility] [address] [place] [address] Leida Davis RN Return Call 03/01/2025 8:00 AM CDT - 03/01/2025 11:59 PM CDT Hospital Encounter [facility] [address] [place] [address] Jaye Garcia MD Arrived Discharge Disposition: Home or Self Care 03/01/2025 Plan of Care Documentation [facility] Program Services [address] [address] [place] [phone] 03/01/2025 Travel 02/28/2025 Telephone [facility] Program Services [address] [place] [phone] Tiara Simmons Follow Up (Re-reviewed IOP information and expectations in detail, location ([place]), and confirmed the pt's admission date (moved up from 03/08/25); to arrive at 745. Support given) 02/27/2025 Refill [facility] ADULT PSYCHIATRY - [facility] [address] [place] [address] Jaye Garcia MD ESTHER (generalized anxiety disorder) 02/25/2025 Plan of Care Documentation [facility] Behavioral [facility] Adult Senior [address] [place] [address] 02/23/2025 4:25 PM CDT - 02/26/2025 12:33 PM CDT Hospital Encounter [facility] Adult Senior [address] [place] [address] Tammy Andersen MD Garcia Ferrer, Eduardo, MD Gao, Enquan, MD Shemwell, Kathryn, MD Severe episode of recurrent major depressive disorder, without psychotic features ([facility]) Discharge Disposition: Home or Self Care 02/23/2025 External Device Data STL ABSTRACTION Provider, Abstract 02/23/2025 Travel 02/23/2025 Telephone [facility] Services [address] [address] [place] [phone] Arely Piper LPC Follow Up 02/23/2025 Telephone [facility] Services [address] [address] [place] [address] Arely iPper LPC Follow Up 02/23/2025 Telephone [facility] [address] [address] [place] [address] Arely Piper LPC Follow Up 02/23/2025 External Device Data STL ABSTRACTION Provider, Abstract 02/22/2025 8:00 AM CDT - 02/22/2025 11:59 PM CDT Hospital Encounter [facility] Services [address] [address] [place] [address] Jaye Garcia MD Discharge Disposition: Home or Self Care 02/22/2025 External Device Data STL ABSTRACTION Provider, Abstract 02/22/2025 Plan of Care Documentation [facility] [address] [address] [place] [address] 02/22/2025 Travel 02/21/2025 Telephone [facility] Services [address] [address] [place] [address] Tiara Simmons Follow Up (Discussed IOP information and expectations in detail, location ([place]), and confirmed the pt's admission date (moved up from 02/24/25); to arrive at 745. Support given) 02/20/[address] [facility] PRIMARY [facility] [address] [place] [address] Starr Sylvester RN 02/18/2025 1:49 PM CDT - 02/18/2025 6:32 PM CDT Emergency [facility] Emergency Department [address] [place] [address] Pierce Queen MD ESTHER (generalized anxiety disorder) (Primary Dx) Discharge Disposition: Home or Self Care 02/18/2025 11:40 AM CDT Office Visit [facility] [address] [place] [address] Gilmar Galvan MD ESTHER (generalized anxiety disorder) 02/18/2025 Refill [facility] [address] [place] [address] Gilmar Galvan MD ESTHER (generalized anxiety disorder) 02/18/2025 Travel 02/18/[address] [address] Gilmar Galvan MD Remote Monitoring 02/18/[address] [address] Brandy San 02/18/[address] [address] Brandy San 02/17/[address] [address] Gilmar Galvan MD Remote Monitoring 02/15/2025 10:00 AM CDT Office Visit [address] [address] Gilmar Galvan MD ESTHER (generalized anxiety disorder) 02/11/[address] [address] Gilmar Galvan MD 02/08/2025 8:20 AM CDT Video Visit [address] [phone] Silviano Barron MD ESTHER (generalized anxiety disorder) (Primary Dx) 02/08/2025 External Device Data STL ABSTRACTION Provider, Abstract 02/08/2025 Telephone [facility] IOP Program [address] [place] [address] Johana Gann, PRECISION DYER Follow Up 02/08/[address] [phone] Gilmar Galvan MD ESTHER (generalized anxiety disorder) 02/07/2025 5:30 PM CDT Video Visit [facility] [address] [place] [address] Fior Prajapati FNP Dental abscess (Primary Dx) 02/07/2025 Patient Self-Triage [facility] [address] [place] [address] 02/07/2025 Telephone [facility] IOP Program [address] [place] [phone] Johana Gnan, PRECISION DYER Follow Up 02/04/2025 Telephone [facility] Behavior[facility] Health Intake [facility] [address] [place] [address] Edgar Gray Intake and IOP 02/03/2025 2:30 PM CDT Office Visit [facility] HIGH SCHOOL MUSIC DIRECTOR - [facility] [place] [address] [facility] [facility] [facility] [address] [place] [address] Casandra Major MD Menorrhagia with regular cycle (Primary Dx); Mood changes; Current severe episode of major depressive disorder without psychotic features, unspecified whether recurrent (CMS/HCC); Anxiety state 02/03/2025 Telephone [facility] Substance Use Recovery [facility] [address] [place] [address] Zulema Cruz RN Patient call 02/01/2025 7:40 AM CDT Video Visit [facility] [address] [place] [address] Kaitlin Sellers FNP Panic attack (Primary Dx); ESTHER (generalized anxiety disorder); Moderately severe major depression (CMS/HCC) 01/31/2025 Telephone [facility] Women's Health Clinical Support [address] [address] Amy Mendez RN Heavy periods and mood issues 01/27/2025 8:20 AM CDT Video Visit [facility] [address] [place] [address] Priscilla Vera NP ESTHER (generalized anxiety disorder) (Primary Dx); Attention deficit hyperactivity disorder (ADHD), combined type; Mild episode of recurrent major depressive disorder 01/27/2025 Refill [facility] Maternal and Medicine [facility] [address] [place] [address] Gilmar Galvan MD ESTHER (generalized anxiety disorder) 01/26/2025 Refill [facility] [address] [place] [address] Gilmar Galvan MD ESTHER (generalized anxiety disorder) 01/19/2025 4:00 PM CDT Video Visit [place] [address] [place] [address] Priscilla Vera NP ESTHER (generalized anxiety disorder) (Primary Dx) 01/18/2025 External Device Data STL ABSTRACTION Provider, Abstract 01/04/2025 12:00 PM CDT Video Visit [address] [phone] Priscilla Vera NP ESTHER (generalized anxiety disorder) (Primary Dx); Mild episode of recurrent major depressive disorder 12/31/2024 Refill [facility] [address] [place] [address] Vineet Hendrix MD ESTHER (generalized anxiety disorder) 12/29/2024 External Device Data STL ABSTRACTION Provider, Abstract 12/22/2024 External Device Data STL ABSTRACTION Provider, Abstract 12/21/2024 External Device Data STL ABSTRACTION Provider, Abstract 12/14/2024 External Device Data STL ABSTRACTION Provider, Abstract 12/08/2024 External Device Data STL ABSTRACTION Provider, Abstract 12/06/2024 Patient Self-Triage [facility] PRIMARY CARE [address] [place] [address] from Last 3 Months Immunizations Immunization Administration [...] COVID-19 VACCINE - EMERGENCY USE AUTHORIZATION, MRNA, [id number](PF) 30 MCG/0.3 ML IM SUSP 08/22/2020,07/28/2020 (VARIVAX)(12 [...] worry about transportation for future doctor visits, pharmacy picking tech medication, etc.? No 2024 Housing Stability Answer [...] on file Legal Sex Female 3:13 AM DEVELOPER PROGRAMMER ANALYST Gender Identity Not on file Sexual [...] Mass Index 41.19 03/01/2025 9:38 AM CDT Plan of Treatment Upcoming Encounters Date Type Department Care Team (Latest Contact Info) Description 03/01/2025 Plan of Care Documentation [facility] [address] [address] [place] [address] 03/03/2025 9:00 AM CDT Hospital Encounter [facility] [address] [address] [place] [address] 03/04/2025 9:00 AM CDT Appointment [facility] [address] [address] [place] [address] 03/07/2025 9:00 AM DEVELOPER PROGRAMMER ANALYST Appointment [facility] [address] [address] [place] [address] 03/09/2025 9:00 AM DEVELOPER PROGRAMMER ANALYST Appointment [facility] [address] [address] [place] [address] 03/10/2025 9:00 AM DEVELOPER PROGRAMMER ANALYST Appointment [facility] Program Services [address] [address] [place] [address] 03/11/2025 9:00 AM DEVELOPER PROGRAMMER ANALYST Appointment [facility] Services [address] [place] [address] Health Maintenance Due Date Last Done Comments [...] Procedure Name Priority Date/Time Associated Diagnosis Comments EKG 12-LEAD Stat 02/23/2025 7:28 PM CDT SALICYLATE LEVEL Stat 02/18/2025 2:46 PM CDT HEMOGLOBIN AND HEMATOCRIT Stat 02/18/2025 2:46 PM CDT ETHANOL LEVEL Stat 02/18/2025 2:46 PM CDT COMPREHENSIVE METABOLIC PANEL Stat 02/18/2025 2:46 PM CDT ACETAMINOPHEN LEVEL Stat 02/18/2025 2 :46 PM CDT CERV/VAG CYTO AGE BASED SCREEN PAP W CT/NG, TRICH Routine 08/19/2023 11:51 AM CDT Supervision of high risk in first trimester Multigravida of advanced maternal age in first trimester GLUCOSE FASTING Timed Study 06/20/2022 6:53 AM DEVELOPER PROGRAMMER ANALYST from Last 3 Months or Most Recently Relevant to Health Maintenance Results * EKG 12-LEAD (02/23/2025 7:28 PM CDT) 02/23/2025 7:28 PM CDT Narrative INTERFACE SYSTEM - 02/24/2025 5:31 AM CDT [address] [address] Test Date: 2025-02-23 Pat Name: JUNOIR MONTGOMERY Department: 37 Room: 52 52 Gender: F Portfolio Management Marketing: [email or web address] : 1990 Requested By: TAMMY ANDERSEN Order Number: [id number] Reading MD: Brady Chopra Measurements Intervals [place] Rate: 97 P: 8 OK: 144 QRS: -5 QRSD: 83 T: 5 QT: 348 QTc: 442 Interpretive Statements Sinus arrhythmia with premature atrial complex Electronically Signed On 02-24-2025 5:31:35 CDT by Brady Chopra Procedure Note Brady Chopra MD - 02/24/[address], [place] [address] Test Date: 2025-02-23 Pat Name: JUNIOR MONTGOMERY Department: 37 Room: 52 52 Gender: F Portfolio Management Marketing: sharron : 1990 Requested By: TAMMY ANDERSEN Order Number: [id number] Reading MD: Brady Chopra Measurements Intervals [place] Rate: 97 P: 8 OK: 144 QRS: -5 QRSD: 83 T: 5 QT: 348 QTc: 442 Interpretive Statements Sinus arrhythmia with premature atrial complex Electronically Signed On 02-24-2025 5:31:35 CDT by Brady Chopra us Tammy Andersen MD ECG ORDERABLES Final Result Performing Organization Address City/State/[facility] Co de Phone Number INTERFACE SYSTEM Refer to clinic/hospital department * HEMOGLOBIN AND HEMATOCRIT (02/18/2025 2:46 PM CDT) HEMOGLOBIN 14.2 11.8 - 14.8 g/dL 02/18/2025 2:57 PM CDT [facility] HEMATOCRIT 41.5 35.5 - 44.0 % 02/18/2025 2:57 PM CDT [facility] Blood Venipuncture / Unknown 02/18/2025 2:46 PM CDT 02/18/2025 2:46 PM CDT us Pierce Queen MD HEMATOLOGY ORDERABLES Fin al Result Performing Organization Address City/[facility]/ZIP Co de Phone Number [facility] CLIA# [id number] [address] [place] [address] * ETHANOL LEVEL (02/18/2025 2:46 PM CDT) ETHANOL <10.10 <10.10 mg/dL 02/18/2025 4:01 PM CDT [facility] ETHANOL % <0.01 %w/v 02/18/2025 4:01 PM CDT [facility] Blood Venipuncture / Unknown 02/18/2025 2:46 PM CDT 02/18/2025 2:46 PM CDT Pierce Queen MD CHEMISTRY ORDERABLES Shahida l Result Performing Organization Address [facility] Co de Phone Number [facility] [employer] [facility] CLIA# [id number] [address] [place] [address] * ACETAMINOPHEN LEVEL (02/18/2025 2:46 PM CDT) ACETAMINOPHEN LEVEL <5 0 - 30 ug/mL 02/18/2025 3:[address] [facility] [employer] [facility] Blood Venipuncture / Unknown 02/18/2025 2:46 PM CDT 02/18/2025 2:[address] [facility] [employer] [facility] - 02/18/2025 3:36 PM CDT Therapeutic Range: 10-30 ug/mL The following Acetaminophen levels are associated with possible toxicity: 4 hours after dose >200 ug/mL 8 hours after dose >100 ug/mL 12 hours after dose >50 ug/mL Pierce Queen MD CHEMISTRY ORDERABLES Shahida l Result Performing Organization Address [facility] Co de Phone Number [facility] [employer] [facility] CLIA# [id number] [address] [place] [address] * SALICYLATE LEVEL (02/18/2025 2:46 PM CDT) SALICYLATE LEVEL 3.2 0.0 - 30.0 mg/dL 02/18/2025 3:[address] [facility] [employer] [facility] Blood Venipuncture / Unknown 02/18/2025 2:46 PM CDT 02/18/2025 2:[address] [facility] [employer] [facility] - 02/18/2025 3:36 PM CDT Negative <3.0 mg/dL Therapeutic 3.0 - 10 mg/dL Toxicity >30 mg/dl Lethal >60 mg/dL us Pierce Queen MD CHEMISTRY ORDERABLES Shahida neris Result [facility] LABORATORY SERVICES - [facility] CLIA# [id number] [address] [place] [address] * (ABNORMAL) COMPREHENSIVE METABOLIC PANEL (02/18/2025 2:46 PM CDT) [facility] [facility] SODIUM 138 136 - 145 mmol/L 02/18/2025 4:01 PM CDT [employer] LABORATORY SERVICES - [facility] POTASSIUM 4.0 3.5 - 5.0 mmol/L 02/18/2025 4:[address] [facility] LABORATORY SERVICES - [facility] CHLORIDE 102 98 - 107 mmol/L 02/18/2025 4:[address] [facility] LABORATORY SERVICES - [facility] CO2 20(L) 22 - 29 mmol/L 02/18/2025 4:[address] [facility]ORY [facility] - [facility] CALCIUM 9.5 8.6 - 10.2 mg/dL 02/18/2025 4:[address] [facility] LABORATORY SERVICES - [facility] BUN 10 6 - 20 mg/dL 02/18/2025 4:[address] [facility] LABORATORY SERVICES - [facility] CREATININE 0.76 0.51 - 0.95 mg/dL 02/18/2025 4:[address] [facility]ORY [facility] - [facility] GLUCOSE 84 74 - 99 mg/dL 02/18/2025 4:[address] [facility]ORY SERVICES - [facility] TOTAL PROTEIN 7.7 6.7 - 8.6 g/dL 02/18/2025 4:[address] [facility] LABORATORY SERVICES - [facility] ALBUMIN 4.4 3.5 - 5.2 g/dL 02/18/2025 4:[address] [facility] LABORATORY SERVICES - [facility] BILIRUBIN TOTAL 0.6 0.0 - 1.2 mg/dL 02/18/2025 4:[address] [facility]ORY [facility] - [facility] ALKALINE PHOSPHATASE 98 35 - 104 U/L 02/18/2025 4:01 PM CDT [facility] AST 37(H) <33 U/L 02/18/2025 4:01 PM CDT [facility] ALT 47(H) <34 U/L 02/18/2025 4:01 PM CDT [facility] GFR >60 >=60 mL/min/1.7 3 sq meter 02/18/2025 4:01 PM CDT [facility] Comment:eGFR calculated with 2020 CKD-EPI equation. Vegetarian diet, extremely high or low muscle mass, and may affect results. Cystatin C with Glomerular Filtration Rate is a suitable alternative for these patients. ANION GAP 16 8 - 16 mmol/L 02/18/2025 4:01 PM T [facility] Blood Venipuncture / Unknown 02/18/2025 2:46 PM CDT 02/18/2025 2:46 PM CDT Narrative [facility] - 02/18/2025 4:01 PM CDT Samples containing indocyanine green cause interferences on Total and/or Direct Bilirubin and must not be measured. us Pierce Queen MD CHEMISTRY ORDERABLES Shahida cordon Result [facility]# [id number] [address] [facility] [place] [address] * CERV/VAG CYTO AGE BASED SCREEN PAP W CT/NG, TRICH (08/19/2023 11:51 AM CDT) COMMENT (PAP): [facility] Comment: This order for age-based cervical cancer and STI screening follows ACOG guidelines(PB 168, 140, OPU908). See individual assays for performing site location. CLINICAL INFORMATION [facility] Comment:None given LAST MENSTRUAL PERIOD [facility] Comment:10/06/2022 PREV PAP: [facility] Comment:NONE GIVEN PREV BX: [facility] Comment:NONE GIVEN SOURCE [facility] Comment:Endocervix ADEQUACY: [facility] Comment: Satisfactory for evaluation. Endocervical/transformation zone component present. PAP INTERP [facility] Comment: Cytology Results: Negative for intraepithelial lesion or malignancy. COMMENT (PAP TEST) [facility] Comment: This Pap test has been evaluated with computer assisted technology. INFECTION CONTROL SPECIALIST: Rory est Soren Hdzexa Comment: DDS, CT(ASCP) CT screening location: [place] [address] [place] [address] REVIEW INFECTION CONTROL SPECIALIST: Skip CrowdStarArpita Gabriel Comment: MEF, CT(ASCP) CT screening location: [place] [address] [address] [id number] [address] [facility] Comment: EXPLANATORY NOTE: The Pap is a [...] information. HPV E6/E7 Not Detected Not Detected [facility] Comment: Methodology: Child And Family Services Specialist-Mediated Amplification This assay detects E6/E7 viral messenger RNA (mRNA) from 14 high-risk HPV types (16,18,31,33,35,39,45,51,52,56,58,59,66,68). Cervical sources are required for HPV testing. If a vaginal source from a patient who has had a total hysterectomy with removal of cervix was submitted, please contact the testing laboratory for alternative testing options. For additional information, please refer to http://GOODWIN.[employer]/faq/DID209l2 (This link if provided for information/ educational purposes only.) C TRAC RNA NOT DETECTED NOT DETECTED [facility] N.GONORRHOEAE RNA, TMA NOT DETECTED NOT DETECTED [facility] COMMENT INFECTIOUS DISEASE [facility] Comment: The analytical performance characteristics of this assay, when used to test SurePath(TM) specimens have been determined by [facility]. The modifications have not been cleared or approved by the FDA. This assay has been validated pursuant to the CLIA regulations and is used for clinical purposes. For additional information, please refer to https://GOODWIN.[employer]ocketBolt/faq/IKO397 (This link is being provided for information/ educational purposes only.) TRICHOMONAS VAGINALIS,QUALITAT HUNTER,PAP VIAL NOT DETECTED NOT DETECTED [facility] Comment: The analytical performance characteristics of this assay have been determined by [facility]. The modifications have not been cleared or approved by the FDA. This assay has been validated pursuant to the CLIA regulations and is used for clinical purposes. For additional information, please refer to http://education.[employer]ocketBolt/ faq/Trichomonastma (This link is being provided for information/ educational purposes only.) Test Performed at: [facility] [address] [place] [address] Dejon Escalera MD SL Genital SWAB OF ENDOCERVIX / Unknown 08/19/2023 11:51 AM CDT 08/20/2023 4:07 AM CDT Mona Shaver NP PATHOLOGY/CYTOLOGY ORDERABL ES Final Result Performing Organization Address City/[facility]/ZIP Co de Phone Number [facility] [phone] [facility] [address] [place] [address] * GLUCOSE FASTING (06/20/2022 6:53 AM DEVELOPER PROGRAMMER ANALYST) GLUCOSE-FASTIN G 75 74 - 99 mg/dL 06/20/2022 8:22 AM DEVELOPER PROGRAMMER ANALYST [facility] LABORATORY [facility] Blood Venipuncture / Unknown 06/20/2022 6:53 AM DEVELOPER PROGRAMMER ANALYST 06/20/2022 7:11 AM DEVELOPER PROGRAMMER ANALYST Tiara Ryan MD CHEMISTRY ORDERABLES Final Result Performing Organization Address City/[facility] Co de Phone Number [facility] [employer] [facility] CLIA# [id number] [place] [address] from Last 3 Months or Most Recently Relevant to Health Maintenance Insurance BLUE ACCESS CHOICE BCBS BLUE ACCESS/TRUE BLUE PPO RX [employer] Commercial RX [employer] PLANS (INTERNAL) [facility] Plans [facility] BLUE ACCESS/TRUE BLUE PPO Advance Directives For more information, please contact: [phone] * Full Code (Latest Code Status on File) Date Activated Date Inactivated Comments 02/24/2025 10:10 PM 02/26/2025 2:38 PM * Full Code Date Activated Date Inactivated Comments 03/15/2024 4:46 PM 03/18/2024 5:24 PM * Full Code Date Activated Date Inactivated Comments 02/20/2024 5:10 PM 02/20/2024 9:04 PM * Full Code Date Activated Date Inactivated Comments 06/17/2022 9:22 PM 06/21/2022 1:00 PM * Full Code Date Activated Date Inactivated Comments 06/16/2022 9:10 AM 06/17/2022 7:38 PM Care Teams Smearer Relationship Specialty Start Date End Date Gilmar Galvan MD [address] [place] [address] PCP - General Family Practice 12/09/18
--- OUTSIDE RECORDS SUMMARY | 2025-03-02 19:48 | XMS_ITS | Encounter Summary ---
Author Organization [facility] Address [address] [place] [address] Care Team Providers Care Tube Builder Name Role Phone Gilmar Galvan MD Primary Care Provider Encounter Details Date Type Department Care Team (Late st Contact Info) Description 06/24/2022 Lab Requisition [facility] Laboratory Services [facility] [address] [place] [address] Mona Shaver, ACTIVITY DIRECTOR [address] [facility] [address] [place] [address] Social History Tobacco Use Types Packs/Day Years Used Date Smoking Tobacco: Never Smokeless Tobacco: Never Alcohol Use Standard Drinks/Week Comments Not Currently 0 (1 standard drink = 0.6 oz pur e alcohol) vary rare social use Comments No Sex and Gender Information Value Date Recorded Sex Assigned at Not on file Legal Sex Female 3:13 AM CHURCH SUPERVISOR Gender Identity Not on file Sexual Orientation Not on file Occupation Industry Job Start Date Job End Date Not on file Not on file Not on file Not on file COVID-19 Exposure Response Date Recorded In the last 10 days, have yo u been in contact with someone who was confirmed or suspected to have Coronavirus/COVID-19? No / Unsure 06/24/2022 10:13 AM CHURCH SUPERVISOR documented as of this encounter Plan of Treatment Upcoming Encounters Date Type Department Care Team (Latest Contact Info) Description 03/01/2025 Plan of Care Documentation [facility] Outpatient Behavioral Health Program Services [address] [address] [place] [address] 03/03/2025 9:00 AM CDT Hospital Encounter [facility] Services [address] [address] [place] [address] 03/04/2025 9:00 AM CDT Appointment [facility] Services [address] [address] [place] [address] 03/07/2025 9:00 AM CHURCH SUPERVISOR Appointment [facility] Services [address] [address] [place] [address] 03/09/2025 9:00 AM CHURCH SUPERVISOR Appointment [facility] Behavioral Health Program Services [address] [address] [place] [address] 03/10/2025 9:00 AM CHURCH SUPERVISOR Appointment [facility] Services [address] [address] [place] [address] 03/11/2025 9:00 AM CHURCH SUPERVISOR Appointment [facility] Behavior[facility] Health Program Services [address] [address] [place] [address] documented as of this encounter Procedures Procedure Name Priority Date/Time Associated Diagnosis Comments CBC WITH DIFFERENTIAL Stat 06/24/2022 4:04 PM CHURCH SUPERVISOR COMPREHENSIVE METABOLIC PANEL Stat 06/24/2022 4:04 PM CHURCH SUPERVISOR documented in this encounter Results * (ABNORMAL) COMPREHENSIVE METABOLIC PANEL (06/24/2022 4:04 PM CHURCH SUPERVISOR) SODIUM 141 136 - 145 mmol/L 06/24/2022 5:23 PM CHURCH SUPERVISOR [facility] LABORATORY SERVICES [facility] POTASSIUM 4.4 3.5 - 5.0 mmol/L 06/24/2022 5:23 PM CHURCH SUPERVISOR [facility] LABORATORY [facility] Comment: Testing was performed on Serum. Specimen of choice is [place] Heparinized Plasma. Serum Potassium Reference Range: 0 years - 150 years 3.5 - 5.1 mmol/L CHLORIDE 105 98 - 107 mmol/L 06/24/2022 5:23 PM [facility] CO2 24 22 - 29 mmol/L 06/24/2022 5:23 PM [facility] CALCIUM 8.9 8.6 - 10.2 mg/dL 06/24/2022 5:23 PM [facility] [employer] LABORATORY [facility] BUN 12 6 - 20 mg/dL 06/24/2022 5:23 PM [facility] CREATININE 0.65 0.51 - 0.95 mg/dL 06/24/2022 5:23 PM [facility] GLUCOSE 87 74 - 99 mg/dL 06/24/2022 5:23 PM [facility] [employer] LABORATORY [facility] TOTAL PROTEIN 6.1(L) 6.7 - 8.6 g/dL 06/24/2022 5:23 PM [facility] Comment: Testing was performed on Serum. Specimen of choice is [place] Heparinized Plasma. Serum TP Ref. Range: 3 [...] 3.5 - 5.2 g/dL 06/24/2022 5:23 PM [facility] [employer] LABORATORY [facility] BILIRUBIN TOTAL <0.2(L) 0.3 - 1.2 mg/dL 06/24/2022 5:23 PM [facility] ALKALINE PHOSPHATASE 140(H) 35 - 104 U/L 06/24/2022 5:23 PM [facility] [employer] LABORATORY [facility] AST 13 <33 U/L 06/24/2022 5:23 PM [facility] [employer] LABORATORY [facility] ALT 23 <34 U/L 06/24/2022 5:23 PM [facility] [email or web address] [facility] GFR >60 >=60 mL/min/1.7 3 sq meter 06/24/2022 5:23 PM [facility] [email or web address] [facility] Comment:eGFR calculated with 2020 CKD-EPI equation. Vegetarian diet, extremely high or low muscle mass, and may affect results. Cystatin C with Glomerular Filtration Rate is a suitable alternative for these patients. ANION GAP 12 8 - 16 mmol/L 06/24/2022 5:23 PM [facility] [email or web address] [facility] Blood 06/24/2022 4:04 PM CHURCH SUPERVISOR 06/24/2022 5:02 PM CHURCH SUPERVISOR [facility] [email or web address] [facility] - 06/24/2022 5:23 PM CHURCH SUPERVISOR Samples containing indocyanine green cause interferences on Total and/or Direct Bilirubin and must not be measured. Mona Shaver NP CHEMISTRY ORDERABLES Final Result [facility] [email or web address] [facility]# [id number] [address] [place] [address] * (ABNORMAL) CBC WITH DIFFERENTIAL (06/24/2022 4:04 PM CHURCH SUPERVISOR) WBC 10.3(H) 4.0 - 9.8 K/uL 06/24/2022 5:10 PM [facility] [email or web address] [facility] RBC 3.13(L) 3.90 - 4.90 M/uL 06/24/2022 5:10 PM [facility] [email or web address] [facility] HEMOGLOBIN 9.0(L) 11.8 - 14.8 g/dL 06/24/2022 5:10 PM [facility] [email or web address] [facility] HEMATOCRIT 28.3(L) 35.5 - 44.0 % 06/24/2022 5:10 PM [facility] [email or web address] [facility] MCV 90.4 82.0 - 99.0 fL 06/24/2022 5:10 PM [facility] [email or web address] [facility] MCH 28.8 27.2 - 32.6 pg 06/24/2022 5:10 PM CHURCH SUPERVISOR [employer] LABORATORY SERVICES - [facility] MCHC 31.8 31.5 - 35.5 g/dL 06/24/2022 5:10 PM CHURCH SUPERVISOR [employer] LABORATORY SERVICES - [facility] RDW 14.6(H) 11.5 - 14.5 % 06/24/2022 5:10 PM CHURCH SUPERVISOR [employer] [facility] SERVICES - [facility] RDW-STDEV 47.8 37.1 - 48.7 fL 06/24/2022 5:10 PM CHURCH SUPERVISOR [employer] [facility] - [facility] PLATELETS 468(H) 140 - 350 K/uL 06/24/2022 5:10 PM CHURCH SUPERVISOR [employer] [facility] SERVICES - [facility] MPV 8.5(L) 9.3 - 12.4 fL 06/24/2022 5:10 PM CHURCH SUPERVISOR [employer] [facility] - [facility] NEUTROPHILS 65 % 06/24/2022 5:10 PM CHURCH SUPERVISOR [employer] LABORATORY SERVICES - [facility] LYMPHOCYTES 21 % 06/24/2022 5:10 PM CHURCH SUPERVISOR [employer] LABORATORY SERVICES - [facility] MONOCYTES 9 % 06/24/2022 5:10 PM CHURCH SUPERVISOR [employer] LAB[facility]ATORY SERVICES - [facility] EOSINOPHILS 2 % 06/24/2022 5:10 PM CHURCH SUPERVISOR [employer] LABORATORY SERVICES - [facility] BASOPHILS 1 % 06/24/2022 5:10 PM CHURCH SUPERVISOR [employer] LAB[facility]ATORY SERVICES - [facility] IMMATURE GRANULOCYTES 4 % 06/24/2022 5:10 PM CHURCH SUPERVISOR [employer] [facility] - [facility] Comment:IG (Immature Granulo cyte) count includes Metamyelocytes, Myelocytes, and Promyelocytes NEUTROPHIL ABSOLUTE 6.64 1.90 - 7.00 K/uL 06/24/2022 5:10 PM CHURCH SUPERVISOR [employer] LABORATORY SERVICES - . [facility] LYMPHOCYTE ABSOLUTE 2.15 0.70 - 4.50 K/uL 06/24/2022 5:10 PM CHURCH SUPERVISOR [employer] LABORATORY SERVICES - . [facility] MONOCYTE ABSOLUTE 0.87 0.10 - 1.30 K/uL 06/24/2022 5:10 PM CHURCH SUPERVISOR [employer] LABORATORY SERVICES - . [facility] EOSINOPHIL ABSOLUTE 0.17 0.00 - 0.70 K/uL 06/24/2022 5:10 PM CHURCH SUPERVISOR [employer] LABORATORY SERVICES - . [facility] BASOPHILS ABSOLUTE 0.07 0.00 - 0.20 K/uL 06/24/2022 5:10 PM CHURCH SUPERVISOR [facility] IMMATURE GRANULOCYTES ABSOLUTE 0.37(H) 0.00 - 0.03 K/uL 06/24/2022 5:10 PM CHURCH SUPERVISOR [facility] LAB[facility]ATORY [facility] Blood 06/24/2022 4:04 PM CHURCH SUPERVISOR 06/24/2022 5:02 PM CHURCH SUPERVISOR Mona Shaver NP HEMATOLOGY ORDERABLES Final Result [facility] LABORATORY [facility] CLIA# [id number] [address] [place] [address] documented in this encounter Visit Diagnoses Not on filedocumented in this encounter Additional Health Concerns Infection Onset Date Last Indicated Resolved Time R/O C. diff 03/11/2024 03/11/2024 03/11/2024 12:4 6 PM CHURCH SUPERVISOR C Diff 03/11/2024 03/11/2024 05/10/2024 1:16 AM CHURCH SUPERVISOR Assessment Noted Time PHQ-9 Depression Total Score: 5 08/17/19 22 3:00 PM CDT documented as of this encounter Care Teams Tube Builder Relationship Specialty Start Date End Date Gilmar Galvan MD [address] [place] [address] PCP - General Family Practice 12/09/18 documented as of this encounter
--- OUTSIDE RECORDS SUMMARY | 2025-03-02 19:48 | XMS_ITS | Encounter Summary ---
Author Organization [facility] Address [address] [place] [address] Care Team Providers Care Automatic Car Wash Attendant Name Role Phone Gilmar Galvan MD Primary Care Provider Encounter Details Date Type Department Care Team (Late st Contact Info) Description 11/09/2008 Outpatient Historical [facility], [address] Josh Clarke MD [address] [place] [address] [place] [address] Social History Tobacco Use Types Packs/Day Years Used Date Smoking Tobacco: Never Assessed Comments No Sex and Gender Information Value Date Recorded Sex Assigned at Not on file Legal Sex Female 3:13 AM ROOM COOLER INSTALLER Gender Identity Not on file Sexual Orientation Not on file documented as of this encounter Plan of Treatment Upcoming Encounters Date Type Department Care Team (Latest Contact Info) Description 03/01/2025 Plan of Care Documentation [facility] Outpatient Behavioral Health Program Services [address] [place] [address] 03/03/2025 9:00 AM CDT Hospital Encounter [facility]patient [facility] Program Services [address] [address] [place] [address] 03/04/2025 9:00 AM CDT Appointment [facility] Outpatient [facility] Health Program Services [address] [address] [place] [address] 03/07/2025 9:00 AM ROOM COOLER INSTALLER Appointment [facility] Services [address] [address] [place] [address] 03/09/2025 9:00 AM ROOM COOLER INSTALLER Appointment [facility] [address] [place] [address] 03/10/2025 9:00 AM ROOM COOLER INSTALLER Appointment [facility] [address] [address] [address] [place] [address] 03/11/2025 9:00 AM ROOM COOLER INSTALLER Appointment [facility] [address] [address] [place] [address] documented as of this encounter Procedures Procedure Name Priority Date/Time Associated Diagnosis Comments PATHOLOGY Routine 11/09/2008 3:21 PM CDT documented in this encounter Results * PATHOLOGY (11/09/2008 3:21 PM CDT) FINAL REPORT [facility] [address], [place] [address] Patient: JUNIOR MARKS : 1990 Procedure Date: 11/09/2008 Accession Date: 11/09/2008 Case No: [id number] Ordering Dr: JOSH CLARKE Case types AW, BW, FW, NW and SH are performed by [facility] [place], [place] SURGICAL PATHOLOGY & NON-GYNECOLOGIC CYTOPATHOLOGY REPORT [...] 06:19 am Microscopic: Received are slides labeled [id number] Junior Marks. Sections of stomach sample antral [...] pylori are not identified on H&E-stained sections. P[facility]/DRC 11.10.2008 10:07 am Staging Form: No. ELECTRONIC [...] Respiratory 05/12/2022 05/12/2022 05/12/2022 4 :27 PM ROOM COOLER INSTALLER R/O C. diff 03/11/2024 03/11/2024 03/11/2024 12:4 6 PM ROOM COOLER INSTALLER C Diff 03/11/2024 03/11/2024 05/10/2024 1:16 AM ROOM COOLER INSTALLER documented as of this encounter Care Teams Automatic Car Wash Attendant Relationship Specialty Start Date End Date Gilmar Galvan MD [address] [place] [address] PCP - General Family Practice 12/09/18 documented as of this encounter
--- OUTSIDE RECORDS SUMMARY | 2025-03-02 19:48 | XMS_ITS | Encounter Summary ---
Author Organization [facility] Address [address] [place] [address] Care Team Providers Care As400 Administrator Name Role Phone Gilmar Galvan MD Primary Care Provider Encounter Details Date Type Department Care Team (Late st Contact Info) Description 12/28/2006 Outpatient Historical [facility] [place] [address] [place] [address] Social History Tobacco Use Types Packs/Day Years Used Date Smoking Tobacco: Never Assessed Comments Unknown Sex and Gender Information Value Date Recorded Sex Assigned at Not on file Legal Sex Female 3:13 AM DRAW TENDER Gender Identity Not on file Sexual Orientation Not on file documented as of this encounter Plan of Treatment Upcoming Encounters Date Type Department Care Team (Latest Contact Info) Description 03/01/2025 Plan of Care Documentation [facility] Outpatient Behavioral Health Program Services [address] [address] [place] [address] 03/03/2025 9:00 AM CDT Hospital Encounter [facility] Outpatient Behavioral Health Program Services [address] [address] [place] [address] 03/04/2025 9:00 AM CDT Appointment [facility] Outpatient Behavioral Health Program Services [address] [address] [place] [address] 03/07/2025 9:00 AM DRAW TENDER Appointment [facility] Outpatient Behavioral Health Program Services [address] [address] [place] [address] 03/09/2025 9:00 AM DRAW TENDER Appointment [facility] Behavioral Health Program Services [address] [address] [place] [address] 03/10/2025 9:00 AM DRAW TENDER Appointment [facility] Outpatient Behavioral Health Program Services [address] [address] [place] [address] 03/11/2025 9:00 AM DRAW TENDER Appointment [facility] Services [address] [address] [place] [address] documented as of this encounter Visit Diagnoses Not on filedocumented in this encounter Additional Health Concerns Infection Onset Date Last Indicated Resolved Time R/O COVID-19 07/30/2019 07/30/2019 08/04/2019 6:05 AM CDT R/O Respiratory 05/12/2022 05/12/2022 05/12/2022 4 :27 PM DRAW TENDER R/O C. diff 03/11/2024 03/11/2024 03/11/2024 12:4 6 PM DRAW TENDER C Diff 03/11/2024 03/11/2024 05/10/2024 1:16 AM DRAW TENDER documented as of this encounter Care Teams As400 Administrator Relationship Specialty Start Date End Date Gilmar Galvan MD [address] [place] [address] PCP - General Family Practice 12/09/18 documented as of this encounter
--- OUTSIDE RECORDS SUMMARY | 2025-03-02 19:48 | XMS_ITS | Encounter Summary ---
Author Organization [facility] Address [address] [place] [address] Care Team Providers Care Animal Keeper Name Role Phone Gilmar Galvan MD Primary Care Provider Encounter Details Date Type Department Care Team (Late st Contact Info) Description 07/28/2019 Digital Self COVID-1 [...] on file Legal Sex Female 3:13 AM HEALTH CARE SPECIALIST Gender Identity Not on file Sexual [...] Info) Description 03/01/2025 Plan of Care Documentation [facility] [address] [place] [address] 03/03/2025 9:00 AM CDT Hospital Encounter [facility] [address] [address] [address] [place] [address] 03/04/2025 9:00 AM CDT Appointment [facility] [address] [address] [address] [place] [address] 03/07/2025 9:00 AM HEALTH CARE SPECIALIST Appointment [facility] [address] [address] [address] [place] [address] 03/09/2025 9:00 AM HEALTH CARE SPECIALIST Appointment [facility] [address] [address] [address] [place] [address] 03/10/2025 9:00 AM HEALTH CARE SPECIALIST Appointment [facility] Program Services [address] [address] [address] [place] [address] 03/11/2025 9:00 AM HEALTH CARE SPECIALIST Appointment [facility] Program Services [address] [address] [address] [place] [address] documented as of this encounter Visit Diagnoses Not on filedocumented in this encounter Additional Health Concerns Infection Onset Date Last Indicated Resolved Time R/O COVID-19 07/30/2019 07/30/2019 08/04/2019 6:05 AM CDT R/O Respiratory 05/12/2022 05/12/2022 05/12/2022 4 :27 PM HEALTH CARE SPECIALIST R/O C. diff 03/11/2024 03/11/2024 03/11/2024 12:4 6 PM HEALTH CARE SPECIALIST C Diff 03/11/2024 03/11/2024 05/10/2024 1:16 AM HEALTH CARE SPECIALIST Assessment Noted Time PHQ-9 Depression Total Score: 1 03/25/20 19 3:00 PM HEALTH CARE SPECIALIST documented as of this encounter Care Teams Animal Keeper Relationship Specialty Start Date End Date Gilmar Galvan MD [address] [place] [address] PCP - General Family Practice 12/09/18 documented as of this encounter
--- OUTSIDE RECORDS SUMMARY | 2025-03-02 19:48 | XMS_ITS | Encounter Summary ---
Author Organization [facility] Address [address] Attn: [place] [address] Care Team Providers Care Packer Insulation Name Role Phone Gilmar Galvan MD Primary Care Provider Encounter Details Date Type Department Care Team (Latest Contact Info) Description 03/01/2025 Travel Social History Tobacco Use Types Packs/Day Years [...] worry about transportation for future doctor visits, picket labor union medication, etc.? No 2024 Housing Stability Answer [...] on file Legal Sex Female 3:13 AM ASSISTANT MEDIA BUYER Gender Identity Not on file Sexual Orientation Not on file Occupation Industry Job Start Date Job End Date Not on file Not on file Not on file Not on file documented as of this encounter Plan of Treatment Upcoming Encounters Date Type Department Care Team (Latest Contact Info) Description 03/01/2025 Plan of Care Documentation [facility] [address] [place] [address] 03/03/2025 9:00 AM CDT Hospital Encounter [facility] [address] [place] [address] 03/04/2025 9:00 AM CDT Appointment [facility] [address] [place] [address] 03/07/2025 9:00 AM ASSISTANT MEDIA BUYER Appointment [facility] [address] [place] [address] 03/09/2025 9:00 AM ASSISTANT MEDIA BUYER [facility]ointment [facility] [address] [address] [address] [place] [address] 03/10/2025 9:00 AM ASSISTANT MEDIA BUYER Appointment [facility] [address] [address] [place] [address] 03/11/2025 9:00 AM ASSISTANT MEDIA BUYER Appointment [facility] [address] [address] [address] [place] [address] documented as of this encounter Visit Diagnoses Not on filedocumented in this encounter Additional Health Concerns Assessment Noted Time PHQ-9 Depression Total Score: 6 03/01/20 25 9:50 AM CDT documented as of this encounter Care Teams Packer Insulation Relationship Specialty Start Date End Date Gilmar Galvan MD [address] [place] [address] PCP - General Family Practice 12/09/18 documented as of this encounter
--- OUTSIDE RECORDS SUMMARY | 2025-03-02 19:48 | XMS_ITS | Encounter Summary ---
Author Organization [facility] Address [address] [place] [address] Care Team Providers Care Coil Taper Name Role Phone Gilmar Galvan MD Primary Care Provider Reason for Visit * Reason Onset Date Comments Courtesy Call 08/08/2019 Left message Encounter Details Date Type Department Care Team (Late st Contact Info) Description 08/08/2019 Telephone [facility] [address] [address] Karen Chcias, RT Courtesy Call (Left message) Social History Tobacco Use Types Packs/Day Years Used Date Smoking Tobacco: Never Smokeless Tobacco: Never Alcohol Use Standard Drinks/Week Comments Yes 1 (1 standard drink = 0.6 oz pur e alcohol) vary rare social use Comments No Sex and Gender Information Value Date Recorded Sex Assigned at Not on file Legal Sex Female 3:13 AM MINIATURE SET CONSTRUCTOR Gender Identity Not on file Sexual Orientation [...] Description 03/01/2025 Plan of Care Documentation [facility] [address] [address] [place] [address] 03/03/2025 9:00 AM CDT Hospital Encounter [facility] Services [address] [address] [address] [place] [address] 03/04/2025 9:00 AM CDT Appointment [facility] [address] [address] [address] [place] [address] 03/07/2025 9:00 AM MINIATURE SET CONSTRUCTOR Appointment [facility] [address] [address] [address] [place] [address] 03/09/2025 9:00 AM MINIATURE SET CONSTRUCTOR Appointment [facility] Services [address] [address] [address] [place] [address] 03/10/2025 9:00 AM MINIATURE SET CONSTRUCTOR Appointment [facility] [address] [address] [address] [place] [address] 03/11/2025 9:00 AM MINIATURE SET CONSTRUCTOR Appointment [facility] Services [address] [address] [address] [place] [address] documented as of this encounter Visit Diagnoses Not on filedocumented in this encounter Additional Health Concerns Infection Onset Date Last Indicated Resolved Time R/O Respiratory 05/12/2022 05/12/2022 05/12/2022 4 :27 PM MINIATURE SET CONSTRUCTOR R/O C. diff 03/11/2024 03/11/2024 03/11/2024 12:4 6 PM MINIATURE SET CONSTRUCTOR C Diff 03/11/2024 03/11/2024 05/10/2024 1:16 AM MINIATURE SET CONSTRUCTOR Assessment Noted Time PHQ-9 Depression Total Score: 1 03/25/20 19 3:00 PM MINIATURE SET CONSTRUCTOR documented as of this encounter Care Teams Coil Taper Relationship Specialty Start Date End Date Gilmar Galvan MD [address] [place] [address] PCP - General Family Practice 12/09/18 documented as of this encounter
--- OUTSIDE RECORDS SUMMARY | 2025-03-02 19:48 | XMS_ITS | Encounter Summary ---
Author Organization [facility] Address [address] [place] [address] Care Team Providers Care Club Lounge Attendant Name Role Phone Gilmar Galvan MD Primary Care Provider Encounter Details Date Type Department Care Team (Late st Contact Info) Description 02/17/2006 Outpatient [facility] [address] [address] [place] [address] [place] [address] Social History Tobacco Use Types Packs/Day Years Used Date Smoking Tobacco: Never Assessed Comments Unknown Sex and Gender Information Value Date Recorded Sex Assigned at Not on file Legal Sex Female 3:13 AM INSURANCE OFFICE SUPERVISOR Gender Identity Not on file Sexual Orientation Not on file documented as of this encounter Plan of Treatment Upcoming Encounters Date Type Department Care Team (Latest Contact Info) Description 03/01/2025 Plan of Care Documentation [facility] [address] [address] [address] [place] [address] 03/03/2025 9:00 AM CDT Hospital Encounter [facility] [address] [address] [place] [address] 03/04/2025 9:00 AM CDT Appointment [facility] [address] [address] [address] [place] [address] 03/07/2025 9:00 AM INSURANCE OFFICE SUPERVISOR Appointment [facility] [address] [address] [address] [place] [address] 03/09/2025 9:00 AM INSURANCE OFFICE SUPERVISOR Appointment [facility] [address] [address] [address] [place] [address] 03/10/2025 9:00 AM INSURANCE OFFICE SUPERVISOR Appointment [facility] [address] [address] [address] [place] [address] 03/11/2025 9:00 AM INSURANCE OFFICE SUPERVISOR Appointment [facility] [address] [address] [address] [place] [address] documented as of this encounter Visit Diagnoses Not on filedocumented in this encounter Additional Health Concerns Infection Onset Date Last Indicated Resolved Time R/O COVID-19 07/30/2019 07/30/2019 08/04/2019 6:05 AM CDT R/O Respiratory 05/12/2022 05/12/2022 05/12/2022 4 :27 PM INSURANCE OFFICE SUPERVISOR R/O C. diff 03/11/2024 03/11/2024 03/11/2024 12:4 6 PM INSURANCE OFFICE SUPERVISOR C Diff 03/11/2024 03/11/2024 05/10/2024 1:16 AM INSURANCE OFFICE SUPERVISOR documented as of this encounter Care Teams Club Lounge Attendant Relationship Specialty Start Date End Date Gilmar Galvan MD [address] [place] [id number] PCP - General Family Practice 12/09/18 documented as of this encounter
--- OUTSIDE RECORDS SUMMARY | 2025-03-02 19:48 | XMS_ITS | Encounter Summary ---
Author Organization [facility] Address [address] [place] [address] Care Team Providers Care Bow Maker Custom Name Role Phone Gilmar Galvan MD Primary Care Provider Encounter Details Date Type Department Care Team (Late st Contact Info) Description 02/15/2005 Outpatient [facility] [address] [address] [place] [address] [place] [address] Social History Tobacco Use Types Packs/Day Years Used Date Smoking Tobacco: Never Assessed Comments Unknown Sex and Gender Information Value Date Recorded Sex Assigned at Not on file Legal Sex Female 3:13 AM JOGGLE PRESS OPERATOR Gender Identity Not on file Sexual Orientation Not on file documented as of this encounter Plan of Treatment Upcoming Encounters Date Type Department Care Team (Latest Contact Info) Description 03/01/2025 Plan of Care Documentation [facility] [address] [address] [place] [address] 03/03/2025 9:00 AM CDT Hospital Encounter [facility] [address] [address] [address] [place] [address] 03/04/2025 9:00 AM CDT Appointment [facility] [address] [address] [place] [address] 03/07/2025 9:00 AM JOGGLE PRESS OPERATOR Appointment [facility] [address] [address] [address] [place] [address] 03/09/2025 9:00 AM JOGGLE PRESS OPERATOR Appointment [facility] [address] [address] [address] [place] [address] 03/10/2025 9:00 AM JOGGLE PRESS OPERATOR Appointment [facility] [address] [address] [address] [place] [address] 03/11/2025 9:00 AM JOGGLE PRESS OPERATOR Appointment [facility] [address] [address] [address] [place] [address] documented as of this encounter Visit Diagnoses Not on filedocumented in this encounter Additional Health Concerns Infection Onset Date Last Indicated Resolved Time R/O COVID-19 07/30/2019 07/30/2019 08/04/2019 6:05 AM CDT R/O Respiratory 05/12/2022 05/12/2022 05/12/2022 4 :27 PM JOGGLE PRESS OPERATOR R/O C. diff 03/11/2024 03/11/2024 03/11/2024 12:4 6 PM JOGGLE PRESS OPERATOR C Diff 03/11/2024 03/11/2024 05/10/2024 1:16 AM JOGGLE PRESS OPERATOR documented as of this encounter Care Teams Bow Maker Custom Relationship Specialty Start Date End Date Gilmar Galvan MD [address] [place] [id number] PCP - General Family Practice 12/09/18 documented as of this encounter
--- OUTSIDE RECORDS SUMMARY | 2025-03-02 19:48 | XMS_ITS | Encounter Summary ---
Author Organization [facility] Address [address] [place] [address] Care Team Providers Care Partnership Marketing Manager Name Role Phone Gilmar Galvan MD [...] on file Legal Sex Female 3:13 AM CAP MACHINE OPERATOR Gender Identity Not on file Sexual Orientation Not on file documented as of this encounter Plan of Treatment Upcoming Encounters Date Type Department Care Team (Latest Contact Info) Description 03/01/2025 Plan of Care Documentation [facility] Services [address] [address] [place] [address] 03/03/2025 9:00 AM CDT Hospital Encounter [facility] Services [address] [address] [address] [place] [address] 03/04/2025 9:00 AM CDT Appointment [facility] [address] [address] [address] [place] [address] 03/07/2025 9:00 AM CAP MACHINE OPERATOR Appointment [facility] [address] [address] [address] [place] [address] 03/09/2025 9:00 AM CAP MACHINE OPERATOR Appointment [facility] Services [address] [address] [address] [place] [address] 03/10/2025 9:00 AM CAP MACHINE OPERATOR Appointment [facility] Services [address] [address] [address] [place] [address] 03/11/2025 9:00 AM CAP MACHINE OPERATOR Appointment [facility] Program Services [address] [address] [address] [place] [address] documented as of this encounter Procedures Procedure [...] PM CDT Narrative 10/24/2008 7:21 AM CDT [facility] [address] [place], [place] [address] Admit Date: 10/22/2008 JUNIOR MARKS Sex: F Admit Prov: TYSON HEALY Date: 1990 Primary Care Prov: LUIS E JODY P CMRN: [id number] Room: [facility]: [id number] IMAGING SERVICES Ordering Prov: N/A Accession Number: [id number] Interpretation PELVIC SONOGRAM, 10/22/2008 History: Pelvic pain. [...] SJ Procedure Note Ines Mario - 10/24/[address] [address] Admit Date: 10/22/2008 JUNIOR MARKS Sex: F Admit Prov: TYSON HEALY Date: 1990 Primary Care Prov: LUIS E JODY P CMRN: [id number] Room: [facility]: [id number] IMAGING SERVICES Ordering Prov: N/A Interpretation PELVIC [...] CDT) RBC 4.27 3.90 - 4.90 M/uL [facility] MCHC 34.8 31.5 - 35.5 % [facility] MCV 88.1 82.0 - 99.0 fL [facility] PLATELETS 317 140 - 350 K/uL [facility] HEMOGLOBIN 13.1 11.8 - 14.8 g/dL [facility] RDW 12.8 11.5 - 14.5 % [facility] WBC 10.5(H) 4.0 - 9.8 K/uL [facility] MCH 30.7 27.2 - 32.6 pg [facility] MPV 9.3 9.3 - 12.4 fL [facility] HEMATOCRIT 37.6 35.5 - 44.0 % [facility] RDW-STDEV 40.9 37.1 - 48.7 fL [facility] BASOPHILS 0 0 - 2 % [facility] MONOCYTE ABSOLUTE 0.73 0.10 - 1.30 K/uL [facility] REVIEWED ON SMEAR Plt reviewed [facility] MONOCYTES 7 3 - 13 % [facility] NEUTROPHIL ABSOLUTE 8.40(H) 1.90 - 7.00 K/uL [facility] NEUTROPHILS, SEG 80(H) 45 - 70 % [facility] PLATELET EST. Consistent w/ count Normal [facility] EOSINOPHIL ABSOLUTE 0.00 0.00 - 0.70 K/uL [facility] EOSINOPHILS 0 0 - 7 % [facility] LYMPHOCYTE ABSOLUTE 1.37 0.70 - 4.50 K/uL [facility] LYMPHOCYTES 13(L) 16 - 45 % [facility] RBC MORPHOLOGY Normal Normal [facility] BASOPHILS ABSOLUTE 0.00 0.00 - 0.20 K/uL [facility] Blood specimen (specimen) 10/22/2008 12:20 PM CDT 10/22/2008 12:41 PM CDT us Tyson Healy MD HEMATOLOGY ORDERABLES Edite d INTERFACE SYSTEM Refer to clinic/hospital department [facility] CLIA# [id number] [address] [place] [address] * HCG QUANTITATIVE, BLOOD (10/22/2008 11:40 AM CDT) [facility] HCG QUANT, BLOOD <5 0 - 5 mIU/mL [facility] Comment: Result of 5 - 25 [...] Rhoda Ornelas MD CHEMISTRY ORDERABL ES Edited INTERFACE SYSTEM Refer to clinic/hospital department [facility] CLIA# [id number] [address] [place] [address] * C-REACTIVE PROTEIN (10/22/2008 11:40 AM CDT) CRP 0.4 0.0 - 0.8 mg/dL [facility] 10/22/2008 11:4 0 AM CDT 10/22/2008 12:04 PM CDT us Tyson Healy MD CHEMISTRY ORDERABLES Final Result Performing Organization Address [facility] de Phone Number INTERFACE SYSTEM Refer to clinic/hospital department [facility] CLIA# [id number] [address] [place] [address] * C-REACTIVE PROTEIN (10/21/2008 11:08 PM CDT) CRP 0.2 0.0 - 0.8 mg/dL [facility] 10/21/2008 11:0 8 PM CDT 10/21/2008 11:13 PM CDT us Marshall Haque MD CHEMISTRY ORDERABLES Final Resu lt Performing Organization Address [facility] Phone Number INTERFACE SYSTEM Refer to clinic/hospital department [facility] CLIA# [id number] [address] [place] [address] * (ABNORMAL) COMPREHENSIVE METABOLIC PANEL (10/21/2008 11:08 PM CDT) GLUCOSE 85 65 - 99 mg/dL [facility] AST 13 12 - 32 U/L [facility] BUN 11 6 - 20 mg/dL [facility] CALCIUM 8.4(L) 8.6 - 10.2 mg/dL [facility] CHLORIDE 104 96 - 108 mmol/L [facility] ALBUMIN 4.0 3.4 - 4.8 g/dL [facility] CREATININE 0.72 0.51 - 0.95 mg/dL [facility] SODIUM 137 135 - 145 mmol/L [facility] ALT 14 0 - 31 U/L [facility] ALKALINE PHOSPHATASE 68 35 - 104 U/L [facility] BILIRUBIN TOTAL 0.5 0.2 - 1.0 mg/dL [facility] CO2 23 22 - 30 mmol/L [facility] TOTAL PROTEIN 6.7 6.3 - 8.6 g/dL [facility] POTASSIUM 3.5 3.5 - 4.9 mmol/L [facility] GFR, >60 >=60 mL/min/1. 7 sq meter [facility] GFR >60 >=60 mL/min/1. 7 sq meter [facility] Comment: Modification of Diet in Renal Disease (MDRD) study formula. Estimated GFR rate interpretative information for both Americans and non- Americans is available on the [facility] Intranet at: [email or web address] Select: Lab Policies and Procedures Select: Reference Ranges - GFR 10/21/2008 11:0 8 PM CDT 10/21/2008 11:13 PM CDT Marshall Haque MD CHEMISTRY ORDERABLES Edited INTERFACE SYSTEM Refer to clinic/hospital department [facility] CLIA# [id number] [address] [place] [address] * (ABNORMAL) CBC WITH DIFFERENTIAL (10/21/2008 11:08 PM CDT) RBC 4.25 3.90 - 4.90 M/uL [facility] MCHC 34.6 31.5 - 35.5 % [facility] MCV 88.5 82.0 - 99.0 fL [facility] PLATELETS 348 140 - 350 K/uL [facility] HEMOGLOBIN 13.0 11.8 - 14.8 g/dL [facility] RDW 12.7 11.5 - 14.5 % [facility] WBC 13.1(H) 4.0 - 9.8 K/uL [facility] MCH 30.6 27.2 - 32.6 pg [facility] MPV 9.2(L) 9.3 - 12.4 fL [facility] HEMATOCRIT 37.6 35.5 - 44.0 % [facility] RDW-STDEV 40.9 37.1 - 48.7 fL [facility] MONOCYTES 10 3 - 13 % [facility] MONOCYTE ABSOLUTE 1.30 0.10 - 1.30 K/uL [facility] NEUTROPHILS 64 45 - 70 % [facility] NEUTROPHIL ABSOLUTE 8.39(H) 1.90 - 7.00 K/uL [facility] EOSINOPHILS 1 0 - 7 % [facility] EOSINOPHIL ABSOLUTE 0.08 0.00 - 0.70 K/uL [facility] LYMPHOCYTES 25 16 - 45 % [facility] LYMPHOCYTE ABSOLUTE 3.34 0.70 - 4.50 K/uL [facility] BASOPHILS 0 0 - 2 % [facility] BASOPHILS ABSOLUTE 0.03 0.00 - 0.20 K/uL [facility] 10/21/2008 11:0 8 PM CDT 10/21/2008 11:14 PM CDT Marshall Haque MD HEMATOLOGY ORDERABLES Edited INTERFACE SYSTEM Refer to clinic/hospital department [facility] CLIA# [id number] [address] [place] [address] documented in this encounter Visit Diagnoses Diagnosis Abdominal pain, unspecified site documented in this encounter Additional Health Concerns Infection Onset Date Last Indicated Resolved Time R/O COVID-19 07/30/2019 07/30/2019 08/04/2019 6:05 AM CDT R/O Respiratory 05/12/2022 05/12/2022 05/12/2022 4 :27 PM CAP MACHINE OPERATOR R/O C. diff 03/11/2024 03/11/2024 03/11/2024 12:4 6 PM CAP MACHINE OPERATOR C Diff 03/11/2024 03/11/2024 05/10/2024 1:16 AM CAP MACHINE OPERATOR documented as of this encounter Care Teams Partnership Marketing Manager Relationship Specialty Start Date End Date Gilmar Galvan MD [address] [place] [phone] PCP - General Family Practice 12/09/18 documented as of this encounter
--- OUTSIDE RECORDS SUMMARY | 2025-03-02 19:48 | XMS_ITS | Encounter Summary ---
Author Organization [facility] Address [address] [place] [address] Care Team Providers Care Grid Maker Name Role Phone Gilmar Galvan MD Primary Care Provider Reason for Visit * Reason Comments Medication Refill Encounter Details Date Type Department Care Team (Late st Contact Info) Description 09/20/2014 Refill [facility] [address], [address] [phone] Randal Lee MD NO ADDRESS ON FILE [...] file Legal Sex Female 3:13 AM MACHINE GUNNER Gender Identity Not on file Sexual Orientation Not on file Occupation Industry Job Start Date Job End Date Not on file Not on file Not on file Not on file documented as of this encounter Plan of Treatment Upcoming Encounters Date Type Department Care Team (Latest Contact Info) Description 03/01/2025 Plan of Care Documentation [facility] Program Services [address] [address] [address] [place] [address] 03/03/2025 9:00 AM CDT Hospital Encounter [facility] Program Services [address] [address] [address] [place] [address] 03/04/2025 9:00 AM CDT Appointment [facility] Services [address] [address] [address] [place] [address] 03/07/2025 9:00 AM MACHINE GUNNER Appointment [facility] Program Services [address] [address] [address] [place] [address] 03/09/2025 9:00 AM MACHINE GUNNER Appointment [facility] Program Services [address] [address] [address] [place] [address] 03/10/2025 9:00 AM MACHINE GUNNER Appointment [facility] Program Services [address] [address] [address] [place] [address] 03/11/2025 9:00 AM MACHINE GUNNER Appointment [facility] Program Services [address] [address] [address] [place] [address] documented as of this encounter Visit Diagnoses Not on filedocumented in this encounter Additional Health Concerns Infection Onset Date Last Indicated Resolved Time R/O COVID-19 07/30/2019 07/30/2019 08/04/2019 6:05 AM CDT R/O Respiratory 05/12/2022 05/12/2022 05/12/2022 4 :27 PM MACHINE GUNNER R/O C. diff 03/11/2024 03/11/2024 03/11/2024 12:4 6 PM MACHINE GUNNER C Diff 03/11/2024 03/11/2024 05/10/2024 1:16 AM MACHINE GUNNER documented as of this encounter Care Teams Grid Maker Relationship Specialty Start Date End Date Gilmar Galvan MD [address] [place] [address] PCP - General Family Practice 12/09/18 documented as of this encounter
--- OUTSIDE RECORDS SUMMARY | 2025-03-02 19:48 | XMS_ITS | Clinical Summary ---
Author Organization [facility] Address [address] [place] [address] Care Team Providers Care Databases Software Consultant Name Role Phone Anitha Nina RN Unavailable Unavailable Gilmar Galvan MD Primary Care Provider Source Comments [facility],non-owned Affiliates and Associated Physician Practices is amultiple site organization consisting of ambulatory clinics and hospital sitesin [place], [place], [place] and [place]. This disclosure is being madepursuant to the Care Everywhere program and may not contain all information available regarding this patient. Last updated 18.[facility] Allergies Active Allergy Reactions Criticality Noted Date [...] patient's age to complete this topic Insurance [facility] Care Teams Databases Software Consultant Relationship Specialty Start Date End Date Gilmar Galvan MD [address] [place] [phone] PCP - General Family Medicine 12/03/19 Anitha Nina, RN Registered Nurse 06/09/17
--- OUTSIDE RECORDS SUMMARY | 2025-03-02 19:48 | XMS_ITS | Encounter Summary ---
Author Organization [facility] Address [address] [place] [address] Care Team Providers Care Job Estimator Name Role Phone Gilmar Galvan MD Primary Care Provider Reason for Visit * Reason Comments Medication Refill Encounter Details Date Type Department Care Team (Late st Contact Info) Description 12/20/2015 Refill [facility] [address], [facility] [address] [place] [address] Moira Israel NP NO ADDRESS [...] on file Legal Sex Female 3:13 AM RUSTIC TERRAZZO SETTER Gender Identity Not on file Sexual Orientation Not on file Occupation Industry Job Start Date Job End Date Not on file Not on file Not on file Not on file documented as of this encounter Plan of Treatment Upcoming Encounters Date Type Department Care Team (Latest Contact Info) Description 03/01/2025 Plan of Care Documentation [facility] Services [address] [address] [address] [place] [address] 03/03/2025 9:00 AM CDT Hospital Encounter [facility] Services [address] [address] [address] [place] [address] 03/04/2025 9:00 AM CDT Appointment [facility] Services [address] [address] [address] [place] [address] 03/07/2025 9:00 AM RUSTIC TERRAZZO SETTER Appointment [facility] Program Services [address] [address] [address] [place] [address] 03/09/2025 9:00 AM RUSTIC TERRAZZO SETTER Appointment [facility] Services [address] [address] [address] [place] [address] 03/10/2025 9:00 AM RUSTIC TERRAZZO SETTER Appointment [facility] Services [address] [address] [address] [place] [address] 03/11/2025 9:00 AM RUSTIC TERRAZZO SETTER Appointment [facility] Services [address] [address] [address] [place] [address] documented as of this encounter Visit Diagnoses Not on filedocumented in this encounter Additional Health Concerns Infection Onset Date Last Indicated Resolved Time R/O COVID-19 07/30/2019 07/30/2019 08/04/2019 6:05 AM CDT R/O Respiratory 05/12/2022 05/12/2022 05/12/2022 4 :27 PM RUSTIC TERRAZZO SETTER R/O C. diff 03/11/2024 03/11/2024 03/11/2024 12:4 6 PM RUSTIC TERRAZZO SETTER C Diff 03/11/2024 03/11/2024 05/10/2024 1:16 AM RUSTIC TERRAZZO SETTER documented as of this encounter Care Teams Job Estimator Relationship Specialty Start Date End Date Gilmar Galvan MD [address] [place] [phone] PCP - General Family Practice 12/09/18 documented as of this encounter
--- OUTSIDE RECORDS SUMMARY | 2025-03-02 19:48 | XMS_ITS | Encounter Summary ---
Author Organization [facility] Address [address] [place] [address] Care Team Providers Care Ear Muff Assembler Name Role Phone Gilmar Galvan MD Primary Care Provider Encounter Details Date Type Department Care Team (Late st Contact Info) Description 11/11/2005 Outpatient [facility] Pediatric[facility] [address] [facility] [address] [address] [place] [address] [place] [address] Social History Tobacco Use Types Packs/Day Years Used Date Smoking Tobacco: Never Assessed Comments Unknown Sex and Gender Information Value Date Recorded Sex Assigned at Not on file Legal Sex Female 3:13 AM ELECTRONIC IMAGING SYSTEM OPERATOR Gender Identity Not on file Sexual Orientation Not on file documented as of this encounter Plan of Treatment Upcoming Encounters Date Type Department Care Team (Latest Contact Info) Description 03/01/2025 Plan of Care Documentation [facility] Outpatient Behavioral Health Program Services [address] [address] [address] [place] [address] 03/03/2025 9:00 AM CDT Hospital Encounter [facility] Services [address] [address] [address] [place] [address] 03/04/2025 9:00 AM CDT Appointment [facility] Services [address] [address] [address] [place] [address] 03/07/2025 9:00 AM ELECTRONIC IMAGING SYSTEM OPERATOR Appointment [facility] Out[facility] Program Services [address] [address] [address] [place] [address] 03/09/2025 9:00 AM ELECTRONIC IMAGING SYSTEM OPERATOR Appointment [facility] Services [address] [address] [address] [place] [address] 03/10/2025 9:00 AM ELECTRONIC IMAGING SYSTEM OPERATOR Appointment [facility] Services [address] [address] [address] [place] [address] 03/11/2025 9:00 AM ELECTRONIC IMAGING SYSTEM OPERATOR Appointment [facility] Services [address] [address] [address] [place] [address] documented as of this encounter Visit Diagnoses Not on filedocumented in this encounter Additional Health Concerns Infection Onset Date Last Indicated Resolved Time R/O COVID-19 07/30/2019 07/30/2019 08/04/2019 6:05 AM CDT R/O Respiratory 05/12/2022 05/12/2022 05/12/2022 4 :27 PM ELECTRONIC IMAGING SYSTEM OPERATOR R/O C. diff 03/11/2024 03/11/2024 03/11/2024 12:4 6 PM ELECTRONIC IMAGING SYSTEM OPERATOR C Diff 03/11/2024 03/11/2024 05/10/2024 1:16 AM ELECTRONIC IMAGING SYSTEM OPERATOR documented as of this encounter Care Teams Ear Muff Assembler Relationship Specialty Start Date End Date Gilmar Galavn MD [address] [place] [phone] PCP - General Family Practice 12/09/18 documented as of this encounter
--- OUTSIDE RECORDS SUMMARY | 2025-03-02 19:48 | XMS_ITS | Encounter Summary ---
Author Organization [facility] Address [address] [place] [address] Care Team Providers Care Sr. Unix System Administrator Name Role Phone Gilmar Galvan MD Primary Care Provider Encounter Details Date Type Department Care Team (Late st Contact Info) Description 03/01/2025 Plan of Care Documentation [facility] [address] [facility] [facility] [address] [place] [address] Social History Tobacco Use Types Packs/Day Years [...] worry about transportation for future doctor visits, berry picker machine operator medication, etc.? No 2024 Housing Stability Answer [...] on file Legal Sex Female 3:13 AM POLICY CHANGE CLERK Gender Identity Not on file Sexual Orientation Not on file Occupation Industry Job Start Date Job End Date Not on file Not on file Not on file Not on file documented as of this encounter Miscellaneous Notes * IOP Treatment Plan - Ana Saeed LPC - 03/01/2025 1:55 PM CDT [facility] Introductory Note Start / End Times: 1210 / 1215 03/01/2025 Ana Saeed LPC met with Kylie on 03/01/2025. Kylie was located at [facility]. Kylie provided verbal consent to care. Kylie identified the following personal treatment goal: to learn coping skills an to function dayto day. Introduced self to Kylie as patient case manager and provided contact information. Reviewed psychosocial information obtained during intake. Kylie was informed of the risk and benefits of IOP as well as alternative higher and lower levels of care if needed/requested. unit manager and patient explored current issues, with patient identifying depression, suicidal ideation, and anxiety as primary treatment issues to be addressed. unit manager and patient discussed having a rn primary care and suggested patient appoint someone if not already done. Discussed preliminary discharge plan to include follow-up with Psychiatrist and Therapist. Review groups rules for privacy and the importance of participation and engagement in group and treatment. Questions answered and support provided. Please refer to intake dated 02/23/2025. Intake remains current including:all Intake remains current excluding:none Energy Derivatives Trader: Kylie has identified the following as her Energy Derivatives Trader: Keegan Morris (spouse) Contact number: [phone] Safety Plan: Ana Saeed LPC met with Kylie individually to assist her in completing a [employer] Patient Safety Plan Template. Kylie expressed understanding as to benefit of safety plan and verbalized agreement to utilizing the safety plan for any future crisis. Support, education and encouragement provided. [facility] Creation Date: 02/22/25 Last Update Date: 03/01/25 Step 1: Warning signs: Warning Signs Heart races Get Panicky Can't think straight Jittery Step 2: Internal coping strategies - Things I can do to take my mind off my problems without contacting another person: Strategies Deep breathing exercises Touching grass and being outside Take a nap Clean Step 3: People and social settings that provide distraction: Name Contact Information My children--Nancy My --Keegan [phone] My mom--Zayra Marks [phone] My dad--Randal Marks [phone] Places My bed [facility] Step 4: People whom I can ask for help during a crisis: Name Contact Information My mom--Zayra Marks [phone] My --Keegan [phone] My sister--Kaitlin [phone] Step 5: Professionals or agencies I can contact during a crisis: Clinician/Agency Name Phone Emergency Contact Dr. Vasyl Last--Psychiatrist [phone] Dr. Gilmar Galvan--PCP [phone] Behavioral Health Response [phone] [facility] [phone] Post- Depression Line Local Emergency Department Emergency Department Address Emergency Department Phone [place] [address], [address] Suicide Prevention Lifeline Phone: Call or Text 555 Crisis Text Line: Text HOME to 437381 Step 6: Making the environment safer (plan for lethal means safety): Kylie states she does not have access to firearms. She currently manages her own medications. She verbalized she would allow her to secure hermedications and give her only one week's worth of medication at a time. She denies any safety concerns with drugs or alcohol. She reports passive SI thoughts/no HI. 03/01/2025: Same as above. Optional: What is most important to me and worth living for?: Myself and my kids 03/01/2025: Mom, dad, , [place] and Shae. Nicola Safety Plan. Sobeida Anguiano and Tyson Car. Used with permission of the authors. documented in this encounter Plan of Treatment Upcoming Encounters Date Type Department Care Team (Latest Contact Info) Description 03/01/2025 Plan of Care Documentation [facility] Services [address] [address] [place] [address] 03/03/2025 9:00 AM CDT Hospital Encounter [facility] [address] [address] [place] [address] 03/04/2025 9:00 AM CDT Appointment [facility] [address] [address] [place] [address] 03/07/2025 9:00 AM POLICY CHANGE CLERK Appointment [facility] [address] [address] [place] [address] 03/09/2025 9:00 AM POLICY CHANGE CLERK Appointment [facility] [address] [address] [place] [address] 03/10/2025 9:00 AM POLICY CHANGE CLERK Appointment [facility] [address] [address] [place] [address] 03/11/2025 9:00 AM POLICY CHANGE CLERK Appointment [facility] [address] [address] [place] [address] documented as of this encounter Visit Diagnoses Not on filedocumented in this encounter Additional Health Concerns Assessment Noted Time PHQ-9 Depression Total Score: 6 03/01/20 25 9:50 AM CDT documented as of this encounter Care Teams Sr. Unix System Administrator Relationship Specialty Start Date End Date Gilmar Galvan MD [address] [place] [phone] PCP - General Family Practice 12/09/18 documented as of this encounter
--- OUTSIDE RECORDS SUMMARY | 2025-03-02 19:48 | XMS_ITS | Encounter Summary ---
Author Organization [facility] Address [address] [place] [address] Care Team Providers Care Process Laboratory Specialist Name Role Phone Gilmar Galvan MD Primary Care Provider Encounter Details Date Type Department Care Team (Late st Contact Info) Description 02/13/2007 Outpatient [facility] Pediatric[facility] [address] [facility] [address] [facility] [address] [address] [place] [address] [place] [address] Social History Tobacco Use Types Packs/Day Years Used Date Smoking Tobacco: Never Assessed Comments Unknown Sex and Gender Information Value Date Recorded Sex Assigned at Not on file Legal Sex Female 3:13 AM CUSTOMER SERVICE ADMINISTRATOR Gender Identity Not on file Sexual Orientation Not on file documented as of this encounter Plan of Treatment Upcoming Encounters Date Type Department Care Team (Latest Contact Info) Description 03/01/2025 Plan of Care Documentation [facility] Health Program Services [address] [address] [place] [address] 03/03/2025 9:00 AM CDT Hospital Encounter [facility] Services [address] [address] [place] [address] 03/04/2025 9:00 AM CDT Appointment [facility] Services [address] [address] [place] [address] 03/07/2025 9:00 AM CUSTOMER SERVICE ADMINISTRATOR Appointment [facility] Services [address] [address] [place] [address] 03/09/2025 9:00 AM CUSTOMER SERVICE ADMINISTRATOR Appointment [facility] Services [address] [address] [place] [address] 03/10/2025 9:00 AM CUSTOMER SERVICE ADMINISTRATOR Appointment [facility] Services [address] [address] [place] [address] 03/11/2025 9:00 AM CUSTOMER SERVICE ADMINISTRATOR Appointment [facility] Services [address] [address] [place] [address] documented as of this encounter Visit Diagnoses Not on filedocumented in this encounter Additional Health Concerns Infection Onset Date Last Indicated Resolved Time R/O COVID-19 07/30/2019 07/30/2019 08/04/2019 6:05 AM CDT R/O Respiratory 05/12/2022 05/12/2022 05/12/2022 4 :27 PM CUSTOMER SERVICE ADMINISTRATOR R/O C. diff 03/11/2024 03/11/2024 03/11/2024 12:4 6 PM CUSTOMER SERVICE ADMINISTRATOR C Diff 03/11/2024 03/11/2024 05/10/2024 1:16 AM CUSTOMER SERVICE ADMINISTRATOR documented as of this encounter Care Teams Process Laboratory Specialist Relationship Specialty Start Date End Date Gilmar Galvan MD [address] [place] [id number] PCP - General Family Practice 12/09/18 documented as of this encounter
--- OUTSIDE RECORDS SUMMARY | 2025-03-02 19:48 | XMS_ITS | Encounter Summary ---
Author Organization [facility] Address [address] [place] [address] Care Team Providers Care Manager Document Control Name Role Phone Gilmar Galvan MD Primary Care Provider Encounter Details Date Type Department Care Team (Late st Contact Info) Description 08/05/2005 Outpatient [facility] Pediatrics [address] [facility] [address] [facility] [address] [address] [place] [address] [place] [address] Social History Tobacco Use Types Packs/Day Years Used Date Smoking Tobacco: Never Assessed Comments Unknown Sex and Gender Information Value Date Recorded Sex Assigned at Not on file Legal Sex Female 3:13 AM AUTOMOTIVE WORKER FOREMAN Gender Identity Not on file Sexual Orientation Not on file documented as of this encounter Plan of Treatment Upcoming Encounters Date Type Department Care Team (Latest Contact Info) Description 03/01/2025 Plan of Care Documentation [facility] Services [address] [place] [address] 03/03/2025 9:00 AM CDT Hospital Encounter [facility] Services [address] [address] [place] [address] 03/04/2025 9:00 AM CDT Appointment [facility] Services [address] [address] [place] [address] 03/07/2025 9:00 AM AUTOMOTIVE WORKER FOREMAN Appointment [facility] [address] [address] [place] [address] 03/09/2025 9:00 AM AUTOMOTIVE WORKER FOREMAN Appointment [facility] [address] [address] [place] [address] 03/10/2025 9:00 AM AUTOMOTIVE WORKER FOREMAN Appointment [facility] [address] [address] [place] [address] 03/11/2025 9:00 AM AUTOMOTIVE WORKER FOREMAN Appointment [facility] [address] [address] [place] [address] documented as of this encounter Visit Diagnoses Not on filedocumented in this encounter Additional Health Concerns Infection Onset Date Last Indicated Resolved Time R/O COVID-19 07/30/2019 07/30/2019 08/04/2019 6:05 AM CDT R/O Respiratory 05/12/2022 05/12/2022 05/12/2022 4 :27 PM AUTOMOTIVE WORKER FOREMAN R/O C. diff 03/11/2024 03/11/2024 03/11/2024 12:4 6 PM AUTOMOTIVE WORKER FOREMAN C Diff 03/11/2024 03/11/2024 05/10/2024 1:16 AM AUTOMOTIVE WORKER FOREMAN documented as of this encounter Care Teams Manager Document Control Relationship Specialty Start Date End Date Gilmar Galvan MD [address] [place] [id number] PCP - General Family Practice 12/09/18 documented as of this encounter
--- OUTSIDE RECORDS SUMMARY | 2025-03-02 19:48 | XMS_ITS | Encounter Summary ---
Author Organization [facility] Address [address] [place] [address] Care Team Providers Care Practicing Md Anesthesiologist Name Role Phone Gilmar Galvan MD Primary Care Provider Reason for Visit * Reason Onset Date Comments Return Call 03/02/2025 Encounter Details Date Type Department Care Team (Late st Contact Info) Description 03/02/2025 Telephone [facility] Services [address] [address] [place] [address] Leida Davis, [address] [place] [address] Return Call Social History Tobacco Use Types Packs/Day Years [...] worry about transportation for future doctor visits, pickle sorter medication, etc.? No 2024 Housing Stability Answer [...] on file Legal Sex Female 3:13 AM CONTINUOUS IMPROVEMENT ENGINEER Gender Identity Not on file Sexual Orientation Not on file Occupation Industry Job Start Date Job End Date Not on file Not on file Not on file Not on file documented as of this encounter Miscellaneous Notes * Telephone Encounter - Leida Davis RN - 03/02/2025 3:24 PM CDT Pt returning RN's call to check in. Pt reports arriving home safely but did have to take two stops due to panic attacks. Pt states she is safe at home and plans to relax this evening. Discussed med changes discussed with Dr. Garcia this afternoon. Pt verbalized understanding. Reviewed with pt that if her symptoms worsen or develops SI/HI to go to ER for evaluation. Pt agrees and verbalized understanding. Pt thanked RN for calling to check on her and states she will see RN in am for group. documented in this encounter Plan of Treatment Upcoming Encounters Date Type Department Care Team (Latest Contact Info) Description 03/01/2025 Plan of Care Documentation [facility] Health Program Services [address] [place] [address] 03/03/2025 9:00 AM CDT Hospital Encounter [facility] [address] [address] [place] [address] 03/04/2025 9:00 AM CDT Appointment [facility] [address] [address] [place] [address] 03/07/2025 9:00 AM CONTINUOUS IMPROVEMENT ENGINEER Appointment [facility] [address] [address] [place] [address] 03/09/2025 9:00 AM CONTINUOUS IMPROVEMENT ENGINEER Appointment [facility] [address] [address] [place] [address] 03/10/2025 9:00 AM CONTINUOUS IMPROVEMENT ENGINEER Appointment [facility] [address] [address] [place] [address] 03/11/2025 9:00 AM CONTINUOUS IMPROVEMENT ENGINEER Appointment [facility] [address] [address] [place] [address] documented as of this encounter Visit Diagnoses Not on filedocumented in this encounter Additional Health Concerns Assessment Noted Time PHQ-9 Depression Total Score: 6 03/01/20 25 9:50 AM CDT documented as of this encounter Care Teams Practicing Md Anesthesiologist Relationship Specialty Start Date End Date Gilmar Galvan MD [address] [place] [address] PCP - General Family Practice 12/09/18 documented as of this encounter
--- OUTSIDE RECORDS SUMMARY | 2025-03-02 19:48 | XMS_ITS | Encounter Summary ---
Author Organization [facility] Address [address] [place] [address] Care Team Providers Care Robotics Testing Technician Name Role Phone Gilmar Galvan MD Primary Care Provider Reason for Visit * Reason Comments Question Encounter Details Date Type Department Care Team (Late st Contact Info) Description 08/24/2024 Telephone [facility] [address] [place] [address] Gilmar Galvan MD [address] [place] [address] Question Social History Tobacco Use [...] on file Legal Sex Female 3:13 AM PRE BILLING CLINICIAN Gender Identity Not on file Sexual Orientation [...] 12:21 PM CDT Copied from [facility] #[id number]. Topic: Patient or Caregiver Communication Request >> [...] [facility] [address] [address] [place] [address] 03/03/2025 9:00 AM CDT Hospital Encounter [facility] [address] [address] [place] [address] 03/04/2025 9:00 AM CDT Appointment [facility] [address] [address] [place] [address] 03/07/2025 9:00 AM PRE BILLING CLINICIAN Appointment [facility] [address] [address] [place] [address] 03/09/2025 9:00 AM PRE BILLING CLINICIAN Appointment [facility] [address] [address] [place] [address] 03/10/2025 9:00 AM PRE BILLING CLINICIAN Appointment [facility] [address] [address] [place] [address] 03/11/2025 9:00 AM PRE BILLING CLINICIAN Appointment [facility] [address] [address] [place] [address] documented as of this encounter Visit Diagnoses Not on filedocumented in this encounter Additional Health Concerns Assessment Noted Time PHQ-9 Depression Total Score: 2 08/25/19 25 11:25 AM CDT documented as of this encounter Care Teams Robotics Testing Technician Relationship Specialty Start Date End Date Gilmar Galvan MD [address] [place] [address] PCP - General Family Practice 12/09/18 documented as of this encounter
--- OUTSIDE RECORDS SUMMARY | 2025-03-02 19:48 | XMS_ITS | Encounter Summary ---
Author Organization [facility] Address [address] [place] [address] Care Team Providers Care Occasional Caregiver Name Role Phone Gilmar Galvan MD Primary Care Provider Encounter Details Date Type Department Care Team (Late st Contact Info) Description 02/11/2025 [facility] [address] [place] [address] Gilmar Galvan MD [address] [place] [address] Social History Tobacco Use Types [...] on file Legal Sex Female 3:13 AM TABLE LEVER OPERATOR Gender Identity Not on file Sexual Orientation Not on file Occupation Industry Job Start Date Job End Date Not on file Not on file Not on file Not on file documented as of this encounter Plan of Treatment Upcoming Encounters Date Type Department Care Team (Latest Contact Info) Description 03/01/2025 Plan of Care Documentation [facility] [address] [address] [place] [address] 03/03/2025 9:00 AM CDT Hospital Encounter [facility] Services [address] [address] [place] [address] 03/04/2025 9:00 AM CDT Appointment [facility] [address] [address] [place] [address] 03/07/2025 9:00 AM TABLE LEVER OPERATOR Appointment [facility] [address] [address] [place] [address] 03/09/2025 9:00 AM TABLE LEVER OPERATOR Appointment [facility] [address] [address] [place] [address] 03/10/2025 9:00 AM TABLE LEVER OPERATOR Appointment [facility] Services [address] [address] [place] [address] 03/11/2025 9:00 AM TABLE LEVER OPERATOR Appointment [facility] [address] [address] [place] [address] documented as of this encounter Visit Diagnoses Not on filedocumented in this encounter Additional Health Concerns Assessment Noted Time PHQ-9 Depression Total Score: 5 02/02/20 25 7:00 AM CDT documented as of this encounter Care Teams Occasional Caregiver Relationship Specialty Start Date End Date Gilmar Galvan MD [address] [place] [address] PCP - General Family Practice 12/09/18 documented as of this encounter
--- OUTSIDE RECORDS SUMMARY | 2025-03-02 19:48 | XMS_ITS | Encounter Summary ---
Author Organization [facility] Address [address] [place] [address] Care Team Providers Care Director Of Pharmacy Name Role Phone Gilmar Galvan MD Primary Care Provider Encounter Details Date Type Department Care Team (Late st Contact Info) Description 08/13/[address] [facility] Pediatrics [address] [address] [facility] [address] [address] [place] [address] [place] [address] Social History Tobacco Use Types Packs/Day Years Used Date Smoking Tobacco: Never Assessed Comments Unknown Sex and Gender Information Value Date Recorded Sex Assigned at Not on file Legal Sex Female 3:13 AM GAS METER INSTALLER Gender Identity Not on file Sexual Orientation Not on file documented as of this encounter Plan of Treatment Upcoming Encounters Date Type Department Care Team (Latest Contact Info) Description 03/01/2025 Plan of Care Documentation [facility] Services [address] [address] [address] [place] [address] 03/03/2025 9:00 AM CDT Hospital Encounter [facility] [address] [address] [address] [place] [address] 03/04/2025 9:00 AM CDT Appointment [facility] [address] [address] [address] [place] [address] 03/07/2025 9:00 AM GAS METER INSTALLER Appointment [facility] [address] [address] [address] [place] [address] 03/09/2025 9:00 AM GAS METER INSTALLER Appointment [facility] [address] [address] [address] [address] [place] [address] 03/10/2025 9:00 AM GAS METER INSTALLER Appointment [facility] [address] [address] [address] [address] [place] [address] 03/11/2025 9:00 AM GAS METER INSTALLER Appointment [facility] [address] [address] [place] [address] documented as of this encounter Visit Diagnoses Not on filedocumented in this encounter Additional Health Concerns Infection Onset Date Last Indicated Resolved Time R/O COVID-19 07/30/2019 07/30/2019 08/04/2019 6:05 AM CDT R/O Respiratory 05/12/2022 05/12/2022 05/12/2022 4 :27 PM GAS METER INSTALLER R/O C. diff 03/11/2024 03/11/2024 03/11/2024 12:4 6 PM GAS METER INSTALLER C Diff 03/11/2024 03/11/2024 05/10/2024 1:16 AM GAS METER INSTALLER documented as of this encounter Care Teams Director Of Pharmacy Relationship Specialty Start Date End Date Gilmar Galvan MD [address] [place] [address] PCP - General Family Practice 12/09/18 documented as of this encounter
--- OUTSIDE RECORDS SUMMARY | 2025-03-02 19:48 | XMS_ITS | Encounter Summary ---
Author Organization [facility] Address [address] [place] [address] Care Team Providers Care Gut Dropper Name Role Phone Gilmar Galvan MD Primary Care Provider Encounter Details Date Type Department Care Team (Latest Contact Info) Description 10/16/2006 Outpatient Historical [facility] [place] [address] [place], [place] [id number] Pain in Joint, Shoulder Region (Primary Dx) Social History Tobacco Use Types Packs/Day Years Used Date Smoking Tobacco: Never Assessed Comments Unknown Sex and Gender Information Value Date Recorded Sex Assigned at Not on file Legal Sex Female 3:13 AM AIR LAUNCH WEAPONS TECHNICIAN Gender Identity Not on file Sexual Orientation Not on file documented as of this encounter Plan of Treatment Upcoming Encounters Date Type Department Care Team (Latest Contact Info) Description 03/01/2025 Plan of Care Documentation [facility] Services [address] [place] [address] 03/03/2025 9:00 AM CDT Hospital Encounter [facility] Services [address] [address] [place] [address] 03/04/2025 9:00 AM CDT Appointment [facility] Services [address] [address] [place] [address] 03/07/2025 9:00 AM AIR LAUNCH WEAPONS TECHNICIAN Appointment [facility] Services [address] [place] [address] 03/09/2025 9:00 AM AIR LAUNCH WEAPONS TECHNICIAN Appointment [facility] Services [address] [address] [place] [address] 03/10/2025 9:00 AM AIR LAUNCH WEAPONS TECHNICIAN Appointment [facility] Services [address] [place] [address] 03/11/2025 9:00 AM AIR LAUNCH WEAPONS TECHNICIAN Appointment [facility] Services [address] [place] [address] documented as of this encounter Visit Diagnoses Diagnosis Pain in joint, shoulder region- Primary documented in this encounter Additional Health Concerns Infection Onset Date Last Indicated Resolved Time R/O COVID-19 07/30/2019 07/30/2019 08/04/2019 6:05 AM CDT R/O Respiratory 05/12/2022 05/12/2022 05/12/2022 4 :27 PM AIR LAUNCH WEAPONS TECHNICIAN R/O C. diff 03/11/2024 03/11/2024 03/11/2024 12:4 6 PM AIR LAUNCH WEAPONS TECHNICIAN C Diff 03/11/2024 03/11/2024 05/10/2024 1:16 AM AIR LAUNCH WEAPONS TECHNICIAN documented as of this encounter Care Teams Gut Dropper Relationship Specialty Start Date End Date Gilmar Galvan MD [address] [place] [address] PCP - General Family Practice 12/09/18 documented as of this encounter
--- OUTSIDE RECORDS SUMMARY | 2025-03-02 19:48 | XMS_ITS | Encounter Summary ---
Author Organization [facility] Address [address] [place] [address] Care Team Providers Care Hunting Sales Leader Name Role Phone Gilmar Galvan MD Primary Care Provider Encounter Details Date Type Department Care Team (Late st Contact Info) Description 09/24/2006 Outpatient [facility] [address] [facility] [address] [facility] [address] [address] [place] [address] [place] [address] Social History Tobacco Use Types Packs/Day Years Used Date Smoking Tobacco: Never Assessed Comments Unknown Sex and Gender Information Value Date Recorded Sex Assigned at Not on file Legal Sex Female 3:13 AM MANAGER BUSINESS MANAGEMENT Gender Identity Not on file Sexual Orientation Not on file documented as of this encounter Plan of Treatment Upcoming Encounters Date Type Department Care Team (Latest Contact Info) Description 03/01/2025 Plan of Care Documentation [facility] Services [address] [address] [place] [address] 03/03/2025 9:00 AM CDT Hospital Encounter [facility] Services [address] [address] [place] [address] 03/04/2025 9:00 AM CDT Appointment [facility] Services [address] [place] [address] 03/07/2025 9:00 AM MANAGER BUSINESS MANAGEMENT Appointment [facility] Services [address] [address] [place] [address] 03/09/2025 9:00 AM MANAGER BUSINESS MANAGEMENT Appointment [facility] Services [address] [address] [place] [address] 03/10/2025 9:00 AM MANAGER BUSINESS MANAGEMENT Appointment [facility] Services [address] [address] [address] [place] [address] 03/11/2025 9:00 AM MANAGER BUSINESS MANAGEMENT Appointment [facility] Services [address] [address] [place] [address] documented as of this encounter Visit Diagnoses Not on filedocumented in this encounter Additional Health Concerns Infection Onset Date Last Indicated Resolved Time R/O COVID-19 07/30/2019 07/30/2019 08/04/2019 6:05 AM CDT R/O Respiratory 05/12/2022 05/12/2022 05/12/2022 4 :27 PM MANAGER BUSINESS MANAGEMENT R/O C. diff 03/11/2024 03/11/2024 03/11/2024 12:4 6 PM MANAGER BUSINESS MANAGEMENT C Diff 03/11/2024 03/11/2024 05/10/2024 1:16 AM MANAGER BUSINESS MANAGEMENT documented as of this encounter Care Teams Hunting Sales Leader Relationship Specialty Start Date End Date Gilmar Galvan MD [address] [place] [id number] PCP - General Family Practice 12/09/18 documented as of this encounter
--- OUTSIDE RECORDS SUMMARY | 2025-03-02 19:48 | XMS_ITS | Encounter Summary ---
Author Organization [facility] Address [address] [place] [address] Care Team Providers Care Bulb Planter Name Role Phone Gilmar Galvan MD Primary Care Provider Encounter Details Date Type Department Care Team (Late st Contact Info) Description 04/10/2006 Outpatient [facility] Pediatric[facility] [address] [facility] [address] [facility] [address] [address] [place] [address] [place] [address] Social History Tobacco Use Types Packs/Day Years Used Date Smoking Tobacco: Never Assessed Comments Unknown Sex and Gender Information Value Date Recorded Sex Assigned at Not on file Legal Sex Female 3:13 AM INDUSTRIAL METHODS CONSULTANT Gender Identity Not on file Sexual Orientation Not on file documented as of this encounter Plan of Treatment Upcoming Encounters Date Type Department Care Team (Latest Contact Info) Description 03/01/2025 Plan of Care Documentation [facility] Outpatient [facility] Program Services [address] [place] [address] 03/03/2025 9:00 AM CDT Hospital Encounter [facility] Services [address] [address] [place] [address] 03/04/2025 9:00 AM CDT Appointment [facility] Services [address] [address] [place] [address] 03/07/2025 9:00 AM INDUSTRIAL METHODS CONSULTANT Appointment [facility] Out[facility] Services [address] [address] [address] [place] [address] 03/09/2025 9:00 AM INDUSTRIAL METHODS CONSULTANT Appointment [facility] Out[facility] Services [address] [address] [place] [address] 03/10/2025 9:00 AM INDUSTRIAL METHODS CONSULTANT Appointment [facility] Out[facility] Services [address] [address] [address] [place] [address] 03/11/2025 9:00 AM INDUSTRIAL METHODS CONSULTANT Appointment [facility] Out[facility] Services [address] [address] [place] [address] documented as of this encounter Visit Diagnoses Not on filedocumented in this encounter Additional Health Concerns Infection Onset Date Last Indicated Resolved Time R/O COVID-19 07/30/2019 07/30/2019 08/04/2019 6:05 AM CDT R/O Respiratory 05/12/2022 05/12/2022 05/12/2022 4 :27 PM INDUSTRIAL METHODS CONSULTANT R/O C. diff 03/11/2024 03/11/2024 03/11/2024 12:4 6 PM INDUSTRIAL METHODS CONSULTANT C Diff 03/11/2024 03/11/2024 05/10/2024 1:16 AM INDUSTRIAL METHODS CONSULTANT documented as of this encounter Care Teams Bulb Planter Relationship Specialty Start Date End Date Gilmar Galvan MD [address] [place] [phone] PCP - General Family Practice 12/09/18 documented as of this encounter
[2025-03-02 19:59] VITALS: BP 134/100; PULSE 100; RESP 36; TEMP 36.5; O2SAT 95
--- NOTE | 2025-03-02 20:01 | ECG_ITS ---
Test Date: 2025-03-02 20:06:38 Measurements Intervals [place] Rate: 95 P: 3 WV: 147 QRS: -6 QRSD: 67 T: -6 QT: 342 QTc: 431 Interpretive Statements SINUS RHYTHM DELAYED PRECORDIAL R/S TRANSITION BORDERLINE ST-T WAVE ABNORMALITY- INFERIOR LEADS BASELINE ARTIFACT- I, II, III, AVR, AVL ,AVF, V4-V6 BORDERLINE ECG Compared to ECG 02/17/2025 10:46:47 HEART RATE HAS DECREASED Electronically Signed On 03-02-2025 20:21:57 CDT by Altaf Bedolla D.O.
--- NOTE | 2025-03-02 23:05 | PC.NURSE ---
This RN received report from Brianne DE LA TORRE.
[2025-03-02 23:31] VITALS: BP 122/83; PULSE 80; RESP 20; O2SAT 98
--- NOTE | 2025-03-02 23:48 | ED_ITS ---
HPI - Anxiety General Chief Complaint: Anxiety Stated Complaint: CP/panic attack Time Seen by Provider: 03/02/25 23:24 History of Present Illness HPI narrative: Patient is a 34-year-old female who presents to the ER with anxiety. She reports she was admitted to [facility] for psychiatric treatment last week. Patient reports she believes she was discharged too early but wanted to get home to take care of her kids. She reports she is currently going through I treatment and today was her 2nd day. After she experienced an anxiety attack at treatment today patient's psychiatrist changed some medication and advised her to come to the hospital for further evaluation. Patient reports she gave 11 months ago and has had depression. She reports her medications has been changed from Prozac to Effexor to Paxil with BuSpar and Klonopin. Patient also reports she recently had a tooth extracted and has been taking Tylenol 3. She reports earlier tonight she was home alone and considered taking all of her pills because my children could find a better mother, but reports she knows that's not true and that's when I decided to come to the hospital. Related Data Home Medications ?Medication ?Instructions ?Recorded ?Confirmed ?Last Taken ?Type No Home Medications 07/30/23 07/30/23 U nknown History Allergies Allergy/AdvReac Type Severity Reaction Status Date / Time ketorolac (From Toradol) Allergy Difficulty Verified 03/02/25 19:46 Breathing Penicillins Allergy Rash Verified 03/02/25 19:46 Review of Systems 2 Review of Systems: All systems reviewed & are unremarkable except as noted in HPI and below PMFSH Past Medical History Medical History History of anxiety Surgical History Surgical History History of delivery Social History Social History Smoking status: Never smoker Alcohol intake: current Substance use: current Substance use type: does not use Other substance usage details: gummies for sleep Do You Feel Safe in your Home?: Yes Lack of Transportation: No Lack of Food: Never True Current Housing: I Have Housing Concerned About Future Housing: No Difficulty Paying Gas/Electric Bills: No Difficulty Paying for Meds: No Currently Unemployed: No Education: Associate Degree Difficulty w/ Childcare or Family Care: No Spiritual care concerns: No Exam 2 Narrative: GENERAL: Well appearing, well-nourished, non-toxic, in no acute distress. HEAD: Normocephalic, atraumatic. NECK: Supple. No adenopathy, no masses. RESPIRATORY: Airway patent, respirations nonlabored. Clear to auscultation bilaterally, no rales, rhonchi, wheezing. CARDIOVASCULAR: Regular rate and rhythm without murmurs, rubs, or gallops. Peripheral pulses 2+ and equal bilaterally. ABDOMINAL: Soft, nontender, nondistended, no hepatosplenomegaly. Normoactive BS. MUSCULOSKELETAL: Moves all extremities. Strength/ROM intact without gross deformities. SKIN: Warm, dry, normal color. No rashes. NEURO: A&O X3. Speech clear. Cranial nerves II-XII intact. No ataxic movements. PSYCHIATRIC: Tearful. Rocking back and forth on her stretcher. Course Vital Signs Vital signs: Vital Signs Temperature 36.5 C 03/02/25 19:59 Pulse Rate 100 03/02/25 19:59 Respiratory Rate 36 H 03/02/25 19:59 Blood Pressure 134/100 H 03/02/25 19:59 Pulse Oximetry 95 03/02/25 19:59 Oxygen Delivery Room Air 03/02/25 19:59 Temperature 36.5 C 03/02/25 19:59 Pulse Rate 80 03/02/25 23:31 Respiratory Rate 20 03/02/25 23:31 Blood Pressure 122/83 03/02/25 23:31 Pulse Oximetry 98 03/02/25 23:31 Oxygen Delivery Room Air 03/02/25 19:59 MDM - Anxiety MDM Narrative Medical decision making narrative: Patient is a 34-year-old female who presents to the ER with anxiety. She reports she was admitted to [facility] for psychiatric treatment last week. Patient reports she believes she was discharged too early but wanted to get home to take care of her kids. She reports she is currently going through I0P treatment and today was her 2nd day. After she experienced an anxiety attack at treatment today patient's psychiatrist changed some medication and advised her to come to the hospital for further evaluation. Patient reports she gave 11 months ago and has had depression. She reports her medications has been changed from Prozac to Effexor to Paxil with BuSpar and Klonopin. Patient also reports she recently had a tooth extracted and has been taking Tylenol 3. She reports earlier tonight she was home alone and considered taking all of her pills because my children could find a better mother, but reports she knows that's not true and that's when I decided to come to the hospital. Patient denies any current homicidal ideation. Patient was in agreement for mental health evaluation, but then walked out of the emergency department without telling staff first. Differential Diagnosis Differential diagnosis: Likely hyperventilation, panic disorder and acute anxiety Lab Data Attestation: I reviewed the patient's lab results. 03/03/25 00:30 03/03/25 00:30 Labs: Lab Results 03/03/25 Range/Units 00:30 WBC 8.0 (4.5-10.0) K/mm3 RBC 4.14 L (4.2-5.4) M/mm3 Hgb 12.3 (12.0-15.0) g/dL Hct 36.5 L (37.0-47.0) % MCV 88.2 (80-100) fl MCH 29.7 (26-34) pg MCHC 33.7 (32-36) g/dl RDW 13.0 (11.5-14.5) % Plt Count 330 (150-375) k/mm3 MPV 9.1 (7.4-10.4) fl Immature Gran % (Auto) 0.2 (0-0.5) % Neut % (Auto) 40.1 L (45.5-73.1) % Lymph % (Auto) 48.4 H (18.3-44.2) % [place] % (Auto) 8.7 H (2.6-8.5) % Eos % (Auto) 1.9 (0-4.4) % Baso % (Auto) 0.7 (0.2-1.2) % Lymph # (Auto) 3.89 H (0.9-3.2) K/mm3 [place] # (Auto) 0.7 H (0.1-0.6) K/mm3 Eos # (Auto) 0.2 (0-0.3) K/mm3 Baso # (Auto) 0.1 (0.0-0.1) K/mm3 Abs Immat Gran (auto) 0.02 (0.00-0.031) K/mm3 Absolute Neuts (auto) 3.2 (1.3-6.7) K/mm3 Absolute Nucleated RBC 0.000 (0.0-0.012) K/mm3 Nucleated RBC % 0.0 (0.0-0.2) % Sodium 137 (137-145) mmol/L Potassium 3.8 (3.4-5.0) mmol/L Chloride 104 (98-107) mmol/L Carbon Dioxide 24 (22-30) mmol/L Anion Gap 9 (4-12) mmol/L BUN 9 (7-17) mg/dL Creatinine 0.73 (0.7-1.0) mg/dL Estim Creat Clear Calc 99 ml/min Estimated GFR > 60 (59 - ) Glucose 90 (65-110) mg/dL Calcium 8.8 (8.4-10.2) mg/dL Total Bilirubin 0.6 (0.2-1.3) mg/dL AST 40 H (14-36) U/L ALT 57 H (6-35) U/L Alkaline Phosphatase 91 (38-126) U/L Total Protein 7.1 (6.3-8.2) g/dL Albumin 4.1 (3.5-5.1) g/dL TSH 2.450 (0.465-4.680) uIU/mL Urine Color Yellow (Yellow) Urine Appearance Clear (Clear) Urine pH 6.0 (5.0-9.0) Ur Specific [place] 1.007 (1.001-1.035) Urine Protein Negative (Negative) mg/dL Urine Glucose (UA) Negative (Negative) mg/dL Urine Ketones Negative (Negative) mg/dL Ur Blood (Man) Negative (Negative) Urine Nitrate Negative (Negative) Urine Bilirubin Negative (Negative) Urine Urobilinogen 0.2 (<2.0) mg/dL Leukocyte Esterase Rfl Negative (Negative) MARIA G/UL Salicylates < 1.0 L (2-20) mg/dL Urine Opiates Screen Positive A (Negative) Urine Methadone Screen Negative (Negative) Acetaminophen < 10 L (10-30) ug/mL Ur Barbiturates Screen Negative (Negative) Ur Phencyclidine Scrn Negative (Negative) Ur Amphetamine Screen Negative (Negative) U Benzodiazepines Scrn Positive A (Negative) Urine Cocaine Screen Negative (Negative) U Cannabinoids Screen Positive A (Negative) Ethyl Alcohol < 10 (<10) mg/dL Influenza A (RT-PCR) Negative (Negative) Influenza B (RT-PCR) Negative (Negative) RSV (RT-PCR) Negative (Negative) SARS-CoV-2 RNA (RT-PCR) Negative (Negative) Imaging Data Attestation: I personally reviewed and interpreted this imaging study as follows: Discharge Plan Discharge Clinical Impression: Acute anxiety, Panic disorder Patient Disposition: Elopement After Seen by Prov Patient Language: Polish Prescriptions: No Action No Home Medications Follow-up/Referrals: PHYSICIAN NOT ON STAFF,NONSTAFF [Primary Care Provider]
--- OUTSIDE RECORDS SUMMARY | 2025-03-02 23:52 | XMS_ITS | Encounter Summary ---
Author Organization [facility] Address [address] [place] [address] Care Team Providers Care Generator Worker Name Role Phone Gilmar Galvan MD Primary Care Provider Encounter Details Date Type Department Care Team (Latest Contact Info) Description 10/16/2006 Outpatient Historical [facility] [place] [address] [place], [place] [id number] Pain in Joint, Shoulder Region (Primary Dx) Social History Tobacco Use Types Packs/Day Years Used Date Smoking Tobacco: Never Assessed Comments Unknown Sex and Gender Information Value Date Recorded Sex Assigned at Not on file Legal Sex Female 3:13 AM STONE RUBBER Gender Identity Not on file Sexual Orientation Not on file documented as of this encounter Plan of Treatment Upcoming Encounters Date Type Department Care Team (Latest Contact Info) Description 03/01/2025 Plan of Care Documentation [facility] Outpatient Behavioral Health Program Services [address] [address] [place] [address] 03/03/2025 9:00 AM CDT Hospital Encounter [facility] Services [address] [address] [address] [place] [address] 03/04/2025 9:00 AM CDT Appointment [facility] Outpatient [facility] Program Services [address] [address] [address] [place] [address] 03/07/2025 9:00 AM STONE RUBBER Appointment [facility] Outpatient Behavior[facility] Health Program Services [address] [address] [address] [place] [address] 03/09/2025 9:00 AM STONE RUBBER Appointment [facility] Outpatient Behavior[facility] Health Program Services [address] [address] [address] [place] [address] 03/10/2025 9:00 AM STONE RUBBER Appointment [facility] Outpatient [facility] Health Program Services [address] [address] [address] [place] [address] 03/11/2025 9:00 AM STONE RUBBER Appointment [facility] Outpatient [facility]al Health Program Services [address] [address] [address] [place] [address] documented as of this encounter Visit Diagnoses Diagnosis Pain in joint, shoulder region- Primary documented in this encounter Additional Health Concerns Infection Onset Date Last Indicated Resolved Time R/O COVID-19 07/30/2019 07/30/2019 08/04/2019 6:05 AM CDT R/O Respiratory 05/12/2022 05/12/2022 05/12/2022 4 :27 PM STONE RUBBER R/O C. diff 03/11/2024 03/11/2024 03/11/2024 12:4 6 PM STONE RUBBER C Diff 03/11/2024 03/11/2024 05/10/2024 1:16 AM STONE RUBBER documented as of this encounter Care Teams Generator Worker Relationship Specialty Start Date End Date Gilmar Galvan MD [address] [place] [address] PCP - General Family Practice 12/09/18 documented as of this encounter
--- OUTSIDE RECORDS SUMMARY | 2025-03-02 23:52 | XMS_ITS | Encounter Summary ---
Author Organization [facility] Address [address] [place] [address] Care Team Providers Care Garbage Collector Supervisor Name Role Phone Gilmar Galvan MD Primary Care Provider Encounter Details Date Type Department Care Team (Late st Contact Info) Description 08/13/2006 Outpatient [facility] Pediatrics [address] [facility] [address] [place] [facility] [address] [address] [place] [address] [place] [address] Social History Tobacco Use Types Packs/Day Years Used Date Smoking Tobacco: Never Assessed Comments Unknown Sex and Gender Information Value Date Recorded Sex Assigned at Not on file Legal Sex Female 3:13 AM SHOE CUTTER Gender Identity Not on file Sexual Orientation Not on file documented as of this encounter Plan of Treatment Upcoming Encounters Date Type Department Care Team (Latest Contact Info) Description 03/01/2025 Plan of Care Documentation [facility] Outpatient Behavioral Health Program Services [address] [place] [address] 03/03/2025 9:00 AM CDT Hospital Encounter [facility] Outpatient Behavior[facility] Health Program Services [address] [address] [address] [place] [address] 03/04/2025 9:00 AM CDT Appointment [facility] Outpatient [facility] Services [address] [address] [address] [place] [address] 03/07/2025 9:00 AM SHOE CUTTER Appointment [facility] Outpatient [facility] Program Services [address] [address] [address] [place] [address] 03/09/2025 9:00 AM SHOE CUTTER Appointment [facility] Outpatient [facility] Services [address] [address] [address] [place] [address] 03/10/2025 9:00 AM SHOE CUTTER Appointment [facility] Outpatient [facility] Program Services [address] [address] [address] [place] [address] 03/11/2025 9:00 AM SHOE CUTTER Appointment [facility] Outpatient [facility] Health Program Services [address] [address] [address] [place] [address] documented as of this encounter Visit Diagnoses Not on filedocumented in this encounter Additional Health Concerns Infection Onset Date Last Indicated Resolved Time R/O COVID-19 07/30/2019 07/30/2019 08/04/2019 6:05 AM CDT R/O Respiratory 05/12/2022 05/12/2022 05/12/2022 4 :27 PM SHOE CUTTER R/O C. diff 03/11/2024 03/11/2024 03/11/2024 12:4 6 PM SHOE CUTTER C Diff 03/11/2024 03/11/2024 05/10/2024 1:16 AM SHOE CUTTER documented as of this encounter Care Teams Garbage Collector Supervisor Relationship Specialty Start Date End Date Gilmar Galvan MD [address] [place] [address] PCP - General Family Practice 12/09/18 documented as of this encounter
--- OUTSIDE RECORDS SUMMARY | 2025-03-02 23:52 | XMS_ITS | Encounter Summary ---
Author Organization [facility] Address [address] [place] [address] Care Team Providers Care Power Generation Turbine Room Operator Name Role Phone iGlmar Galvan MD Primary Care Provider Reason for Visit * Reason Comments Medication Refill Encounter Details Date Type Department Care Team (Late st Contact Info) Description 12/20/2015 Refill [facility] [address], [facility] [address] [place] [address] Moira Israel NP NO ADDRESS [...] on file Legal Sex Female 3:13 AM BUDGET EXAMINER Gender Identity Not on file Sexual Orientation Not on file Occupation Industry Job Start Date Job End Date Not on file Not on file Not on file Not on file documented as of this encounter Plan of Treatment Upcoming Encounters Date Type Department Care Team (Latest Contact Info) Description 03/01/2025 Plan of Care Documentation [facility] [address] [place] [address] 03/03/2025 9:00 AM CDT Hospital Encounter [facility] [address] [place] [address] 03/04/2025 9:00 AM CDT Appointment [facility] [address] [address] [place] [address] 03/07/2025 9:00 AM BUDGET EXAMINER Appointment [facility] [address] [address] [place] [address] 03/09/2025 9:00 AM BUDGET EXAMINER Appointment [facility] [address] [address] [place] [address] 03/10/2025 9:00 AM BUDGET EXAMINER Appointment [facility] [address] [address] [place] [address] 03/11/2025 9:00 AM BUDGET EXAMINER Appointment [facility] [address] [address] [place] [address] documented as of this encounter Visit Diagnoses Not on filedocumented in this encounter Additional Health Concerns Infection Onset Date Last Indicated Resolved Time R/O COVID-19 07/30/2019 07/30/2019 08/04/2019 6:05 AM CDT R/O Respiratory 05/12/2022 05/12/2022 05/12/2022 4 :27 PM BUDGET EXAMINER R/O C. diff 03/11/2024 03/11/2024 03/11/2024 12:4 6 PM BUDGET EXAMINER C Diff 03/11/2024 03/11/2024 05/10/2024 1:16 AM BUDGET EXAMINER documented as of this encounter Care Teams Power Generation Turbine Room Operator Relationship Specialty Start Date End Date Gilmar Galvan MD [address] [place] [id number] PCP - General Family Practice 12/09/18 documented as of this encounter
--- OUTSIDE RECORDS SUMMARY | 2025-03-02 23:52 | XMS_ITS | Encounter Summary ---
Author Organization [facility] Address [address] [place] [address] Care Team Providers Care Manager Shift Name Role Phone Gilmar Galvan MD Primary Care Provider Encounter Details Date Type Department Care Team (Late st Contact Info) Description 02/11/2025 [facility] [address] [place] [address] Gilmar Galvan MD [address] [place] [address] Social History Tobacco Use Types [...] on file Legal Sex Female 3:13 AM COUGAR HUNTER Gender Identity Not on file Sexual Orientation Not on file Occupation Industry Job Start Date Job End Date Not on file Not on file Not on file Not on file documented as of this encounter Plan of Treatment Upcoming Encounters Date Type Department Care Team (Latest Contact Info) Description 03/01/2025 Plan of Care Documentation [facility] [address] [place] [address] 03/03/2025 9:00 AM CDT Hospital Encounter [facility] [address] [address] [place] [address] 03/04/2025 9:00 AM CDT Appointment [facility] [address] [address] [place] [address] 03/07/2025 9:00 AM COUGAR HUNTER Appointment [facility] [address] [address] [place] [address] 03/09/2025 9:00 AM COUGAR HUNTER Appointment [facility] [address] [address] [place] [address] 03/10/2025 9:00 AM COUGAR HUNTER Appointment [facility] [address] [address] [place] [address] 03/11/2025 9:00 AM COUGAR HUNTER Appointment [facility] [address] [address] [place] [address] documented as of this encounter Visit Diagnoses Not on filedocumented in this encounter Additional Health Concerns Assessment Noted Time PHQ-9 Depression Total Score: 5 02/02/20 25 7:00 AM CDT documented as of this encounter Care Teams Manager Shift Relationship Specialty Start Date End Date Gilmar Galvan MD [address] [place] [address] PCP - General Family Practice 12/09/18 documented as of this encounter
--- OUTSIDE RECORDS SUMMARY | 2025-03-02 23:52 | XMS_ITS | Encounter Summary ---
Author Organization [facility] Address [address] [place] [address] Care Team Providers Care Stripping Shovel Operator Name Role Phone Gilmar Galvan MD Primary Care Provider Encounter Details Date Type Department Care Team (Latest Contact Info) Description 11/26/[address] [facility] [address] [place], [place] [id number] Cervicalgia (Primary Dx) Social History Tobacco Use Types Packs/Day Years Used Date Smoking Tobacco: Never Assessed Comments Unknown Sex and Gender Information Value Date Recorded Sex Assigned at Not on file Legal Sex Female 3:13 AM WEIR FISHERMAN Gender Identity Not on file Sexual Orientation Not on file documented as of this encounter Plan of Treatment Upcoming Encounters Date Type Department Care Team (Latest Contact Info) Description 03/01/2025 Plan of Care Documentation [facility] Services [address] [address] [place] [address] 03/03/2025 9:00 AM CDT Hospital Encounter [facility] [address] [address] [place] [address] 03/04/2025 9:00 AM CDT Appointment [facility] [address] [address] [place] [address] 03/07/2025 9:00 AM WEIR FISHERMAN Appointment [facility] [address] [address] [place] [address] 03/09/2025 9:00 AM WEIR FISHERMAN Appointment [facility] Services [address] [address] [place] [address] 03/10/2025 9:00 AM WEIR FISHERMAN Appointment [facility] Services [address] [address] [place] [address] 03/11/2025 9:00 AM WEIR FISHERMAN Appointment [facility] Services [address] [address] [place] [address] documented as of this encounter Visit Diagnoses Diagnosis Cervicalgia- Primary documented in this encounter Additional Health Concerns Infection Onset Date Last Indicated Resolved Time R/O COVID-19 07/30/2019 07/30/2019 08/04/2019 6:05 AM CDT R/O Respiratory 05/12/2022 05/12/2022 05/12/2022 4 :27 PM WEIR FISHERMAN R/O C. diff 03/11/2024 03/11/2024 03/11/2024 12:4 6 PM WEIR FISHERMAN C Diff 03/11/2024 03/11/2024 05/10/2024 1:16 AM WEIR FISHERMAN documented as of this encounter Care Teams Stripping Shovel Operator Relationship Specialty Start Date End Date Gilmar Galvan MD [address] [place] [address] PCP - General Family Practice 12/09/18 documented as of this encounter
--- OUTSIDE RECORDS SUMMARY | 2025-03-02 23:52 | XMS_ITS | Clinical Summary ---
Author Organization [email or web address] Address [address] [facility] [facility] [place] [address] Care Team Providers Care Utility Hand Name Role Phone Anitha Nina RN Unavailable Unavailable Gilmar Galvan MD Primary Care Provider Source Comments [email or web address],non-owned Affiliates and Associated Physician Practices is amultiple site organization consisting of ambulatory clinics and hospital sitesin [place], [place], [place] and [place]. This disclosure is being madepursuant to the Care Everywhere program and may not contain all information available regarding this patient. Last updated 18.[email or web address] Allergies Active Allergy Reactions Criticality Noted Date [...] patient's age to complete this topic Insurance [facility] Care Teams Utility Hand Relationship Specialty Start Date End Date Gilmar Galvan MD [address] [place] [phone] PCP - General Family Medicine 12/03/19 Anitha Nina, RN Registered Nurse 06/09/17
--- OUTSIDE RECORDS SUMMARY | 2025-03-02 23:52 | XMS_ITS | Clinical Summary ---
Author Organization [facility] Administrative Offices Address [address] [place] [address] Care Team Providers Care Pull Up Hand Name Role Phone Gilmar Galvan MD Primary [...] feels stress levels are OK. Takes wellbutrin [id number] qd -10/23/22 - pt reports she is [...] -Patient was seen in the ER at [facility] on 02/17/2025 for panic attack and chest [...] feels stress levels are OK. Takes wellbutrin [id number] qd -Stable. Doing well overall. Continue current [...] regimen Assessment & Plan (06/27/2020 9:18 AM MANAGER ICU): Anxiety - At visit on 02/18/19 pt [...] regimen Assessment & Plan (03/08/2020 2:41 PM MANAGER ICU): Anxiety - At visit on 02/18/19 pt [...] lexapro Assessment & Plan (03/25/2019 3:27 PM MANAGER ICU): Anxiety - At visit on 02/18/19 pt [...] she was not taking adderall. -Review of [facility] PDMP on 12/09/18 showed last refill for [...] she was not taking adderall. -Review of [facility] PDMP on 12/09/18 showed last refill for [...] regimen Assessment & Plan (06/27/2020 9:18 AM MANAGER ICU): ADHD - diagnosed ~age 16 by her previous PCP. No formal testing. Pt reports she was taking adderall XR 30mg qd, felt this worked well for her. Previous PCP (Chuck Avalos MD) retired and pt decided to try stopping stimulant medication when he retired. States her ability to focus and perform at work decreased significantly when she was not taking adderall. -Review of [facility] PDMP on 12/09/18 showed last refill for [...] days Assessment & Plan (03/08/2020 2:41 PM MANAGER ICU): ADHD - diagnosed ~age 16 by her previous PCP. No formal testing. Pt reports she was taking adderall XR 30mg qd, felt this worked well for her. Previous PCP (Chuck Avalos MD) retired and pt decided to try stopping stimulant medication when he retired. States her ability to focus and perform at work decreased significantly when she was not taking adderall. -Review of [facility] on 12/09/18 showed last refill for adderall [...] regimen Assessment & Plan (03/25/2019 3:29 PM MANAGER ICU): ADHD - diagnosed ~age 16 by her previous PCP. No formal testing. Pt reports she was taking adderall XR 30mg qd, felt this worked well for her. Previous PCP (Chuck Avalos MD) retired and pt decided to try stopping stimulant medication when he retired. States her ability to focus and perform at work decreased significantly when she was not taking adderall. -Review of [facility] PDM on 12/09/18 showed last refill for [...] she was not taking adderall. -Review of [facility] on 12/09/18 showed last refill for adderall [...] she was not taking adderall. -Review of [facility] PDM shows last refill for adderall was [...] ~2009. S/p surgical tx 06/2016 at [facility] Assessment & Plan (12/09/2018 4:04 PM CDT): Diagnosed ~2009. S/p surgical tx 06/2016 at [facility] Pseudotumor cerebri syndrome 07/05/2009 Overview (08/09/2022): -Diagnosed [...] Description 03/02/2025 8:18 AM CDT Hospital Encounter [facility] [address] [place] [address] Jaye Garcia MD Arrived 03/02/2025 Telephone [facility] [address] [place] [address] Leida Davis RN Return Call 03/01/2025 8:00 AM CDT - 03/01/2025 11:59 PM CDT Hospital Encounter [facility] [address] [place] [address] Jaye Garcia MD Arrived Discharge Disposition: Home or Self Care 03/01/2025 Plan of Care Documentation [facility] [address] [address] [place] [phone] 03/01/2025 Travel 02/28/2025 Telephone [facility] [address] [address] [place] [phone] Tiara Simmons Follow Up (Re-reviewed IOP information and expectations in detail, location ([place]1 [place]), and confirmed the pt's admission date (moved up from 03/08/25); to arrive at 745. Support given) 02/27/2025 Refill [facility] [address] [place] [address] Jaye Garcia MD ESTHER (generalized anxiety disorder) 02/25/2025 Plan of Care Documentation [facility] Behavioral [facility] [address] [place] [address] 02/23/2025 4:25 PM CDT - 02/26/2025 12:33 PM CDT Hospital Encounter [facility] [address] [place] [address] Tammy Andersen MD Garcia Ferrer, Eduardo, MD Gao, Enquan, MD Shemwell, Kathryn, MD Severe episode of recurrent major depressive disorder, without psychotic features ([facility]) Discharge Disposition: Home or Self Care 02/23/2025 External Device Data STL ABSTRACTION Provider, Abstract 02/23/2025 Travel 02/23/2025 Telephone [facility] [address] [place] [phone] Arely Piper LPC Follow Up 02/23/2025 Telephone [facility] [address] [address] [place] [address] Arely Piper LPC Follow Up 02/23/2025 Telephone [facility] [address] [address] [place] [address] Arely Piper LPC Follow Up 02/23/2025 External Device Data STL ABSTRACTION Provider, Abstract 02/22/2025 8:00 AM CDT - 02/22/2025 11:59 PM CDT Hospital Encounter [facility] [address] [address] [place] [address] Jaye Garcia MD Discharge Disposition: Home or Self Care 02/22/2025 External Device Data STL ABSTRACTION Provider, Abstract 02/22/2025 Plan of Care Documentation [facility] Services [address] [address] [place] [address] 02/22/2025 Travel 02/21/2025 Telephone [facility] Behavioral [facility] Services [address] [address] [place] [address] Tiara Simmons Follow Up (Discussed IOP information and expectations in detail, location ([place]33.1 [place]), and confirmed the pt's admission date (moved up from 02/24/25); to arrive at 745. Support given) 02/20/2025 Nurse Triage [facility] PRIMARY [facility] [address] [place] [address] Starr Sylvester RN 02/18/2025 1:49 PM CDT - 02/18/2025 6:32 PM CDT Emergency [facility] Emergency Department [address] [place] [address] Pierce Queen MD ESTHER (generalized anxiety disorder) (Primary Dx) Discharge Disposition: Home or Self Care 02/18/2025 11:40 AM CDT Office Visit [facility] [address] [place] [address] Gilmar Galvan MD ESTHER (generalized anxiety disorder) 02/18/[address] [facility] [address] [place] [address] Gilmar Galvan MD ESTHER (generalized anxiety disorder) 02/18/2025 Travel 02/18/[address] [address] Gilmar Galvan MD Remote Monitoring 02/18/[address] [address] Brandy San 02/18/[address] [address] Brandy San 02/17/[address] [address] Gilmar Galvan MD Remote Monitoring 02/15/2025 10:00 AM CDT Office Visit [address] [address] Gilmar Galvan MD ESTHER (generalized anxiety disorder) 02/11/[address] [address] Gilmar Galvan MD 02/08/2025 8:20 AM CDT Video Visit [address] [phone] Silviano Barron MD ESTHER (generalized anxiety disorder) (Primary Dx) 02/08/2025 External Device Data STL ABSTRACTION Provider, Abstract 02/08/2025 Telephone [facility] IOP Program [address] [place] [address] Johana Gann, GAS ATTENDANT Follow Up 02/08/[address] [phone] Gilmar Galvan MD ESTHER (generalized anxiety disorder) 02/07/2025 5:30 PM CDT Video Visit [facility] [address] [place] [address] Fior Prajapati FNP Dental abscess (Primary Dx) 02/07/2025 Patient Self-Triage [facility] [address] [place] [address] 02/07/2025 Telephone [facility] IOP Program [address] [place] [phone] Johana Gann, GAS ATTENDANT Follow Up 02/04/2025 Telephone [facility] [address] [facility] [place] [address] Edgar Gray Intake and IOP 02/03/2025 2:30 PM CDT Office Visit [facility] DIRECTOR MEDICAL SURGICAL - Medical Dorothy [address] [facility] [address] [place] [address] Casandra Major MD Menorrhagia with regular cycle (Primary Dx); Mood changes; Current severe episode of major depressive disorder without psychotic features, unspecified whether recurrent (CMS/HCC); Anxiety state 02/03/2025 Telephone [facility] Substance Use Recovery [facility] [address] [facility] [address] [address] [place] [address] Zulema Cruz RN Patient call 02/01/2025 7:40 AM CDT Video Visit [facility] [address] [place] [address] Kaitlin Sellers FNP Panic attack (Primary Dx); ESTHER (generalized anxiety disorder); Moderately severe major depression (CMS/HCC) 01/31/2025 Telephone [facility] Women's Health Clinical Support [address] [address] Amy Mendez RN Heavy periods and mood issues 01/27/2025 8:20 AM CDT Video Visit [facility] [address] [place] [address] Priscilla Vera NP ESTHER (generalized anxiety disorder) (Primary Dx); Attention deficit hyperactivity disorder (ADHD), combined type; Mild episode of recurrent major depressive disorder 01/27/2025 Refill [facility] Maternal and Medicine [facility] [address] [place] [address] Gilmar Galvan MD ESTHER (generalized anxiety disorder) 01/26/2025 Refill [facility] [address] [place] [address] Gilmar Galvan MD ESTHER (generalized anxiety disorder) 01/19/2025 4:00 PM CDT Video Visit [place] [address] [place] [address] Priscilla Vera NP ESTHER (generalized anxiety disorder) (Primary Dx) 01/18/2025 External Device Data STL ABSTRACTION Provider, Abstract 01/04/2025 12:00 PM CDT Video Visit [address] [phone] Priscilla Vera NP ESTHER (generalized anxiety disorder) (Primary Dx); Mild episode of recurrent major depressive disorder 12/31/2024 Refill [facility] [address] [place] [address] Vineet Hendrix MD ESTHER (generalized anxiety disorder) 12/29/2024 External Device Data STL ABSTRACTION Provider, Abstract 12/22/2024 External Device Data STL ABSTRACTION Provider, Abstract 12/21/2024 External Device Data STL ABSTRACTION Provider, Abstract 12/14/2024 External Device Data STL ABSTRACTION Provider, Abstract 12/08/2024 External Device Data STL ABSTRACTION Provider, Abstract 12/06/2024 Patient Self-Triage [facility] PRIMARY CARE [address] [place] [address] from Last 3 Months Immunizations Immunization Administration [...] COVID-19 VACCINE - EMERGENCY USE AUTHORIZATION, MRNA, [id number](PF) 30 MCG/0.3 ML IM SUSP 08/22/2020,07/28/2020 (VARIVAX)(12 [...] worry about transportation for future doctor visits, oyster picker medication, etc.? No 2024 Housing Stability [...] file Legal Sex Female 3:13 AM MANAGER ICU Gender Identity Not on file Sexual Orientation [...] Info) Description 03/01/2025 Plan of Care Documentation [facility] [address] [address] [place] [address] 03/03/2025 9:00 AM CDT Hospital Encounter [facility] [address] [address] [place] [address] 03/04/2025 9:00 AM CDT Appointment [facility] [address] [address] [place] [address] 03/07/2025 9:00 AM MANAGER ICU Appointment [facility] [address] [address] [place] [address] 03/09/2025 9:00 AM MANAGER ICU Appointment [facility] [address] [address] [place] [address] 03/10/2025 9:00 AM MANAGER ICU Appointment [facility] Health Program Services [address] [address] [address] [place] [address] 03/11/2025 9:00 AM MANAGER ICU Appointment [facility] Program Services [address] [place] [address] Health Maintenance Due Date Last Done Comments [...] GLUCOSE FASTING Timed Study 06/20/2022 6:53 AM MANAGER ICU from Last 3 Months or Most Recently Relevant to Health Maintenance Results * EKG 12-LEAD (02/23/2025 7:28 PM CDT) 02/23/2025 7:28 PM CDT Narrative INTERFACE SYSTEM - 02/24/2025 5:31 AM CDT [address] [address] Test Date: 2025-02-23 Pat Name: JUNIOR MONTGOMERY Department: 37 Room: 52 52 Gender: F Two Needle Machine Operator: [email or web address] : 1990 Requested By: TAMMY ANDERSEN Order Number: [id number] Reading MD: Brady Chopra Measurements Intervals [place] Rate: 97 P: 8 MI: 144 QRS: -5 QRSD: 83 T: 5 QT: 348 QTc: 442 Interpretive Statements Sinus arrhythmia with premature atrial complex Electronically Signed On 02-24-2025 5:31:35 CDT by Brady Chopra Procedure Note Brady Chopra MD - 02/24/[address] [place] [address] Test Date: 2025-02-23 Pat Name: JUNIOR MONTGOMERY Department: 37 Room: 52 52 Gender: F Two Needle Machine Operator: [email or web address] : 1990 Requested By: TAMMY ANDERSEN Order Number: [id number] Reading MD: Brady Chopra Measurements Intervals [place] Rate: 97 P: 8 MI: 144 QRS: -5 QRSD: 83 T: 5 QT: 348 QTc: 442 Interpretive Statements Sinus arrhythmia with premature atrial complex Electronically Signed On 02-24-2025 5:31:35 CDT by Brady Chopra us Tammy Andersen MD ECG ORDERABLES Final Result Performing Organization Address City/State/[facility] Co de Phone Number INTERFACE SYSTEM Refer to clinic/hospital department * HEMOGLOBIN AND HEMATOCRIT (02/18/2025 2:46 PM CDT) HEMOGLOBIN 14.2 11.8 - 14.8 g/dL 02/18/2025 2:57 PM CDT [facility] HEMATOCRIT 41.5 35.5 - 44.0 % 02/18/2025 2:57 PM CDT [facility] Blood Venipuncture / Unknown 02/18/2025 2:46 PM CDT 02/18/2025 2:46 PM CDT us Pierce Queen MD HEMATOLOGY ORDERABLES Fin al Result Performing Organization Address City/[facility]/ZIP Co de Phone Number [facility] CLIA# [id number] [address] [place] [address] * ETHANOL LEVEL (02/18/2025 2:46 PM CDT) ETHANOL <10.10 <10.10 mg/dL 02/18/2025 4:01 PM CDT [facility] ETHANOL % <0.01 %w/v 02/18/2025 4:01 PM CDT [facility] Blood Venipuncture / Unknown 02/18/2025 2:46 PM CDT 02/18/2025 2:46 PM CDT Pierce Queen MD CHEMISTRY ORDERABLES Shahida l Result Performing Organization Address [facility] Co de Phone Number [facility] [employer] [facility] CLIA# [id number] [address] [place] [address] * ACETAMINOPHEN LEVEL (02/18/2025 2:46 PM CDT) ACETAMINOPHEN LEVEL <5 0 - 30 ug/mL 02/18/2025 3:36 PM CDT [facility] [employer] [facility] Blood Venipuncture / Unknown 02/18/2025 2:46 PM CDT 02/18/2025 2:46 PM CDT Narrative [facility] [employer] [facility] - 02/18/2025 3:36 PM CDT Therapeutic Range: 10-30 ug/mL The following Acetaminophen levels are associated with possible toxicity: 4 hours after dose >200 ug/mL 8 hours after dose >100 ug/mL 12 hours after dose >50 ug/mL Pierce uQeen MD CHEMISTRY ORDERABLES Shahida l Result Performing Organization Address [facility] Co de Phone Number [facility] [employer] [facility] CLIA# [id number] [address] [place] [address] * SALICYLATE LEVEL (02/18/2025 2:46 PM CDT) SALICYLATE LEVEL 3.2 0.0 - 30.0 mg/dL 02/18/2025 3:36 PM CDT [facility] [employer] [facility] Blood Venipuncture / Unknown 02/18/2025 2:46 PM CDT 02/18/2025 2:46 PM CDT Narrative [facility] [employer] [facility] - 02/18/2025 3:36 PM CDT Negative <3.0 mg/dL Therapeutic 3.0 - 10 mg/dL Toxicity >30 mg/dl Lethal >60 mg/dL us Pierce Queen MD CHEMISTRY ORDERABLES Shahida neris Result [facility] LABORATORY SERVICES - [facility] CLIA# [id number] [address] [place] [address] * (ABNORMAL) COMPREHENSIVE METABOLIC PANEL (02/18/2025 2:46 PM CDT) [facility] SODIUM 138 136 - 145 mmol/L 02/18/2025 4:01 PM CDT [facility] LABORATORY SERVICES - [facility] POTASSIUM 4.0 3.5 - 5.0 mmol/L 02/18/2025 4:01 PM CDT [facility] LABORATORY SERVICES - [facility] CHLORIDE 102 98 - 107 mmol/L 02/18/2025 4:01 PM CDT [facility] LABORATORY SERVICES - [facility] CO2 20(L) 22 - 29 mmol/L 02/18/2025 4:01 PM CDT [facility] LABORATORY SERVICES - [facility] [place] CALCIUM 9.5 8.6 - 10.2 mg/dL 02/18/2025 4:01 PM CDT [facility] LABORATORY SERVICES - [facility] BUN 10 6 - 20 mg/dL 02/18/2025 4:01 PM CDT [facility] LABORATORY SERVICES - [facility] CREATININE 0.76 0.51 - 0.95 mg/dL 02/18/2025 4:01 PM CDT [facility] LABORATORY SERVICES - [facility] [place] GLUCOSE 84 74 - 99 mg/dL 02/18/2025 4:01 PM CDT [facility] LABORATORY SERVICES - [facility] [place] TOTAL PROTEIN 7.7 6.7 - 8.6 g/dL 02/18/2025 4:01 PM CDT [facility] LABORATORY SERVICES - [facility] ALBUMIN 4.4 3.5 - 5.2 g/dL 02/18/2025 4:01 PM CDT [facility] LABORATORY SERVICES - [facility] BILIRUBIN TOTAL 0.6 0.0 - 1.2 mg/dL 02/18/2025 4:01 PM CDT [facility] LABORATORY SERVICES - [facility] [place] ALKALINE PHOSPHATASE 98 35 - 104 U/L 02/18/2025 4:01 PM CDT [facility] AST 37(H) <33 U/L 02/18/2025 4:01 PM CDT [facility] ALT 47(H) <34 U/L 02/18/2025 4:01 PM CDT [facility] GFR >60 >=60 mL/min/1.7 3 sq meter 02/18/2025 4:01 PM CDT [facility] Comment:eGFR calculated with 2020 CKD-EPI equation. Vegetarian diet, extremely high or low muscle mass, and may affect results. Cystatin C with Glomerular Filtration Rate is a suitable alternative for these patients. ANION GAP 16 8 - 16 mmol/L 02/18/2025 4:01 PM T [facility] Blood Venipuncture / Unknown 02/18/2025 2:46 PM CDT 02/18/2025 2:46 PM CDT Narrative [facility] - 02/18/2025 4:01 PM CDT Samples containing indocyanine green cause interferences on Total and/or Direct Bilirubin and must not be measured. us Pierce Queen MD CHEMISTRY ORDERABLES Shahida cordon Result [facility]# [id number] [address] [place] [address] * CERV/VAG CYTO AGE BASED SCREEN PAP W CT/NG, TRICH (08/19/2023 11:51 AM CDT) COMMENT (PAP): [facility] Comment: This order for age-based cervical cancer and STI screening follows ACOG guidelines(PB 168, 140, RIC728). See individual assays for performing site location. CLINICAL INFORMATION [facility] [place] Comment:None given LAST MENSTRUAL PERIOD [facility] [place] Comment:10/06/2022 PREV PAP: [facility] Comment:NONE GIVEN PREV BX: [facility] [place] Comment:NONE GIVEN SOURCE [facility] [place] Comment:Endocervix ADEQUACY: [facility] [place] Comment: Satisfactory for evaluation. Endocervical/transformation zone component present. PAP INTERP [facility] [place] Comment: Cytology Results: Negative for intraepithelial lesion or malignancy. COMMENT (PAP TEST) [facility] [place] Comment: This Pap test has been evaluated with computer assisted technology. LIGHT TECHNICIAN: Rory est Soren [employer] Comment: DDS, CT(ASCP) CT screening location: [place] [address] [place] [address] REVIEW LIGHT TECHNICIAN: Skip [employer] Systems[employer]pita Gabriel Comment: MEF, CT(ASCP) CT screening location: [place] [address] [address] [address] [facility] [place] Comment: EXPLANATORY NOTE: The Pap is a [...] information. HPV E6/E7 Not Detected Not Detected [facility] [place] Comment: Methodology: Construction Equipment Operator-Mediated Amplification This assay detects E6/E7 viral messenger RNA (mRNA) from 14 high-risk HPV types (16,18,31,33,35,39,45,51,52,56,58,59,66,68). Cervical sources are required for HPV testing. If a vaginal source from a patient who has had a total hysterectomy with removal of cervix was submitted, please contact the testing laboratory for alternative testing options. For additional information, please refer to http://[employer]/faq/JGI722l0 (This link if provided for information/ educational purposes only.) C TRAC RNA NOT DETECTED NOT DETECTED [facility] [place] N.GONORRHOEAE RNA, TMA NOT DETECTED NOT DETECTED [facility] [place] COMMENT INFECTIOUS DISEASE [facility] [place] Comment: The analytical performance characteristics of this assay, when used to test SurePath(TM) specimens have been determined by [facility]. The modifications have not been cleared or approved by the FDA. This assay has been validated pursuant to the CLIA regulations and is used for clinical purposes. For additional information, please refer to https://[employer]/faq/XAD858 (This link is being provided for information/ educational purposes only.) TRICHOMONAS VAGINALIS,QUALITAT HUNTER,PAP VIAL NOT DETECTED NOT DETECTED [facility] Comment: The analytical performance characteristics of this assay have been determined by [facility]. The modifications have not been cleared or approved by the FDA. This assay has been validated pursuant to the CLIA regulations and is used for clinical purposes. For additional information, please refer to http://education.[employer]/ faq/Trichomonastma (This link is being provided for information/ educational purposes only.) Test Performed at: [facility] [address] [place] [address] Dejon Escalera MD SL Genital SWAB OF ENDOCERVIX / Unknown 08/19/2023 11:51 AM CDT 08/20/2023 4:07 AM CDT Mona Shaver NP PATHOLOGY/CYTOLOGY ORDERABL ES Final Result Performing Organization Address City/[facility]/ZIP Co de Phone Number [facility] [phone] [facility] [address] [place] [address] * GLUCOSE FASTING (06/20/2022 6:53 AM MANAGER ICU) GLUCOSE-FASTIN G 75 74 - 99 mg/dL 06/20/2022 8:22 AM MANAGER ICU [facility] LAB[facility]ORY [facility] Blood Venipuncture / Unknown 06/20/2022 6:53 AM MANAGER ICU 06/20/2022 7:11 AM MANAGER ICU Tiara Ryan MD CHEMISTRY ORDERABLES Final Result Performing Organization Address City/[facility] Co de Phone Number [facility] [employer] [facility] CLIA# [id number] [address] [place] [address] from Last 3 Months or Most Recently Relevant to Health Maintenance Insurance BLUE ACCESS CHOICE BCBS BLUE ACCESS/TRUE BLUE PPO RX [employer] Commercial RX [employer] PLANS (INTERNAL) [facility] BLUE ACCESS/TRUE BLUE PPO Advance Directives For more information, please contact: [phone] * Full Code (Latest Code Status on [...] 9:10 AM 06/17/2022 7:38 PM Care Teams Pull Up Hand Relationship Specialty Start Date End Date Gilmar Galvan MD [address] [place] [address] PCP - General Family Practice 12/09/18
--- OUTSIDE RECORDS SUMMARY | 2025-03-02 23:52 | XMS_ITS | Encounter Summary ---
Author Organization [facility] Address [address] [place] [address] Care Team Providers Care Warp Tying Machine Knotter Name Role Phone Gilmar Galvan MD Primary Care Provider Encounter Details Date Type Department Care Team (Late st Contact Info) Description 11/26/2006 Outpatient [facility] Pediatrics [address] [facility] [address] [facility] [address] [address] [place] [address] [place] [address] Social History Tobacco Use Types Packs/Day Years Used Date Smoking Tobacco: Never Assessed Comments Unknown Sex and Gender Information Value Date Recorded Sex Assigned at Not on file Legal Sex Female 3:13 AM ASSISTANT OPERATOR Gender Identity Not on file Sexual Orientation Not on file documented as of this encounter Plan of Treatment Upcoming Encounters Date Type Department Care Team (Latest Contact Info) Description 03/01/2025 Plan of Care Documentation [facility] Outpatient Behavior[facility] Health Program Services [address] [place] [address] 03/03/2025 9:00 AM CDT Hospital Encounter [facility] Services [address] [address] [address] [place] [address] 03/04/2025 9:00 AM CDT Appointment [facility] Services [address] [address] [address] [place] [address] 03/07/2025 9:00 AM ASSISTANT OPERATOR Appointment [facility] Out[facility] Services [address] [address] [address] [place] [address] 03/09/2025 9:00 AM ASSISTANT OPERATOR Appointment [facility] Outpatient [facility] Health [facility] Services [address] [address] [address] [place] [address] 03/10/2025 9:00 AM ASSISTANT OPERATOR Appointment [facility] Outpatient [facility] Health [facility] Services [address] [address] [place] [address] 03/11/2025 9:00 AM ASSISTANT OPERATOR Appointment [facility] Outpatient [facility] Health [facility] Services [address] [address] [address] [place] [address] documented as of this encounter Visit Diagnoses Not on filedocumented in this encounter Additional Health Concerns Infection Onset Date Last Indicated Resolved Time R/O COVID-19 07/30/2019 07/30/2019 08/04/2019 6:05 AM CDT R/O Respiratory 05/12/2022 05/12/2022 05/12/2022 4 :27 PM ASSISTANT OPERATOR R/O C. diff 03/11/2024 03/11/2024 03/11/2024 12:4 6 PM ASSISTANT OPERATOR C Diff 03/11/2024 03/11/2024 05/10/2024 1:16 AM ASSISTANT OPERATOR documented as of this encounter Care Teams Warp Tying Machine Knotter Relationship Specialty Start Date End Date Gilmar Galvan MD [address] [place] [id number] PCP - General Family Practice 12/09/18 documented as of this encounter
--- OUTSIDE RECORDS SUMMARY | 2025-03-02 23:52 | XMS_ITS | Encounter Summary ---
Author Organization [facility] Address [address] [place] [address] Care Team Providers Care Principle Industrial Hygienist Name Role Phone Gilmar Galvan MD Primary Care Provider Encounter Details Date Type Department Care Team (Late st Contact Info) Description 02/15/2005 Outpatient [facility] Pediatrics [address] [facility] [address] [facility] [address] [address] [place] [address] [place] [address] Social History Tobacco Use Types Packs/Day Years Used Date Smoking Tobacco: Never Assessed Comments Unknown Sex and Gender Information Value Date Recorded Sex Assigned at Not on file Legal Sex Female 3:13 AM MOLD FILLER AND DRAINER Gender Identity Not on file Sexual Orientation Not on file documented as of this encounter Plan of Treatment Upcoming Encounters Date Type Department Care Team (Latest Contact Info) Description 03/01/2025 Plan of Care Documentation [facility] Outpatient Behavioral Health Program Services [address] [address] [place] [address] 03/03/2025 9:00 AM CDT Hospital Encounter [facility] Outpatient Behavioral Health Program Services [address] [address] [address] [place] [address] 03/04/2025 9:00 AM CDT Appointment [facility] Outpatient Behavioral Health Program Services [address] [address] [address] [place] [address] 03/07/2025 9:00 AM MOLD FILLER AND DRAINER Appointment [facility] Outpatient Behavioral Health Program Services [address] [address] [address] [place] [address] 03/09/2025 9:00 AM MOLD FILLER AND DRAINER Appointment [facility] Outpatient Behavioral Health Program Services [address] [address] [address] [place] [address] 03/10/2025 9:00 AM MOLD FILLER AND DRAINER Appointment [facility] Outpatient Behavioral Health Program Services [address]48 [address] [address] [place] [address] 03/11/2025 9:00 AM MOLD FILLER AND DRAINER Appointment [facility] Outpatient Behavioral Health Program Services [address] [address] [address] [place] [address] documented as of this encounter Visit Diagnoses Not on filedocumented in this encounter Additional Health Concerns Infection Onset Date Last Indicated Resolved Time R/O COVID-19 07/30/2019 07/30/2019 08/04/2019 6:05 AM CDT R/O Respiratory 05/12/2022 05/12/2022 05/12/2022 4 :27 PM MOLD FILLER AND DRAINER R/O C. diff 03/11/2024 03/11/2024 03/11/2024 12:4 6 PM MOLD FILLER AND DRAINER C Diff 03/11/2024 03/11/2024 05/10/2024 1:16 AM MOLD FILLER AND DRAINER documented as of this encounter Care Teams Principle Industrial Hygienist Relationship Specialty Start Date End Date Gilmar Galvan MD [address] [place] [id number] PCP - General Family Practice 12/09/18 documented as of this encounter
--- OUTSIDE RECORDS SUMMARY | 2025-03-02 23:52 | XMS_ITS | Encounter Summary ---
Author Organization [facility] Address [address] [place] [address] Care Team Providers Care Boiler Erector Name Role Phone Gilmar Galvan MD Primary Care Provider Encounter Details Date Type Department Care Team (Late st Contact Info) Description 11/11/2005 Outpatient [facility] Pediatrics [address] [facility] [address] [facility] [address] [address] [place] [address] [place] [address] Social History Tobacco Use Types Packs/Day Years Used Date Smoking Tobacco: Never Assessed Comments Unknown Sex and Gender Information Value Date Recorded Sex Assigned at Not on file Legal Sex Female 3:13 AM CONTRACT AGENT Gender Identity Not on file Sexual Orientation Not on file documented as of this encounter Plan of Treatment Upcoming Encounters Date Type Department Care Team (Latest Contact Info) Description 03/01/2025 Plan of Care Documentation [facility] Outpatient Behavioral Health Program Services [address] [place] [address] 03/03/2025 9:00 AM CDT Hospital Encounter [facility] Outpatient Behavioral Health Program Services [address] [address] [address] [place] [address] 03/04/2025 9:00 AM CDT Appointment [facility] Outpatient Behavioral Health Program Services [address] [address] [address] [place] [address] 03/07/2025 9:00 AM CONTRACT AGENT Appointment [facility] Outpatient Behavioral Health Program Services [address] [address] [address] [place] [address] 03/09/2025 9:00 AM CONTRACT AGENT Appointment [facility] Outpatient Behavioral Health Program Services [address] [address] [address] [place] [address] 03/10/2025 9:00 AM CONTRACT AGENT Appointment [facility] Outpatient Behavioral Health Program Services [address] [address] [address] [place] [address] 03/11/2025 9:00 AM CONTRACT AGENT Appointment [facility] Outpatient Behavioral Health Program Services [address] [address] [address] [place] [address] documented as of this encounter Visit Diagnoses Not on filedocumented in this encounter Additional Health Concerns Infection Onset Date Last Indicated Resolved Time R/O COVID-19 07/30/2019 07/30/2019 08/04/2019 6:05 AM CDT R/O Respiratory 05/12/2022 05/12/2022 05/12/2022 4 :27 PM CONTRACT AGENT R/O C. diff 03/11/2024 03/11/2024 03/11/2024 12:4 6 PM CONTRACT AGENT C Diff 03/11/2024 03/11/2024 05/10/2024 1:16 AM CONTRACT AGENT documented as of this encounter Care Teams Boiler Erector Relationship Specialty Start Date End Date Gilmar Galvan MD [address] [place] [id number] PCP - General Family Practice 12/09/18 documented as of this encounter
--- OUTSIDE RECORDS SUMMARY | 2025-03-02 23:52 | XMS_ITS | Encounter Summary ---
Author Organization [facility] Address [address] [place] [address] Care Team Providers Care Keycase Assembler Name Role Phone Gilmar Galvan MD Primary Care Provider Encounter Details Date Type Department Care Team (Late st Contact Info) Description 02/13/2007 Outpatient [facility] Pediatrics [address] [facility] [address] [facility] [address] [address] [place] [address] [place] [address] Social History Tobacco Use Types Packs/Day Years Used Date Smoking Tobacco: Never Assessed Comments Unknown Sex and Gender Information Value Date Recorded Sex Assigned at Not on file Legal Sex Female 3:13 AM HYDROTEL OPERATOR Gender Identity Not on file Sexual Orientation Not on file documented as of this encounter Plan of Treatment Upcoming Encounters Date Type Department Care Team (Latest Contact Info) Description 03/01/2025 Plan of Care Documentation [facility] Outpatient Behavioral Health Program Services [address] [place] [address] 03/03/2025 9:00 AM CDT Hospital Encounter [facility] Outpatient Behavioral Health Program Services [address] [address] [place] [address] 03/04/2025 9:00 AM CDT Appointment [facility] Outpatient Behavioral Health Program Services [address] [address] [place] [address] 03/07/2025 9:00 AM HYDROTEL OPERATOR Appointment [facility] Outpatient Behavioral Health Program Services [address] [address] [address] [place] [address] 03/09/2025 9:00 AM HYDROTEL OPERATOR Appointment [facility] Outpatient Behavioral Health Program Services [address]37 [address] [address] [place] [address] 03/10/2025 9:00 AM HYDROTEL OPERATOR Appointment [facility] Outpatient Behavioral Health Program Services [address] [address] [address] [place] [address] 03/11/2025 9:00 AM HYDROTEL OPERATOR Appointment [facility] Outpatient Behavioral Health Program Services [address]57 [address] [address] [place] [address] documented as of this encounter Visit Diagnoses Not on filedocumented in this encounter Additional Health Concerns Infection Onset Date Last Indicated Resolved Time R/O COVID-19 07/30/2019 07/30/2019 08/04/2019 6:05 AM CDT R/O Respiratory 05/12/2022 05/12/2022 05/12/2022 4 :27 PM HYDROTEL OPERATOR R/O C. diff 03/11/2024 03/11/2024 03/11/2024 12:4 6 PM HYDROTEL OPERATOR C Diff 03/11/2024 03/11/2024 05/10/2024 1:16 AM HYDROTEL OPERATOR documented as of this encounter Care Teams Keycase Assembler Relationship Specialty Start Date End Date Gilmar Galvan MD [address] [place] [id number] PCP - General Family Practice 12/09/18 documented as of this encounter
--- OUTSIDE RECORDS SUMMARY | 2025-03-02 23:52 | XMS_ITS | Encounter Summary ---
Author Organization [facility] Address [address] [place] [address] Care Team Providers Care Presidential Helicopter Crew Chief Name Role Phone Gilmar Galvan MD Primary Care Provider Encounter Details Date Type Department Care Team (Late st Contact Info) Description 03/01/2025 Plan of Care Documentation [facility] Outpatient Behavioral Health Program Services [address] [facility] [address] [place] [address] Social History Tobacco Use Types [...] about transportation for future doctor visits, sweet pickled fruit maker medication, etc.? No 2024 Housing Stability [...] file Legal Sex Female 3:13 AM SUPERVISOR UNLOADING Gender Identity Not on file Sexual Orientation Not on file Occupation Industry Job Start Date Job End Date Not on file Not on file Not on file Not on file documented as of this encounter Miscellaneous Notes * IOP Treatment Plan - Ana Saeed LPC - 03/01/2025 1:55 PM CDT [facility] Introductory Note Start / End Times: 1210 / 1215 03/01/2025 Ana Saeed LPC met with Kylie on 03/01/2025. Kylie was located at [facility]. Kylie provided verbal consent to care. Kylie identified the following personal treatment goal: to learn coping skills an to function dayto day. Introduced self to Kylie as case management director and provided contact information. Reviewed psychosocial information obtained during intake. Kylie was informed of the risk and benefits of IOP as well as alternative higher and lower levels of care if needed/requested. physical plant manager and patient explored current issues, with patient identifying depression, suicidal ideation, and anxiety as primary treatment issues to be addressed. physical plant manager and patient discussed having a health care coach and suggested patient appoint someone if not already done. Discussed preliminary discharge plan to include follow-up with Psychiatrist and Therapist. Review groups rules for privacy and the importance of participation and engagement in group and treatment. Questions answered and support provided. Please refer to intake dated 02/23/2025. Intake remains current including:all Intake remains current excluding:none Hardwood Floor Installation Helper: Kylie has identified the following as her Hardwood Floor Installation Helper: Keegan Morris (spouse) Contact number: [phone] Safety Plan: Ana Saeed LPC met with Kylie individually to assist her in completing a [employer] Patient Safety Plan Template. Kylie expressed understanding as to benefit of safety plan and verbalized agreement to utilizing the safety plan for any future crisis. Support, education and encouragement provided. [facility] Creation Date: 02/22/25 Last Update [...] Name Contact Information My children--Nancy My --Keegan [phone] My mom--Zayra Marks [phone] My dad--Randal Marks [phone] [address] My bed The [facility] Step 4: People whom I can ask for help during a crisis: Name Contact Information My mom--Zayra Marks [phone] My --Keegan [phone] My sister--Kaitlin [phone] Step 5: Professionals or agencies I can contact during a crisis: Clinician/Agency Name Phone Emergency Contact Dr. Vasyl Last--Psychiatrist [phone] Dr. Gilmar Galvan--PCP [phone] Behavioral Health Response [phone] [facility] [phone] Post- Depression Line Local Emergency Department Emergency Department Address Emergency Department Phone [place] [address], [address] Suicide Prevention Lifeline Phone: Call or Text 761 Crisis Text Line: Text HOME to 852754 Step 6: Making the environment safer (plan [...] and my kids 03/01/2025: Mom, dad, , Childress and Shae. Nicola Safety Plan. Sobeida Anguiano and Tyson Car. Used with permission of the authors. documented in this encounter Plan of Treatment Upcoming Encounters Date Type Department Care Team (Latest Contact Info) Description 03/01/2025 Plan of Care Documentation [facility] Outpatient Behavioral Health Program Services [address] [address] [place] [address] 03/03/2025 9:00 AM CDT Hospital Encounter [facility] Outpatient Behavioral Health Program Services [address] [address] [place] [address] 03/04/2025 9:00 AM CDT Appointment [facility] Outpatient Behavioral Health Program Services [address] [address] [place] [address] 03/07/2025 9:00 AM SUPERVISOR UNLOADING Appointment [facility] Outpatient Behavioral Health Program Services [address] [facility] [address] [place] [address] 03/09/2025 9:00 AM SUPERVISOR UNLOADING Appointment [facility] Outpatient Behavioral Health Program Services [address] [address] [place] [address] 03/10/2025 9:00 AM SUPERVISOR UNLOADING Appointment [facility] Outpatient Behavioral Health Program Services [address] [facility] [address] [place] [address] 03/11/2025 9:00 AM SUPERVISOR UNLOADING Appointment [facility] Outpatient Behavioral Health Program Services [address] [address] [place] [address] documented as of this encounter Visit Diagnoses Not on filedocumented in this encounter Additional Health Concerns Assessment Noted Time PHQ-9 Depression Total Score: 6 03/01/20 25 9:50 AM CDT documented as of this encounter Care Teams Presidential Helicopter Crew Chief Relationship Specialty Start Date End Date Gilmar Galvan MD [address] [place] [address] PCP - General Family Practice 12/09/18 documented as of this encounter
--- OUTSIDE RECORDS SUMMARY | 2025-03-02 23:52 | XMS_ITS | Encounter Summary ---
Author Organization [facility] Address [address] [place] [address] Care Team Providers Care Embedded Systems Designer Name Role Phone Gilmar Galvan MD Primary Care Provider Encounter Details Date Type Department Care Team (Late st Contact Info) Description 08/05/2005 Outpatient [facility] Pediatrics [address] [facility] [address] [facility] [address] [address] [place] [address] [place] [address] Social History Tobacco Use Types Packs/Day Years Used Date Smoking Tobacco: Never Assessed Comments Unknown Sex and Gender Information Value Date Recorded Sex Assigned at Not on file Legal Sex Female 3:13 AM FLIGHT COMMUNICATIONS OFFICER Gender Identity Not on file Sexual Orientation Not on file documented as of this encounter Plan of Treatment Upcoming Encounters Date Type Department Care Team (Latest Contact Info) Description 03/01/2025 Plan of Care Documentation [facility] Outpatient Behavioral Health Program Services [address] [address] [address] [place] [address] 03/03/2025 9:00 AM CDT Hospital Encounter [facility] Outpatient Behavioral Health Program Services [address]73 [address] [address] [place] [address] 03/04/2025 9:00 AM CDT Appointment [facility] Outpatient Behavioral Health Program Services [address]57[address] [address] [address] [place] [address] 03/07/2025 9:00 AM FLIGHT COMMUNICATIONS OFFICER Appointment [facility] Outpatient Behavioral Health Program Services [address]16[address] [address] [address] [place] [address] 03/09/2025 9:00 AM FLIGHT COMMUNICATIONS OFFICER Appointment [facility] Outpatient Behavioral Health Program Services [address] [address] [address] [place] [address] 03/10/2025 9:00 AM FLIGHT COMMUNICATIONS OFFICER Appointment [facility] Outpatient Behavioral Health Program Services [address]39 [address] [address] [place] [address] 03/11/2025 9:00 AM FLIGHT COMMUNICATIONS OFFICER Appointment [facility] Outpatient Behavioral Health Program Services [address] [address] [address] [place] [address] documented as of this encounter Visit Diagnoses Not on filedocumented in this encounter Additional Health Concerns Infection Onset Date Last Indicated Resolved Time R/O COVID-19 07/30/2019 07/30/2019 08/04/2019 6:05 AM CDT R/O Respiratory 05/12/2022 05/12/2022 05/12/2022 4 :27 PM FLIGHT COMMUNICATIONS OFFICER R/O C. diff 03/11/2024 03/11/2024 03/11/2024 12:4 6 PM FLIGHT COMMUNICATIONS OFFICER C Diff 03/11/2024 03/11/2024 05/10/2024 1:16 AM FLIGHT COMMUNICATIONS OFFICER documented as of this encounter Care Teams Embedded Systems Designer Relationship Specialty Start Date End Date Gilmar Galvan MD [address] [place] [address] PCP - General Family Practice 12/09/18 documented as of this encounter
--- OUTSIDE RECORDS SUMMARY | 2025-03-02 23:52 | XMS_ITS | Encounter Summary ---
Author Organization [facility] Address [address] [place] [address] Care Team Providers Care Web Content Writer Name Role Phone Gilmar Galvan MD Primary Care Provider Encounter Details Date Type Department Care Team (Late st Contact Info) Description 12/28/2006 Outpatient Historical [facility] [place] [address] [place] [address] Social History Tobacco Use Types Packs/Day Years Used Date Smoking Tobacco: Never Assessed Comments Unknown Sex and Gender Information Value Date Recorded Sex Assigned at Not on file Legal Sex Female 3:13 AM INSIDE BARREL LATHE OPERATOR Gender Identity Not on file Sexual Orientation Not on file documented as of this encounter Plan of Treatment Upcoming Encounters Date Type Department Care Team (Latest Contact Info) Description 03/01/2025 Plan of Care Documentation [facility] Services [address] [address] [place] [address] 03/03/2025 9:00 AM CDT Hospital Encounter [facility]patient [facility] Services [address] [address] [place] [address] 03/04/2025 9:00 AM CDT Appointment [facility] Outpatient [facility] Services [address] [address] [place] [address] 03/07/2025 9:00 AM INSIDE BARREL LATHE OPERATOR Appointment [facility] Outpatient [facility] Services [address] [address] [address] [place] [address] 03/09/2025 9:00 AM INSIDE BARREL LATHE OPERATOR Appointment [facility] Behavioral Health Program Services 13148 [address] [address] [place] [address] 03/10/2025 9:00 AM INSIDE BARREL LATHE OPERATOR Appointment [facility] Outpatient [facility] Program Services [address]12 [address] [address] [place] [address] 03/11/2025 9:00 AM INSIDE BARREL LATHE OPERATOR Appointment [facility] Outpatient [facility] Program Services [address] [address] [address] [place] [address] documented as of this encounter Visit Diagnoses Not on filedocumented in this encounter Additional Health Concerns Infection Onset Date Last Indicated Resolved Time R/O COVID-19 07/30/2019 07/30/2019 08/04/2019 6:05 AM CDT R/O Respiratory 05/12/2022 05/12/2022 05/12/2022 4 :27 PM INSIDE BARREL LATHE OPERATOR R/O C. diff 03/11/2024 03/11/2024 03/11/2024 12:4 6 PM INSIDE BARREL LATHE OPERATOR C Diff 03/11/2024 03/11/2024 05/10/2024 1:16 AM INSIDE BARREL LATHE OPERATOR documented as of this encounter Care Teams Web Content Writer Relationship Specialty Start Date End Date Gilmar Galvan MD [address] [place] [address] PCP - General Family Practice 12/09/18 documented as of this encounter
--- OUTSIDE RECORDS SUMMARY | 2025-03-02 23:52 | XMS_ITS | Encounter Summary ---
Author Organization [facility] Address [address] [place] [address] Care Team Providers Care Ivf Embryologist Name Role Phone Gilmar Galvan MD Primary Care Provider Encounter Details Date Type Department Care Team (Late st Contact Info) Description 02/17/2006 Outpatient [facility] Pediatrics [address] [facility] [address] [facility] [address] [address] [place] [address] [place] [address] Social History Tobacco Use Types Packs/Day Years Used Date Smoking Tobacco: Never Assessed Comments Unknown Sex and Gender Information Value Date Recorded Sex Assigned at Not on file Legal Sex Female 3:13 AM SLIDE ATTENDANT Gender Identity Not on file Sexual Orientation Not on file documented as of this encounter Plan of Treatment Upcoming Encounters Date Type Department Care Team (Latest Contact Info) Description 03/01/2025 Plan of Care Documentation [facility] Outpatient Behavioral Health Program Services [address] [address] [place] [address] 03/03/2025 9:00 AM CDT Hospital Encounter [facility] Outpatient Behavioral Health Program Services [address] [address] [place] [address] 03/04/2025 9:00 AM CDT Appointment [facility] Outpatient [facility]al Health Program Services [address] [address] [address] [place] [address] 03/07/2025 9:00 AM SLIDE ATTENDANT Appointment [facility] Outpatient Behavioral Health Program Services [address] [address] [place] [address] 03/09/2025 9:00 AM SLIDE ATTENDANT Appointment [facility] Outpatient [facility] Program Services 90259 [address] [address] [place] [address] 03/10/2025 9:00 AM SLIDE ATTENDANT Appointment [facility] Outpatient Behavioral Health Program Services [address]5950 [address] [address] [place] [address] 03/11/2025 9:00 AM SLIDE ATTENDANT Appointment [facility] Outpatient [facility]al [facility] Program Services [address] [address] [place] [address] documented as of this encounter Visit Diagnoses Not on filedocumented in this encounter Additional Health Concerns Infection Onset Date Last Indicated Resolved Time R/O COVID-19 07/30/2019 07/30/2019 08/04/2019 6:05 AM CDT R/O Respiratory 05/12/2022 05/12/2022 05/12/2022 4 :27 PM SLIDE ATTENDANT R/O C. diff 03/11/2024 03/11/2024 03/11/2024 12:4 6 PM SLIDE ATTENDANT C Diff 03/11/2024 03/11/2024 05/10/2024 1:16 AM SLIDE ATTENDANT documented as of this encounter Care Teams Ivf Embryologist Relationship Specialty Start Date End Date Gilmar Galvan MD [address] [place] [id number] PCP - General Family Practice 12/09/18 documented as of this encounter
--- OUTSIDE RECORDS SUMMARY | 2025-03-02 23:52 | XMS_ITS | Encounter Summary ---
Author Organization [facility] Address [address] [place] [address] Care Team Providers Care Wildlife Forensic Geneticist Name Role Phone Gilmar Galvan MD Primary Care Provider Encounter Details Date Type Department Care Team (Late st Contact Info) Description 04/10/2006 Outpatient [facility] Pediatrics [address] [facility] [address] [facility] [address] [address] [place] [address] [place] [address] Social History Tobacco Use Types Packs/Day Years Used Date Smoking Tobacco: Never Assessed Comments Unknown Sex and Gender Information Value Date Recorded Sex Assigned at Not on file Legal Sex Female 3:13 AM BACK HOE OPERATOR Gender Identity Not on file Sexual Orientation Not on file documented as of this encounter Plan of Treatment Upcoming Encounters Date Type Department Care Team (Latest Contact Info) Description 03/01/2025 Plan of Care Documentation [facility] Outpatient Behavioral Health Program Services [address] [address] [place] [address] 03/03/2025 9:00 AM CDT Hospital Encounter [facility] Outpatient Behavioral Health Program Services [address]80 [address] [address] [place] [address] 03/04/2025 9:00 AM CDT Appointment [facility] Outpatient Behavioral Health Program Services [address]21 [address] [address] [place] [address] 03/07/2025 9:00 AM BACK HOE OPERATOR Appointment [facility] Outpatient Behavioral Health Program Services [address]3036 [address] [address] [place] [address] 03/09/2025 9:00 AM BACK HOE OPERATOR Appointment [facility] Outpatient Behavioral Health Program Services [address]32 [address] [address] [place] [address] 03/10/2025 9:00 AM BACK HOE OPERATOR Appointment [facility] Outpatient Behavioral Health Program Services 40854 [address] [address] [place] [address] 03/11/2025 9:00 AM BACK HOE OPERATOR Appointment [facility] Outpatient Behavioral Health Program Services [address] [address] [place] [address] documented as of this encounter Visit Diagnoses Not on filedocumented in this encounter Additional Health Concerns Infection Onset Date Last Indicated Resolved Time R/O COVID-19 07/30/2019 07/30/2019 08/04/2019 6:05 AM CDT R/O Respiratory 05/12/2022 05/12/2022 05/12/2022 4 :27 PM BACK HOE OPERATOR R/O C. diff 03/11/2024 03/11/2024 03/11/2024 12:4 6 PM BACK HOE OPERATOR C Diff 03/11/2024 03/11/2024 05/10/2024 1:16 AM BACK HOE OPERATOR documented as of this encounter Care Teams Wildlife Forensic Geneticist Relationship Specialty Start Date End Date Gilmar Galvan MD [address] [place] [id number] PCP - General Family Practice 12/09/18 documented as of this encounter
--- OUTSIDE RECORDS SUMMARY | 2025-03-02 23:52 | XMS_ITS | Encounter Summary ---
Author Organization [facility] Address [address] [place] [address] Care Team Providers Care Solder Cream Maker Name Role Phone Gilmar Galvan MD Primary Care Provider Encounter Details Date Type Department Care Team (Late st Contact Info) Description 09/24/2006 Outpatient [facility] Pediatrics [address] [facility] [address] [facility] [address] [address] [place] [address] [place] [address] Social History Tobacco Use Types Packs/Day Years Used Date Smoking Tobacco: Never Assessed Comments Unknown Sex and Gender Information Value Date Recorded Sex Assigned at Not on file Legal Sex Female 3:13 AM CUT PRESS OPERATOR Gender Identity Not on file Sexual Orientation Not on file documented as of this encounter Plan of Treatment Upcoming Encounters Date Type Department Care Team (Latest Contact Info) Description 03/01/2025 Plan of Care Documentation [facility] Outpatient Behavioral Health Program Services [address] [address] [address] [place] [address] 03/03/2025 9:00 AM CDT Hospital Encounter [facility] Outpatient Behavioral Health Program Services 23543 [address] [address] [place] [address] 03/04/2025 9:00 AM CDT Appointment [facility] Outpatient Behavioral Health Program Services 86582 [address] [address] [place] [address] 03/07/2025 9:00 AM CUT PRESS OPERATOR Appointment [facility] Outpatient Behavioral Health Program Services 62875 [address] [address] [place] [address] 03/09/2025 9:00 AM CUT PRESS OPERATOR Appointment [facility] Outpatient Behavioral Health Program Services 65484 [address] [address] [place] [address] 03/10/2025 9:00 AM CUT PRESS OPERATOR Appointment [facility] Outpatient Behavioral Health Program Services 29063 [address] [address] [place] [address] 03/11/2025 9:00 AM CUT PRESS OPERATOR Appointment [facility] Outpatient Behavioral Health Program Services [address] [address] [place] [address] documented as of this encounter Visit Diagnoses Not on filedocumented in this encounter Additional Health Concerns Infection Onset Date Last Indicated Resolved Time R/O COVID-19 07/30/2019 07/30/2019 08/04/2019 6:05 AM CDT R/O Respiratory 05/12/2022 05/12/2022 05/12/2022 4 :27 PM CUT PRESS OPERATOR R/O C. diff 03/11/2024 03/11/2024 03/11/2024 12:4 6 PM CUT PRESS OPERATOR C Diff 03/11/2024 03/11/2024 05/10/2024 1:16 AM CUT PRESS OPERATOR documented as of this encounter Care Teams Solder Cream Maker Relationship Specialty Start Date End Date Gilmar Galvan MD [address] [place] [id number] PCP - General Family Practice 12/09/18 documented as of this encounter
--- OUTSIDE RECORDS SUMMARY | 2025-03-02 23:52 | XMS_ITS | Encounter Summary ---
Author Organization [facility] Address [address] [place] [address] Care Team Providers Care Escort Service Attendant Name Role Phone Gilmar Galvan MD [...] on file Legal Sex Female 3:13 AM POST ADOPTION COORDINATOR Gender Identity Not on file Sexual [...] Info) Description 03/01/2025 Plan of Care Documentation [facility] Outpatient Behavioral Health Program Services [address] [address] [place] [address] 03/03/2025 9:00 AM CDT Hospital Encounter [facility] Outpatient Behavioral Health Program Services 81452 [address] [address] [place] [address] 03/04/2025 9:00 AM CDT Appointment [facility] Outpatient Behavioral Health Program Services 885[address] [address] [address] [place] [address] 03/07/2025 9:00 AM POST ADOPTION COORDINATOR Appointment [facility] Outpatient Behavioral Health Program Services [address]0868 [address] [address] [place] [address] 03/09/2025 9:00 AM POST ADOPTION COORDINATOR Appointment [facility] Outpatient Behavioral Health Program Services 05177 [address] [address] [place] [address] 03/10/2025 9:00 AM POST ADOPTION COORDINATOR Appointment [facility] Behavioral Health Program Services 23287 [address] [address] [place] [address] 03/11/2025 9:00 AM POST ADOPTION COORDINATOR Appointment [facility] Behavioral Health Program Services 05957 [address] [address] [place] [address] documented as of this encounter Visit Diagnoses Not on filedocumented in this encounter Additional Health Concerns Infection Onset Date Last Indicated Resolved Time R/O COVID-19 07/30/2019 07/30/2019 08/04/2019 6:05 AM CDT R/O Respiratory 05/12/2022 05/12/2022 05/12/2022 4 :27 PM POST ADOPTION COORDINATOR R/O C. diff 03/11/2024 03/11/2024 03/11/2024 12:4 6 PM POST ADOPTION COORDINATOR C Diff 03/11/2024 03/11/2024 05/10/2024 1:16 AM POST ADOPTION COORDINATOR Assessment Noted Time PHQ-9 Depression Total Score: 1 03/25/20 19 3:00 PM POST ADOPTION COORDINATOR documented as of this encounter Care Teams Escort Service Attendant Relationship Specialty Start Date End Date Gilmar Galvan MD [address] [place] [address] PCP - General Family Practice 12/09/18 documented as of this encounter
--- OUTSIDE RECORDS SUMMARY | 2025-03-02 23:52 | XMS_ITS | Encounter Summary ---
Author Organization [facility] Address [address] [place] [address] Care Team Providers Care Rectification Printer Name Role Phone Gilmar Galvan MD Primary Care Provider Reason for Visit * Reason Onset Date Comments Return Call 03/02/2025 Encounter Details Date Type Department Care Team (Late st Contact Info) Description 03/02/[address] [facility] Outpatient Behavioral Health Program Services [address] [address] [place] [address] eLida Davis, [address] [place] [address] Return Call Social History Tobacco [...] worry about transportation for future doctor visits, warehouse picker medication, etc.? No 2024 Housing Stability [...] on file Legal Sex Female 3:13 AM ANIMAL HUSBANDRY TECHNICIAN Gender Identity Not on file Sexual [...] Info) Description 03/01/2025 Plan of Care Documentation [facility] Behavioral Health Program Services [address] [address] [place] [address] 03/03/2025 9:00 AM CDT Hospital Encounter [facility] Outpatient Behavioral Health Program Services [address]80 [address] [address]59[address] [place] [address] 03/04/2025 9:[address] [facility] Outpatient Behavioral Health Program Services [address] [address] [address] [place] [address] 03/07/2025 9:00 AM ANIMAL HUSBANDRY TECHNICIAN Appointment [facility] Outpatient Behavioral Health Program Services 42385 [address] [address] [place] [address] 03/09/2025 9:00 AM ANIMAL HUSBANDRY TECHNICIAN Appointment [facility] Outpatient Behavior[facility] Program Services 46832 [address] [address] [place] [address] 03/10/2025 9:00 AM ANIMAL HUSBANDRY TECHNICIAN Appointment [facility] Outpatient Behavioral Health Program Services 64[address] [address] [address] [place] [address] 03/11/2025 9:00 AM ANIMAL HUSBANDRY TECHNICIAN Appointment [facility] Outpatient Behavioral Health Program Services [address]67[address] [address] [address] [place] [address] documented as of this encounter Visit Diagnoses Not on filedocumented in this encounter Additional Health Concerns Assessment Noted Time PHQ-9 Depression Total Score: 6 03/01/20 25 9:50 AM CDT documented as of this encounter Care Teams Rectification Printer Relationship Specialty Start Date End Date Gilmar Galvan MD [address] [place] [address] PCP - General Family Practice 12/09/18 documented as of this encounter
--- OUTSIDE RECORDS SUMMARY | 2025-03-02 23:52 | XMS_ITS | Encounter Summary ---
Author Organization [facility] Address [address] [place] [address] Care Team Providers Care Traveling Nurse Name Role Phone Gilmar Galvan MD Primary Care Provider Reason for Visit * Reason Onset Date Comments Courtesy Call 08/08/2019 Left message Encounter Details Date Type Department Care Team (Late st Contact Info) Description 08/08/2019 Telephone [facility] [address] [address] Karen Chicas, RT Courtesy Call [...] on file Legal Sex Female 3:13 AM PERIPHERAL EDP EQUIPMENT OPERATOR Gender Identity Not on file Sexual [...] Documentation [facility] Services [address]52 [address] [address]32[address] [place] [address] 03/03/2025 9:00 AM CDT Hospital Encounter [facility] Outpatient Behavioral Health Program Services 45787 [address] [address]176 [place] [address] 03/04/2025 9:00 AM CDT Appointment [facility] Outpatient Behavioral Health Program Services 80979 [address] [address] [place] [address] 03/07/2025 9:00 AM PERIPHERAL EDP EQUIPMENT OPERATOR Appointment [facility] Outpatient Behavioral Health Program Services 25772 [address] [address] [place] [address] 03/09/2025 9:00 AM PERIPHERAL EDP EQUIPMENT OPERATOR Appointment [facility] Behavioral Health Program Services [address]8315 [address] [address] [place] [address] 03/10/2025 9:00 AM PERIPHERAL EDP EQUIPMENT OPERATOR Appointment [facility] Outpatient Behavioral Health Program Services 30262 [address] [address] [place] [address] 03/11/2025 9:00 AM PERIPHERAL EDP EQUIPMENT OPERATOR Appointment [facility] Behavioral Health Program Services 79983 [address] [address] [place] [address] documented as of this encounter Visit Diagnoses Not on filedocumented in this encounter Additional Health Concerns Infection Onset Date Last Indicated Resolved Time R/O Respiratory 05/12/2022 05/12/2022 05/12/2022 4 :27 PM PERIPHERAL EDP EQUIPMENT OPERATOR R/O C. diff 03/11/2024 03/11/2024 03/11/2024 12:4 6 PM PERIPHERAL EDP EQUIPMENT OPERATOR C Diff 03/11/2024 03/11/2024 05/10/2024 1:16 AM PERIPHERAL EDP EQUIPMENT OPERATOR Assessment Noted Time PHQ-9 Depression Total Score: 1 03/25/20 19 3:00 PM PERIPHERAL EDP EQUIPMENT OPERATOR documented as of this encounter Care Teams Traveling Nurse Relationship Specialty Start Date End Date Gilmar Galvan MD [address] [place] [address] PCP - General Family Practice 12/09/18 documented as of this encounter
--- OUTSIDE RECORDS SUMMARY | 2025-03-02 23:52 | XMS_ITS | Encounter Summary ---
Author Organization [facility] Address [address] [place] [address] Care Team Providers Care Track Supervisor Name Role Phone Gilmar Galvan MD Primary Care Provider Encounter Details Date Type Department Care Team (Late st Contact Info) Description 06/24/2022 Lab Requisition [facility] [place] [address] [place] [address] Mona Shaver, EDUCATIONAL TECHNOLOGY SPECIALIST [address] [place] [address] Social History Tobacco Use Types Packs/Day Years Used Date Smoking Tobacco: Never Smokeless Tobacco: Never Alcohol Use Standard Drinks/Week Comments Not Currently 0 (1 standard drink = 0.6 oz pur e alcohol) vary rare social use Comments No Sex and Gender Information Value Date Recorded Sex Assigned at Not on file Legal Sex Female 3:13 AM PRODUCT MARKETING DIRECTOR Gender Identity Not on file [...] Coronavirus/COVID-19? No / Unsure 06/24/2022 10:13 AM PRODUCT MARKETING DIRECTOR documented as of this encounter Plan of Treatment Upcoming Encounters Date Type Department Care Team (Latest Contact Info) Description 03/01/2025 Plan of Care Documentation [facility] Services [address] [address] [place] [address] 03/03/2025 9:00 AM CDT Hospital Encounter [facility] Services [address] [address] [place] [address] 03/04/2025 9:00 AM CDT Appointment [facility] Services [address] [address] [place] [address] 03/07/2025 9:00 AM PRODUCT MARKETING DIRECTOR Appointment [facility] Services [address] [address] [place] [address] 03/09/2025 9:00 AM PRODUCT MARKETING DIRECTOR Appointment [facility] Behavioral Health Program Services [address] [address] [place] [address] 03/10/2025 9:00 AM PRODUCT MARKETING DIRECTOR Appointment [facility] Program Services [address] [address] [place] [address] 03/11/2025 9:00 AM PRODUCT MARKETING DIRECTOR Appointment [facility] Behavioral Health Program Services [address] [address] [place] [address] documented as of this encounter Procedures Procedure Name Priority Date/Time Associated Diagnosis Comments CBC WITH DIFFERENTIAL Stat 06/24/2022 4:04 PM PRODUCT MARKETING DIRECTOR COMPREHENSIVE METABOLIC PANEL Stat 06/24/2022 4:04 PM PRODUCT MARKETING DIRECTOR documented in this encounter Results * (ABNORMAL) COMPREHENSIVE METABOLIC PANEL (06/24/2022 4:04 PM PRODUCT MARKETING DIRECTOR) SODIUM 141 136 - 145 mmol/L 06/24/2022 5:23 PM PRODUCT MARKETING DIRECTOR [facility] POTASSIUM 4.4 3.5 - 5.0 mmol/L 06/24/2022 5:23 PM PRODUCT MARKETING DIRECTOR [facility] Comment: Testing was performed on Serum. Specimen of choice is [place] Heparinized Plasma. Serum Potassium Reference Range: 0 years - 150 years 3.5 - 5.1 mmol/L CHLORIDE 105 98 - 107 mmol/L 06/24/2022 5:23 PM [facility] CO2 24 22 - 29 mmol/L 06/24/2022 5:23 PM [facility] CALCIUM 8.9 8.6 - 10.2 mg/dL 06/24/2022 5:23 PM [facility] [employer] [facility] BUN 12 6 - 20 mg/dL 06/24/2022 5:23 PM [facility] CREATININE 0.65 0.51 - 0.95 mg/dL 06/24/2022 5:23 PM [facility] GLUCOSE 87 74 - 99 mg/dL 06/24/2022 5:23 PM [facility] [employer] [facility] TOTAL PROTEIN 6.1(L) 6.7 - 8.6 g/dL 06/24/2022 5:23 PM [facility] Comment: Testing was performed on Serum. Specimen of choice is [place] Heparinized Plasma. Serum TP Ref. Range: 3 [...] 3.5 - 5.2 g/dL 06/24/2022 5:23 PM [facility] [employer] LAB[facility]ATORY [facility] BILIRUBIN TOTAL <0.2(L) 0.3 - 1.2 mg/dL 06/24/2022 5:23 PM [facility] ALKALINE PHOSPHATASE 140(H) 35 - 104 U/L 06/24/2022 5:23 PM [facility] [employer] [facility]ORY [facility] AST 13 <33 U/L 06/24/2022 5:23 PM [facility] [employer] [facility] ALT 23 <34 U/L 06/24/2022 5:23 PM [facility] [employer] [facility] GFR >60 >=60 mL/min/1.7 3 sq meter 06/24/2022 5:23 PM [facility] [employer] [facility] Comment:eGFR calculated with 2020 CKD-EPI equation. Vegetarian diet, extremely high or low muscle mass, and may affect results. Cystatin C with Glomerular Filtration Rate is a suitable alternative for these patients. ANION GAP 12 8 - 16 mmol/L 06/24/2022 5:23 PM [facility] [employer] [facility] Blood 06/24/2022 4:04 PM PRODUCT MARKETING DIRECTOR 06/24/2022 5:02 PM PRODUCT MARKETING DIRECTOR [facility] [employer] [facility] - 06/24/2022 5:23 PM PRODUCT MARKETING DIRECTOR Samples containing indocyanine green cause interferences on Total and/or Direct Bilirubin and must not be measured. Mona Shaver NP CHEMISTRY ORDERABLES Final Result [facility] [employer] [id number] [address] [place] [place] [address] * (ABNORMAL) CBC WITH DIFFERENTIAL (06/24/2022 4:04 PM PRODUCT MARKETING DIRECTOR) WBC 10.3(H) 4.0 - 9.8 K/uL 06/24/2022 5:10 PM [facility] [employer] [facility] RBC 3.13(L) 3.90 - 4.90 M/uL 06/24/2022 5:10 PM [facility] [employer] [facility] HEMOGLOBIN 9.0(L) 11.8 - 14.8 g/dL 06/24/2022 5:10 PM [facility] [employer] [facility] HEMATOCRIT 28.3(L) 35.5 - 44.0 % 06/24/2022 5:10 PM [facility] [employer] [facility] MCV 90.4 82.0 - 99.0 fL 06/24/2022 5:10 PM [facility] [employer] [facility] MCH 28.8 27.2 - 32.6 pg 06/24/2022 5:10 PM PRODUCT MARKETING DIRECTOR [employer] [facility] - [facility] MCHC 31.8 31.5 - 35.5 g/dL 06/24/2022 5:10 PM PRODUCT MARKETING DIRECTOR [employer] [facility] - [facility] RDW 14.6(H) 11.5 - 14.5 % 06/24/2022 5:10 PM PRODUCT MARKETING DIRECTOR [employer] [facility] - [facility] RDW-STDEV 47.8 37.1 - 48.7 fL 06/24/2022 5:10 PM PRODUCT MARKETING DIRECTOR [employer] [facility] - [facility] PLATELETS 468(H) 140 - 350 K/uL 06/24/2022 5:10 PM PRODUCT MARKETING DIRECTOR [employer] [facility] - [facility] MPV 8.5(L) 9.3 - 12.4 fL 06/24/2022 5:10 PM PRODUCT MARKETING DIRECTOR [employer] [facility] - [facility] NEUTROPHILS 65 % 06/24/2022 5:10 PM PRODUCT MARKETING DIRECTOR [employer] LABORATORY SERVICES - [facility] LYMPHOCYTES 21 % 06/24/2022 5:10 PM PRODUCT MARKETING DIRECTOR [employer] LABORATORY SERVICES - [facility] MONOCYTES 9 % 06/24/2022 5:10 PM PRODUCT MARKETING DIRECTOR [employer] [facility]ORATORY SERVICES - [facility] EOSINOPHILS 2 % 06/24/2022 5:10 PM PRODUCT MARKETING DIRECTOR [employer] [facility]ORATORY SERVICES - [facility] BASOPHILS 1 % 06/24/2022 5:10 PM PRODUCT MARKETING DIRECTOR [employer] LABORATORY SERVICES - [facility] IMMATURE GRANULOCYTES 4 % 06/24/2022 5:10 PM PRODUCT MARKETING DIRECTOR [employer] [facility] - [facility] Comment:IG (Immature Granulo cyte) count includes Metamyelocytes, Myelocytes, and Promyelocytes NEUTROPHIL ABSOLUTE 6.64 1.90 - 7.00 K/uL 06/24/2022 5:10 PM PRODUCT MARKETING DIRECTOR [employer] [facility]AT[facility] SERVICES - . [facility] LYMPHOCYTE ABSOLUTE 2.15 0.70 - 4.50 K/uL 06/24/2022 5:10 PM PRODUCT MARKETING DIRECTOR [employer] [facility]ORAT[facility] SERVICES - . [facility] MONOCYTE ABSOLUTE 0.87 0.10 - 1.30 K/uL 06/24/2022 5:10 PM PRODUCT MARKETING DIRECTOR [employer] [facility]ORAT[facility] SERVICES - . [facility] EOSINOPHIL ABSOLUTE 0.17 0.00 - 0.70 K/uL 06/24/2022 5:10 PM PRODUCT MARKETING DIRECTOR [employer] LABORATORY SERVICES - . [facility] BASOPHILS ABSOLUTE 0.07 0.00 - 0.20 K/uL 06/24/2022 5:10 PM PRODUCT MARKETING DIRECTOR [facility] - [facility] IMMATURE GRANULOCYTES ABSOLUTE 0.37(H) 0.00 - 0.03 K/uL 06/24/2022 5:10 PM PRODUCT MARKETING DIRECTOR [facility] Blood 06/24/2022 4:04 PM PRODUCT MARKETING DIRECTOR 06/24/2022 5:02 PM PRODUCT MARKETING DIRECTOR Mona Shaver NP HEMATOLOGY ORDERABLES Final Result [facility] CLIA# [id number] [address] [place] [address] documented in this encounter Visit Diagnoses Not on filedocumented in this encounter Additional Health Concerns Infection Onset Date Last Indicated Resolved Time R/O C. diff 03/11/2024 03/11/2024 03/11/2024 12:4 6 PM PRODUCT MARKETING DIRECTOR C Diff 03/11/2024 03/11/2024 05/10/2024 1:16 AM PRODUCT MARKETING DIRECTOR Assessment Noted Time PHQ-9 Depression Total Score: 5 08/17/19 22 3:00 PM CDT documented as of this encounter Care Teams Track Supervisor Relationship Specialty Start Date End Date Gilmar Galvan MD [address] [place] [address] PCP - General Family Practice 12/09/18 documented as of this encounter
--- OUTSIDE RECORDS SUMMARY | 2025-03-02 23:52 | XMS_ITS | Encounter Summary ---
Author Organization [facility] Address [address] [place] [address] Care Team Providers Care Sewer Separation Designer Name Role Phone Gilmar Galvan MD [...] on file Legal Sex Female 3:13 AM TIMBER REPAIRER Gender Identity Not on file Sexual Orientation Not on file documented as of this encounter Plan of Treatment Upcoming Encounters Date Type Department Care Team (Latest Contact Info) Description 03/01/2025 Plan of Care Documentation [facility] Outpatient Behavioral Health Program Services [address] [address] [place] [address] 03/03/2025 9:00 AM CDT Hospital Encounter [facility] Program Services [address] [address] [place] [address] 03/04/2025 9:00 AM CDT Appointment [facility] Program Services [address] [address] [place] [address] 03/07/2025 9:00 AM TIMBER REPAIRER Appointment [facility] Health Program Services [address] [address] [address] [place] [address] 03/09/2025 9:00 AM TIMBER REPAIRER Appointment [facility] Behavioral Health Program Services [address] [address] [place] [address] 03/10/2025 9:00 AM TIMBER REPAIRER Appointment [facility] Outpatient Behavioral Health Program Services [address] [address] [address] [place] [address] 03/11/2025 9:00 AM TIMBER REPAIRER Appointment [facility] Health Program Services [address] [address] [address] [place] [address] documented as of this encounter Procedures Procedure [...] PM CDT Narrative 10/24/2008 7:21 AM CDT [facility] [address] [place], [place] [address] Admit Date: 10/22/2008 JUNIOR MARKS Sex: F Admit Prov: TYSON HEALY Date: 1990 Primary Care Prov: LUIS E JODY P CMRN: [id number] Room: [facility]: [id number] IMAGING SERVICES Ordering Prov: N/A Accession Number: [id number] Interpretation PELVIC SONOGRAM, 10/22/2008 History: Pelvic pain. [...] SJ Procedure Note Ines Mario - 10/24/[address] [address] Admit Date: 10/22/2008 JUNIOR MARKS Sex: F Admit Prov: TYSON HEALY Date: 1990 Primary Care Prov: LUIS E JODY P CMRN: [id number] Room: [facility]: [id number] IMAGING SERVICES Ordering Prov: N/A Interpretation PELVIC [...] CDT) RBC 4.27 3.90 - 4.90 M/uL [facility] MCHC 34.8 31.5 - 35.5 % [facility] MCV 88.1 82.0 - 99.0 fL [facility] PLATELETS 317 140 - 350 K/uL [facility] HEMOGLOBIN 13.1 11.8 - 14.8 g/dL [facility] RDW 12.8 11.5 - 14.5 % [facility] WBC 10.5(H) 4.0 - 9.8 K/uL [facility] MCH 30.7 27.2 - 32.6 pg [facility] MPV 9.3 9.3 - 12.4 fL [facility] HEMATOCRIT 37.6 35.5 - 44.0 % [facility] RDW-STDEV 40.9 37.1 - 48.7 fL [facility] BASOPHILS 0 0 - 2 % [facility] MONOCYTE ABSOLUTE 0.73 0.10 - 1.30 K/uL [facility] REVIEWED ON SMEAR Plt reviewed [facility] MONOCYTES 7 3 - 13 % [facility] NEUTROPHIL ABSOLUTE 8.40(H) 1.90 - 7.00 K/uL [facility] NEUTROPHILS, SEG 80(H) 45 - 70 % [facility] PLATELET EST. Consistent w/ count Normal [facility] EOSINOPHIL ABSOLUTE 0.00 0.00 - 0.70 K/uL [facility] EOSINOPHILS 0 0 - 7 % [facility] LYMPHOCYTE ABSOLUTE 1.37 0.70 - 4.50 K/uL [facility] LYMPHOCYTES 13(L) 16 - 45 % [facility] RBC MORPHOLOGY Normal Normal [facility] BASOPHILS ABSOLUTE 0.00 0.00 - 0.20 K/uL [facility] Blood specimen (specimen) 10/22/2008 12:20 PM CDT 10/22/2008 12:41 PM CDT us Tyson Healy MD HEMATOLOGY ORDERABLES Edite d INTERFACE SYSTEM Refer to clinic/hospital department [facility] CLIA# [id number] [address] [place] [address] * HCG QUANTITATIVE, BLOOD (10/22/2008 11:40 AM CDT) [facility] HCG QUANT, BLOOD <5 0 - 5 mIU/mL [facility] Comment: Result of 5 - [...] Edited INTERFACE SYSTEM Refer to clinic/hospital department [facility] CLIA# [id number] [address] [place] [address] * C-REACTIVE PROTEIN (10/22/2008 11:40 AM CDT) CRP 0.4 0.0 - 0.8 mg/dL [facility] 10/22/2008 11:4 0 AM CDT 10/22/2008 12:04 PM CDT us Tyson Healy MD CHEMISTRY ORDERABLES Final Result Performing Organization Address [facility] de Phone Number INTERFACE SYSTEM Refer to clinic/hospital department [facility] CLIA# [id number] [address] [place] [address] * C-REACTIVE PROTEIN (10/21/2008 11:08 PM CDT) CRP 0.2 0.0 - 0.8 mg/dL [facility] 10/21/2008 11:0 8 PM CDT 10/21/2008 11:13 PM CDT us Marshall Haque MD CHEMISTRY ORDERABLES Final Resu lt Performing Organization Address [facility] Phone Number INTERFACE SYSTEM Refer to clinic/hospital department [facility] CLIA# [id number] [address] [place] [address] * (ABNORMAL) COMPREHENSIVE METABOLIC PANEL (10/21/2008 11:08 PM CDT) GLUCOSE 85 65 - 99 mg/dL [facility] AST 13 12 - 32 U/L [facility] BUN 11 6 - 20 mg/dL [facility] CALCIUM 8.4(L) 8.6 - 10.2 mg/dL [facility] CHLORIDE 104 96 - 108 mmol/L [facility] ALBUMIN 4.0 3.4 - 4.8 g/dL [facility] CREATININE 0.72 0.51 - 0.95 mg/dL [facility] SODIUM 137 135 - 145 mmol/L [facility] ALT 14 0 - 31 U/L [facility] ALKALINE PHOSPHATASE 68 35 - 104 U/L [facility] BILIRUBIN TOTAL 0.5 0.2 - 1.0 mg/dL [facility] CO2 23 22 - 30 mmol/L [facility] TOTAL PROTEIN 6.7 6.3 - 8.6 g/dL [facility] POTASSIUM 3.5 3.5 - 4.9 mmol/L [facility] GFR, >60 >=60 mL/min/1. 7 sq meter [facility] GFR >60 >=60 mL/min/1. 7 sq meter [facility] Comment: Modification of Diet in Renal Disease (MDRD) study formula. Estimated GFR rate interpretative information for both Americans and non- Americans is available on the [facility] Intranet at: [email or web address] Select: Lab Policies and Procedures Select: Reference Ranges - GFR 10/21/2008 11:0 8 PM CDT 10/21/2008 11:13 PM CDT Marshall Haque MD CHEMISTRY ORDERABLES Edited INTERFACE SYSTEM Refer to clinic/hospital department [facility] CLIA# [id number] [address] [place] [address] * (ABNORMAL) CBC WITH DIFFERENTIAL (10/21/2008 11:08 PM CDT) RBC 4.25 3.90 - 4.90 M/uL [facility] MCHC 34.6 31.5 - 35.5 % [facility] MCV 88.5 82.0 - 99.0 fL [facility] PLATELETS 348 140 - 350 K/uL [facility] HEMOGLOBIN 13.0 11.8 - 14.8 g/dL [facility] RDW 12.7 11.5 - 14.5 % [facility] WBC 13.1(H) 4.0 - 9.8 K/uL [facility] MCH 30.6 27.2 - 32.6 pg [facility] MPV 9.2(L) 9.3 - 12.4 fL [facility] HEMATOCRIT 37.6 35.5 - 44.0 % [facility] RDW-STDEV 40.9 37.1 - 48.7 fL [facility] MONOCYTES 10 3 - 13 % [facility] MONOCYTE ABSOLUTE 1.30 0.10 - 1.30 K/uL [facility] NEUTROPHILS 64 45 - 70 % [facility] NEUTROPHIL ABSOLUTE 8.39(H) 1.90 - 7.00 K/uL [facility] EOSINOPHILS 1 0 - 7 % [facility] EOSINOPHIL ABSOLUTE 0.08 0.00 - 0.70 K/uL [facility] LYMPHOCYTES 25 16 - 45 % [facility] LYMPHOCYTE ABSOLUTE 3.34 0.70 - 4.50 K/uL [facility] BASOPHILS 0 0 - 2 % [facility] BASOPHILS ABSOLUTE 0.03 0.00 - 0.20 K/uL [facility] 10/21/2008 11:0 8 PM CDT 10/21/2008 11:14 PM CDT Marshall Haque MD HEMATOLOGY ORDERABLES Edited INTERFACE SYSTEM Refer to clinic/hospital department [facility] CLIA# [id number] [address] [place] [address] documented in this encounter Visit Diagnoses Diagnosis Abdominal pain, unspecified site documented in this encounter Additional Health Concerns Infection Onset Date Last Indicated Resolved Time R/O COVID-19 07/30/2019 07/30/2019 08/04/2019 6:05 AM CDT R/O Respiratory 05/12/2022 05/12/2022 05/12/2022 4 :27 PM TIMBER REPAIRER R/O C. diff 03/11/2024 03/11/2024 03/11/2024 12:4 6 PM TIMBER REPAIRER C Diff 03/11/2024 03/11/2024 05/10/2024 1:16 AM TIMBER REPAIRER documented as of this encounter Care Teams Sewer Separation Designer Relationship Specialty Start Date End Date Gilmar Galvan MD [address] [place] [phone] PCP - General Family Practice 12/09/18 documented as of this encounter
--- OUTSIDE RECORDS SUMMARY | 2025-03-02 23:52 | XMS_ITS | Encounter Summary ---
Author Organization [facility] Address [address] [place] [address] Care Team Providers Care Paint Dipper Name Role Phone Gilmar Galvan MD Primary Care Provider Reason for Visit * Reason Comments Question Encounter Details Date Type Department Care Team (Late st Contact Info) Description 08/24/2024 Telephone [facility] [address] [place] [address] Gilmar Galvan MD [address] [place] [address] Question Social History Tobacco Use [...] on file Legal Sex Female 3:13 AM MARKET DEVELOPMENT TRAINER Gender Identity Not on file Sexual Orientation [...] - 08/24/2024 12:21 PM CDT Copied from [facility] #[id number]. Topic: Patient or Caregiver Communication Request >> [...] Description 03/01/2025 Plan of Care Documentation [facility] Outpatient Behavioral Health Program Services [address] [address] [place] [address] 03/03/2025 9:00 AM CDT Hospital Encounter [facility] Outpatient Behavioral Health Program Services [address] [address] [place] [address] 03/04/2025 9:00 AM CDT Appointment [facility] Outpatient [facility] Health Program Services [address] [address] [place] [address] 03/07/2025 9:00 AM MARKET DEVELOPMENT TRAINER Appointment [facility] Outpatient Behavioral Health Program Services [address] [address] [place] [address] 03/09/2025 9:00 AM MARKET DEVELOPMENT TRAINER Appointment [facility] Outpatient Behavioral Health Program Services [address] [address] [place] [address] 03/10/2025 9:00 AM MARKET DEVELOPMENT TRAINER Appointment [facility] Outpatient Behavioral Health Program Services [address] [address] [place] [address] 03/11/2025 9:00 AM MARKET DEVELOPMENT TRAINER Appointment [facility] Outpatient Behavioral Health Program Services [address] [address] [place] [address] documented as of this encounter Visit Diagnoses Not on filedocumented in this encounter Additional Health Concerns Assessment Noted Time PHQ-9 Depression Total Score: 2 08/25/19 25 11:25 AM CDT documented as of this encounter Care Teams Paint Dipper Relationship Specialty Start Date End Date Gilmar Galvan MD [address] [place] [phone] PCP - General Family Practice 12/09/18 documented as of this encounter
--- OUTSIDE RECORDS SUMMARY | 2025-03-02 23:52 | XMS_ITS | Encounter Summary ---
Author Organization [facility] Address [address] Attn: [place] [address] Care Team Providers Care Fish Cleaner Machine Tender Name Role Phone Gilmar Galvan [...] worry about transportation for future doctor visits, pick up worker medication, etc.? No 2024 Housing Stability Answer [...] on file Legal Sex Female 3:13 AM RECEPTION CLERK Gender Identity Not on file Sexual Orientation Not on file Occupation Industry Job Start Date Job End Date Not on file Not on file Not on file Not on file documented as of this encounter Plan of Treatment Upcoming Encounters Date Type Department Care Team (Latest Contact Info) Description 03/01/2025 Plan of Care Documentation [facility] [address] [address] [place] [address] 03/03/2025 9:00 AM CDT Hospital Encounter [facility] [address] [address] [place] [address] 03/04/2025 9:00 AM CDT Appointment [facility] [address] [address] [place] [address] 03/07/2025 9:00 AM RECEPTION CLERK Appointment [facility] [address] [address] [place] [address] 03/09/2025 9:00 AM RECEPTION CLERK Appointment [facility] [address] [address] [address] [place] [address] 03/10/2025 9:00 AM RECEPTION CLERK Appointment [facility] [address] [address] [address] [place] [address] 03/11/2025 9:00 AM RECEPTION CLERK Appointment [facility] [address] [address] [address] [place] [address] documented as of this encounter Visit Diagnoses Not on filedocumented in this encounter Additional Health Concerns Assessment Noted Time PHQ-9 Depression Total Score: 6 03/01/20 25 9:50 AM CDT documented as of this encounter Care Teams Fish Cleaner Machine Tender Relationship Specialty Start Date End Date Gilmar Galvan MD [address] [place] [address] PCP - General Family Practice 12/09/18 documented as of this encounter
--- OUTSIDE RECORDS SUMMARY | 2025-03-02 23:52 | XMS_ITS | Encounter Summary ---
Author Organization [facility] Address [address] [place] [address] Care Team Providers Care Marketing Financial Analyst Name Role Phone Gilmar Galvan MD Primary Care Provider Reason for Visit * Reason Comments Medication Refill Encounter Details Date Type Department Care Team (Late st Contact Info) Description 09/20/2014 Refill [facility] [address], [address] [phone] Randal Lee MD NO ADDRESS ON FILE [...] on file Legal Sex Female 3:13 AM APPOINTMENT CLERK Gender Identity Not on file Sexual Orientation Not on file Occupation Industry Job Start Date Job End Date Not on file Not on file Not on file Not on file documented as of this encounter Plan of Treatment Upcoming Encounters Date Type Department Care Team (Latest Contact Info) Description 03/01/2025 Plan of Care Documentation [facility] [address] [address] [address] [place] [address] 03/03/2025 9:00 AM CDT Hospital Encounter [facility] [address] [address] [place] [address] 03/04/2025 9:00 AM CDT Appointment [facility] [address] [address] [address] [place] [address] 03/07/2025 9:00 AM APPOINTMENT CLERK Appointment [facility] [address] [address] [place] [address] 03/09/2025 9:00 AM APPOINTMENT CLERK Appointment [facility] [address] [address] [address] [place] [address] 03/10/2025 9:00 AM APPOINTMENT CLERK Appointment [facility] [address] [address] [address] [place] [address] 03/11/2025 9:00 AM APPOINTMENT CLERK Appointment [facility] [address] [address] [address] [place] [address] documented as of this encounter Visit Diagnoses Not on filedocumented in this encounter Additional Health Concerns Infection Onset Date Last Indicated Resolved Time R/O COVID-19 07/30/2019 07/30/2019 08/04/2019 6:05 AM CDT R/O Respiratory 05/12/2022 05/12/2022 05/12/2022 4 :27 PM APPOINTMENT CLERK R/O C. diff 03/11/2024 03/11/2024 03/11/2024 12:4 6 PM APPOINTMENT CLERK C Diff 03/11/2024 03/11/2024 05/10/2024 1:16 AM APPOINTMENT CLERK documented as of this encounter Care Teams Marketing Financial Analyst Relationship Specialty Start Date End Date Gilmar Galvan MD [address] [place] [address] PCP - General Family Practice 12/09/18 documented as of this encounter
--- OUTSIDE RECORDS SUMMARY | 2025-03-02 23:52 | XMS_ITS | Encounter Summary ---
Author Organization [facility] Address [address] [place] [address] Care Team Providers Care Plumber'S Helper Name Role Phone Gilmar Galvan MD Primary Care Provider Encounter Details Date Type Department Care Team (Late st Contact Info) Description 11/09/2008 Outpatient Historical [facility], [address] Josh Clarke MD [address] [place] [address] [place] [address] Social History Tobacco Use Types Packs/Day Years Used Date Smoking Tobacco: Never Assessed Comments No Sex and Gender Information Value Date Recorded Sex Assigned at Not on file Legal Sex Female 3:13 AM ANATOMY AND PHYSIOLOGY INSTRUCTOR Gender Identity Not on file Sexual Orientation Not on file documented as of this encounter Plan of Treatment Upcoming Encounters Date Type Department Care Team (Latest Contact Info) Description 03/01/2025 Plan of Care Documentation [facility] [address] [address] [place] [address] 03/03/2025 9:00 AM CDT Hospital Encounter [facility] [address] [address] [address] [place] [address] 03/04/2025 9:00 AM CDT Appointment [facility] [address] [address] [address] [place] [address] 03/07/2025 9:00 AM ANATOMY AND PHYSIOLOGY INSTRUCTOR Appointment [facility] [address] [address] [address] [place] [address] 03/09/2025 9:00 AM ANATOMY AND PHYSIOLOGY INSTRUCTOR Appointment [facility] [address] [address] [address] [place] [address] 03/10/2025 9:00 AM ANATOMY AND PHYSIOLOGY INSTRUCTOR Appointment [facility] [address] [address] [place] [address] 03/11/2025 9:00 AM ANATOMY AND PHYSIOLOGY INSTRUCTOR Appointment [facility] [address] [address] [address] [place] [address] documented as of this encounter Procedures Procedure Name Priority Date/Time Associated Diagnosis Comments PATHOLOGY Routine 11/09/2008 3:21 PM CDT documented in this encounter Results * PATHOLOGY (11/09/2008 3:21 PM CDT) FINAL REPORT [facility] [address] [place], [place] [address] Patient: JUNIOR MARKS : 1990 Procedure Date: 11/09/2008 Accession Date: 11/09/2008 Case No: [id number] Ordering Dr: JOSH CLARKE Case types AW, BW, FW, NW and SH are performed by [facility] [place] [place], [place] SURGICAL PATHOLOGY & NON-GYNECOLOGIC CYTOPATHOLOGY REPORT [...] 06:19 am Microscopic: Received are slides labeled [id number] Junior Marks. Sections of stomach sample antral [...] Respiratory 05/12/2022 05/12/2022 05/12/2022 4 :27 PM ANATOMY AND PHYSIOLOGY INSTRUCTOR R/O C. diff 03/11/2024 03/11/2024 03/11/2024 12:4 6 PM ANATOMY AND PHYSIOLOGY INSTRUCTOR C Diff 03/11/2024 03/11/2024 05/10/2024 1:16 AM ANATOMY AND PHYSIOLOGY INSTRUCTOR documented as of this encounter Care Teams Plumber'S Helper Relationship Specialty Start Date End Date Gilmar Galvan MD [address] [place] [address] PCP - General Family Practice 12/09/18 documented as of this encounter
[2025-03-03] MEDS: HALOPERIDOL LACTATE 5 MG/ML VIAL IM (00:14)
[2025-03-03 00:42] LABS: Add Urine Microscopic? NO; Appearance Urine Clear (Clear); Glucose Urine UA Negative (Negative); Leukocyte Esterase Ur Negative LEU/UL (Negative); Nitrate Urine Negative (Negative); Specific Grav Ur 1.007 (1.001-1.035)
[2025-03-03 00:44] LABS: Hematocrit 36.5 % (37.0-47.0); Hemoglobin 12.3 g/dL (12.0-15.0); Immature Granulocyte Percent A 0.2 % (0-0.5); Lymphocytes Absolute Auto 3.89 K/mm3 (0.9-3.2); Mean Corpuscular HGB Conc 33.7 g/dl (32-36); Mean Corpuscular Hemoglobin 29.7 pg (26-34); Mean Corpuscular Volume 88.2 fl (80-100); Nucleated Red Blood Cells Absolute Auto 0.000 K/mm3 (0.0-0.012); Nucleated Red Blood Cells Perc 0.0 % (0.0-0.2); Platelet Count Result 330 k/mm3 (150-375); Red Blood Count 4.14 M/mm3 (4.2-5.4); White Blood Count 8.0 K/mm3 (4.5-10.0)
[2025-03-03 00:49] LABS: Alanine Aminotransferase 57 U/L (6-35); Albumin Level 4.1 g/dL (3.5-5.1); Alkaline Phosphatase 91 U/L (38-126); Anion Gap 9 mmol/L (4-12); Aspartate Amino Transferase 40 U/L (14-36); Bilirubin,Total 0.6 mg/dL (0.2-1.3); Blood Urea Nitrogen 9 mg/dL (7-17); Calcium 8.8 mg/dL (8.4-10.2); Carbon Dioxide 24 mmol/L (22-30); Chloride 104 mmol/L (98-107); Estimated CRCL calculation 99 ml/min; Estimated Glomerular Filt Rate > 60; Glucose 90 mg/dL (65-110); Potassium 3.8 mmol/L (3.4-5.0); Sodium 137 mmol/L (137-145); Total Protein 7.1 g/dL (6.3-8.2)
[2025-03-03 00:51] LABS: Acetaminophen < 10 ug/mL (10-30); Salicylate < 1.0 mg/dL (2-20)
[2025-03-03 00:58] LABS: Cannabinoid Screen Urine Positive (Negative)
--- NOTE | 2025-03-03 01:09 | PC.NURSE ---
Pt seen ambulatory with steady gait out ED doors. Informed JUNI Storey that pt eloped.
[2025-03-03 01:19] LABS: Influenza A QL RT-PCR Negative (Negative); Influenza B QL RT-PCR Negative (Negative); RSV RNA, RT-PCR Negative (Negative); SARS-CoV-2 RNA PCR Negative (Negative)
[2025-03-03 01:20] LABS: Thyroid Stimulating Hormone 2.450 uIU/mL (0.465-4.680)
== END 2025-03-03 01:05 | disposition left against medical advice (07) ==
PROVIDERS: Emergency Provider Registered Nurse
DX: F41.9 Anxiety disorder, unspecified (principal); F41.0 Panic disorder [episodic paroxysmal anxiety]; Z20.822 Contact with and (suspected) exposure to COVID-19
CPT/HCPCS: 36415; 80053; 80143; 80179; 80307; 81003; 82077; 84443; 85025; 87637; 93005; 96372; 99283; J1630

== ENCOUNTER 2025-03-06 09:55 | Emergency (ER) | payer BC, SELFPAY ==
[2025-03-06 10:04] VITALS: BP 103/81; PULSE 117; RESP 20; TEMP 36.4; O2SAT 100
--- NOTE | 2025-03-06 11:10 | ED_ITS ---
HPI - General Adult General Chief complaint: Dental/Oral Stated complaint: tooth pain Time Seen by Provider: 03/06/25 11:10 Source: patient Mode of arrival: ambulatory Limitations: no limitations History of Present Illness HPI narrative: 34-year-old female patient presents to [facility] with complaints of right lower dental pain. Patient states she had a tooth extraction about 3-4 days ago and states she was and this morning she went to brush her teeth and states started having excruciating pain. Patient states she has been taking Tylenol the pain denies fevers body aches or chills. Patient states she was put on a Zithromax today and at the time of her extraction and has 1 day left. Related Data Home Medications ?Medication ?Instructions ?Recorded ?Confirmed ?Last Taken ?Type buspirone 15 mg tablet mg 03/06/25 Unknown History clonazepam 1 mg tablet mg 03/06/25 Unknown History norethindrone acetate 1 mg-ethinyl tablet 03/06/25 Un known History estradiol 20 mcg tablet paroxetine HCl 20 mg tablet mg PO 03/06/25 Unknown Hi story Allergies Allergy/AdvReac Type Severity Reaction Status Date / Time ketorolac (From Toradol) Allergy Difficulty Verified 03/06/25 10:24 Breathing Penicillins Allergy Rash Verified 03/06/25 10:24 Review of Systems Review of Systems: CONSTITUTIONAL: Denies fever, chills, or sweats. EYES: Denies visual changes, redness, or discharge. ENT: Denies rhinorrhea, congestion, sore throat, or otalgia. Positive right lower dental pain that started this morning CARDIOVASCULAR: Denies chest pain, palpitations, or edema. RESPIRATORY: Denies cough or dyspnea. GASTROINTESTINAL: Denies abdominal pain, nausea, vomiting, or diarrhea. GENITOURINARY: Denies dysuria or hematuria. SKIN: Denies rash or itching. MUSCULOSKELETAL: Denies back pain, joint pain, or myalgia. NEUROLOGIC: Denies headache, numbness, or weakness. PSYCHIATRIC: Denies anxiety or depression. [facility] Past Medical History Medical History History of anxiety Surgical History Surgical History History of delivery Social History Social History Smoking status: Never smoker Alcohol intake: current Substance use: current Substance use type: does not use Other substance usage details: gummies for sleep Do You Feel Safe in your Home?: Yes Lack of Transportation: No Lack of Food: Never True Current Housing: I Have Housing Concerned About Future Housing: No Difficulty Paying Gas/Electric Bills: No Difficulty Paying for Meds: No Currently Unemployed: No Education: Associate Degree Difficulty w/ Childcare or Family Care: No Spiritual care concerns: No Comments At the time of my signature I agree with nursing past medical history, surgical, social, and family history. There is no relevant family history pertinent to the presenting complaint. Exam Narrative: GENERAL: Well-appearing, well-nourished, and in no acute distress. HEAD: Normocephalic, atraumatic. EYES: PERRLA and EOMI. ENT: Nares clear, no rhinorrhea or epistaxis. Mucous membranes moist. Patient has some erythema noted around the 2 teeth that were extracted to the right lower dental cavity. There is a little bit of yellow discharge present but no copious amounts to discharge noted. NECK: Supple. No lymphadenopathy CHEST: Clear to auscultation. No respiratory distress. HEART: Regular rate and rhythm. No murmur heard. Normal peripheral pulses. ABDOMEN: Soft, nontender, nondistended, normal active bowel sounds. EXTREMITIES: Normal range of motion. No edema. SKIN: Warm, dry, no rash. NEURO: No focal deficits. Alert and oriented x3. Course Course Level of Care: Express Care Visit Vital Signs Vital signs: Vital Signs Temperature 36.4 C L 03/06/25 10:04 Pulse Rate 117 H 03/06/25 10:04 Respiratory Rate 20 03/06/25 10:04 Blood Pressure 103/81 03/06/25 10:04 Pulse Oximetry 100 03/06/25 10:04 Oxygen Delivery Room Air 03/06/25 10:04 Temperature 36.4 C L 03/06/25 10:04 Pulse Rate 117 H 03/06/25 10:04 Respiratory Rate 20 03/06/25 10:04 Blood Pressure 103/81 03/06/25 10:04 Pulse Oximetry 100 03/06/25 10:04 Oxygen Delivery Room Air 03/06/25 10:04 Vital signs reviewed. Medical Decision Making MDM Narrative Medical decision making narrative: Plan care patient is to switch her antibiotic from the azithromycin to the clindamycin to decrease risk of worsening infection. Patient may continue taking Tylenol Motrin as needed for pain and highly recommend that she call her dentist to [facility] [place] for further evaluation treatment. Differential Diagnosis Differential Diagnosis: Differential diagnosis: Dental caries, periodontal disease, avulsed tooth, tooth infections, mandibular infection, Paul's angiana, upper tooth infection, dry socket, gingivitis, acute necrotizing ulcerative gingivitis, sialolithiasis. Vital Signs Vital Signs: Vital Signs Temperature 36.4 C L 03/06/25 10:04 Pulse Rate 117 H 03/06/25 10:04 Respiratory Rate 20 03/06/25 10:04 Blood Pressure 103/81 03/06/25 10:04 Pulse Oximetry 100 03/06/25 10:04 Oxygen Delivery Room Air 03/06/25 10:04 Temperature 36.4 C L 03/06/25 10:04 Pulse Rate 117 H 03/06/25 10:04 Respiratory Rate 20 03/06/25 10:04 Blood Pressure 103/81 03/06/25 10:04 Pulse Oximetry 100 03/06/25 10:04 Oxygen Delivery Room Air 03/06/25 10:04 Critical Care Time Critical Care Time Critical Care Time: No Discharge Plan Discharge Clinical Impression: Toothache Patient Disposition: Home Condition: Stable Instructions: Antibiotic Form, Gingivostomatitis (ED) Additional Instructions: Antibiotic as directed Avoid temperature extremes May apply heat or ice to the face Gentle brushing and flossing Alternate Tylenol and ibuprofen as needed for pain Follow-up with the dentist as soon as possible--see the list provided Patient Language: Faroese Prescriptions: New clindamycin HCl [Cleocin HCl] 300 mg capsule 300 mg PO BID 7 Days Qty: 14 0RF clindamycin HCl [Cleocin HCl] 150 mg capsule 150 mg PO BID 7 Days Qty: 14 0RF No Action paroxetine HCl 20 mg tablet PO norethindrone ac-eth estradiol 1-20 mg-mcg tablet buspirone 15 mg tablet clonazepam 1 mg tablet Follow-up/Referrals: Mandy,Gilmar [Other] Time of Disposition: :19
--- NOTE | 2025-03-06 11:20 | PC.NURSE ---
Pt left clinic immediately after being seen by provider. Pt not present in exam room to receive discharge instructions. Pt seen on camera entering vehicle. Pt was called and voicemail was left asking pt to call RN at clinic to discuss instructions.
--- NOTE | 2025-03-06 11:37 | PC.NURSE ---
Pt calls back and discharge information reviewed with pt. Understanding verbalized by pt
--- NOTE | 2025-03-06 11:37 | PC.NURSE ---
Pt calls back and instructions given over the phone by this RN. She states that she will picker her prescribed anbx. She states that she left because she felt the provider was dismissive of her complaint (dental) and anxiety. She states that the provider made her feel like she was there seeking pain meds instead of care for dental concern. She will attempt again to contact her dentist's emergency line
== END 2025-03-06 11:20 | disposition home or self-care (01) ==
PROVIDERS: Emergency Provider Nurse Practitioner Family
DX: K08.89 Other specified disorders of teeth and supporting structures (principal); F41.9 Anxiety disorder, unspecified
CPT/HCPCS: 99213; G0463

== ENCOUNTER 2025-04-05 11:54 | Emergency (ER) | payer BC, SELFPAY ==
--- OUTSIDE RECORDS SUMMARY | 2025-04-04 13:53 | XMS_ITS | Encounter Summary ---
Author Organization [facility] Address [address] [place] [address] Care Team Providers Care Machine Rebuilder Name Role Phone Gilmar Galvan MD Primary Care Provider Reason for Visit * Auth/Cert (Routine) Specialty Diagnoses / Procedures Referred By Contluz t Referred To Contact [facility] [address] [facility] [address] [place] [address] Phone: tel: fax: Referral ID Status Reason Start Date Expiration Date Visits Re quested Visits Authorized [id number] 1 1 Encounter Details Date Type Department Care Team (Late st Contact Info) Description 04/04/2025 1:53 PM BUILDING 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 Anesthesia Event [facility] [place] [address] [place] [address] [place] [address] [place] [address] Anesthesia Record Procedure Summary Procedure Name Responsible Anesthesiologist Anesthesia Start Time Anesthesia Stop Time ECT Jaren Garnica MD 04/04/25 1353 04/04/25 1407 Events Date Time Event Comment 04/04/2025 1352 1353 AN Equip Check Anesthesia eq uipment and materials checked in accordance with local policy. 1353 An Start 1353 An Start Data 1353 Pre-Induction Immediate pre- induction anesthetic assessment performed. Vital signs as noted on graphic. 1359 An Induction Bite block for ECT. 1407 an stop data 1407 An Stop 1407 Hand-off to Receiving Clinic annemarie Meds Name Total ondansetron (ZOFRAN) 2 mg/mL injection 4 mg succinylcholine (ANECTINE) 20 mg/mL inje ction syringe 50 mg propofol (DIPRIVAN) injection 30 mg methohexital (BREVITAL) 500 mg injection 100 mg * Agents Name O2 O2 * Blood No blood administrations on file. Lines, Drains, and Airways Type Details Placement Removal Peripheral IV Orientation: Left, Posterior; Location: Hand; Device: Angiocath; Gauge: 24 gauge; Needle Length: 1 in length; Insertion Attempts: 3; Patient Tolerance: tolerated well; Pain Prevention: distraction 04/04/25 1334 by Paulina Nguyen RN 04/04/25 1455 by Cleo Rodriguez RN documented in this encounter Social History Tobacco Use Types Packs/Day Years [...] you can t pay for food? No 04/01/2025 Transportation Needs Answer Date Record ed Have you gone without health care because you didn t have a way to get there? Or worry about transportation for future doctor visits, fruit picker medication, etc.? No 2024 Housing Stability Answer Date Recorded Do you worry you won t have a steady place to sleep or struggle to pay rent or mortgage? No 04/01/2025 Utility Needs Answer Date Recorded Do you have difficulty payin g for utility costs (electric, water or gas bills)? No 04/01/2025 Medication Needs Answer Date Recorded Have you skipped taking medi cation due to cost or worry you can t afford new medications? No 04/01/2025 Feeling Safe Answer Date Recorded Are you in a relationship wi th someone who hurts you emotionally and/or physically? No 04/04/2025 Food Insecurity Answer Date Recorded Patient needs [...] on file Legal Sex Female 3:13 AM BUILDING 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 Gender Identity Not on file Sexual Orientation Not on file Occupation Industry Job Start Date Job End Date Not on file Not on file Not on file Not on file documented as of this encounter OR Notes * Anesthesia Postprocedure Evaluation - Jaren Garnica MD - 04/04/2025 2:45 PM CST Post Anesthesia Evaluation Vitals: Vitals Value Taken Time BP 110/77 04/04/25 14:27 Temp 36.4 ??C 04/04/25 14:27 Resp 28 04/04/25 14:27 SpO2 100 % 04/04/25 14:27 Pulse 101 04/04/25 14:27 Heart Rate Pain Rating: Presence of Pain: denies pain/discomfort (04/04/25 1338) Anesthesia Post Evaluation Patient location during evaluation: PACU Patient participation: patient was able to participate in the post op evaluation Level of consciousness: 0 = alert, responsive, answers simple questions appropriately, able to perform simple tasks Airway patency: patent Nausea or Vomiting: none Cardiovascular status: regular rate and rhythm Respiratory status: no respiratory symptoms Hydration status: well hydrated No notable events documented. Jaren Garnica MD DING 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 * Anesthesia Handoff - Jaren Garnica MD - 04/04/2025 2:07 PM CST Post-Anesthetic transfer of care report elements to appropriate post-anesthesia recovery environment completed in accordance with procedure. I completed my handoff to the receiving nurse during which we: 1. Identified the patient 2. Identified the responsible provider 3. Reviewed the pertinent medical history 4. Discussed the surgical course 5. Reviewed intra-op anesthesia management and issues during anesthesia 6. Set expectations for post-procedure period 7. Orders as necessary and appropriate for continuation of care are present in Epic. 8. Allowed opportunity for questions and acknowledgement of understanding. Vital Signs: See nurse's entries. 2:07 PM Jaren Garnica MD DING 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 * Anesthesia Preprocedure Evaluation - Jaren Garnica MD - 04/04/2025 1:51 PM CST Location of Pre-Procedure Assessment: Other.ANESTHESIA HISTORY: Negative: Anesthetic complications.Negative for: family history of anesthetic complications. PULMONARY HISTORY: History of Asthma (childhood). No Tobacco UseNon-Tobacco Dependence: NEURO/PSYCH HISTORY: Negative history of: CVA. Negative history for: seizures:. History of Psychiatric Disorder(s): ENDOCRINE HISTORY: History of Diabetes (pt states no medications while not ). Diabetes type: gestational. CARDIOVASCULAR HISTORY:Negative history of: Hypertension. Negative history of: CAD.Negative history of: Valve Disease. Negative history of: Dysrhythmias. RENAL HISTORY: History of: Renal disease. Disease type: Stones. GI/HEPATIC HISTORY:Negative history of: GERD. Other Findings: No new medical problems since last ECT. Bonny Garnica MD 04/04/25. EXPANDED PHY EXAM Anesthesia Plan ASA Final: 2 General Intravenous induction Mask airway maintenance NPO status > 6 hours (clear liquids until 0600 04/04/25) Anesthetic plan and risks discussed with Patient. [facility] FINAL DOS EXAM: ASA score (Day of Surgery): 2 Mallampati:: II Rhythm:regular Rate: normal breath sounds clear to auscultation Plan: General I have reviewed the patient's labs, EKG, and consult information. DING 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 documented in this encounter Plan of Treatment Upcoming Encounters Date Type Department Care Team (Late st Contact Info) Description 04/06/2025 11:00 AM BUILDING 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 Appointment [facility] [address] [address] [place] [address] 04/08/2025 8:30 AM BUILDING 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 Confidential [facility] Psychiatry [facility] [place] [address] [facility] [place] [address] Jaimie Powell MD [facility] [place] [address] 04/08/2025 10:30 AM BUILDING 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 Appointment [facility] [address] [address] [place] [address] 04/11/2025 9:30 AM BUILDING 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 Appointment [facility] E[place] [address] [place] [address] 04/13/2025 9:30 AM BUILDING 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 Appointment [facility] E[address] [address] [place] [address] 04/15/2025 10:00 AM BUILDING 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 Appointment [facility] E[place] [address] [place] [address] documented as of this encounter Visit Diagnoses Not on filedocumented in this encounter Administered Medications Inactive Administered Medications - up to 3 most recent administrations Medication Order MAR Action Action Date Dose Rate Site methohexitaL (BREVITAL) 500 mg injection IV, INTRA-PROCEDURE PRN, Starting on Fri04/04/25 at 1359, Until Fri04/04/25 at 1407, Routine, Anesthesia Intra-op Given 04/04/2025 1:59 PM BUILDING 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 100 mg ondansetron (ZOFRAN) injection IV, INTRA-PROCEDURE PRN, Starting on Fri04/04/25 at 1359, Until Fri04/04/25 at 1407, Routine, Anesthesia Intra-op Given 04/04/2025 1:59 PM BUILDING 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 4 mg propofoL (DIPRIVAN) injection IV, INTRA-PROCEDURE PRN, Starting on Fri04/04/25 at 1402, Until Fri04/04/25 at 1407, Anesthesia Intra-op Given 04/04/2025 2:02 PM BUILDING 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 30 mg succinylcholine chloride (ANECTINE) 200 mg/10 mL (20 mg/mL) injection IV, INTRA-PROCEDURE PRN, Starting on Fri04/04/25 at 1359, Until Fri04/04/25 at 1407, Routine, Anesthesia Intra-op Given 04/04/2025 1:59 PM BUILDING 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 50 mg documented in this encounter Additional Health Concerns Assessment Noted Time PHQ-9 Depression Total Score: 6 03/22/20 25 12:49 PM BUILDING 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 documented as of this encounter Care Teams Machine Rebuilder Relationship Specialty Start Date End Date Gilmar Galvan MD [address] [place] [address] PCP - General Family Practice 12/09/18 documented as of this encounter
[2025-04-05] VITALS (11 sets, daily range): BP systolic 99–109; BP diastolic 54–75; PULSE 90–107; RESP 11–24; TEMP 36.8; O2SAT 95–100
--- NOTE | ~2025-04-05 | XR_ITS ---
EXAMINATION: XR chest 2V 04/05/2025 12:36 INDICATION: Chest pain PROCEDURE: 2 view chest COMPARISON: 02/17/2025 FINDINGS: The lungs are clear. The cardiomediastinal silhouette is within normal limits. There are no pleural effusions. There is no pneumothorax suspected. IMPRESSION: 1: NO ACUTE CARDIOPULMONARY DISEASE. Reviewed, dictated and finalized at location I. S CONSULTANT RESIDENTIAL MANAGER
--- NOTE | 2025-04-05 11:59 | ECG_ITS ---
Test Date: 2025-04-05 12:06:43 Measurements Intervals [place] Rate: 103 P: 24 FL: 130 QRS: 12 QRSD: 74 T: 14 QT: 332 QTc: 436 Interpretive Statements SINUS TACHYCARDIA DELAYED PRECORDIAL R/S TRANSITION BORDERLINE T WAVE ABNORMALITY- INFERIOR LEADS BASELINE ARTIFACT- I, II, III, AVR, AVL, AVF, V1-V6 BORDERLINE ECG Compared to ECG 03/02/2025 20:06:38 HEART RATE HAS INCREASED Electronically Signed On 04-05-2025 12:47:54 TOOL DESIGNER by Altaf Bedolla D.O.
[2025-04-05 12:37] LABS: Hematocrit 40.2 % (37.0-47.0); Hemoglobin 13.6 g/dL (12.0-15.0); Immature Granulocyte Percent A 0.3 % (0-0.5); Lymphocytes Absolute Auto 2.71 K/mm3 (0.9-3.2); Mean Corpuscular HGB Conc 33.8 g/dl (32-36); Mean Corpuscular Hemoglobin 30.3 pg (26-34); Mean Corpuscular Volume 89.5 fl (80-100); Nucleated Red Blood Cells Absolute Auto 0.000 K/mm3 (0.0-0.012); Nucleated Red Blood Cells Perc 0.0 % (0.0-0.2); Platelet Count Result 363 k/mm3 (150-375); Red Blood Count 4.49 M/mm3 (4.2-5.4); White Blood Count 9.9 K/mm3 (4.5-10.0)
[2025-04-05 12:43] LABS: Alanine Aminotransferase 57 U/L (6-35); Albumin Level 4.5 g/dL (3.5-5.1); Alkaline Phosphatase 98 U/L (38-126); Anion Gap 9 mmol/L (4-12); Aspartate Amino Transferase 53 U/L (14-36); Bilirubin,Total 0.6 mg/dL (0.2-1.3); Blood Urea Nitrogen 14 mg/dL (7-17); Calcium 9.3 mg/dL (8.4-10.2); Carbon Dioxide 24 mmol/L (22-30); Chloride 104 mmol/L (98-107); Estimated CRCL calculation 72 ml/min; Estimated Glomerular Filt Rate > 60; Glucose 95 mg/dL (65-110); Lipase 74 U/L (23-300); Potassium 4.1 mmol/L (3.4-5.0); Sodium 137 mmol/L (137-145); Total Protein 8.0 g/dL (6.3-8.2)
[2025-04-05] MEDS: ONDANSETRON INJ 4 MG/2 ML VIAL IV PUSH (12:50)
[2025-04-05] MEDS: LORazepam (*CRX) 1 MG TABLET PO (12:51)
[2025-04-05 12:55] LABS: Troponin I < 0.012 ng/mL (0.000-0.034)
[2025-04-05 12:56] LABS: INR 1.0; Partial Thromboplastin Time 24.3 Seconds (22.3-36.8); Prothrombin Time 12.9 Seconds (11.1-14.7)
--- OUTSIDE RECORDS SUMMARY | 2025-04-05 13:19 | XMS_ITS | Encounter Summary ---
Author Organization [facility] Address [address] [place] [address] Care Team Providers Care Car Hopper Name Role Phone Gilmar Galvan MD Primary Care Provider Encounter Details Date Type Department Care Team (Late st Contact Info) Description 11/26/2006 Outpatient Historical [facility] Pediatrics [address] [facility] [address] [place] [facility] [address] [address] [place] [address] [place] [address] Social History Tobacco Use Types Packs/Day Years Used Date Smoking Tobacco: Never Assessed Comments Unknown Sex and Gender Information Value Date Recorded Sex Assigned at Not on file Legal Sex Female 3:13 AM VP RHEUMATOLOGY Gender Identity Not on file Sexual Orientation Not on file documented as of this encounter Plan of Treatment Upcoming Encounters Date Type Department Care Team (Late st Contact Info) Description 04/06/2025 11:00 AM VP RHEUMATOLOGY Appointment [facility] ECT [address] [place] [address] 04/08/2025 8:30 AM VP RHEUMATOLOGY Confidential [facility] Psychiatry [place] [address] [facility] [place] [address] Jaimie Powell MD [address] [facility] [place] [address] 04/08/2025 10:30 AM VP RHEUMATOLOGY Appointment [facility] ECT [address] [place] [address] 04/11/2025 9:30 AM VP RHEUMATOLOGY Appointment [facility] ECT [address] [place] [address] 04/13/2025 9:30 AM VP RHEUMATOLOGY Appointment [facility] ECT [address] [place] [address] 04/15/2025 10:00 AM VP RHEUMATOLOGY Appointment [facility] E[place] [address] [place] [phone] documented as of this encounter Visit Diagnoses Not on filedocumented in this encounter Additional Health Concerns Infection Onset Date Last Indicated Resolved Time R/O COVID-19 07/30/2019 07/30/2019 08/04/2019 6:05 AM CDT R/O Respiratory 05/12/2022 05/12/2022 05/12/2022 4 :27 PM VP RHEUMATOLOGY R/O C. diff 03/11/2024 03/11/2024 03/11/2024 12:4 6 PM VP RHEUMATOLOGY C Diff 03/11/2024 03/11/2024 05/10/2024 1:16 AM VP RHEUMATOLOGY documented as of this encounter Care Teams Car Hopper Relationship Specialty Start Date End Date Gilmar Galvan MD [address] [place] [address] PCP - General Family Practice 12/09/18 documented as of this encounter
--- OUTSIDE RECORDS SUMMARY | 2025-04-05 13:19 | XMS_ITS | Encounter Summary ---
Author Organization [facility] Address [address] [place] [address] Care Team Providers Care Consulting Services Project Manager Name Role Phone Gilmar Galvan MD Primary Care Provider Encounter Details Date Type Department Care Team (Latest Contact Info) Description 11/26/2006 Outpatient Historical [facility] [place] [address] [place] [address] Cervicalgia (Primary Dx) Social History Tobacco Use Types Packs/Day Years Used Date Smoking Tobacco: Never Assessed Comments Unknown Sex and Gender Information Value Date Recorded Sex Assigned at Not on file Legal Sex Female 3:13 AM LINING CUTTER Gender Identity Not on file Sexual Orientation Not on file documented as of this encounter Plan of Treatment Upcoming Encounters Date Type Department Care Team (Late st Contact Info) Description 04/06/2025 11:00 AM LINING CUTTER Appointment [facility] [place] [address] [place] [address] 04/08/2025 8:30 AM LINING CUTTER Confidential [facility] Psychiatry [place] [address] [facility] [address] [facility] [place] [address] Jaimie Powell MD [address] [facility] [place] [facility] [place] [address] 04/08/2025 10:30 AM LINING CUTTER Appointment [facility] [address]CT [address] [place] [address] 04/11/2025 9:30 AM LINING CUTTER Appointment [facility] E[place] [address] [place] [address] 04/13/2025 9:30 AM LINING CUTTER Appointment [facility] E[place] [address] [place] [address] 04/15/2025 10:00 AM LINING CUTTER Appointment [facility] E[place] [address] [place] [address] documented as of this encounter Visit Diagnoses Diagnosis Cervicalgia- Primary documented in this encounter Additional Health Concerns Infection Onset Date Last Indicated Resolved Time R/O COVID-19 07/30/2019 07/30/2019 08/04/2019 6:05 AM CDT R/O Respiratory 05/12/2022 05/12/2022 05/12/2022 4 :27 PM LINING CUTTER R/O C. diff 03/11/2024 03/11/2024 03/11/2024 12:4 6 PM LINING CUTTER C Diff 03/11/2024 03/11/2024 05/10/2024 1:16 AM LINING CUTTER documented as of this encounter Care Teams Consulting Services Project Manager Relationship Specialty Start Date End Date Gilmar Galvan MD [address] [place] [address] PCP - General Family Practice 12/09/18 documented as of this encounter
--- OUTSIDE RECORDS SUMMARY | 2025-04-05 13:19 | XMS_ITS | Encounter Summary ---
Author Organization [facility] Address [address] [place] [address] Care Team Providers Care Pre Planning Advisor Name Role Phone Gilmar Galvan MD Primary Care Provider Reason for Visit * Reason Comments Medication Refill Encounter Details Date Type Department Care Team (Late Contact Info) Description 09/20/2014 Refill [facility] [address], [address] [phone] Randal Lee MD NO ADDRESS ON FILE [...] on file Legal Sex Female 3:13 AM RADIATION PHYSICIST Gender Identity Not on file Sexual Orientation Not on file Occupation Industry Job Start Date Job End Date Not on file Not on file Not on file Not on file documented as of this encounter Plan of Treatment Upcoming Encounters Date Type Department Care Team (Late Contact Info) Description 04/06/2025 11:00 AM RADIATION PHYSICIST Appointment [facility] ECT [address] [place] [address] 04/08/2025 8:30 AM RADIATION PHYSICIST Confidential [facility] Psychiatry [place] [address] [facility] [place] [address] Jaimie Powell MD [address] [place] [address] 04/08/2025 10:30 AM RADIATION PHYSICIST Appointment [facility] ECT [address] [place] [address] 04/11/2025 9:30 AM RADIATION PHYSICIST Appointment [facility] ECT [address] [place] [address] 04/13/2025 9:30 AM RADIATION PHYSICIST Appointment [facility] E[place] [address] [place] [address] 04/15/2025 10:00 AM RADIATION PHYSICIST Appointment [facility] ECT [address] [place] [phone] documented as of this encounter Visit Diagnoses Not on filedocumented in this encounter Additional Health Concerns Infection Onset Date Last Indicated Resolved Time R/O COVID-19 07/30/2019 07/30/2019 08/04/2019 6:05 AM CDT R/O Respiratory 05/12/2022 05/12/2022 05/12/2022 4 :27 PM RADIATION PHYSICIST R/O C. diff 03/11/2024 03/11/2024 03/11/2024 12:4 6 PM RADIATION PHYSICIST C Diff 03/11/2024 03/11/2024 05/10/2024 1:16 AM RADIATION PHYSICIST documented as of this encounter Care Teams Pre Planning Advisor Relationship Specialty Start Date End Date Gilmar Galvan MD [address] [place] [phone] PCP - General Family Practice 12/09/18 documented as of this encounter
--- OUTSIDE RECORDS SUMMARY | 2025-04-05 13:19 | XMS_ITS | Encounter Summary ---
Author Organization [facility] Address [address] [place] [address] Care Team Providers Care Hospital Chief Financial Officer Name Role Phone Gilmar Galvan MD Primary Care Provider Encounter Details Date Type Department Care Team (Late st Contact Info) Description 10/21/2008 Outpatient Historical [facility] Er, Authorized P NO ADDRESS ON FILE Tyson Dejesus MD NO ADDRESS ON FILE Rhoda Ornelas MD NO ADDRESS ON FILE Abdominal Pain, Unspecified Site Social History Tobacco Use Types Packs/Day Years Used Date Smoking Tobacco: Never Assessed Comments Unknown Sex and Gender Information Value Date Recorded Sex Assigned at Not on file Legal Sex Female 3:13 AM ELEVATOR STARTER Gender Identity Not on file Sexual Orientation Not on file documented as of this encounter Plan of Treatment Upcoming Encounters Date Type Department Care Team (Late st Contact Info) Description 04/06/2025 11:00 AM ELEVATOR STARTER Appointment [facility] [place] [address] [place] [address] 04/08/2025 8:30 AM ELEVATOR STARTER Confidential [facility] Psychiatry [facility] [address] [place] [address] Jaimie Powell MD [facility] [place] [address] 04/08/2025 10:30 AM ELEVATOR STARTER [facility]ointment [facility] [place] [address] [place] [address] 04/11/2025 9:30 AM ELEVATOR STARTER [facility]ointment [facility] [place] [address] [place] [address] 04/13/2025 9:30 AM ELEVATOR STARTER [facility]ointment [facility] [place] [address] [place] [address] 04/15/2025 10:00 AM ELEVATOR STARTER [facility]ointment [facility] [place] [address] [place] [address] documented as of this encounter Procedures Procedure [...] 7:21 AM CDT [facility] [address] [place] [place], [place] [address] Admit Date: 10/22/2008 JUNIOR [place]TGOM[place] Sex: F Admit Prov: TYSON DEJESUS Date: 1990 Primary Care Prov: JODY KIMBROUGH CMRN: [id number] Room: ER-A N: [id number] IMAGING SERVICES Ordering Prov: N/A Accession Number: [id number] Interpretation PELVIC SONOGRAM, 10/22/2008 History: Pelvic pain. [...] at this time. . Dictated by: INES PAEZ 10/22/2008 14:29 Electronically signed by: INES PAEZ 10/24/2008 07:20 Transcribed: 10/22/2008 14:59 SJ Procedure Note Ines Paez - 10/24/[address] [address] Admit Date: 10/22/2008 JUNIOR [place]TGOM[place] Sex: F Admit Prov: TYSON DEJESUS Date: 1990 Primary Care Prov: JODY KIMBROUGH CMRN: [id number] Room: ER-A SSN: [address] [place] [address] IMAGING SERVICES Ordering Prov: N/A Interpretation PELVIC [...] at this time. . Dictated by: INES PAEZ 10/22/2008 14:29 Electronically signed by: INES PAEZ 10/24/2008 07:20 Transcribed: 10/22/2008 14:59 SJ us Rhoda Ornelas MD ORDERABLES Fi nal Result * (ABNORMAL) CBC WITH DIFFERENTIAL (10/22/2008 12:20 PM CDT) RBC 4.27 3.90 - 4.90 M/uL [facility] MCHC 34.8 31.5 - 35.5 % [facility] MCV 88.1 82.0 - 99.[address] [facility] PLATELETS 317 140 - 350 K/uL [facility] HEMOGLOBIN 13.1 11.8 - 14.8 g/dL [facility] RDW 12.8 11.5 - 14.5 % [facility] WBC 10.5(H) 4.0 - 9.8 K/uL [facility] MCH 30.7 27.2 - 32.[address] [facility] MPV 9.3 9.3 - 12.[address] [facility] HEMATOCRIT 37.6 35.5 - 44.0 % [facility] RDW-STDEV 40.9 37.1 - 48.[address] [facility] BASOPHILS 0 0 - 2 % [facility] MONOCYTE ABSOLUTE 0.73 0.10 - 1.30 K/uL [facility] REVIEWED ON SMEAR Plt reviewed [facility] MONOCYTES 7 3 - 13 % [facility] NEUTROPHIL ABSOLUTE 8.40(H) 1.90 - 7.00 K/uL [facility] NEUTROPHILS, SEG 80(H) 45 - 70 % [facility] PLATELET EST. Consistent w/ count Normal [facility] EOSINOPHIL ABSOLUTE 0.00 0.00 - 0.70 K/uL [facility] EOSINOPHILS 0 0 - 7 % [facility] LYMPHOCYTE ABSOLUTE 1.37 0.70 - 4.50 K/uL [facility] LYMPHOCYTES 13(L) 16 - 45 % [facility] RBC MORPHOLOGY Normal Normal [facility] BASOPHILS ABSOLUTE 0.00 0.00 - 0.20 K/uL [facility] Blood specimen (specimen) 10/22/2008 12:20 PM CDT 10/22/2008 12:41 PM CDT us Tyson Dejesus MD HEMATOLOGY ORDERABLES Edite d INTERFACE SYSTEM Refer to clinic/hospital department [facility] CLIA# [id number] [address] [place] [address] * HCG QUANTITATIVE, BLOOD (10/22/2008 11:40 AM CDT) HCG QUANT, BLOOD <5 0 - 5 mIU/mL [facility] Comment: Result of 5 - [...] Edited INTERFACE SYSTEM Refer to clinic/hospital department [facility] CLIA# [id number] [address] [place] [address] * C-REACTIVE PROTEIN (10/22/2008 11:40 AM CDT) CRP 0.4 0.0 - 0.8 mg/dL [facility] 10/22/2008 11:4 0 AM CDT 10/22/2008 12:04 PM CDT us Tyson Dejesus MD CHEMISTRY ORDERABLES Final Result Performing Organization Address [facility] Phone Number INTERFACE SYSTEM Refer to clinic/hospital department [facility] CLIA# [id number] [address] [place] [address] * C-REACTIVE PROTEIN (10/21/2008 11:08 PM CDT) Pathologist [facility] CRP 0.2 0.0 - 0.8 mg/dL [facility] 10/21/2008 11:0 8 PM CDT 10/21/2008 11:13 PM CDT us Marshall Haque MD CHEMISTRY ORDERABLES Final Resu lt Performing Organization Address [facility] Phone Number INTERFACE SYSTEM Refer to clinic/hospital department [facility] CLIA# [id number] [address] [place] [address] * (ABNORMAL) COMPREHENSIVE METABOLIC PANEL (10/21/2008 11:08 PM CDT) GLUCOSE 85 65 - 99 mg/dL [facility] AST 13 12 - 32 U/L [facility] BUN 11 6 - 20 mg/dL [facility] CALCIUM 8.4(L) 8.6 - 10.2 mg/dL [facility] CHLORIDE 104 96 - 108 mmol/L [facility] ALBUMIN 4.0 3.4 - 4.8 g/dL [facility] CREATININE 0.72 0.51 - 0.95 mg/dL [facility] SODIUM 137 135 - 145 mmol/L [facility] ALT 14 0 - 31 U/L [facility] ALKALINE PHOSPHATASE 68 35 - 104 U/L [facility] BILIRUBIN TOTAL 0.5 0.2 - 1.0 mg/dL [facility] CO2 23 22 - 30 mmol/L [facility] TOTAL PROTEIN 6.7 6.3 - 8.6 g/dL [facility] POTASSIUM 3.5 3.5 - 4.9 mmol/L [facility] GFR, >60 >=60 mL/min/1. [address] [facility] GFR >60 >=60 mL/min/1. [address] [facility] Comment: Modification of Diet in Renal Disease (MDRD) study formula. Estimated GFR rate interpretative information for both Americans and non- Americans is available on the [facility] Intranet at: [email or web address] Select: Lab Policies and Procedures Select: Reference Ranges - GFR 10/21/2008 11:0 8 PM CDT 10/21/2008 11:13 PM CDT us Marshall Haque MD CHEMISTRY ORDERABLES Edited INTERFACE SYSTEM Refer to clinic/hospital department [facility] CLIA# [id number] [address] [facility] [place] [address] * (ABNORMAL) CBC WITH DIFFERENTIAL (10/21/2008 11:08 PM CDT) RBC 4.25 3.90 - 4.90 M/uL [facility] MCHC 34.6 31.5 - 35.5 % [facility] MCV 88.5 82.0 - 99.[address] [facility] PLATELETS 348 140 - 350 K/uL [facility] HEMOGLOBIN 13.0 11.8 - 14.8 g/dL [facility] RDW 12.7 11.5 - 14.5 % [facility] WBC 13.1(H) 4.0 - 9.8 K/uL [facility] MCH 30.6 27.2 - 32.[address] [facility] MPV 9.2(L) 9.3 - 12.[address] [facility] HEMATOCRIT 37.6 35.5 - 44.0 % [facility] RDW-STDEV 40.9 37.1 - 48.[address] [facility] MONOCYTES 10 3 - 13 % [facility] MONOCYTE ABSOLUTE 1.30 0.10 - 1.30 K/uL [facility] NEUTROPHILS 64 45 - 70 % [facility] NEUTROPHIL ABSOLUTE 8.39(H) 1.90 - 7.00 K/uL [facility] EOSINOPHILS 1 0 - 7 % [facility] EOSINOPHIL ABSOLUTE 0.08 0.00 - 0.70 K/uL [facility] LYMPHOCYTES 25 16 - 45 % [facility] LYMPHOCYTE ABSOLUTE 3.34 0.70 - 4.50 K/uL [facility] BASOPHILS 0 0 - 2 % [facility] BASOPHILS ABSOLUTE 0.03 0.00 - 0.20 K/uL [facility] 10/21/2008 11:0 8 PM CDT 10/21/2008 11:14 PM CDT us Marshall Haque MD HEMATOLOGY ORDERABLES Edited INTERFACE SYSTEM Refer to clinic/hospital department [facility] CLIA# [id number] [address] [place] [address] documented in this encounter Visit Diagnoses Diagnosis Abdominal pain, unspecified site documented in this encounter Additional Health Concerns Infection Onset Date Last Indicated Resolved Time R/O COVID-19 07/30/2019 07/30/2019 08/04/2019 6:05 AM CDT R/O Respiratory 05/12/2022 05/12/2022 05/12/2022 4 :27 PM ELEVATOR STARTER R/O C. diff 03/11/2024 03/11/2024 03/11/2024 12:4 6 PM ELEVATOR STARTER C Diff 03/11/2024 03/11/2024 05/10/2024 1:16 AM ELEVATOR STARTER documented as of this encounter Care Teams Hospital Chief Financial Officer Relationship Specialty Start Date End Date Gilmar Galvan MD [address] [place] [address] PCP - General Family Practice 12/09/18 documented as of this encounter
--- OUTSIDE RECORDS SUMMARY | 2025-04-05 13:19 | XMS_ITS | Encounter Summary ---
Author Organization [facility] Address [address] [place] [address] Care Team Providers Care Gin Operator Name Role Phone Gilmar Galvan MD Primary Care Provider Reason for Visit * Reason Comments Medication Refill Encounter Details Date Type Department Care Team (Late Contact Info) Description 12/20/2015 Refill [facility] [address] [place] [address] Moira Israel NP NO ADDRESS [...] on file Legal Sex Female 3:13 AM MAP MAKER Gender Identity Not on file Sexual Orientation Not on file Occupation Industry Job Start Date Job End Date Not on file Not on file Not on file Not on file documented as of this encounter Plan of Treatment Upcoming Encounters Date Type Department Care Team (Late Contact Info) Description 04/06/2025 11:00 AM MAP MAKER Appointment [facility] E[place] [address] [place] [address] 04/08/2025 8:30 AM MAP MAKER Confidential [facility] [place] [facility] [place] [facility] [place] [address] Jaimie Powell MD [address] [facility] [address] [place] [address] 04/08/2025 10:30 AM MAP MAKER Appointment [facility] E[place] [address] [place] [address] 04/11/2025 9:30 AM MAP MAKER Appointment [facility] E[place] [address] [place] [address] 04/13/2025 9:30 AM MAP MAKER Appointment [facility] E[place] [address] [place] [address] 04/15/2025 10:00 AM MAP MAKER Appointment [facility] [place] [address] [place] [address] documented as of this encounter Visit Diagnoses Not on filedocumented in this encounter Additional Health Concerns Infection Onset Date Last Indicated Resolved Time R/O COVID-19 07/30/2019 07/30/2019 08/04/2019 6:05 AM CDT R/O Respiratory 05/12/2022 05/12/2022 05/12/2022 4 :27 PM MAP MAKER R/O C. diff 03/11/2024 03/11/2024 03/11/2024 12:4 6 PM MAP MAKER C Diff 03/11/2024 03/11/2024 05/10/2024 1:16 AM MAP MAKER documented as of this encounter Care Teams Gin Operator Relationship Specialty Start Date End Date Gilmar Galvan MD [address] [place] [phone] PCP - General Family Practice 12/09/18 documented as of this encounter
--- OUTSIDE RECORDS SUMMARY | 2025-04-05 13:19 | XMS_ITS | Encounter Summary ---
Author Organization [facility] Address [address] [place] [address] Care Team Providers Care Tread Builder Name Role Phone Gilmar Galvan MD Primary Care Provider Encounter Details Date Type Department Care Team (Late st Contact Info) Description 08/13/2006 Outpatient Historical [facility] Pediatrics [address] [facility] [address] [facility] [address] [address] [place] [address] [place] [address] Social History Tobacco Use Types Packs/Day Years Used Date Smoking Tobacco: Never Assessed Comments Unknown Sex and Gender Information Value Date Recorded Sex Assigned at Not on file Legal Sex Female 3:13 AM DRAPERY SEAMSTRESS Gender Identity Not on file Sexual Orientation Not on file documented as of this encounter Plan of Treatment Upcoming Encounters Date Type Department Care Team (Late st Contact Info) Description 04/06/2025 11:00 AM DRAPERY SEAMSTRESS Appointment [facility] ECT [address] [place] [address] 04/08/2025 8:30 AM DRAPERY SEAMSTRESS Confidential [facility] Psychiatry [place] [address] [address] Jaimie Powell MD [address] [facility] [place] [address] 04/08/2025 10:30 AM DRAPERY SEAMSTRESS Appointment [facility] E[place] [address] [place] [address] 04/11/2025 9:30 AM DRAPERY SEAMSTRESS Appointment [facility] E[place] [address] [place] [address] 04/13/2025 9:30 AM DRAPERY SEAMSTRESS Appointment [facility] E[place] [address] [place] [address] 04/15/2025 10:00 AM DRAPERY SEAMSTRESS Appointment [facility] E[place] [address] [place] [address] documented as of this encounter Visit Diagnoses Not on filedocumented in this encounter Additional Health Concerns Infection Onset Date Last Indicated Resolved Time R/O COVID-19 07/30/2019 07/30/2019 08/04/2019 6:05 AM CDT R/O Respiratory 05/12/2022 05/12/2022 05/12/2022 4 :27 PM DRAPERY SEAMSTRESS R/O C. diff 03/11/2024 03/11/2024 03/11/2024 12:4 6 PM DRAPERY SEAMSTRESS C Diff 03/11/2024 03/11/2024 05/10/2024 1:16 AM DRAPERY SEAMSTRESS documented as of this encounter Care Teams Tread Builder Relationship Specialty Start Date End Date Gilmar Galvan MD [address] [place] [address] PCP - General Family Practice 12/09/18 documented as of this encounter
--- OUTSIDE RECORDS SUMMARY | 2025-04-05 13:19 | XMS_ITS | Clinical Summary ---
Author Organization [facility] Address [address] [place] [address] Care Team Providers Care Lumber Chain Offbearer Name Role Phone Anitha Nina RN Unavailable Unavailable Gilmar Galvan MD Primary Care Provider Source Comments [facility],non-owned Affiliates and Associated Physician Practices is amultiple site organization consisting of ambulatory clinics and hospital sitesin [place], [place], [place] and [place]. This disclosure is being madepursuant to the Care Everywhere program and may not contain all information available regarding this patient. Last updated 18.[facility] Allergies Active Allergy Reactions Criticality Noted Date [...] of 3 - 19+ 3-dose series) 10/26/2007 Cervical Cancer Screening 2009 PAP SMEAR 2009 HPV VACCINE (1 - 3-dose SCDM series) 10/26/2015 PAP with HPV 2018 DEPRESSION SCREENING 05/05/2024 COVID-19 VACCINE (2024- season) 2025 INFLUENZA VACCINE (#1) 2025 3, [...] patient's age to complete this topic Insurance [facility] Care Teams Lumber Chain Offbearer Relationship Specialty Start Date End Date Gilmar Galvan MD [address] [place] [phone] PCP - General Family Medicine 12/03/19 Anitha Nina, RN Registered Nurse 06/09/17
--- OUTSIDE RECORDS SUMMARY | 2025-04-05 13:19 | XMS_ITS | Encounter Summary ---
Author Organization [facility] Address [address] [place] [address] Care Team Providers Care Hi Lo Driver Name Role Phone Gilmar Galvan MD Primary Care Provider Reason for Visit * Reason Comments Question Encounter Details Date Type Department Care Team (Late st Contact Info) Description 08/24/2024 Telephone [facility] Medicine [facility] [address] [place] [address] Gilmar Galvan MD [address] [place] [address] Question Social History Tobacco Use [...] on file Legal Sex Female 3:13 AM ENERGY ECONOMIST Gender Identity Not on file Sexual Orientation [...] back, contact center please transfer caller to PCN line. Yulissa RN * Telephone Encounter - Elodia Rudd - 08/24/2024 12:21 PM CDT Copied from [facility] #[id number]. Topic: Patient or Caregiver Communication Request >> [...] st Contact Info) Description 04/06/2025 11:00 AM ENERGY ECONOMIST Appointment [facility] [place] [address] [place] [address] 04/08/2025 8:30 AM ENERGY ECONOMIST Confidential [facility] Psychiatry [address] [place] [address] Jaimie Powell MD [address] [place] [address] [place] [phone] 04/08/2025 10:30 AM ENERGY ECONOMIST Appointment [facility] [place] [address] [place] [address] 04/11/2025 9:30 AM ENERGY ECONOMIST Appointment [facility] E[place] [address] [place] [address] 04/13/2025 9:30 AM ENERGY ECONOMIST Appointment [facility] [place] [address] [place] [address] 04/15/2025 10:00 AM ENERGY ECONOMIST Appointment [facility] [place] [address] [place] [address] documented as of this encounter Visit Diagnoses Not on filedocumented in this encounter Additional Health Concerns Assessment Noted Time PHQ-9 Depression Total Score: 2 08/25/19 25 11:25 AM CDT documented as of this encounter Care Teams Hi Lo Driver Relationship Specialty Start Date End Date Gilmar Galvan MD [address] [place] [address] PCP - General Family Practice 12/09/18 documented as of this encounter
--- OUTSIDE RECORDS SUMMARY | 2025-04-05 13:19 | XMS_ITS | Encounter Summary ---
Author Organization [facility] Address [address] [place] [address] Care Team Providers Care Director Bioinformatics Name Role Phone Gilmar Galvan MD Primary Care Provider Encounter Details Date Type Department Care Team (Late st Contact Info) Description 08/05/2005 Outpatient Historical [facility] Pediatrics [address] [facility] [address] [facility] [address] [address] [place] [address] [place] [address] Social History Tobacco Use Types Packs/Day Years Used Date Smoking Tobacco: Never Assessed Comments Unknown Sex and Gender Information Value Date Recorded Sex Assigned at Not on file Legal Sex Female 3:13 AM STAFF ACCOUNTANT Gender Identity Not on file Sexual Orientation Not on file documented as of this encounter Plan of Treatment Upcoming Encounters Date Type Department Care Team (Late st Contact Info) Description 04/06/2025 11:00 AM STAFF ACCOUNTANT Appointment [facility] [place] [address] [place] [address] 04/08/2025 8:30 AM STAFF ACCOUNTANT Confidential [facility] Psychiatry [place] [address] [facility] [place] [address] Jaimie Powell MD [address] [facility] [place] [address] 04/08/2025 10:30 AM STAFF ACCOUNTANT Appointment [facility] [address] [address] [place] [address] 04/11/2025 9:30 AM STAFF ACCOUNTANT Appointment [facility] [place] [address] [place] [address] 04/13/2025 9:30 AM STAFF ACCOUNTANT Appointment [facility] [address] [address] [place] [address] 04/15/2025 10:00 AM STAFF ACCOUNTANT Appointment [facility] [place] [address] [place] [phone] documented as of this encounter Visit Diagnoses Not on filedocumented in this encounter Additional Health Concerns Infection Onset Date Last Indicated Resolved Time R/O COVID-19 07/30/2019 07/30/2019 08/04/2019 6:05 AM CDT R/O Respiratory 05/12/2022 05/12/2022 05/12/2022 4 :27 PM STAFF ACCOUNTANT R/O C. diff 03/11/2024 03/11/2024 03/11/2024 12:4 6 PM STAFF ACCOUNTANT C Diff 03/11/2024 03/11/2024 05/10/2024 1:16 AM STAFF ACCOUNTANT documented as of this encounter Care Teams Director Bioinformatics Relationship Specialty Start Date End Date Gilmar Galvan MD [address] [place] [address] PCP - General Family Practice 12/09/18 documented as of this encounter
--- OUTSIDE RECORDS SUMMARY | 2025-04-05 13:19 | XMS_ITS | Encounter Summary ---
Author Organization [facility] Address [address] [place] [address] Care Team Providers Care Neurology Physician Name Role Phone Gilmar Galvan MD Primary Care Provider Encounter Details Date Type Department Care Team (Late st Contact Info) Description 02/13/2007 Outpatient Historical [facility] Pediatrics [address] [facility] [address] [facility] [address] [address] [place] [address] [place] [address] Social History Tobacco Use Types Packs/Day Years Used Date Smoking Tobacco: Never Assessed Comments Unknown Sex and Gender Information Value Date Recorded Sex Assigned at Not on file Legal Sex Female 3:13 AM POLE FRAMER Gender Identity Not on file Sexual Orientation Not on file documented as of this encounter Plan of Treatment Upcoming Encounters Date Type Department Care Team (Late st Contact Info) Description 04/06/2025 11:00 AM POLE FRAMER Appointment [facility] [place] [address] [place] [address] 04/08/2025 8:30 AM POLE FRAMER Confidential [facility] [place] [address] [facility] [place] [phone] Jaimie Powell MD [address] [facility] [place] [facility] [id number] 04/08/2025 10:30 AM POLE FRAMER Appointment [facility] [place] [address] [place] [address] 04/11/2025 9:30 AM POLE FRAMER Appointment [facility] [place] [address] [place] [address] 04/13/2025 9:30 AM POLE FRAMER Appointment [facility] [place] [address] [place] [address] 04/15/2025 10:00 AM POLE FRAMER Appointment [facility] [place] [address] [place] [phone] documented as of this encounter Visit Diagnoses Not on filedocumented in this encounter Additional Health Concerns Infection Onset Date Last Indicated Resolved Time R/O COVID-19 07/30/2019 07/30/2019 08/04/2019 6:05 AM CDT R/O Respiratory 05/12/2022 05/12/2022 05/12/2022 4 :27 PM POLE FRAMER R/O C. diff 03/11/2024 03/11/2024 03/11/2024 12:4 6 PM POLE FRAMER C Diff 03/11/2024 03/11/2024 05/10/2024 1:16 AM POLE FRAMER documented as of this encounter Care Teams Neurology Physician Relationship Specialty Start Date End Date Gilmar Galvan MD [address] [place] [address] PCP - General Family Practice 12/09/18 documented as of this encounter
--- OUTSIDE RECORDS SUMMARY | 2025-04-05 13:19 | XMS_ITS | Encounter Summary ---
Author Organization [facility] Address [address] [place] [address] Care Team Providers Care Glassware Engraver Name Role Phone Gilmar Galvan MD Primary Care Provider Encounter Details Date Type Department Care Team (Late st Contact Info) Description 11/11/2005 Outpatient Historical [facility] Pediatrics [address] [facility] [address] [facility] [address] [address] [place] [address] [place] [address] Social History Tobacco Use Types Packs/Day Years Used Date Smoking Tobacco: Never Assessed Comments Unknown Sex and Gender Information Value Date Recorded Sex Assigned at Not on file Legal Sex Female 3:13 AM CSO Gender Identity Not on file Sexual Orientation Not on file documented as of this encounter Plan of Treatment Upcoming Encounters Date Type Department Care Team (Late st Contact Info) Description 04/06/2025 11:00 AM CSO Appointment [facility] [place] [address] [place] [address] 04/08/2025 8:30 AM CSO Confidential [facility] Psychiat[facility] [place] [address] [place] [address] Jaimie Powell MD [address] [facility] [place] [address] 04/08/2025 10:30 AM CSO Appointment [facility] [place] [address] [place] [address] 04/11/2025 9:30 AM CSO Appointment [facility] [place] [address] [place] [address] 04/13/2025 9:30 AM CSO Appointment [facility] [place] [address] [place] [address] 04/15/2025 10:00 AM CSO Appointment [facility] [place] [address] [place] [phone] documented as of this encounter Visit Diagnoses Not on filedocumented in this encounter Additional Health Concerns Infection Onset Date Last Indicated Resolved Time R/O COVID-19 07/30/2019 07/30/2019 08/04/2019 6:05 AM CDT R/O Respiratory 05/12/2022 05/12/2022 05/12/2022 4 :27 PM CSO R/O C. diff 03/11/2024 03/11/2024 03/11/2024 12:4 6 PM CSO C Diff 03/11/2024 03/11/2024 05/10/2024 1:16 AM CSO documented as of this encounter Care Teams Glassware Engraver Relationship Specialty Start Date End Date Gilmar Galvan MD [address] [place] [address] PCP - General Family Practice 12/09/18 documented as of this encounter
--- OUTSIDE RECORDS SUMMARY | 2025-04-05 13:19 | XMS_ITS | Clinical Summary ---
Author Organization [facility] Administrative Offices Address [address] [place] [address] Care Team Providers Care Solar Thermal Installer Name Role Phone Gilmar Galvan MD Primary Care Provider Allergies Active Allergy Reactions Criticality Noted Date Comments Clonazepam Diarrhea Low 11/29/2022 Pt states, It only gives me diarrhea, but I still take it Penicillins Rash Low 03/01/2009 Medications norethindrone Ac-Eth estradiol (Loestrin 05/24, ,) 1-20 mg-mcg tablet Take 1 Tablet by mouth daily. 112 Tablet 3 5 Active busPIRone (BUSPAR) 10 mg tablet Take 1 Tablet (10 mg) by mouth 3 times daily. 90 Tablet 5 Active clonazePAM (KlonoPIN) 0.5 mg TabletIndicati ons:ESTHER (generalized anxiety disorder) Take 1 Tablet (0.5 mg) by mouth 2 times daily as needed for Anxiety. 28 Tablet 04/03/2025 11:59 AM UTILITY WORKER 5 025 Active PARoxetine HCl (PAXIL) 40 mg tabletIndicati ons:depression Starting 04/04/25, Take 1 Tablet (40 mg) by mouth daily. 30 Tablet 04/03/2025 11:59 AM UTILITY WORKER 5 Active QUEtiapine (SEROquel) 50 mg tablet Take 1 Tablet (50 mg) by mouth daily at bedtime. 30 Tablet Active PARoxetine HCl (PAXIL) 20 mg tabletIndicati ons:depression Take 1 Tablet (20 mg) by mouth daily. 30 Tablet 1 5 025 Discontinued busPIRone (BUSPAR) 15 mg TabletIndicati ons:ESTHER (generalized anxiety disorder) Take 1 Tablet (15 mg) by mouth 3 times daily. 90 Tablet 03/01/2025 2:19 PM CDT 5 025 Discontinued clonazePAM (KlonoPIN) 1 mg tabletIndicati ons:ESTHER (generalized anxiety disorder) Take 1 Tablet (1 mg) by mouth 2 times daily. 30 Tablet 03/01/2025 2:19 PM CDT 5 025 Discontinued clindamycin (CLEOCIN) 150 mg capsule Take 1 Capsule (150 mg) by mouth 2 times daily for 7 days. 14 Capsule 5 025 Discontinued clindamycin HCL (CLEOCIN) 300 mg Capsule Take 1 Capsule (300 mg) by mouth 2 times daily for 7 days. 14 Capsule 5 025 Discontinued busPIRone (BUSPAR) 10 mg tablet Take 2 Tablets (20 mg) by mouth 3 times daily. 180 Tablet 03/14/2025 2:02 PM UTILITY WORKER 5 025 Discontinued PARoxetine HCl (PAXIL) 30 mg tabletIndicati ons:depression Starting 03/15/2025: Take 1 Tablet (30 mg) by mouth daily. 30 Tablet 03/14/2025 2:02 PM UTILITY WORKER 5 025 Discontinued clonazePAM (KlonoPIN) 1 mg tabletIndicati ons:ESTHER (generalized anxiety disorder),Christoph c disorder Take 1 Tablet (1 mg) by mouth 2 times daily as needed for Anxiety. 30 Tablet 5 025 Discontinued traZODone (DESYREL) 100 mg tablet Take 1 Tablet (100 mg) by mouth nightly as needed for Insomnia. 30 Tablet 03/14/2025 2:02 PM UTILITY WORKER 5 025 Discontinued QUEtiapine (SEROquel) 50 mg tablet Take 1 Tablet (50 mg) by mouth two times daily, 7 hours apart. 60 Tablet 03/14/2025 2:02 PM UTILITY WORKER 5 025 Discontinued QUEtiapine (SEROquel) 100 mg tablet Take 1 Tablet (100 mg) by mouth daily at bedtime. 30 Tablet 03/14/2025 2:02 PM UTILITY WORKER 5 025 Discontinued cephALEXin (KEFLEX) 500 mg capsule Take 1 Capsule (500 mg) by mouth every 12 hours for 7 days. 14 Capsule 03/14/2025 2:02 PM UTILITY WORKER 5 025 Discontinued clonazePAM (KlonoPIN) 1 mg tabletIndicati ons:ESTHER (generalized anxiety disorder) Take 1 Tablet (1 mg) by mouth 2 times daily as needed for Anxiety. 30 Tablet 03/15/2025 9:44 AM UTILITY WORKER 5 025 Discontinued clonazePAM (KlonoPIN) 1 mg tabletIndicati ons:ESTHER (generalized anxiety disorder) Take 1 Tablet (1 mg) by mouth 2 times daily. 60 Tablet 03/28/2025 9:13 AM UTILITY WORKER 5 025 Discontinued Active Problems Problem Noted Date Diagnosed Date Cannabis abuse 03/08/2025 MDD (major depressive disord er), recurrent episode, moderate 03/03/2025 Severe episode of recurrent major depressive disorder, without psychotic features 02/22/2025 Overview (03/16/2025): Anxiety - At visit on 02/18/19 pt [...] feels stress levels are OK. Takes wellbutrin [id number] qd -10/23/22 - pt reports she is [...] seen in the ER at [facility] on 02/17/2025 for panic attack and chest pain. Symptoms improved significantly with IM Valium. 02/18/25 - pt is tearful in the exam room today. No clear trigger for recent panic attack. Not sleeping well. States she wishes she could go to sleep and not wake up the next day. However, strongly denies SI/HI. Admission to [facility] 02/23/25 through 05/29/24 for major depressive disorder, without psychotic features. -Admission to [facility] from 03/07/25 through 03/14/25 for severe depression. 03/16/25 - Pt reports she is not doing well since hospital discharge. Emotionally labile, tearful in exam room today. Attends [facility] regularly - 3-4 days per week. Sleeping reasonably well. Wakes up and meditates. -[facility] psychiatrist is Dr. Garcia , referred to a [facility] Psychiatrist (Dr. Powell), has appt on 04/18/25. No longer seeing Dr. Last -mood medication regimen is - seroquel 50mg BID and 100mg qhs, trazodone 100mg qhs PRN, buspirone 10mg TID, paxil 30mg qd, clonazepam 1mg BID. --taking keflex 500mg BID (tx of cystitis), has been afebrile. Assessment & Plan (03/16/2025 3:09 PM UTILITY WORKER): -continue current medication regimen for now -will defer management to psychiatry. Will re-start IOP tomorrow -keep appt with outpatient psychiatry on 04/18/25. Panic disorder 02/22/2025 rLTCS 03/15 Girl Shae [...] below ESTHER (generalized anxiety disorder) 02/18/2019 Overview (03/16/2025): Anxiety - At visit on 02/18/19 pt [...] feels stress levels are OK. Takes wellbutrin [id number] qd -10/23/22 - pt reports she is [...] seen in the ER at [facility] on 02/17/2025 for panic attack and chest pain. Symptoms improved significantly with IM Valium. 02/18/25 - pt is tearful in the exam room today. No clear trigger for recent panic attack. Not sleeping well. States she wishes she could go to sleep and not wake up the next day. However, strongly denies SI/HI. Admission to [facility] 02/23/25 through 05/29/24 for major depressive disorder, without psychotic features. -Admission to [facility] from 03/07/25 through 03/14/25 for severe depression. 03/16/25 - Pt reports she is not doing well since hospital discharge. Emotionally labile, tearful in exam room today. Attends [facility] regularly - 3-4 days per week. Sleeping reasonably well. Wakes up and meditates. -[facility] psychiatrist is Dr. Garcia , referred to a [facility] Psychiatrist (Dr. Powell), has appt on 04/18/25. No longer seeing Dr. Last -mood medication regimen is - seroquel 50mg BID and 100mg qhs, trazodone 100mg qhs PRN, buspirone 10mg TID, paxil 30mg qd, clonazepam 1mg BID. --taking keflex 500mg BID (tx of cystitis), has been afebrile. Assessment & Plan (02/18/2025 12:02 PM CDT): [...] feels stress levels are OK. Takes wellbutrin [id number] qd -Stable. Doing well overall. Continue current [...] regimen Assessment & Plan (06/27/2020 9:18 AM UTILITY WORKER): Anxiety - At visit on 02/18/19 pt [...] 1-2x daily. Thinks change related to the ID- pandemic is main stressor. Difficulty sleeping, easily [...] regimen Assessment & Plan (03/08/2020 2:41 PM UTILITY WORKER): Anxiety - At visit on 02/18/19 pt [...] lexapro Assessment & Plan (03/25/2019 3:27 PM UTILITY WORKER): Anxiety - At visit on 02/18/19 pt [...] not taking adderall. -Review of [facility]MP on 12/09/18 showed last refill [...] not taking adderall. -Review of [facility]MP on 12/09/18 showed last refill [...] regimen Assessment & Plan (06/27/2020 9:18 AM UTILITY WORKER): ADHD - diagnosed ~age 16 by her [...] not taking adderall. -Review of [facility] PDMP on 12/09/18 showed last refill [...] days Assessment & Plan (03/08/2020 2:41 PM UTILITY WORKER): ADHD - diagnosed ~age 16 by her previous PCP. No formal testing. Pt reports she was taking adderall XR 30mg qd, felt this worked well for her. Previous PCP (Chuck Avalos MD) retired and pt decided to try stopping stimulant medication when he retired. States her ability to focus and perform at work decreased significantly when she was not taking adderall. -Review of [facility] on 12/09/18 showed last refill for adderall [...] regimen Assessment & Plan (03/25/2019 3:29 PM UTILITY WORKER): ADHD - diagnosed ~age 16 by her [...] not taking adderall. -Review of [facility] PDM on 12/09/18 showed last refill [...] she was not taking adderall. -Review of [facility] on 12/09/18 showed last refill for adderall [...] not taking adderall. -Review of [facility] PDMP shows last refill for adderall was on [...] Diagnosed ~2009. S/p surgical tx 06/2016 at [facility] Assessment & Plan (12/09/2018 4:04 PM CDT): Diagnosed ~2009. S/p surgical tx 06/2016 at [facility] Pseudotumor cerebri syndrome 07/05/2009 Overview (08/09/2022): -Diagnosed at age 11, had LP shunt placed at age 13. As of 12/07/20 most recent visit was in [address] Robbie Layton at [facility]. Denies any ENGLISH, nausea, vomiting or focal [...] in [address] Robbie Layton at [facility]. Denies any ENGLISH, nausea, vomiting or focal neuro deficits. -Stable. -watchful waiting Assessment & Plan (12/09/2018 4:03 PM CDT): -Diagnosed at age 11, had LP shunt placed at age 13. As of 12/09/18 most recent revision was in [address] Robbie Layton at [facility]. Denies any ENGLISH, nausea, vomiting or focal neuro deficits. -stable, watchful waiting for now. Resolved Problems Problem Noted Date Diagnosed Date Resolved Date Major depressive disorder 03/13/2025 Anxiety 03/13/2025 03/16/2025 Other insomnia 03/08/2025 03/16/2025 Encounter for induction of labor 06/16/2022 06/18/2022 LLQ pain 04/05/2011 12/07/2020 pelvic pain s/p scope 07/1007/18/2010 Encounters Date Type Department Care Team Description 04/04/2025 1:53 PM UTILITY WORKER Anesthesia Event [facility] [place] [address] [place] [address] Jaren Garnica MD 04/04/2025 11:20 AM UTILITY WORKER - 04/04/2025 11:59 PM UTILITY WORKER Hospital Encounter [facility] [place] [address] [place] [address] Jaye Garcia MD Arrived Discharge Disposition: Home or Self Care 04/04/2025 [facility] Maternal and Medicine - Medical Mosca B [address] [facility] [address] [place] [phone] Vineet Hendrix MD ESTHER (generalized anxiety disorder) 04/02/2025 Plan of Care Documentation [facility] 1 A Behavioral Medicine [address] [place] [address] 04/01/2025 2:11 PM UTILITY WORKER - 04/03/2025 2:20 PM UTILITY WORKER Hospital Encounter [facility] 1 A Behavioral Medicine [address] [place] [address] Corinna Moyer MD Gupta, Rahul, MD [facility], MD Rosetta Wells Malik I, MD Severe episode of recurrent major depressive disorder, without psychotic features ([facility]) Discharge Disposition: Home or Self Care 04/01/2025 Travel 04/01/2025 [facility] Emergency Department Behavioral Health [facility] [address] [facility] [address] [place] [phone] Arely Piper, SUPERVISOR PACKING Question 03/30/2025 2:38 PM UTILITY WORKER Anesthesia Event [facility] [place] [address] [place] [phone] Jaren Garnica MD 03/30/2025 1:54 PM UTILITY WORKER - 03/30/2025 11:59 PM UTILITY WORKER Hospital Encounter [facility] [address] [address] [place] [address] Jaye Garcia MD Discharge Disposition: Home or Self Care 03/28/2025 3:06 PM UTILITY WORKER Anesthesia Event [facility] [place] [address] [place], [place] [phone] Jaren Garnica MD 03/28/2025 1:18 PM UTILITY WORKER - 03/28/2025 11:59 PM UTILITY WORKER Hospital Encounter [facility] [place] [address] [place], [place] [phone] Jaye Garcia MD Discharge Disposition: Home or Self Care 03/25/2025 1:24 PM UTILITY WORKER Anesthesia Event [facility] [place] [address] [place] [phone] Jaren Garnica MD 03/25/2025 12:57 PM UTILITY WORKER - 03/25/2025 11:59 PM UTILITY WORKER Hospital Encounter [facility] [place] [address] [place] [address] Jaye Garcia MD Discharge Disposition: Home or Self Care 03/24/2025 [facility] [address] [place] [address] Jaye Garcia MD ESTHER (generalized anxiety disorder) (Primary Dx) 03/23/2025 11:33 AM UTILITY WORKER Anesthesia Event [facility] [place] [address] [place] [address] Jaren Garnica MD 03/23/2025 10:04 AM UTILITY WORKER - 03/23/2025 11:59 PM UTILITY WORKER Hospital Encounter [facility] [place] [address] [place] [address] Jaye Garcia MD Discharge Disposition: Home or Self Care 03/23/[address] [address] [phone] Jaye Garcia MD ESTHER (generalized anxiety disorder) 03/23/2025 Refill [facility] Building [employer] [address] [phone] Jaye Garcia MD ESTHER (generalized anxiety disorder) 03/22/2025 9:00 AM UTILITY WORKER - 03/22/2025 11:59 PM UTILITY WORKER Hospital Encounter [facility] Services [address] [address] [place] [address] Jaye Garcia MD Discharge Disposition: Home or Self Care 03/22/2025 Orders Only [facility] [place] [address] [place] [address] Jaye Garcia MD Severe episode of recurrent major depressive disorder, without psychotic features (CMS/HCC) (Primary Dx) 03/22/2025 Orders Only [facility] Behavioral Health Program Services [address] [address] [place] [address] Leida Davis RN 03/21/2025 9:00 AM UTILITY WORKER - 03/21/2025 11:59 PM UTILITY WORKER Hospital Encounter [facility] Behavioral Health Program Services [address] [address] [place] [address] Jaye Garcia MD Discharge Disposition: Home or Self Care 03/21/2025 Plan of Care Documentation [facility] Behavioral Health Program Services [address] [place] [address] 03/21/[address] [address] Gilmar Galvan MD ESTHER (generalized anxiety disorder) 03/18/2025 9:00 AM UTILITY WORKER - 03/18/2025 11:59 PM UTILITY WORKER Hospital Encounter [facility] Outpatient Behavioral Health Program Services [address] [address] [address] [place] [address] Jaye Garcia MD Discharge Disposition: Home or Self Care 03/18/2025 Refill [facility] Building [employer] [address] [phone] Jaye Garcia MD ESTHER (generalized anxiety disorder) 03/18/2025 Mobile Encounter [address] [address] Gilmar Galvan MD 03/17/2025 8:00 AM UTILITY WORKER - 03/17/2025 11:59 PM UTILITY WORKER Hospital Encounter [facility] Behavioral Health Program Services [address] [address] [address] [place] [address] Joanne Nguyen APRN Sharma, Pooja, MD Discharge Disposition: Home or Self Care 03/17/2025 Plan of Care Documentation [facility] Behavioral Health Program Services [address] [address] [place] [address] 03/17/[address] [address] Gilmar Galvan MD Remote Monitoring 03/17/2025 Travel 03/16/2025 2:20 PM UTILITY WORKER Office Visit [address] [address] Gilmar Galvan MD ESTHER (generalized anxiety disorder) (Primary Dx); Severe episode of recurrent major depressive disorder, without psychotic features (CMS/HCC) 03/16/2025 Abstract [facility] [address] [place] [phone] Gilmar Galvan MD 03/16/2025 Telephone [facility] [address] [place] [phone] Gilmar Galvan MD Med Refill; Hospital Follow Up; Patient Communication 03/15/2025 Telephone [facility] Behavioral Health Program Services [address] [address] [address] [place] [address] Tiara Simmons Follow Up (Re-reviewed IOP information, location ([place]), and confirmed the pt's admission date; to arrive at 745. Support given) 03/14/2025 Refill [facility] [employer] FACTORY WORKER - [facility] [address] [facility] [address] [place] [phone] Casandra Major MD 03/12/2025 Plan of Care Documentation [facility] 2 A Behavioral Medicine [address] [place] [address] 03/08/2025 Plan of Care Documentation [facility] 2 A Behavioral Medicine [address] [place] [address] 03/07/2025 12:27 PM UTILITY WORKER - 03/14/2025 2:48 PM UTILITY WORKER Hospital Encounter [facility] 2 A Behavioral Medicine [address] [place] [address] Corinna Moyer MD Gray, Chase Alexander, MD El-Ruwie, MD Jose Wells Pooja, MD Ahmed, Malik I, MD Severe episode of recurrent major depressive disorder, without psychotic features (CMS/HCC) Discharge Disposition: Home or Self Care 03/07/2025 8:13 AM UTILITY WORKER - 03/07/2025 11:59 PM UTILITY WORKER Hospital Encounter [facility] Outpatient Behavioral Health Program Services [address] [address] [place] [address] Jaye Garcia MD Discharge Disposition: Home or Self Care 03/05/[address] [phone] Jaye Garcia MD ESTHER (generalized anxiety disorder) 03/04/2025 Telephone [facility] Behavioral Health Program Services [address] [address] [place] [address] Tiara Simmons Behavioral Problem (Pt's child is sick; therefore, she will not be attending group today. Pt assured the automobile service writer there are no safety concerns. She went on to say, she feels good minus a head cold and is looking forward to returning to group wk of 03/07/25.) 03/03/2025 9:00 AM CDT - 03/03/2025 11:59 PM CDT Hospital Encounter [facility] Behavioral Health Program Services [address] [address] [place] [address] Jaye Garcia MD Discharge Disposition: Home or Self Care 03/03/2025 Telephone [facility] Psychiatry [facility] and [address] [facility] [place] [address] Jaimie Powell MD Establish Care 03/02/2025 8:18 AM CDT - 03/02/2025 11:59 PM CDT Hospital Encounter [facility] Outpatient Behavioral Health Program Services [address] [address] [place] [address] Jaye Garcia MD Discharge Disposition: Home or Self Care 03/02/2025 Telephone [facility] Outpatient Behavioral Health Program Services [address] [address] [place] [phone] Leida Davis, WIL Return Call 03/01/2025 8:00 AM CDT - 03/01/2025 11:59 PM CDT Hospital Encounter [facility] Outpatient Behavioral Health Program Services [address] [address] [place] [address] Jaye Garcia MD Discharge Disposition: Home or Self Care 03/01/[address] [facility] [address] [facility] [address] [place] [address] 03/01/2025 Plan of Care Documentation [facility] [address] [facility] [address] [place] [address] 03/01/2025 Travel 02/28/2025 Telephone [facility] Behavioral [facility] Program Services [address] [facility] [address] [place] [address] Tiara Simmons Follow Up (Re-reviewed IOP information and expectations in detail, location ([place]), and confirmed the pt's admission date (moved up from 03/08/25); to arrive at 745. Support given) 02/27/2025 Refill [facility] [address] [facility] [address] [place] [address] Jaye Garcia MD ESTHER (generalized anxiety disorder) 02/25/2025 Plan of Care Documentation [facility] Adult Senior [address] [place] [address] 02/23/2025 4:25 PM CDT - 02/26/2025 12:33 PM CDT Hospital Encounter [facility] Adult Senior [address]C [address] [place] [address] Tammy Andersen MD Garcia Ferrer, Eduardo, MD Gao, Enquan, MD Shemwell, Kathryn, MD Severe episode of recurrent major depressive disorder, without psychotic features ([facility]/HCC) Discharge Disposition: Home or Self Care 02/23/2025 External Device Data STL ABSTRACTION Provider, Abstract 02/23/2025 Travel 02/23/2025 Telephone [facility] Behavioral Health Program Services [address] [facility] [address] [place] [address] Arely Piper LPC Follow Up 02/23/2025 Telephone [facility] Outpatient Behavioral Health Program Services [address] [address] [place] [address] Arely Piper LPC Follow Up 02/23/2025 Telephone [facility] Services [address] [address] [place] [address] Arely Piper LPC Follow Up 02/23/2025 External Device Data STL ABSTRACTION Provider, Abstract 02/22/2025 8:00 AM CDT - 02/22/2025 11:59 PM CDT Hospital Encounter [facility] Behavioral Health Program Services [address] [address] [address] [place] [address] Jaye Garcia MD Discharge Disposition: Home or Self Care 02/22/2025 External Device Data STL ABSTRACTION Provider, Abstract 02/22/2025 Plan of Care Documentation [facility] Behavioral [facility] Services [address] [facility] [address] [place] [address] 02/22/2025 Travel 02/21/2025 Telephone [facility] Behavioral Health Program Services [address] [address] [place] [address] Tiara Simmons Follow Up (Discussed IOP information and expectations in detail, location ([place]), and confirmed the pt's admission date (moved up from 02/24/25); to arrive at 745. Support given) 02/20/2025 Nurse Triage [facility] [address] [place] [address] Starr Sylvester RN 02/18/2025 1:49 PM CDT - 02/18/2025 6:32 PM CDT Emergency [facility] [address] [place] [address] Pierce Queen MD ESTHER (generalized anxiety disorder) (Primary Dx) Discharge Disposition: Home or Self Care 02/18/2025 11:40 AM CDT Office Visit [address] [address] Gilmar Galvan MD ESTHER (generalized anxiety disorder) 02/18/[address] [address] Gilmar Galvan MD ESTHER (generalized anxiety disorder) 02/18/2025 Travel 02/18/[address] [address] Gilmar Galvan MD Remote Monitoring 02/18/[address] [address] Brandy San 02/18/[address] [address] Brandy San 02/17/[address] [address] Gilmar Galvan MD Remote Monitoring 02/15/2025 10:00 AM CDT Office Visit [address] [address] Gilmar Galvan MD ESTHER (generalized anxiety disorder) 02/11/[address] [address] Gilmar Galvan MD 02/08/2025 8:20 AM CDT Video Visit [address] [address] Silviano Barron MD ESTHER (generalized anxiety disorder) (Primary Dx) 02/08/2025 External Device Data STL ABSTRACTION Provider, Abstract 02/08/2025 [facility] IOP Program [address] [place] [address] Johana Gann, INDUSTRIAL RELATIONS DIRECTOR Follow Up 02/08/2025 Refill [facility] [address] [place] [phone] Gilmar Galvan MD ESTHER (generalized anxiety disorder) 02/07/2025 5:30 PM CDT Video Visit [facility] [address] [place] [id number] Fior Prajapati FNP Dental abscess (Primary Dx) 02/07/2025 Patient Self-Triage [facility] [address] [place] [address] 02/07/2025 Telephone [facility] IOP Program [address] [place] [address] Johana Gann, INDUSTRIAL RELATIONS DIRECTOR Follow Up 02/04/2025 Telephone [facility] Behavioral Health Intake [address] [facility] [address] [place] [address] [facility] Intake and IOP 02/03/2025 2:30 PM CDT Office Visit [facility] [employer] FACTORY WORKER - Medical [place] [place] [address] Casandra Major MD Menorrhagia with regular cycle (Primary Dx); Mood changes; Current severe episode of major depressive disorder without psychotic features, unspecified whether recurrent (CMS/HCC); Anxiety state 02/03/2025 Telephone [facility] Substance Use Recovery [facility] [address] [place] [address] Zulema Cruz, RN Patient call 02/01/2025 7:40 AM CDT Video Visit [facility] [address] [place] [phone] Kaitlin Sellers FNP Panic attack (Primary Dx); ESTHER (generalized anxiety disorder); Moderately severe major depression (CMS/HCC) 01/31/2025 Telephone [facility] Women's Health Clinical Support [address] [place] [address] Amy Mendez RN Heavy periods and mood issues 01/27/2025 8:20 AM CDT Video Visit [address] [phone] Priscilla Vera NP ESTHER (generalized anxiety disorder) (Primary Dx); Attention deficit hyperactivity disorder (ADHD), combined type; Mild episode of recurrent major depressive disorder 01/27/2025 Refill [facility] Maternal and Medicine - [facility] [address] [place] [address] Gilmar Galvan MD ESTHER (generalized anxiety disorder) 01/26/2025 Refill [facility] Maternal and Medicine - [facility] [address] [place] [address] Gilmar Galvan MD ESTHER (generalized anxiety disorder) 01/19/2025 4:00 PM CDT Video Visit [address] [phone] Priscilla Vera NP ESTHER (generalized anxiety disorder) (Primary Dx) 01/18/2025 External Device Data [facility] Provider, Abstract 01/04/2025 12:00 PM CDT Video Visit [address] [phone] Priscilla Vera NP ESTHER (generalized anxiety disorder) (Primary Dx); Mild episode of recurrent major depressive disorder from Last 3 Months Immunizations Immunization Administration [...] COVID-19 VACCINE - EMERGENCY USE AUTHORIZATION, MRNA, [id number](PF) 30 MCG/0.3 ML IM SUSP 08/22/2020,07/28/2020 (VARIVAX)(12 [...] Family History Medical History Relation Name Comments ADHD Brother 1 Ant Anxiety Brother 1 Ant Healthy Brother 1 Ant Healthy Brother 2 Phil Healthy Brother 3 Phil Healthy Father Randal Drug Abuse Maternal Grandfather Leukemia Maternal Grandfather Depression Maternal Grandmother Kala Diabetes Maternal Grandmother Kala Hypertension Maternal Grandmother Kala Anxiety Mother Zayra Drug Abuse Mother Zayra Healthy Mother Zayra Other Sister 1 Alee CP ADHD Sister 2 Alie Other Sister 2 Alie CP Healthy Son [...] worry about transportation for future doctor visits, grain picker medication, etc.? No 2024 Housing Stability [...] on file Legal Sex Female 3:13 AM UTILITY WORKER Gender Identity Not on file Sexual Orientation Not on file Occupation Industry Job Start Date Job End Date Not on file Not on file Not on file Not on file Last Filed Vital Signs Vital Sign Reading Time Taken Comments Blood Pressure 114/77 04/04/2025 3:01 PM UTILITY WORKER Pulse 100 04/04/2025 3:01 PM UTILITY WORKER Temperature 36.4 C (97.5 F) 04/04/2025 2:48 PM UTILITY WORKER Respiratory Rate 20 04/04/2025 3:01 PM UTILITY WORKER Oxygen Saturation 100% 04/04/2025 3:01 PM UTILITY WORKER Inhaled Oxygen Concentration - - Weight 102 kg (224 lb 12.8 oz) 04/01/2025 10:11 PM UTILITY WORKER Height 154.9 cm (5' 1) 04/01/2025 10:11 PM UTILITY WORKER Body Mass Index 42.48 04/01/2025 10:11 PM UTILITY WORKER Plan of Treatment Upcoming Encounters Date Type Department Care Team (Late st Contact Info) Description 04/06/2025 11:00 AM UTILITY WORKER Appointment [facility] [place] [address] [place] [address] 04/08/2025 8:30 AM UTILITY WORKER Confidential [facility] Psychiatry [facility] and [address] [place] [phone] Jaimie Powell MD [address] [place] [address] [place] [address] 04/08/2025 10:30 AM UTILITY WORKER Appointment [facility] [place] [address] [place] [address] 04/11/2025 9:30 AM UTILITY WORKER Appointment [facility] [place] [address] [place] [address] 04/13/2025 9:30 AM UTILITY WORKER Appointment [facility] [place] [address] [place] [address] 04/15/2025 10:00 AM UTILITY WORKER Appointment [facility] [place] [address] [place] [address] Health Maintenance Due Date Last Done Comments HEPATITIS B VACCINES (3 of 3 - 3-dose series) 01/21/2007 11/26/2006, 09/23/2002 HPV VACCINES (1 - 3-dose SCDM series) 10/26/2015 INFLUENZA VACCINE (#1) 2024 , 02/11/2022, 02/08/2020, Additional history exists COVID-19 Vaccine (3 - 2024- season) 2025 08/22/2020, 07/28/2020 Preventative Visit- Commercial 02/15/2026 08/09/2022, 12/07/2020, 12/09/2018 Postponed from 05/05/2024 (Therapeutic Plan Prohibits) PAP SMEAR 08/18/2026 08/19/2023, 10/04, 06/13/2020 Pre-Diabetes and Diabetes Screening 03/08/2028 03/08/2025, 06/20/2022, 01/01/2019 CERVICAL CANCER SCREENING 08/18/2028 HPV/Cotest (21-29) 08/18/2028 08/19/2023, 0 10/24/2021, 06/13/2020 HPV/Cotest (30-65) 08/18/2028 08/19/2023, 0 10/24/2021, 06/13/2020 DTAP/TDAP/TD VACCINES (8 - Td or Tdap) 01/25/2034 01/26/2024, 04/30/2022, 05/12/1995, Additional history exists Procedures Procedure Name Priority Date/Time Associated Diagnosis Comments ELECTROCONVULSIVE THERAPY Routine 2024 2:04 PM UTILITY WORKER EXTRA TUBE (URINE CONTAINER) Routine 04/01/2025 11:09 PM UTILITY WORKER EXTRA TUBE Routine 04/01/2025 11:09 PM UTILITY WORKER EXTRA TUBE (URINE BENAVIDES) Routine 04/01/20 11:09 PM UTILITY WORKER URINALYSIS W/REFLEX MICROSCOPIC Routine 04/01/2025 11:09 PM UTILITY WORKER HCG QUALITATIVE, URINE Routine 11:09 PM UTILITY WORKER DRUG SCREEN, URINE Routine 04/01/2025 11 :09 PM UTILITY WORKER ELECTROCONVULSIVE THERAPY Routine 2024 2:45 PM UTILITY WORKER ELECTROCONVULSIVE THERAPY Routine 2024 3:10 PM UTILITY WORKER ELECTROCONVULSIVE THERAPY Routine 2024 11:[address] ABDOMEN PELVIS W CONTRAST Routine 03/13/2025 2:38 PM UTILITY WORKER CBC WITH DIFFERENTIAL Routine 03/13/2025 5:03 AM UTILITY WORKER BASIC METABOLIC PANEL Routine 03/12/2025 5:38 PM UTILITY WORKER URINALYSIS W/REFLEX MICROSCOPIC Routine 03/12/2025 9:28 AM UTILITY WORKER HCG QUALITATIVE, URINE Stat 12:26 PM UTILITY WORKER URINALYSIS W/REFLEX MICROSCOPIC Routine 03/11/2025 12:26 PM UTILITY WORKER EXTRA TUBE (URINE BENAVIDES) Routine 03/10/20 6:30 AM UTILITY WORKER EXTRA TUBE Routine 03/10/2025 6:30 AM UTILITY WORKER URINALYSIS W/REFLEX MICROSCOPIC Routine 03/10/2025 5:55 AM UTILITY WORKER HCG QUALITATIVE, URINE Routine 5:55 AM UTILITY WORKER DRUG SCREEN, URINE Routine 03/10/2025 5: 55 AM UTILITY WORKER NOROVIRUS BY PCR Routine 03/09/2025 6:17 PM UTILITY WORKER LIPID PANEL Routine 03/08/2025 11:14 AM UTILITY WORKER COMPREHENSIVE METABOLIC PANEL Routine 03/08/2025 11:14 AM UTILITY WORKER CBC WITH DIFFERENTIAL Routine 03/08/2025 11:14 AM UTILITY WORKER ETHANOL LEVEL Routine 03/08/2025 11:14 AM UTILITY WORKER HEMOGLOBIN A1C Routine 03/08/2025 11:14 AM UTILITY WORKER TSH Routine 03/08/2025 11:14 AM UTILITY WORKER EKG 12-LEAD Stat 02/23/2025 7:28 PM CDT SALICYLATE LEVEL Stat 02/18/2025 2:46 PM CDT HEMOGLOBIN AND HEMATOCRIT Stat 2024 2:46 PM CDT ETHANOL LEVEL Stat 02/18/2025 2:46 PM CDT COMPREHENSIVE METABOLIC PANEL Stat 02/18/2025 2:46 PM CDT ACETAMINOPHEN LEVEL Stat 02/18/2025 2 :46 PM CDT CERV/VAG CYTO AGE BASED SCREEN PAP W CT/NG, TRICH Routine 08/19/2023 11:51 AM CDT Supervision of high risk in first trimester Multigravida of advanced maternal age in first trimester from Last 3 Months or Most Recently Relevant to Health Maintenance Results * ELECTROCONVULSIVE THERAPY (04/04/2025 2:04 PM UTILITY WORKER) Only the most recent of4 resultswithin the time period is included. Narrative Jaye Garcia MD - 04/04/2025 2:04 PM UTILITY WORKER Jaye Garcia MD 04/04/2025 2:50 PM ECT PROGRESS NOTE: Bilaterally thymatron 40% TREATMENT #: 5 Patient's Report of therapeutic response to ECT(side effects, energy level, depressive symptoms, other complaints/benefits/remark): Kylie reports feeling extremely anxious and was tearful during this interaction. She reports feeling overwhelmed and spoke in a soft tone of voice. She had a rough weekend and had to be hospitalized due to overwhelming anxiety symptoms and was discharged yesterday. She denies suicidal thoughts and contracts for safety. No side effects from ECT. NPO status confirmed. REVIEW OF SYSTEMS: CONSTITUTIONAL: Negative. SHEENT: Negative. NEURO: Negative. ENDOCRINE: Negative. CARDIOPULMONARY: Negative. MUSCULOSKELETAL: Negative. GI: Negative. GENITOURINARY: Negative. HEMATOLOGY: Negative. Current Outpatient Medications on File Prior to Encounter Medication Sig Dispense Refill busPIRone (BUSPAR) 10 mg tablet Take 1 Tablet (10 mg) by mouth 3 times daily. 90 Tablet 0 clonazePAM (KlonoPIN) 0.5 mg Tablet Take 1 Tablet (0.5 mg) by mouth 2 times daily as needed for Anxiety. 28 Tablet 0 PARoxetine HCl (PAXIL) 40 mg tablet Starting 04/04/25, Take 1 Tablet (40 mg) by mouth daily. 30 Tablet 0 QUEtiapine (SEROquel) 50 mg tablet Take 1 Tablet (50 mg) by mouth daily at bedtime. 30 Tablet 0 norethindrone Ac-Eth estradiol (Loestrin 05/24, ,) 1-20 mg-mcg tablet Take 1 Tablet by mouth daily. 112 Tablet 3 Current Facility-Administered Medications on File Prior to Encounter Medication Dose Route Frequency Provider Last Rate Last Admin [DISCONTINUED] busPIRone (BUSPAR) tablet 10 mg 10 mg Oral TID Christiano Maya MD 10 mg at 04/03/25 1225 [DISCONTINUED] clonazePAM (KlonoPIN) tablet 0.5 mg 0.5 mg Oral BID PRN Christiano Maya MD 0.5 mg at 04/02/25 1736 [DISCONTINUED] QUEtiapine (SEROquel) tablet 50 mg 50 mg Oral daily BEDTIME Christiano Maya MD 50 mg at 04/02/252001 [DISCONTINUED] PARoxetine HCl (PAXIL) tablet 40 mg 40 mg Oral daily Christiano Maya MD 40 mg at 04/03/25 0837 [DISCONTINUED] traZODone (DESYREL) tablet 100 mg 100 mg Oral at bedtime PRN Christiano Maya MD 100 mg at 04/01/25 3310 [DISCONTINUED] benztropine (COGENTIN) tablet 1 mg 1 mg Oral every 12 hours PRN Christiano Maya MD [DISCONTINUED] benztropine (COGENTIN) injection 1 mg 1 mg IM every 12 hours PRN Christiano Maya MD [DISCONTINUED] aluminum - magnesium - simethicone (MYLANTA) 200-200-20 mg/5 mL oral suspension 30 mL 30 mL Oral every 6 hours PRN Christiano Maya MD [DISCONTINUED] promethazine (PHENERGAN) tablet 25 mg 25 mg Oral every 4 hours PRN Christiano Maya MD [DISCONTINUED] polyethylene glycol (MIRALAX) packet 17 Gram 17 Gram Oral every 12 hours PRN Christiano Maya MD [DISCONTINUED] loperamide (IMODIUM) capsule 2 mg 2 mg Oral every 4 hours PRN Christiano Maya MD [DISCONTINUED] acetaminophen (TYLENOL) tablet 650 mg 650 mg Oral every 6 hours PRN Christiano Maya MD [DISCONTINUED] ibuprofen (MOTRIN) tablet 400 mg 400 mg Oral every 6 hours PRN Christiano Maya MD [DISCONTINUED] haloperidol lactate (HALDOL) injection 5 mg 5 mg IM every 2 hours PRN Christiano Maya MD [DISCONTINUED] diphenhydrAMINE (BENADRYL) injection 50 mg 50 mg IM every 2 hours PRN Christiano Maya MD Mental Status Exam Appearance: appropriately dressed, appears stated age, fair hygiene and grooming; tearful Attitude: calm and cooperative Eye Contact: fair Speech: Normal rate/rhythm/volume/prosody Psychomotor: No agitation or retardation Affect: Congruent to mood; calmer Mood: Depressed; anxious Thought Process: Linear, logical, goal directed Associations: No loosening Thought Content: Denies thoughts of self harm or violence toward others; no evidence of obsessions or delusions present ; overwhelming anxiety+; panic attacks+; more hopeful Hallucinations: Denies auditory and visual hallucinations, not observed responding to internal stimuli Attention/Concentration: Alert and oriented to person, place, and time; able to attend to conversation Memory: Grossly intact Language: Fluent without aphasic or paraphasic errors Insight/Judgement: Fair/Fair Fund of Knowledge: Appropriate for educational level BP 102/74 Pulse (!) 106 Temp 97.5 F (36.4 C) Resp (!) 31 SpO2 94% Physical Exam General: Awake and alert in no acute distress HEENT: Normocephalic, atraumatic; conjunctiva clear; mucus membranes moist Respiratory: Normal respiratory effort; symmetric chest rise BL Cardiovascular: Normal rate; adequate peripheral perfusion Abdomen: non-distended Neuro: steady gait, CN grossly intact, moves all extremities against gravity, no abnormal movements Musculoskeletal: Normal muscle bulk and tone throughout Extremities: no edema or cyanosis Skin: No rashes or lesions on visible skin Diagnosis: Major depressive disorder, recurrent, severe, without psychotic features Plan: Pt had soft Modified 43 sec. Grand mal variety seizure. Spontaneous respirations post. treatment. Patient tolerated procedure well. Patient had no complications. Patient will continue ECT # 6 on 04/06/2025. Plan for 12 treatments at a frequency of 3/week. Jaye Garcia MD MENTAL HEALTH ORDERABLES Final R esult * EXTRA TUBE (URINE BENAVIDES) (04/01/2025 11:09 PM UTILITY WORKER) Only the most recent of2 resultswithin the time period is included. Urine URINE SPECIMEN OBTAINED BY CLEAN CATCH PROCEDURE / Unknown Collection / Unknown 04/01/2025 11:09 PM UTILITY WORKER 04/02/2025 12:19 AM UTILITY WORKER Christiano Maya MD URINE ORDERABLES Final Res ult [facility]# [id number] [address] [place] [address] * EXTRA TUBE (URINE CONTAINER) (04/01/2025 11:09 PM UTILITY WORKER) Urine URINE SPECIMEN OBTAINED BY CLEAN CATCH PROCEDURE / Unknown Collection / Unknown 04/01/2025 11:09 PM UTILITY WORKER 04/02/2025 12:22 AM UTILITY WORKER Christiano Maya MD URINE ORDERABLES Final Res ult [facility] CLIA# [id number] [place] [address] * (ABNORMAL) DRUG SCREEN, URINE (04/01/2025 11:09 PM UTILITY WORKER) Only the most recent of2 resultswithin the time period is included. [facility] AMPHETAMINE QUAL, URINE Negative Negative 04/02/2025 12:59 AM [facility] BARBITURATE QUAL, URINE Negative Negative 04/02/2025 12:59 AM [facility] BENZODIAZEPINE QUAL, URINE Presumptive Positive(A) Negative 04/02/2025 12:59 AM [facility] COCAINE QUAL URINE Negative Negative 04/02/2025 12:59 AM [facility] OPIATE QUAL, URINE Negative Negative 04/02/2025 12:59 AM [facility] CANNABINOIDS QUAL, URINE Presumptive Positive(A) Negative 04/02/2025 12:59 AM [facility] PCP QUAL, URINE Negative Negative 12:59 AM [facility] OXYCODONE QUAL, URINE Negative Negative 04/02/2025 12:59 AM [facility] METHADONE QUAL, URINE Negative Negative 04/02/2025 12:59 AM [facility] FENTANYL QUAL, URINE Negative Negative 04/02/2025 12:59 AM [facility] CREATININE, URINE 90.0 29.0 - 226.0 mg/dL 04/02/2025 12:59 AM [facility] Comment:Reference Range vari es with fluid intake and diet. Urine URINE SPECIMEN OBTAINED BY CLEAN CATCH PROCEDURE / Unknown Collection / Unknown 04/01/2025 11:09 PM UTILITY WORKER 04/02/2025 12:19 AM UTILITY WORKER Narrative [facility] - 04/02/2025 12:59 AM UTILITY WORKER This test is a qualitative screen. The presumptive positive results should not be used for legal purposes. If confirmation of results is desired, the lab must be contacted without delay. Drug Ref. Range Screening Threshold Amphetamines Negative 500 ng/mL Barbiturates Negative 200 ng/mL Benzodiazepines Negative 100 ng/mL Cannabinoids Negative 50 ng/mL Cocaine Negative 150 ng/mL Methadone Negative 300 ng/mL Opiates Negative 300 ng/mL Oxycodone Negative 100 ng/mL Phencyclidine Negative 25 ng/mL Fentanyl Negative 5 ng/mL Christiano Maya MD URINE ORDERABLES Final Res ult [facility] CLIA# [id number] [place] [address] * (ABNORMAL) URINALYSIS WITH REFLEX MICROSCOPIC (04/01/2025 11:09 PM UTILITY WORKER) Only the most recent of4 resultswithin the time period is included. COLOR UA Yellow Pale to Dark Yellow 04/02/2025 12:43 AM [facility] CLARITY UA Clear Clear 04/02/2025 12:43 AM [facility] SPECIFIC GRAVITY UA 1.016 1.003 - 1.035 04/02/2025 12:43 AM [facility] PH UA 6.0 5.0 - 8.0 04/02/2025 12:43 AM [facility] LEUKOCYTE ESTERASE UA Negative Negative 04/02/2025 12:43 AM [facility] NITRITE UA Negative Negative 04/02/2025 12:43 AM [facility] PROTEIN UA Negative Negative 04/02/2025 12:43 AM [facility] GLUCOSE UA Negative Negative 04/02/2025 12:43 AM [facility] KETONES UA Negative Negative 04/02/2025 12:43 AM [facility] UROBILINOGEN UA Normal <2.0 mg/dL 12:43 AM [facility] BILIRUBIN UA Negative Negative 04/02/2025 12:43 AM [facility] BLOOD UA Negative Negative 04/02/2025 12:43 AM UTILITY WORKER [facility] WBC UA 0-2 0 - 2 /hpf 04/02/2025 12:43 AM [facility] RBC UA 0-2 0 - 2 /hpf 04/02/2025 12:43 AM [facility] BACTERIA UA 1+(A) Negative /hpf 04/02/2025 12:43 AM UTILITY WORKER [facility] EPITHELIAL CELLS, URINE 0-5 0 - 5 /hpf 04/02/2025 12:43 AM UTILITY WORKER [facility] HYALINE CAST None Seen None Seen, 0-2 /lpf 04/02/2025 12:43 AM [facility] Urine URINE SPECIMEN OBTAINED BY CLEAN CATCH PROCEDURE / Unknown Collection / Unknown 04/01/2025 11:09 PM UTILITY WORKER 04/02/2025 12:19 AM UTILITY WORKER Christiano Maya MD URINE ORDERABLES Final Res ult [facility] CLIA# [id number] [place] [address] * HCG QUALITATIVE, URINE (04/01/2025 11:09 PM UTILITY WORKER) Only the most recent of3 resultswithin the time period is included. HCG QUAL URINE Negative Negative 04/02/2025 12:40 AM [facility] COLOR UA Yellow Pale to Dark Yellow 04/02/2025 12:40 AM UTILITY WORKER [facility] CLARITY UA Clear Clear 04/02/2025 12:40 AM [facility] Urine URINE SPECIMEN OBTAINED BY CLEAN CATCH PROCEDURE / Unknown Collection / Unknown 04/01/2025 11:09 PM UTILITY WORKER 04/02/2025 12:19 AM UTILITY WORKER Christiano Maya MD URINE ORDERABLES Final Res ult [facility] CLIA# [id number] [address] [place] [address] * CT ABDOMEN PELVIS W CONTRAST (03/13/2025 2:38 PM UTILITY WORKER) Anatomical Region Laterality Modality Abdomen Computed Tomogra phy 03/13/2025 2:39 PM UTILITY WORKER Impressions 03/13/2025 3:02 PM UTILITY WORKER IMPRESSION: No visible cause of the patient's hematuria. Fecal retention. The examination was performed with the adjustment of mA according to the patient size and/or the use of Iterative Reconstruction Technique. DICTATION LOCATION: Location [address] [place] [address] Narrative 03/13/2025 3:[address] ABDOMEN AND PELVIS WITH IV CONTRAST DATE: 03/13/2025 2:38 PM CLINICAL INDICATION: Right flank pain ongoing problem hematuria TECHNIQUE: Axial CT images from the lung bases through the pubic symphysis were obtained following intravenous administration of Isovue-370 80 cc. Coronal and sagittal reconstructions. FINDINGS: Prior from June 14, 2021. Lung bases are clear. Liver and gallbladder and spleen and pancreas and stomach and duodenum and adrenal glands and kidneys are normal. Normal bladder. No free fluid or inflammatory change. High volume stool in the colon. Appendix is not seen. Incidental peritoneal to spinal canal catheter. Procedure Note Francisco Rodriguez MD - 03/13/2025 CT ABDOMEN AND PELVIS WITH IV CONTRAST DATE: 03/13/2025 2:38 PM CLINICAL INDICATION: Right flank pain ongoing problem hematuria TECHNIQUE: Axial CT images from the lung bases through the pubic symphysis were obtained following intravenous administration of Isovue-370 80 cc. Coronal and sagittal reconstructions. FINDINGS: Prior from June 14, 2021. Lung bases are clear. Liver and gallbladder and spleen and pancreas and stomach and duodenum and adrenal glands and kidneys are normal. Normal bladder. No free fluid or inflammatory change. High volume stool in the colon. Appendix is not seen. Incidental peritoneal to spinal canal catheter. IMPRESSION: No visible cause of the patient's hematuria. Fecal retention. The examination was performed with the adjustment of mA according to the patient size and/or the use of Iterative Reconstruction Technique. DICTATION LOCATION: Location [address] [place] [address] ORDERABLES Shahida l Result * (ABNORMAL) CBC WITH DIFFERENTIAL (03/13/2025 5:03 AM UTILITY WORKER) Only the most recent of2 resultswithin the time period is included. WBC 9.4 4.0 - 9.8 K/uL 03/13/2025 8:32 AM UTILITY WORKER [facility] RBC 4.95(H) 3.90 - 4.90 M/uL 03/13/2025 8:[address] [facility] HEMOGLOBIN 14.8 11.8 - 14.8 g/dL 03/13/2025 8:32 AM [facility] HEMATOCRIT 46.6(H) 35.5 - 44.0 % 03/13/2025 8:[address] [facility] MCV 94.1 82.0 - 99.0 fL 03/13/2025 8:32 AM UTILITY WORKER [facility] MCH 29.9 27.2 - 32.6 pg 03/13/2025 8:32 AM UTILITY WORKER [facility] MCHC 31.8 31.5 - 35.5 g/dL 03/13/2025 8:[address] [facility] RDW 13.5 11.5 - 14.5 % 03/13/2025 8:[address] [facility] RDW-STDEV 46.8 37.1 - 48.7 fL 03/13/2025 8:32 AM UTILITY WORKER [facility] PLATELETS 287 140 - 350 K/uL 03/13/2025 8:32 AM UTILITY WORKER [facility] MPV 10.7 9.3 - 12.4 fL 03/13/2025 8:32 AM UTILITY WORKER [facility] NEUTROPHILS 42 % 03/13/2025 8:32 AM UTILITY WORKER [facility] LYMPHOCYTES 47 % 03/13/2025 8:32 AM UTILITY WORKER [facility] MONOCYTES 7 % 03/13/2025 8:32 AM UTILITY WORKER [facility] EOSINOPHILS 2 % 03/13/2025 8:32 AM UTILITY WORKER [facility] BASOPHILS 1 % 03/13/2025 8:32 AM [facility] IMMATURE GRANULOCYTES 0 % 03/13/2025 8:32 AM [facility] NEUTROPHIL ABSOLUTE 3.96 1.90 - 7.00 K/uL 03/13/2025 8:32 AM [facility] LYMPHOCYTE ABSOLUTE 4.45 0.70 - 4.50 K/uL 03/13/2025 8:32 AM UTILITY WORKER [facility] MONOCYTE ABSOLUTE 0.67 0.10 - 1.30 K/uL 03/13/2025 8:32 AM [facility] EOSINOPHIL ABSOLUTE 0.20 0.00 - 0.70 K/uL 03/13/2025 8:32 AM [facility] BASOPHILS ABSOLUTE 0.10 0.00 - 0.20 K/uL 03/13/2025 8:32 AM [facility] IMMATURE GRANULOCYTES ABSOLUTE 0.03 0.00 - 0.03 K/uL 03/13/2025 8:32 AM [facility] Blood Venipuncture / Unknown 03/13/2025 5:03 AM UTILITY WORKER 03/13/2025 8:23 AM UTILITY WORKER us Ronald Sauceda MD HEMATOLOGY ORDERABLE S Final Result [facility] CLIA# [id number] [place] [address] * (ABNORMAL) BASIC METABOLIC PANEL (03/12/2025 5:38 PM UTILITY WORKER) SODIUM 135(L) 136 - 145 mmol/L 03/12/2025 9:11 PM [facility] POTASSIUM 4.8 3.4 - 5.1 mmol/L 03/12/2025 9:11 PM [facility] Comment:Moderate hemolysis p resent. Can cause significant falsely elevated result. Redraw if indicated. CHLORIDE 104 98 - 107 mmol/L 03/12/2025 9:11 PM [facility] CO2 16(L) 22 - 29 mmol/L 03/12/2025 9:11 PM [facility] CALCIUM 9.3 8.6 - 10.4 mg/dL 03/12/2025 9:11 PM [facility] BUN 19 6 - 20 mg/dL 03/12/2025 9:11 PM [facility] CREATININE 0.82 0.51 - 0.95 mg/dL 03/12/2025 9:11 PM [facility] GLUCOSE 108(H) 74 - 99 mg/dL 03/12/2025 9:11 PM [facility] GFR >60 >=60 mL/min/1.7 3 sq meter 03/12/2025 9:11 PM [facility] Comment:eGFR calculated with 2020 CKD-EPI equation. Vegetarian diet, extremely high or low muscle mass, and may affect results. Cystatin C with Glomerular Filtration Rate is a suitable alternative for these patients. ANION GAP 15 8 - 16 mmol/L 03/12/2025 9:11 PM [facility] Blood Venipuncture / Unknown 03/12/2025 5:38 PM UTILITY WORKER 03/12/2025 8:00 PM UTILITY WORKER Ronald Sauceda MD CHEMISTRY ORDERABLES Final Result [facility] CLIA# [id number] [place] [address] * NOROVIRUS BY PCR (03/09/2025 6:17 PM UTILITY WORKER) Pathologist [facility] NOROVIRUS RNA NOT DETECTED 3:52 PM UTILITY WORKER [facility] Comment: REFERENCE RANGE: NOT DETECTED This test was developed and its analytical performance and characteristics have been determined by [employer]. It has not been cleared or approved by FDA. This assay has been validated pursuant to the CLIA regulations and is used for clinical purposes. Stool STOOL SPECIMEN / Unknown Collection / Unknown 03/09/2025 6:17 PM UTILITY WORKER 03/09/2025 7:10 PM UTILITY WORKER Narrative [facility] - 03/12/2025 3:52 PM UTILITY WORKER Performing Organization Information: Site ID: [id number] Name: [employer]/[facility], Address: [address] [place] [id number] Director: Jennifer Cheng MD,PhD,DWIGHT us Jaye Garcia MD BODY FLUIDS AND STOOLS Final Res ult [facility] [phone] * TSH (03/08/2025 11:14 AM UTILITY WORKER) TSH 2.91 0.27 - 4.20 uIU/mL 03/08/2025 12:11 PM UTILITY WORKER [facility] Blood Venipuncture / Unknown 03/08/2025 11:14 AM UTILITY WORKER 03/08/2025 11:29 AM UTILITY WORKER us Christiano Maya MD CHEMISTRY ORDERABLES Final Result [facility]# [id number] [address] [place] [address] * HEMOGLOBIN A1C (03/08/2025 11:14 AM UTILITY WORKER) HEMOGLOBIN A1C 5.4 <=5.6 % 03/08/2025 12:25 PM UTILITY WORKER [facility] EST. AVG GLUCOSE, A1C 108 mg/dL 03/08/2025 12:25 PM UTILITY WORKER [facility] Blood Venipuncture / Unknown 03/08/2025 11:14 AM UTILITY WORKER 03/08/2025 11:29 AM UTILITY WORKER Narrative [facility] - 03/08/2025 12:25 PM UTILITY WORKER HGB A1C INTERPRETATION NORMAL: <5.7% PRE-DIABETES: 5.7 - 6.4% DIABETES: 6.5% OR GREATER Christiano Maya MD CHEMISTRY ORDERABLES Final Result Performing Organization Address City/[facility]/ZIP Co de Phone Number [facility] CLIA# [id number] [place] [address] * ETHANOL LEVEL (03/08/2025 11:14 AM UTILITY WORKER) Only the most recent of2 resultswithin the time period is included. ETHANOL <10.10 No Ref Range Estab mg/dL 03/08/2025 12:11 PM UTILITY WORKER [facility] ETHANOL % <0.01 %w/v 03/08/2025 12:11 PM UTILITY WORKER [facility] Blood Venipuncture / Unknown 03/08/2025 11:14 AM UTILITY WORKER 03/08/2025 11:29 AM UTILITY WORKER Christiano Maya MD CHEMISTRY ORDERABLES Final Result Performing Organization Address City/[facility]/ZIP Co de Phone Number [facility] [id number] [address] [place] [address] * (ABNORMAL) LIPID PANEL (03/08/2025 11:14 AM UTILITY WORKER) CHOLESTEROL 141 <200 mg/dL 03/08/2025 12:11 PM UTILITY WORKER [facility] TRIGLYCERIDE 235(H) <150 mg/dL 03/08/2025 12:11 PM UTILITY WORKER [facility] HDL 42 40 - 59 mg/dL 03/08/2025 12:11 PM UTILITY WORKER [facility] LDL CALCULATED 52 <100 mg/dL 03/08/2025 12:11 PM UTILITY WORKER [facility] NON-HDL CHOLESTEROL 99 <130 mg/dL 03/08/2025 12:11 PM UTILITY WORKER [facility] Blood Venipuncture / Unknown 03/08/2025 11:14 AM UTILITY WORKER 03/08/2025 11:29 AM UTILITY WORKER Narrative [facility] - 03/08/2025 12:11 PM UTILITY WORKER TOTAL CHOLESTEROL mg/dL Desirable <200 Borderline high 200-239 High >=240 TRIGLYCERIDES mg/dL Normal <150 Borderline high 150-199 High 200-499 Very high >=500 HDL CHOLESTEROL mg/dL Low <40 Normal 40-59 Desirable >=60 NON HDL CHOLESTEROL mg/dL Optimal <130 Near Optimal 130-159 Borderline High 160-189 Very High >=190 CALCULATED LDL mg/dL LDL <70, OPTIMAL if have Atherosclerotic cardiovascular disease (ASCVD) or intermediate or higher (>7.5%) 10 year risk of ASCVD including most adults with diabetes. LDL <100, Optimal in adult patients with low (<7.5%) 10 year ASCVD risk LDL 100-160, Suboptimal LDL >160, High LDL >190, Very high LDL calculated using the Friedewald equation. ATPIII Guidelines Reference Ranges for Lipid Panels (NCEP/AMA) . Christiano Maya MD CHEMISTRY ORDERABLES Final Result [facility] [id number] [address] [place] [address] * (ABNORMAL) COMPREHENSIVE METABOLIC PANEL (03/08/2025 11:14 AM UTILITY WORKER) Only the most recent of2 resultswithin the time period is included. SODIUM 138 136 - 145 mmol/L 03/08/2025 12:[address] [facility] POTASSIUM 4.2 3.4 - 5.1 mmol/L 03/08/2025 12:[address] [facility] CHLORIDE 106 98 - 107 mmol/L 03/08/2025 12:11 PM [facility] CO2 20(L) 22 - 29 mmol/L 03/08/2025 12:11 PM [facility] CALCIUM 9.3 8.6 - 10.4 mg/dL 03/08/2025 12:11 PM [facility] BUN 9 6 - 20 mg/dL 03/08/2025 12:11 PM [facility] CREATININE 0.73 0.51 - 0.95 mg/dL 03/08/2025 12:11 PM [facility] GLUCOSE 115(H) 74 - 99 mg/dL 03/08/2025 12:11 PM [facility] TOTAL PROTEIN 6.8 6.3 - 8.7 g/dL 03/08/2025 12:11 PM [facility] ALBUMIN 4.0 3.5 - 5.2 g/dL 03/08/2025 12:11 PM [facility] BILIRUBIN TOTAL 0.3 0.0 - 1.2 mg/dL 03/08/2025 12:11 PM [facility] ALKALINE PHOSPHATASE 85 40 - 150 U/L 03/08/2025 12:11 PM [facility] AST 31 0 - 33 U/L 03/08/2025 12:11 PM [facility] ALT 44(H) 0 - 33 U/L 03/08/2025 12:11 PM [facility] GFR >60 >=60 mL/min/1.7 3 sq meter 03/08/2025 12:11 PM [facility] Comment:eGFR calculated with 2020 CKD-EPI equation. Vegetarian diet, extremely high or low muscle mass, and may affect results. Cystatin C with Glomerular Filtration Rate is a suitable alternative for these patients. ANION GAP 12 8 - 16 mmol/L 03/08/2025 12:11 PM [facility] Blood Venipuncture / Unknown 03/08/2025 11:14 AM UTILITY WORKER 03/08/2025 11:29 AM UTILITY WORKER Christiano Maya MD CHEMISTRY ORDERABLES Final Result [facility] CLIA# [id number] [address] [place] [address] * EKG 12-LEAD (02/23/2025 7:28 PM CDT) 02/23/2025 7:28 PM CDT Narrative INTERFACE SYSTEM - 02/24/2025 5:31 AM CDT [address] [address] Test Date: 2025-02-23 Pat Name: KYLIE MONTGOMERY Department: 37 Room: 52 52 Gender: F Metal Shaping Machine Operator: sharron : 1990 Requested By: TAMMY ANDERSEN Order Number: [id number] Reading MD: Brady Chopra Measurements Intervals [place] Rate: 97 P: 8 WA: 144 QRS: -5 QRSD: 83 T: 5 QT: 348 QTc: 442 Interpretive Statements Sinus arrhythmia with premature atrial complex Electronically Signed On 02-24-2025 5:31:35 CDT by Brady Chopra Procedure Note Brady Chopra MD - 02/24/[address] [address] Test Date: 2025-02-23 Pat Name: KYLIE MONTGOMERY Department: 37 Room: 52 52 Gender: F Metal Shaping Machine Operator: sharron : 1990 Requested By: TAMMY ANDERSEN Order Number: [id number] Reading MD: Brady Chopra Measurements Intervals [place] Rate: 97 P: 8 WA: 144 QRS: -5 QRSD: 83 T: 5 QT: 348 QTc: 442 Interpretive Statements Sinus arrhythmia with premature atrial complex Electronically Signed On 02-24-2025 5:31:35 CDT by Brady Chopra us Tammy Andersen MD ECG ORDERABLES Final Result INTERFACE SYSTEM Refer to clinic/hospital department * HEMOGLOBIN AND HEMATOCRIT (02/18/2025 2:46 PM CDT) HEMOGLOBIN 14.2 11.8 - 14.8 g/dL 02/18/2025 2:57 PM CDT [facility] HEMATOCRIT 41.5 35.5 - 44.0 % 02/18/2025 2:57 PM CDT [facility] Blood Venipuncture / Unknown 02/18/2025 2:46 PM CDT 02/18/2025 2:46 PM CDT Pierce Queen MD HEMATOLOGY ORDERABLES Fin al Result [facility] CLIA# [id number] [address] [place] [address] * ACETAMINOPHEN LEVEL (02/18/2025 2:46 PM CDT) ACETAMINOPHEN LEVEL <5 0 - 30 ug/mL 02/18/2025 3:36 PM CDT [facility] Blood Venipuncture / Unknown 02/18/2025 2:46 PM CDT 02/18/2025 2:46 PM CDT Narrative [facility] - 02/18/2025 3:36 PM CDT Therapeutic Range: 10-30 ug/mL The following Acetaminophen levels are associated with possible toxicity: 4 hours after dose >200 ug/mL 8 hours after dose >100 ug/mL 12 hours after dose >50 ug/mL Pierce Queen MD CHEMISTRY ORDERABLES Shahida l Result [facility] CLIA# [id number] [address] [place] [address] * SALICYLATE LEVEL (02/18/2025 2:46 PM CDT) SALICYLATE LEVEL 3.2 0.0 - 30.0 mg/dL 02/18/2025 3:36 PM CDT [facility] Blood Venipuncture / Unknown 02/18/2025 2:46 PM CDT 02/18/2025 2:46 PM CDT Narrative [facility] - 02/18/2025 3:36 PM CDT Negative <3.0 mg/dL Therapeutic 3.0 - 10 mg/dL Toxicity >30 mg/dl Lethal >60 mg/dL us Pierce Queen MD CHEMISTRY ORDERABLES Shahida neris Result [facility] CLIA# [id number] [address] [place] [address] * CERV/VAG CYTO AGE BASED SCREEN PAP W CT/NG, TRICH (08/19/2023 11:51 AM CDT) COMMENT (PAP): [facility] [place] Comment: This order for age-based cervical cancer and STI screening follows ACOG guidelines(PB 168, 140, BQK123). See individual assays for performing site location. CLINICAL INFORMATION [facility] Comment:None given LAST MENSTRUAL PERIOD [facility] Comment:10/06/2022 PREV PAP: [facility] [place] Comment:NONE GIVEN PREV BX: [facility] [place] Comment:NONE GIVEN SOURCE [facility] [place] Comment:Endocervix ADEQUACY: [facility] [place] Comment: Satisfactory for evaluation. Endocervical/transformation zone component present. PAP INTERP [facility] [place] Comment: Cytology Results: Negative for intraepithelial lesion or malignancy. COMMENT (PAP TEST) [facility] [place] Comment: This Pap test has been evaluated with computer assisted technology. APPLICATION SECURITY CONSULTANT: [facility] [place] Comment: DDS, CT(ASCP) CT screening location: [place] [address] [address] [id number] REVIEW APPLICATION SECURITY CONSULTANT: Skip [place] Comment: MEF, CT(ASCP) CT screening location: [place] [address] [address] [id number] [address] NOTE [facility] [place] Comment: [...] information. HPV E6/E7 Not Detected Not Detected [facility] Comment: Methodology: Concaving Machine Operator-Mediated Amplification This assay detects E6/E7 viral messenger RNA (mRNA) from 14 high-risk HPV types (16,18,31,33,35,39,45,51,52,56,58,59,66,68). Cervical sources are required for HPV testing. If a vaginal source from a patient who has had a total hysterectomy with removal of cervix was submitted, please contact the testing laboratory for alternative testing options. For additional information, please refer to http://[employer]/faq/IJH468a6 (This link if provided for information/ educational purposes only.) C TRAC RNA NOT DETECTED NOT DETECTED [facility] N.GONORRHOEAE RNA, TMA NOT DETECTED NOT DETECTED [facility] COMMENT INFECTIOUS DISEASE [employer] Comment: The analytical performance characteristics of this assay, when used to test SurePath(TM) specimens have been determined by [employer]. The modifications have not been cleared or approved by the FDA. This assay has been validated pursuant to the CLIA regulations and is used for clinical purposes. For additional information, please refer to https://[employer]/faq/XHK818 (This link is being provided for information/ educational purposes only.) TRICHOMONAS VAGINALIS,QUALITAT HUNTER,PAP VIAL NOT DETECTED NOT DETECTED [facility] [place] Comment: The analytical performance characteristics of this assay have been determined by [employer]. The modifications have not been cleared or approved by the FDA. This assay has been validated pursuant to the CLIA regulations and is used for clinical purposes. For additional information, please refer to http://[employer]/ faq/Trichomonastma (This link is being provided for information/ educational purposes only.) Test Performed at: [facility] [address] [place] [address] Dejon BURLESON Genital SWAB OF ENDOCERVIX / Unknown 08/19/2023 11:51 AM CDT 08/20/2023 4:07 AM CDT Mona Shaver NP PATHOLOGY/CYTOLOGY ORDERABL ES Final Result [facility] [phone] [facility] [address] [place] [address] from Last 3 Months or Most Recently Relevant to Health Maintenance Insurance BLUE [employer] CHOICE [facility] EmergenSee/TRUE BLUE PPO RX [employer] PLANS (INTERNAL) [facility] Internal Plans RX [employer] Commercial BCBS BLUE ACCESS/TRUE BLUE PPO Advance Directives For more information, please contact: [phone] * Full Code (Latest Code Status on File) Date Activated Date Inactivated Comments 04/01/2025 10:07 PM 04/03/2025 4:25 PM * Full Code Date Activated Date Inactivated Comments 03/07/2025 11:20 PM 03/14/2025 5:13 PM * Full Code Date Activated Date Inactivated Comments 02/24/2025 10:10 PM 02/26/2025 2:38 PM * Full Code Date Activated Date Inactivated Comments 03/15/2024 4:46 PM 03/18/2024 5:24 PM * Full Code Date Activated Date Inactivated Comments 02/20/2024 5:10 PM 02/20/2024 9:04 PM Care Teams Solar Thermal Installer Relationship Specialty Start Date End Date Gilmar Galvan MD [address] [place] [address] PCP - General Family Practice 12/09/18
--- OUTSIDE RECORDS SUMMARY | 2025-04-05 13:19 | XMS_ITS | Encounter Summary ---
Author Organization [facility] Address [address] [place] [address] Care Team Providers Care Ambulatory Services Representative Name Role Phone Gilmar Galvan MD Primary Care Provider Reason for Visit * Reason Comments Remote Monitoring Encounter Details Date Type Department Care Team (Late st Contact Info) Description 03/17/2025 Telephone [facility] [address] [place] [address] Gilmar Galvan MD [address] [place] [address] Remote Monitoring Social History Tobacco [...] you can t pay for food? No 03/07/2025 Transportation Needs Answer Date Record ed Have you gone without health care because you didn t have a way to get there? Or worry about transportation for future doctor visits, pick pulling machine tender medication, etc.? No 2024 Housing Stability Answer Date Recorded Do you worry you won t have a steady place to sleep or struggle to pay rent or mortgage? No 03/07/2025 Utility Needs Answer Date Recorded Do you have difficulty payin g for utility costs (electric, water or gas bills)? No 03/07/2025 Medication Needs Answer Date Recorded Have you skipped taking medi cation due to cost or worry you can t afford new medications? No 03/07/2025 Feeling Safe Answer Date Recorded Are you in a relationship wi th someone who hurts you emotionally and/or physically? No 03/07/2025 Food Insecurity Answer Date Recorded Patient needs [...] file Legal Sex Female 3:13 AM STAFF EDUCATOR Gender Identity Not on file Sexual Orientation Not on file Occupation Industry Job Start Date Job End Date Not on file Not on file Not on file Not on file documented as of this encounter Miscellaneous Notes * Telephone Encounter - Yulissa Chance RN - 03/17/2025 3:18 PM CST 03/17/2025 3:18 PM Returned call. No answer. Left voice mail with note from PCP regarding not needing OV for med clearance. If patient/caregiver calls back, contact center please transfer caller to clinic back line. Yulissa RN F EDUCATOR * Telephone Encounter - Gilmar Galvan MD - 03/17/2025 3:16 PM STAFF EDUCATOR She does not need to see me again for this type of clearance. I can complete any requested medical clearance paperwork. F EDUCATOR * Telephone Encounter - Susi Bravo - 03/17/2025 12:54 PM CST Copied from [facility] #[id number]. Topic: Patient Reported Outcome Metrics >> Mar 17, 2025 12:52 PM Susi Naranjo wrote: Caller Name: Kylie Marks Callback Number: Telephone Information: Call Notes: Caller is reporting Follow up information from an appointment Patient needs to report Dr. Garcia at [facility] is wanting to start ECT needing medical clearance from PCP for general anesthesia? Just seen yesterday does this require separate visit? F EDUCATOR documented in this encounter Plan of Treatment Upcoming Encounters Date Type Department Care Team (Late st Contact Info) Description 04/06/2025 11:00 AM STAFF EDUCATOR Appointment [facility] [place] [address] [place] [address] 04/08/2025 8:30 AM STAFF EDUCATOR [facility] Psychiat[facility] [address] [place] [phone] Jaimie Powell MD [address] [place] [address] [place] [address] 04/08/2025 10:30 AM STAFF EDUCATOR Appointment [facility] [place] [address] [place] [address] 04/11/2025 9:30 AM STAFF EDUCATOR Appointment [facility] [place] [address] [place] [address] 04/13/2025 9:30 AM STAFF EDUCATOR Appointment [facility] [place] [address] [place] [address] 04/15/2025 10:00 AM STAFF EDUCATOR Appointment [facility] [place] [address] [place] [address] documented as of this encounter Visit Diagnoses Not on filedocumented in this encounter Additional Health Concerns Assessment Noted Time PHQ-9 Depression Total Score: 5 03/17/20 25 9:07 AM STAFF EDUCATOR documented as of this encounter Care Teams Ambulatory Services Representative Relationship Specialty Start Date End Date Gilmar Galvan MD [address] [place] [address] PCP - General Family Practice 12/09/18 documented as of this encounter
--- OUTSIDE RECORDS SUMMARY | 2025-04-05 13:19 | XMS_ITS | Encounter Summary ---
Author Organization [facility] Address [address] [place] [address] Care Team Providers Care Screw Machine Operator Swiss Type Name Role Phone Gilmar Galvan MD Primary Care Provider Reason for Visit * Reason Onset Date Comments Med Refill Hospital Follow Up 03/16/2025 Patient Communication Encounter Details Date Type Department Care Team (Late st Contact Info) Description 03/16/2025 Telephone [facility] [address] [place] [address] Gilmar Galvan MD [address] [place] [address] Med Refill; Hospital Follow Up; Patient Communication Social History Tobacco Use Types Packs/Day Years [...] worry about transportation for future doctor visits, milk pickup driver medication, etc.? No 2024 Housing Stability Answer [...] file Legal Sex Female 3:13 AM ENERGY PROJECTS LEAD Gender Identity Not on file Sexual Orientation Not on file Occupation Industry Job Start Date Job End Date Not on file Not on file Not on file Not on file documented as of this encounter Miscellaneous Notes * Telephone Encounter - Zarina Rangel RN - 03/16/2025 10:08 AM ENERGY PROJECTS LEAD Hospital Follow-up Call: The following issues/concerns will be escalated to the primary care provider: none Transition of Care Management: Name: Kylie Marks : 1990 DISCHARGE DATE:03/14/25 REASON FOR THE ADMISSION: Behavioral health FACILITY TYPE: Inpatient FACILITY NAME: [facility] PCP: Gilmar Galvan MD Performed by: Zarian DE LA TORRE on 03/16/2025. Spoke with: patient. Gilmar Patel MD asked me to contact you to follow up about your recent hospitalization. What problems have you had since coming home? None - urinary symptoms improving (on Keflex for UTI) - feeling about the same MEDICATION RECONCILIATION CURRENT MEDICATIONS REVIEWED AND RECONCILED busPIRone Take 2 Tablets (20 mg) by mouth 3 times daily. PARoxetine HCl Starting 03/15/2025: Take 1 Tablet (30 mg) by mouth daily. traZODone Take 1 Tablet (100 mg) by mouth nightly as needed for Insomnia. QUEtiapine Take 1 Tablet (50 mg) by mouth two times daily, 7 hours apart. QUEtiapine Take 1 Tablet (100 mg) by mouth daily at bedtime. cephALEXin Take 1 Capsule (500 mg) by mouth every 12 hours for 7 days. clonazePAM Take 1 Tablet (1 mg) by mouth 2 times daily as needed for Anxiety. clonazePAM Take 1 Tablet (1 mg) by mouth 2 times daily. norethindrone Ac-Eth estradiol Take 1 Tablet by mouth daily. Medications reviewed and reconciled post discharge Was patient able to afford and fill new medications from the hospital? yes Do discrepancies exist between the medication list and what they are actually taking? No Does patient have questions or concerns about getting or taking their medicines? No FOLLOW-UP VISIT Gilmar Patel MD wants you to be seen in our office very soon to check on how you are doing. Follow-Up Appointment Scheduled for: 03/16/[address] Galvan GY PROJECTS LEAD * Telephone Encounter - Shirley Em - 03/16/2025 10:06 AM ENERGY PROJECTS LEAD Copied from [facility] #[id number]. Topic: CPA Information Request >> Mar 16, 2025 10:04 AM Shirley Gee wrote: Caller is returning phone call from clinic. Caller Name: Kylie Marks Patient/Caregiver Callback Number: [phone] Clinic Left Note In Chart Is there a note from the clinic requesting the caller be transferred when they call back? Yes - note is for PCN Call Notes: Note indicated caller should be transferred to clinic when they called back. Transferred to [facility] Rosamaria answered call. GY PROJECTS LEAD * Telephone Encounter - Yulissa Chance RN - 03/16/2025 9:44 AM CST 03/16/2025 9:51 AM No answer. Left voice mail/message to return our call to complete tcm for d/c from [facility] 03/14 [facility] f/u visit. Xanax is not currently prescribed and can be discussed at hosp f/u. If patient/caregiver calls back, contact center please transfer caller to PCN line. Yulissa RN GY PROJECTS LEAD * Telephone Encounter - Elodia Rudd - 03/16/2025 9:26 AM CST Copied from [facility] #[id number]. Topic: Medication Request >> Mar 16, 2025 9:24 AM Elodia Kern wrote: Caller Name: Kylie Marks Callback Number: [phone] (mobile) Medication (Ask patient/caregiver to spell if possible): Xanax 1mg Note: All medication prescriptions can be requested using one [facility] Preferred Pharmacy: [facility]. Call Notes: Caller is requesting a new medication, which is not active on their medication list. Patient states she was prescribed this medication a month ago and is wanting to request a refill but it is no longer on her med list. Are you currently experiencing any symptoms? Yes, and has been seen by provider for the symptom(s) Is there an encounter open? No GY PROJECTS LEAD documented in this encounter Plan of Treatment Upcoming Encounters Date Type Department Care Team (Late st Contact Info) Description 04/06/2025 11:00 AM ENERGY PROJECTS LEAD Appointment [facility] [place] [address] [place] [address] 04/08/2025 8:30 AM ENERGY PROJECTS LEAD Confidential [facility] Psychiatry [facility] and [facility] [address] [place] [address] Jaimie Powell MD [facility] [place] [address] 04/08/2025 10:30 AM ENERGY PROJECTS LEAD Appointment [facility] [place] [address] [place] [address] 04/11/2025 9:30 AM ENERGY PROJECTS LEAD Appointment [facility] [place] [address] [place] [address] 04/13/2025 9:30 AM ENERGY PROJECTS LEAD Appointment [facility] [place] [address] [place] [address] 04/15/2025 10:00 AM ENERGY PROJECTS LEAD Appointment [facility] [place] [address] [place] [address] documented as of this encounter Visit Diagnoses Diagnosis ESTHER (generalized anxiety disorder) Generalized anxiety disorder documented in this encounter Additional Health Concerns Assessment Noted Time PHQ-9 Depression Total Score: 6 03/01/20 25 9:50 AM CDT documented as of this encounter Care Teams Screw Machine Operator Swiss Type Relationship Specialty Start Date End Date Gilmar Galvan MD [address] [place] [address] PCP - General Family Practice 12/09/18 documented as of this encounter
--- OUTSIDE RECORDS SUMMARY | 2025-04-05 13:19 | XMS_ITS | Encounter Summary ---
Author Organization [facility] Address [address] [place] [address] Care Team Providers Care Quahogger Name Role Phone Gilmar Galvan MD Primary Care Provider Encounter Details Date Type Department Care Team (Late st Contact Info) Description 12/28/2006 Outpatient Historical [facility] [place] [address] [place] [address] Social History Tobacco Use Types Packs/Day Years Used Date Smoking Tobacco: Never Assessed Comments Unknown Sex and Gender Information Value Date Recorded Sex Assigned at Not on file Legal Sex Female 3:13 AM NUTRITION PROGRAM INSTRUCTOR Gender Identity Not on file Sexual Orientation Not on file documented as of this encounter Plan of Treatment Upcoming Encounters Date Type Department Care Team (Late st Contact Info) Description 04/06/2025 11:00 AM NUTRITION PROGRAM INSTRUCTOR Appointment [facility] [place] [address] [place] [address] 04/08/2025 8:30 AM NUTRITION PROGRAM INSTRUCTOR Confidential [facility] Psychiat[place] [address] [facility] [place] [address] Jaimie Powell MD [address] [facility] [place] [address] 04/08/2025 10:30 AM NUTRITION PROGRAM INSTRUCTOR Appointment [facility] [place] [address] [place] [address] 04/11/2025 9:30 AM NUTRITION PROGRAM INSTRUCTOR Appointment [facility] [place] [address] [place] [address] 04/13/2025 9:30 AM NUTRITION PROGRAM INSTRUCTOR Appointment [facility] [place] [address] [place] [address] 04/15/2025 10:00 AM NUTRITION PROGRAM INSTRUCTOR Appointment [facility] [place] [address] [place] [address] documented as of this encounter Visit Diagnoses Not on filedocumented in this encounter Additional Health Concerns Infection Onset Date Last Indicated Resolved Time R/O COVID-19 07/30/2019 07/30/2019 08/04/2019 6:05 AM CDT R/O Respiratory 05/12/2022 05/12/2022 05/12/2022 4 :27 PM NUTRITION PROGRAM INSTRUCTOR R/O C. diff 03/11/2024 03/11/2024 03/11/2024 12:4 6 PM NUTRITION PROGRAM INSTRUCTOR C Diff 03/11/2024 03/11/2024 05/10/2024 1:1 6 AM NUTRITION PROGRAM INSTRUCTOR documented as of this encounter Care Teams Quahogger Relationship Specialty Start Date End Date Gilmar Galvan MD [address] [place] [address] PCP - General Family Practice 12/09/18 documented as of this encounter
--- OUTSIDE RECORDS SUMMARY | 2025-04-05 13:19 | XMS_ITS | Encounter Summary ---
Author Organization [facility] Address [address] [place] [address] Care Team Providers Care Mortgage Closer Name Role Phone Gilmar Galvan MD Primary Care Provider Reason for Visit * Reason Onset Date Comments Courtesy Call 08/08/2019 Left message Encounter Details Date Type Department Care Team (Late st Contact Info) Description 08/08/[address] [address] Karen Chicas, Courtesy Call (Left message) Social History Tobacco Use Types Packs/Day Years Used Date Smoking Tobacco: Never Smokeless Tobacco: Never Alcohol Use Standard Drinks/Week Comments Yes 1 (1 standard drink = 0.6 oz pur e alcohol) vary rare social use Comments No Sex and Gender Information Value Date Recorded Sex Assigned at Not on file Legal Sex Female 3:13 AM WIRE MESH KNITTER Gender Identity Not on file Sexual Orientation [...] st Contact Info) Description 04/06/2025 11:00 AM WIRE MESH KNITTER Appointment [facility] [place] [address] [place] [address] 04/08/2025 8:30 AM WIRE MESH KNITTER Confidential [facility] Psychiatry [facility] and [facility] [address] [place] [phone] Jaimie Powell MD [address] [place] [address] 04/08/2025 10:30 AM WIRE MESH KNITTER Appointment [facility] [place] [address] [place] [address] 04/11/2025 9:30 AM WIRE MESH KNITTER Appointment [facility] [place] [address] [place] [address] 04/13/2025 9:30 AM WIRE MESH KNITTER Appointment [facility] [place] [address] [place] [address] 04/15/2025 10:00 AM WIRE MESH KNITTER Appointment [facility] [place] [address] [place] [address] documented as of this encounter Visit Diagnoses Not on filedocumented in this encounter Additional Health Concerns Infection Onset Date Last Indicated Resolved Time R/O Respiratory 05/12/2022 05/12/2022 05/12/2022 4 :27 PM WIRE MESH KNITTER R/O C. diff 03/11/2024 03/11/2024 03/11/2024 12:4 6 PM WIRE MESH KNITTER C Diff 03/11/2024 03/11/2024 05/10/2024 1:16 AM WIRE MESH KNITTER Assessment Noted Time PHQ-9 Depression Total Score: 1 03/25/20 19 3:00 PM WIRE MESH KNITTER documented as of this encounter Care Teams Mortgage Closer Relationship Specialty Start Date End Date Gilmar Galvan MD [address] [place] [address] PCP - General Family Practice 12/09/18 documented as of this encounter
--- OUTSIDE RECORDS SUMMARY | 2025-04-05 13:19 | XMS_ITS | Encounter Summary ---
Author Organization [facility] Address [address] [place] [address] Care Team Providers Care Museum Preparator Name Role Phone Gilmar Galvan MD Primary Care Provider Encounter Details Date Type Department Care Team (Late st Contact Info) Description 02/17/2006 Outpatient Historical [facility] Pediatrics [address] [facility] [address] [facility] [address] [address] [place] [address] [place] [address] Social History Tobacco Use Types Packs/Day Years Used Date Smoking Tobacco: Never Assessed Comments Unknown Sex and Gender Information Value Date Recorded Sex Assigned at Not on file Legal Sex Female 3:13 AM SYSTEM SPECIALIST Gender Identity Not on file Sexual Orientation Not on file documented as of this encounter Plan of Treatment Upcoming Encounters Date Type Department Care Team (Late st Contact Info) Description 04/06/2025 11:00 AM SYSTEM SPECIALIST Appointment [facility] [place] [address] [place] [address] 04/08/2025 8:30 AM SYSTEM SPECIALIST Confidential [facility] Psychiat[place] [address] [place] [address] Jamiie Powell MD [address] [facility] [place] [address] 04/08/2025 10:30 AM SYSTEM SPECIALIST Appointment [facility] [place] [address] [place] [address] 04/11/2025 9:30 AM SYSTEM SPECIALIST Appointment [facility] [place] [address] [place] [address] 04/13/2025 9:30 AM SYSTEM SPECIALIST Appointment [facility] [place] [address] [place] [address] 04/15/2025 10:00 AM SYSTEM SPECIALIST Appointment [facility] [place] [address] [place] [address] documented as of this encounter Visit Diagnoses Not on filedocumented in this encounter Additional Health Concerns Infection Onset Date Last Indicated Resolved Time R/O COVID-19 07/30/2019 07/30/2019 08/04/2019 6:05 AM CDT R/O Respiratory 05/12/2022 05/12/2022 05/12/2022 4 :27 PM SYSTEM SPECIALIST R/O C. diff 03/11/2024 03/11/2024 03/11/2024 12:4 6 PM SYSTEM SPECIALIST C Diff 03/11/2024 03/11/2024 05/10/2024 1:16 AM SYSTEM SPECIALIST documented as of this encounter Care Teams Museum Preparator Relationship Specialty Start Date End Date Gilmar Galvan MD [address] [place] [address] PCP - General Family Practice 12/09/18 documented as of this encounter
--- OUTSIDE RECORDS SUMMARY | 2025-04-05 13:19 | XMS_ITS | Encounter Summary ---
Author Organization [facility] Address [address] [place] [address] Care Team Providers Care Chemistry Instructor Name Role Phone Gilmar Galvan MD Primary [...] on file Legal Sex Female 3:13 AM VISCOSITY WORKER Gender Identity Not on file Sexual [...] (Late Contact Info) Description 04/06/2025 11:00 AM VISCOSITY WORKER Appointment [facility] [address] [address] [place] [address] 04/08/2025 8:30 AM VISCOSITY WORKER Confidential [facility] Psychiatry [place] [address] [place] [address] Jaimie Powell MD [facility] [place] [address] 04/08/2025 10:30 AM VISCOSITY WORKER Appointment [facility] [address] [address] [place] [address] 04/11/2025 9:30 AM VISCOSITY WORKER Appointment [facility] [address] [address] [place] [address] 04/13/2025 9:30 AM VISCOSITY WORKER Appointment [facility] [address] [address] [place] [address] 04/15/2025 10:00 AM VISCOSITY WORKER Appointment [facility] [place] [address] [place] [address] documented as of this encounter Visit Diagnoses Not on filedocumented in this encounter Additional Health Concerns Infection Onset Date Last Indicated Resolved Time R/O COVID-19 07/30/2019 07/30/2019 08/04/2019 6:05 AM CDT R/O Respiratory 05/12/2022 05/12/2022 05/12/2022 4 :27 PM VISCOSITY WORKER R/O C. diff 03/11/2024 03/11/2024 03/11/2024 12:4 6 PM VISCOSITY WORKER C Diff 03/11/2024 03/11/2024 05/10/2024 1:16 AM VISCOSITY WORKER Assessment Noted Time PHQ-9 Depression Total Score: 1 03/25/20 19 3:00 PM VISCOSITY WORKER documented as of this encounter Care Teams Chemistry Instructor Relationship Specialty Start Date End Date Gilmar Galvan MD [address] [place] [address] PCP - General Family Practice 12/09/18 documented as of this encounter
--- OUTSIDE RECORDS SUMMARY | 2025-04-05 13:19 | XMS_ITS | Encounter Summary ---
Author Organization [facility] Address [address] [place] [address] Care Team Providers Care Rn Night Name Role Phone Gilmar Galvan MD Primary Care Provider Reason for Visit * Reason Comments Med Refill Encounter Details Date Type Department Care Team (Late st Contact Info) Description 04/04/2025 Refill [facility] Maternal and Medicine - [facility] [address] [facility] [address] [place] [address] Vineet Hendrix MD [address] [facility] [address] [place] [address] ESTHER (generalized anxiety disorder) Social History Tobacco [...] on file Legal Sex Female 3:13 AM WELT STITCHER Gender Identity Not on file Sexual Orientation Not on file Occupation Industry Job Start Date Job End Date Not on file Not on file Not on file Not on file documented as of this encounter Plan of Treatment Upcoming Encounters Date Type Department Care Team (Late st Contact Info) Description 04/06/2025 11:00 AM WELT STITCHER Appointment [facility] [address] [address] [place] [address] 04/08/2025 8:30 AM WELT STITCHER Confidential [facility] Psychiatry [facility] and [address] [place] [address] Jaimie Powell MD [address] [place] [address] [place] [address] 04/08/2025 10:30 AM WELT STITCHER Appointment [facility] [address] [address] [place] [address] 04/11/2025 9:30 AM WELT STITCHER Appointment [facility] [address] [address] [place] [address] 04/13/2025 9:30 AM WELT STITCHER Appointment [facility] [place] [address] [place] [address] 04/15/2025 10:00 AM WELT STITCHER Appointment [facility] [address] [address] [place] [address] documented as of this encounter Visit Diagnoses Diagnosis ESTHER (generalized anxiety disorder) Generalized anxiety disorder documented in this encounter Additional Health Concerns Assessment Noted Time PHQ-9 Depression Total Score: 6 03/22/20 25 12:49 PM WELT STITCHER documented as of this encounter Care Teams Rn Night Relationship Specialty Start Date End Date Gilmar Galvan MD [address] [place] [address] PCP - General Family Practice 12/09/18 documented as of this encounter
--- OUTSIDE RECORDS SUMMARY | 2025-04-05 13:19 | XMS_ITS | Encounter Summary ---
Author Organization [facility] Address [address] [place] [address] Care Team Providers Care Pipe Layer Helper Name Role Phone Gilmar Galvan MD Primary Care Provider Encounter Details Date Type Department Care Team (Late st Contact Info) Description 09/24/2006 Outpatient Historical [facility] Pediatrics [address] [facility] [address] [facility] [address] [address] [place] [address] [place] [address] Social History Tobacco Use Types Packs/Day Years Used Date Smoking Tobacco: Never Assessed Comments Unknown Sex and Gender Information Value Date Recorded Sex Assigned at Not on file Legal Sex Female 3:13 AM RAW SILK GRADER Gender Identity Not on file Sexual Orientation Not on file documented as of this encounter Plan of Treatment Upcoming Encounters Date Type Department Care Team (Late st Contact Info) Description 04/06/2025 11:00 AM RAW SILK GRADER Appointment [facility] [address] [address] [place] [address] 04/08/2025 8:30 AM RAW SILK GRADER Confidential [facility]3] Psychiatry [place] [address] [place] [address] Jamiie Powell MD [address] [facility] [place] [address] 04/08/2025 10:30 AM RAW SILK GRADER Appointment [facility] [address] [address] [place] [address] 04/11/2025 9:30 AM RAW SILK GRADER Appointment [facility] [address] [address] [place] [address] 04/13/2025 9:30 AM RAW SILK GRADER Appointment [facility] [address] [address] [place] [address] 04/15/2025 10:00 AM RAW SILK GRADER Appointment [facility] [address] [address] [place] [address] documented as of this encounter Visit Diagnoses Not on filedocumented in this encounter Additional Health Concerns Infection Onset Date Last Indicated Resolved Time R/O COVID-19 07/30/2019 07/30/2019 08/04/2019 6:05 AM CDT R/O Respiratory 05/12/2022 05/12/2022 05/12/2022 4 :27 PM RAW SILK GRADER R/O C. diff 03/11/2024 03/11/2024 03/11/2024 12:4 6 PM RAW SILK GRADER C Diff 03/11/2024 03/11/2024 05/10/2024 1:16 AM RAW SILK GRADER documented as of this encounter Care Teams Pipe Layer Helper Relationship Specialty Start Date End Date Gilmar Galvan MD [address] [place] [address] PCP - General Family Practice 12/09/18 documented as of this encounter
--- OUTSIDE RECORDS SUMMARY | 2025-04-05 13:19 | XMS_ITS | Encounter Summary ---
Author Organization [facility] Address [address] [place] [address] Care Team Providers Care Loader Operator Supervisor Name Role Phone Gilmar Galvan MD Primary Care Provider Encounter Details Date Type Department Care Team (Latest Contact Info) Description 10/16/2006 Outpatient Historical [facility] [place] [address] [place] [address] Pain in Joint, Shoulder Region (Primary Dx) Social History Tobacco Use Types Packs/Day Years Used Date Smoking Tobacco: Never Assessed Comments Unknown Sex and Gender Information Value Date Recorded Sex Assigned at Not on file Legal Sex Female 3:13 AM HYDROLOGY PROFESSOR Gender Identity Not on file Sexual Orientation Not on file documented as of this encounter Plan of Treatment Upcoming Encounters Date Type Department Care Team (Late st Contact Info) Description 04/06/2025 11:00 AM HYDROLOGY PROFESSOR Appointment [facility] [place] [address] [place] [address] 04/08/2025 8:30 AM HYDROLOGY PROFESSOR Confidential [facility] [place] [address] [facility] [place] [address] Jaimie Powell MD [address] [facility] and [place] [facility] [place] [address] 04/08/2025 10:30 AM HYDROLOGY PROFESSOR Appointment [facility] [place] [address] [place] [address] 04/11/2025 9:30 AM HYDROLOGY PROFESSOR Appointment [facility] [place] [address] [place] [address] 04/13/2025 9:30 AM HYDROLOGY PROFESSOR Appointment [facility] [place] [address] [place] [address] 04/15/2025 10:00 AM HYDROLOGY PROFESSOR Appointment [facility] [place] [address] [place] [address] documented as of this encounter Visit Diagnoses Diagnosis Pain in joint, shoulder region- Primary documented in this encounter Additional Health Concerns Infection Onset Date Last Indicated Resolved Time R/O COVID-19 07/30/2019 07/30/2019 08/04/2019 6:05 AM CDT R/O Respiratory 05/12/2022 05/12/2022 05/12/2022 4 :27 PM HYDROLOGY PROFESSOR R/O C. diff 03/11/2024 03/11/2024 03/11/2024 12:4 6 PM HYDROLOGY PROFESSOR C Diff 03/11/2024 03/11/2024 05/10/2024 1:16 AM HYDROLOGY PROFESSOR documented as of this encounter Care Teams Loader Operator Supervisor Relationship Specialty Start Date End Date Gilmar Galvan MD [address] [place] [address] PCP - General Family Practice 12/09/18 documented as of this encounter
--- OUTSIDE RECORDS SUMMARY | 2025-04-05 13:19 | XMS_ITS | Encounter Summary ---
Author Organization [facility] Address [address] [place] [address] Care Team Providers Care Charging Operator Name Role Phone Gilmar Galvan MD Primary Care Provider Encounter Details Date Type Department Care Team (Late st Contact Info) Description 02/15/2005 Outpatient Historical [facility] Pediatrics [address] [facility] [address] [facility] [address] [address] [place] [address] [place] [address] Social History Tobacco Use Types Packs/Day Years Used Date Smoking Tobacco: Never Assessed Comments Unknown Sex and Gender Information Value Date Recorded Sex Assigned at Not on file Legal Sex Female 3:13 AM SLICE CUTTING MACHINE OPERATOR Gender Identity Not on file Sexual Orientation Not on file documented as of this encounter Plan of Treatment Upcoming Encounters Date Type Department Care Team (Late st Contact Info) Description 04/06/2025 11:00 AM SLICE CUTTING MACHINE OPERATOR Appointment [facility] [place] [address] [place] [address] 04/08/2025 8:30 AM SLICE CUTTING MACHINE OPERATOR Confidential [facility] [place]iatry [place] [address] [place] [facility] [place] [phone] Jaimie Powell MD [address] [facility] [place] [address] 04/08/2025 10:30 AM SLICE CUTTING MACHINE OPERATOR Appointment [facility] [address] [address] [place] [address] 04/11/2025 9:30 AM SLICE CUTTING MACHINE OPERATOR Appointment [facility] E[place] [address] [place] [address] 04/13/2025 9:30 AM SLICE CUTTING MACHINE OPERATOR Appointment [facility] [address] [address] [place] [address] 04/15/2025 10:00 AM SLICE CUTTING MACHINE OPERATOR Appointment [facility] [address] [address] [place] [address] documented as of this encounter Visit Diagnoses Not on filedocumented in this encounter Additional Health Concerns Infection Onset Date Last Indicated Resolved Time R/O COVID-19 07/30/2019 07/30/2019 08/04/2019 6:05 AM CDT R/O Respiratory 05/12/2022 05/12/2022 05/12/2022 4 :27 PM SLICE CUTTING MACHINE OPERATOR R/O C. diff 03/11/2024 03/11/2024 03/11/2024 12:4 6 PM SLICE CUTTING MACHINE OPERATOR C Diff 03/11/2024 03/11/2024 05/10/2024 1:16 AM SLICE CUTTING MACHINE OPERATOR documented as of this encounter Care Teams Charging Operator Relationship Specialty Start Date End Date Gilmar Galvan MD [address] [place] [address] PCP - General Family Practice 12/09/18 documented as of this encounter
--- OUTSIDE RECORDS SUMMARY | 2025-04-05 13:19 | XMS_ITS | Encounter Summary ---
Author Organization [facility] Address [address] [place] [address] Care Team Providers Care Tack Puller Machine Name Role Phone Gilmar Galvan MD Primary Care Provider Encounter Details Date Type Department Care Team (Late st Contact Info) Description 06/24/2022 Lab Requisition [facility] Laboratory Services [facility] [address] [place] [address] Mona Shaver, HEALTHCARE SPECIALIST [address] [facility] [address] [place] [address] Social History Tobacco Use Types Packs/Day Years Used Date Smoking Tobacco: Never Smokeless Tobacco: Never Alcohol Use Standard Drinks/Week Comments Not Currently 0 (1 standard drink = 0.6 oz pur e alcohol) vary rare social use Comments No Sex and Gender Information Value Date Recorded Sex Assigned at Not on file Legal Sex Female 3:13 AM MOVING CONSULTANT Gender Identity Not on file Sexual Orientation Not on file Occupation Industry Job Start Date Job End Date Not on file Not on file Not on file Not on file COVID-19 Exposure Response Date Recorded In the last 10 days, have yo u been in contact with someone who was confirmed or suspected to have Coronavirus/COVID-19? No / Unsure 06/24/2022 10:13 AM MOVING CONSULTANT documented as of this encounter Plan of Treatment Upcoming Encounters Date Type Department Care Team (Late st Contact Info) Description 04/06/2025 11:00 AM MOVING CONSULTANT Appointment [facility] [address] [address] [place] [address] 04/08/2025 8:30 AM MOVING CONSULTANT Confidential [facility] Psychiatry [place] [address] [place] [address] [place] [phone] [place] [address] [place] [address] [place] [phone] 04/08/2025 10:30 AM MOVING CONSULTANT Appointment [facility] [place] [address] [place] [address] 04/11/2025 9:30 AM MOVING CONSULTANT Appointment [facility] [place] [address] [place] [address] 04/13/2025 9:30 AM MOVING CONSULTANT Appointment [facility] [place] [address] [place] [address] 04/15/2025 10:00 AM MOVING CONSULTANT Appointment [facility] [address] [address] [place] [address] documented as of this encounter Procedures Procedure Name Priority Date/Time Associated Diagnosis Comments CBC WITH DIFFERENTIAL Stat 06/24/2022 4:04 PM MOVING CONSULTANT COMPREHENSIVE METABOLIC PANEL Stat 06/24/2022 4:04 PM MOVING CONSULTANT documented in this encounter Results * (ABNORMAL) COMPREHENSIVE METABOLIC PANEL (06/24/2022 4:04 PM MOVING CONSULTANT) SODIUM 141 136 - 145 mmol/L 06/24/2022 5:23 PM MOVING CONSULTANT [facility] POTASSIUM 4.4 3.5 - 5.0 mmol/L 06/24/2022 5:23 PM MOVING CONSULTANT [facility] Comment: Testing was performed on Serum. Specimen of choice is [place] Heparinized Plasma. Serum Potassium Reference Range: 0 years - 150 years 3.5 - 5.1 mmol/L CHLORIDE 105 98 - 107 mmol/L 06/24/2022 5:23 PM [facility] - . [facility] CO2 24 22 - 29 mmol/L 06/24/2022 5:23 PM [facility] - . [facility] CALCIUM 8.9 8.6 - 10.2 mg/dL 06/24/2022 5:23 PM [facility] - . [facility] BUN 12 6 - 20 mg/dL 06/24/2022 5:23 PM [facility] - . [facility] CREATININE 0.65 0.51 - 0.95 mg/dL 06/24/2022 5:23 PM MOVING CONSULTANT [facility] - . [facility] GLUCOSE 87 74 - 99 mg/dL 06/24/2022 5:23 PM [facility] TOTAL PROTEIN 6.1(L) 6.7 - 8.6 g/dL 06/24/2022 5:23 PM [facility] - [facility] Comment: Testing was performed on Serum. Specimen of choice is [place] Heparinized Plasma. Serum TP Ref. Range: 3 [...] 3.5 - 5.2 g/dL 06/24/2022 5:23 PM MOVING CONSULTANT [facility] BILIRUBIN TOTAL <0.2(L) 0.3 - 1.2 mg/dL 06/24/2022 5:23 PM MOVING CONSULTANT [facility] ALKALINE PHOSPHATASE 140(H) 35 - 104 U/L 06/24/2022 5:23 PM [facility] SERVICES [facility] AST 13 <33 U/L 06/24/2022 5:23 PM MOVING CONSULTANT [facility] ALT 23 <34 U/L 06/24/2022 5:23 PM [facility] GFR >60 >=60 mL/min/1.7 3 sq meter 06/24/2022 5:23 PM [facility] Scientific Intake [facility] Comment:eGFR calculated with 2020 CKD-EPI equation. Vegetarian diet, extremely high or low muscle mass, and may affect results. Cystatin C with Glomerular Filtration Rate is a suitable alternative for these patients. ANION GAP 12 8 - 16 mmol/L 06/24/2022 5:23 PM [facility] Scientific Intake [facility] Blood 06/24/2022 4:04 PM MOVING CONSULTANT 06/24/2022 5:02 PM MOVING CONSULTANT [facility] - 06/24/2022 5:23 PM MOVING CONSULTANT Samples containing indocyanine green cause interferences on Total and/or Direct Bilirubin and must not be measured. Mona Shaver NP CHEMISTRY ORDERABLES Final Result [facility] Scientific Intake [facility] CLMI# [id number] [address] [facility] [place] [address] * (ABNORMAL) CBC WITH DIFFERENTIAL (06/24/2022 4:04 PM MOVING CONSULTANT) WBC 10.3(H) 4.0 - 9.8 K/uL 06/24/2022 5:10 PM [facility] RBC 3.13(L) 3.90 - 4.90 M/uL 06/24/2022 5:10 PM [facility] HEMOGLOBIN 9.0(L) 11.8 - 14.8 g/dL 06/24/2022 5:10 PM [facility] Scientific Intake [facility] HEMATOCRIT 28.3(L) 35.5 - 44.0 % 06/24/2022 5:10 PM [facility] Scientific Intake [facility] MCV 90.4 82.0 - 99.0 fL 06/24/2022 5:10 PM [facility] Scientific Intake [facility] MCH 28.8 27.2 - 32.6 pg 06/24/2022 5:10 PM [facility] Scientific Intake [facility] MCHC 31.8 31.5 - 35.5 g/dL 06/24/2022 5:10 PM MOVING CONSULTANT [facility] RDW 14.6(H) 11.5 - 14.5 % 06/24/2022 5:10 PM MOVING CONSULTANT [employer] [facility] [employer] - [facility] RDW-STDEV 47.8 37.1 - 48.7 fL 06/24/2022 5:10 PM MOVING CONSULTANT [employer] [facility] [employer] - [facility] PLATELETS 468(H) 140 - 350 K/uL 06/24/2022 5:10 PM MOVING CONSULTANT [employer] - [facility] MPV 8.5(L) 9.3 - 12.4 fL 06/24/2022 5:10 PM MOVING CONSULTANT [employer] - [facility] NEUTROPHILS 65 % 06/24/2022 5:10 PM MOVING CONSULTANT [facility] - [facility] LYMPHOCYTES 21 % 06/24/2022 5:10 PM MOVING CONSULTANT [facility] MONOCYTES 9 % 06/24/2022 5:10 PM MOVING CONSULTANT [facility] - . [place] EOSINOPHILS 2 % 06/24/2022 5:10 PM MOVING CONSULTANT [facility] - . [place] BASOPHILS 1 % 06/24/2022 5:10 PM MOVING CONSULTANT [facility] - . [facility] IMMATURE GRANULOCYTES 4 % 06/24/2022 5:10 PM MOVING CONSULTANT [facility] - . [place] Comment:IG (Immature Granulo cyte) count includes Metamyelocytes, Myelocytes, and Promyelocytes NEUTROPHIL ABSOLUTE 6.64 1.90 - 7.00 K/uL 06/24/2022 5:10 PM MOVING CONSULTANT [facility] - . [place] LYMPHOCYTE ABSOLUTE 2.15 0.70 - 4.50 K/uL 06/24/2022 5:10 PM MOVING CONSULTANT [facility] MONOCYTE ABSOLUTE 0.87 0.10 - 1.30 K/uL 06/24/2022 5:10 PM MOVING CONSULTANT [employer] - [facility] EOSINOPHIL ABSOLUTE 0.17 0.00 - 0.70 K/uL 06/24/2022 5:10 PM MOVING CONSULTANT [facility] BASOPHILS ABSOLUTE 0.07 0.00 - 0.20 K/uL 06/24/2022 5:10 PM MOVING CONSULTANT [facility] - . [facility] IMMATURE GRANULOCYTES ABSOLUTE 0.37(H) 0.00 - 0.03 K/uL 06/24/2022 5:10 PM MOVING CONSULTANT [facility] LABORATORY SERVICES [facility] Blood 06/24/2022 4:04 PM MOVING CONSULTANT 06/24/2022 5:02 PM MOVING CONSULTANT Mona Shaver HEALTHCARE SPECIALIST HEMATOLOGY ORDERABLES Final Result [facility] LABORATORY SERVICES [facility] CLIA# [id number] [address] [place] [address] documented in this encounter Visit Diagnoses Not on filedocumented in this encounter Additional Health Concerns Infection Onset Date Last Indicated Resolved Time R/O C. diff 03/11/2024 03/11/2024 03/11/2024 12:4 6 PM MOVING CONSULTANT C Diff 03/11/2024 03/11/2024 05/10/2024 1:16 AM MOVING CONSULTANT Assessment Noted Time PHQ-9 Depression Total Score: 5 08/17/19 22 3:00 PM CDT documented as of this encounter Care Teams Tack Puller Machine Relationship Specialty Start Date End Date Gilmar Galvan MD [address] [place] [address] PCP - General Family Practice 12/09/18 documented as of this encounter
--- OUTSIDE RECORDS SUMMARY | 2025-04-05 13:19 | XMS_ITS | Encounter Summary ---
Author Organization [facility] Address [address] [place] [address] Care Team Providers Care Coat Padder Name Role Phone Gilmar Galvan MD Primary Care Provider Encounter Details Date Type Department Care Team (Late st Contact Info) Description 02/11/[address] [facility] [address] [place] [address] Gilmar Galvan MD [address] [place] [address] Social History Tobacco Use Types [...] on file Legal Sex Female 3:13 AM TOUCH UP WORKER Gender Identity Not on file Sexual Orientation Not on file Occupation Industry Job Start Date Job End Date Not on file Not on file Not on file Not on file documented as of this encounter Plan of Treatment Upcoming Encounters Date Type Department Care Team (Late st Contact Info) Description 04/06/2025 11:00 AM TOUCH UP WORKER Appointment [facility] [place] [address] [place] [address] 04/08/2025 8:30 AM TOUCH UP WORKER Confidential [facility] Psychiatry [facility] [address] [facility] [place] [address] Jaimie Powell MD [address] [facility] [place] [address] 04/08/2025 10:30 AM TOUCH UP WORKER Appointment [facility] [address] [address] [place] [address] 04/11/2025 9:30 AM TOUCH UP WORKER Appointment [facility] E[place] [address] [place] [address] 04/13/2025 9:30 AM TOUCH UP WORKER Appointment [facility] [address] [address] [place] [address] 04/15/2025 10:00 AM TOUCH UP WORKER Appointment [facility] [address] [address] [place] [address] documented as of this encounter Visit Diagnoses Not on filedocumented in this encounter Additional Health Concerns Assessment Noted Time PHQ-9 Depression Total Score: 5 02/02/20 25 7:00 AM CDT documented as of this encounter Care Teams Coat Padder Relationship Specialty Start Date End Date Gilmar Galvan MD [address] [place] [address] PCP - General Family Practice 12/09/18 documented as of this encounter
--- OUTSIDE RECORDS SUMMARY | 2025-04-05 13:19 | XMS_ITS | Encounter Summary ---
Author Organization [facility] Address [address] [place] [address] Care Team Providers Care Personal Shopper Name Role Phone Gilmar Galvan MD Primary Care Provider Encounter Details Date Type Department Care Team (Late Contact Info) Description 11/09/2008 Outpatient Historical [facility] [address] Josh Clarke MD [address] [place] [address] [place] [address] Social History Tobacco Use Types Packs/Day Years Used Date Smoking Tobacco: Never Assessed Comments No Sex and Gender Information Value Date Recorded Sex Assigned at Not on file Legal Sex Female 3:13 AM HADOOP INFRASTRUCTURE ARCHITECT Gender Identity Not on file Sexual Orientation Not on file documented as of this encounter Plan of Treatment Upcoming Encounters Date Type Department Care Team (Late Contact Info) Description 04/06/2025 11:00 AM HADOOP INFRASTRUCTURE ARCHITECT Appointment [facility] [address]CT [address] [place] [address] 04/08/2025 8:30 AM HADOOP INFRASTRUCTURE ARCHITECT Confidential [facility] Psychiatry [place] [address] [facility] [place] [address] Jaimie Powell MD [address] [facility] and [place] [facility] [place] [address] 04/08/2025 10:30 AM HADOOP INFRASTRUCTURE ARCHITECT Appointment [facility] ECT [address] [place] [address] 04/11/2025 9:30 AM HADOOP INFRASTRUCTURE ARCHITECT Appointment [facility] ECT [address] [place] [address] 04/13/2025 9:30 AM HADOOP INFRASTRUCTURE ARCHITECT Appointment [facility] E[place] [address] [address] 04/15/2025 10:00 AM HADOOP INFRASTRUCTURE ARCHITECT Appointment [facility] [address] [address] [place] [place] [address] documented as of this encounter Procedures Procedure Name Priority Date/Time Associated Diagnosis Comments PATHOLOGY Routine 11/09/2008 3:21 PM CDT documented in this encounter Results * PATHOLOGY (11/09/2008 3:21 PM CDT) FINAL REPORT [facility] [address] [place], [place] [address] Patient: JUNIOR MARKS : 1990 Procedure Date: 11/09/2008 Accession Date: 11/09/2008 Case No: [id number] Ordering Dr: JOSH CLARKE Case types AW, BW, FW, NW and SH are performed by [facility], [place], [place] SURGICAL PATHOLOGY & NON-GYNECOLOGIC CYTOPATHOLOGY REPORT [...] 06:19 am Microscopic: Received are slides labeled [id number] Junior Marks. Sections of stomach sample antral [...] Respiratory 05/12/2022 05/12/2022 05/12/2022 4 :27 PM HADOOP INFRASTRUCTURE ARCHITECT R/O C. diff 03/11/2024 03/11/2024 03/11/2024 12:4 6 PM HADOOP INFRASTRUCTURE ARCHITECT C Diff 03/11/2024 03/11/2024 05/10/2024 1:16 AM HADOOP INFRASTRUCTURE ARCHITECT documented as of this encounter Care Teams Personal Shopper Relationship Specialty Start Date End Date Gilmar Galvan MD [address] [place] [address] PCP - General Family Practice 12/09/18 documented as of this encounter
--- OUTSIDE RECORDS SUMMARY | 2025-04-05 13:19 | XMS_ITS | Encounter Summary ---
Author Organization [facility] Address [address] [place] [address] Care Team Providers Care Nuclear Medicine Physician Name Role Phone Gilmar Galvan MD Primary Care Provider Encounter Details Date Type Department Care Team (Late st Contact Info) Description 04/10/2006 Outpatient Historical [facility] Pediatrics [address] [facility] [address] [facility] [address] [address] [place] [address] [place] [address] Social History Tobacco Use Types Packs/Day Years Used Date Smoking Tobacco: Never Assessed Comments Unknown Sex and Gender Information Value Date Recorded Sex Assigned at Not on file Legal Sex Female 3:13 AM PRODUCTION OPERATIONS MANAGER Gender Identity Not on file Sexual Orientation Not on file documented as of this encounter Plan of Treatment Upcoming Encounters Date Type Department Care Team (Late st Contact Info) Description 04/06/2025 11:00 AM PRODUCTION OPERATIONS MANAGER Appointment [facility] ECT [address] [place] [address] 04/08/2025 8:30 AM PRODUCTION OPERATIONS MANAGER Confidential [facility] Psychiatry [place] [address] [place] [facility] [place] [address] Jaimie Powell MD [address] [facility] [address] [facility] [address] 04/08/2025 10:30 AM PRODUCTION OPERATIONS MANAGER Appointment [facility] ECT [address] [place] [address] 04/11/2025 9:30 AM PRODUCTION OPERATIONS MANAGER Appointment [facility] ECT [address] [place] [address] 04/13/2025 9:30 AM PRODUCTION OPERATIONS MANAGER Appointment [facility] ECT [address] [place] [address] 04/15/2025 10:00 AM PRODUCTION OPERATIONS MANAGER Appointment [facility] [address] [address] [place] [address] documented as of this encounter Visit Diagnoses Not on filedocumented in this encounter Additional Health Concerns Infection Onset Date Last Indicated Resolved Time R/O COVID-19 07/30/2019 07/30/2019 08/04/2019 6:05 AM CDT R/O Respiratory 05/12/2022 05/12/2022 05/12/2022 4 :27 PM PRODUCTION OPERATIONS MANAGER R/O C. diff 03/11/2024 03/11/2024 03/11/2024 12:4 6 PM PRODUCTION OPERATIONS MANAGER C Diff 03/11/2024 03/11/2024 05/10/2024 1:16 AM PRODUCTION OPERATIONS MANAGER documented as of this encounter Care Teams Nuclear Medicine Physician Relationship Specialty Start Date End Date Gilmar Galvan MD [address] [place] [address] PCP - General Family Practice 12/09/18 documented as of this encounter
--- NOTE | 2025-04-05 16:05 | ED_ITS ---
HPI - Chest Pain General Chief Complaint: Chest Pain Stated Complaint: chest pain since this morning, tearful, anxiety Time Seen by Provider: 04/05/25 12:21 History of Present Illness HPI narrative: Patient with history of severe anxiety, panic attacks, recently completed ECT treatment, presents here with severe anxiety, chest pain, shortness of breath. Related Data Home Medications ?Medication ?Instructions ?Recorded ?Confirmed ?Last Taken ?Type buspirone 15 mg tablet mg 03/06/25 Unknown History clonazepam 1 mg tablet mg 03/06/25 Unknown History norethindrone acetate 1 mg-ethinyl tablet 03/06/25 Un known History estradiol 20 mcg tablet paroxetine HCl 20 mg tablet mg PO 03/06/25 Unknown Hi story Allergies Allergy/AdvReac Type Severity Reaction Status Date / Time ketorolac (From Toradol) Allergy Difficulty Verified 04/05/25 12:25 Breathing Penicillins Allergy Rash Verified 04/05/25 12:25 Review of Systems 2 Review of Systems: For HPI [facility] Past Medical History Medical History History of anxiety Surgical History Surgical History History of delivery Social History Social History Smoking status: Never smoker Alcohol intake: current Substance use: current Substance use type: does not use Other substance usage details: gummies for sleep Lack of Transportation: No Lack of Food: Never True Current Housing: I Have Housing Concerned About Future Housing: No Difficulty Paying Gas/Electric Bills: No Difficulty Paying for Meds: No Currently Unemployed: No Education: Associate Degree Difficulty w/ Childcare or Family Care: No Spiritual care concerns: No Exam 2 Narrative: EXAMINATION OF ORGAN SYSTEMS/BODY AREAS: Constitutional: Vital signs per nursing GENERAL: Increasingly anxious, tearful HEAD: Normal with no signs of head trauma. EYES: EOMI, conjunctiva normal ENT: Hearing grossly intact LUNGS: Slightly hyperventilating HEART: [Regular rate and rhythm] ABD: Nondistended EXT: Normal range of motion SKIN: [No rashes or lesions.] NEURO: [Alert. No gross focal sensory or strength deficits.] PSYCH: Incredibly anxious and tearful affect Course Vital Signs Vital signs: Vital Signs Pulse Rate 98 04/05/25 12:06 Respiratory Rate 18 04/05/25 12:06 Pulse Oximetry 98 04/05/25 12:06 Temperature 98.2 F 04/05/25 12:16 Pulse Rate 107 H 04/05/25 13:26 Respiratory Rate 17 04/05/25 13:26 Blood Pressure 102/73 04/05/25 13:26 Pulse Oximetry 100 04/05/25 13:26 Oxygen Delivery Room Air 04/05/25 12:20 [facility] MDM Narrative Medical decision making narrative: Patient with history of anxiety/panic attacks presenting here with symptoms consistent with panic attack. On exam patient is [hyperventilating and is quite tearful and anxious]. I will obtain EKG and chest xray to rule out arrhythmia/ischemia, pneumothorax, or other cause of chest discomfort/shortness of breath. Chest x-ray on my independent interpretation does not show any acute abnormality, no pneumothorax or consolidation. EKG - 12-Lead: Performed at 1206. Interpreted by me. [Sinus rhythm]. Rate 103. [Normal] axis. WA-interval [normal]. QRS duration [normal]. QTc [normal]. [No ST segment elevation or depression]. [T-wave normal]. Impression: No EKG evidence of acute ischemia or dysrhythmia. On reevaluation patient is feeling much better, resting comfortably. I do feel patient is stable for discharge home at this time with followup to their doctor, and return here if symptoms return or worsen. She denies wanting to hurt herself or anyone else. I did note she already has recently filled rx for clonazepam. She is agreeable to outpatient management. Differential Diagnosis Differential Diagnosis: arrhythmia/ischemia, pneumothorax, panic attack, etc. Lab Data 04/05/25 12:27 04/05/25 12:27 Labs: Lab Results 04/05/25 Range/Units 12: WBC 9.9 (4.5-10.0) K/mm3 RBC 4.49 (4.2-5.4) M/mm3 Hgb 13.6 (12.0-15.0) g/dL Hct 40.2 (37.0-47.0) % MCV 89.5 (80-100) fl MCH 30.3 (26-34) pg MCHC 33.8 (32-36) g/dl RDW 13.2 (11.5-14.5) % Plt Count 363 (150-375) k/mm3 MPV 9.1 (7.4-10.4) fl Immature Gran % (Auto) 0.3 (0-0.5) % Neut % (Auto) 62.5 (45.5-73.1) % Lymph % (Auto) 27.4 (18.3-44.2) % Travis % (Auto) 8.0 (2.6-8.5) % Eos % (Auto) 1.1 (0-4.4) % Baso % (Auto) 0.7 (0.2-1.2) % Lymph # (Auto) 2.71 (0.9-3.2) K/mm3 Travis # (Auto) 0.8 H (0.1-0.6) K/mm3 Eos # (Auto) 0.1 (0-0.3) K/mm3 Baso # (Auto) 0.1 (0.0-0.1) K/mm3 Abs Immat Gran (auto) 0.03 (0.00-0.031) K/mm3 Absolute Neuts (auto) 6.2 (1.3-6.7) K/mm3 Absolute Nucleated RBC 0.000 (0.0-0.012) K/mm3 Nucleated RBC % 0.0 (0.0-0.2) % PT 12.9 (11.1-14.7) Seconds INR 1.0 APTT 24.3 (22.3-36.8) Seconds Sodium 137 (137-145) mmol/L Potassium 4.1 (3.4-5.0) mmol/L Chloride 104 (98-107) mmol/L Carbon Dioxide 24 (22-30) mmol/L Anion Gap 9 (4-12) mmol/L BUN 14 D (7-17) mg/dL Creatinine 0.89 (0.7-1.0) mg/dL Estim Creat Clear Calc 72 ml/min Estimated GFR > 60 (59 - ) Glucose 95 (65-110) mg/dL Calcium 9.3 (8.4-10.2) mg/dL Total Bilirubin 0.6 (0.2-1.3) mg/dL AST 53 H (14-36) U/L ALT 57 H (6-35) U/L Alkaline Phosphatase 98 (38-126) U/L Troponin I < 0.012 (0.000-0.034) ng/mL Total Protein 8.0 (6.3-8.2) g/dL Albumin 4.5 (3.5-5.1) g/dL Lipase 74 (23-300) U/L Imaging Data Radiologist's impression: ITS Impressions Chest X-Ray 04/05/25 12:37 IMPRESSION: 1: NO ACUTE CARDIOPULMONARY DISEASE. Discharge Plan Discharge Clinical Impression: Panic attack Patient Disposition: Home Condition: Stable Instructions: Panic Attack (ED) Additional Instructions: Please follow up with your doctor; you can always return for any further issues. Patient Language: [place]uran Prescriptions: No Action paroxetine HCl 20 mg tablet PO norethindrone ac-eth estradiol 1-20 mg-mcg tablet buspirone 15 mg tablet clonazepam 1 mg tablet clindamycin HCl [Cleocin HCl] 300 mg capsule 300 mg PO BID 7 Days Qty: 14 0RF clindamycin HCl [Cleocin HCl] 150 mg capsule 150 mg PO BID 7 Days Qty: 14 0RF Follow-up/Referrals: UNKNOWN,DOCTOR [Primary Care Provider]
== END 2025-04-05 13:27 | disposition home or self-care (01) ==
PROVIDERS: Student in an Organized Health Care Education/Training Program; Emergency Provider Emergency Medicine
DX: F41.0 Panic disorder [episodic paroxysmal anxiety] (principal); R00.0 Tachycardia, unspecified; R93.1 Abnormal findings on diagnostic imaging of heart and coronary circulation
CPT/HCPCS: 36415; 71046; 80053; 83690; 84484; 85025; 85610; 85730; 93005; 96374; 99284; A9270; J2405